=== PATIENT | female | born 1950 | race Caucasian/White ===

== ENCOUNTER 2022-04-01 15:03 | Inpatient (IN) ==
[2022-04-01] MEDS ORDERED: SODIUM CHLORIDE 0.9% 1000ML 1,000 ML IV STA (15:20)
[2022-04-01 16:45] LABS: Basophils # (auto) 0.07 K/uL (0-0.2); Basophils % (auto) 0.4 %; Eosinophils # (auto) 0.04 K/uL (0-0.50); Eosinophils % (auto) 0.2 %; Hematocrit (blood only) 40.7 % (34.1-44.9); Hemoglobin 13.8 g/dl (12.0-16.0); Immature Granulocytes # (auto) 0.16 K/uL (0.00-0.02); Immature Granulocytes % (auto) 0.8 %; Lymphocytes # (auto) 1.32 K/uL (1.2-3.4); Mean Corpuscular Hemoglobin 29.9 pg (25.0-34.0); Mean Corpuscular Hgb Conc 33.9 g/dL (32.0-36.0); Mean Corpuscular Volume 88.3 fL (80.0-100.0); Monocytes # (auto) 1.83 K/uL (0.24-0.82); Monocytes % (auto) 9.7 %; Neutrophils # (auto) 15.46 K/uL (1.4-6.5); Neutrophils % (auto) 81.9 %; Platelet Count 433 K/uL (130-400); RDW Coefficient of Variation 12.9 % (11.5-14.5); RDW Standard Deviation 41.7 fL (36.4-46.3); Red Blood Count 4.61 M/uL (3.93-5.22); White Blood Count 18.88 K/ul (4.8-10.8)
[2022-04-01 17:11] LABS: Albumin Globulin Ratio 0.9 (0.9-2); Albumin Level 3.5 gm/dl (3.4-5.0); BUN Creatinine Ratio 26.2 (10-20); Bilirubin,Total 0.4 mg/dl (0.2-1.0); Calcium 9.6 mg/dl (8.5-10.1); Est GFR (African American) 61.3 ml/min; Est GFR (Non-African American) 52.9 ml/min; Globulin 4.1 gm/dl (2.5-4.0); Potassium 3.5 mmol/L (3.5-5.1); Total Protein 7.6 gm/dl (6.0-8.3)
[2022-04-01] MEDS ORDERED: SODIUM CHLORIDE 0.9% 1000ML 1,000 ML IV ONE (17:17)
[2022-04-01 17:18] LABS: Troponin I High Sensitivity 14.3 pg/ml (0-14)
--- NOTE | 2022-04-01 17:44 | XRay Report ---
XR abdomen 2V w PA chest CLINICAL HISTORY: Abd pain, SOB TECHNIQUE: 2 views of the abdomen were obtained. A single view of the chest was obtained. Comparison: Comparison is made to chest radiograph 12/15/2012 FINDINGS: No lines and tubes are seen. Cardiomegaly is noted. The lungs are clear. There is a moderate left ple ural effusion, new from prior exam. Degenerative changes are seen in the visualized skeleton. The bowel gas pattern is nonobstructive. A moderate amount of stool is noted within the large bowel. IMPRESSION: Moderate left pleural effusion, new from prior exam. Nonobstructive bowel gas pattern. ACT 112: Negative or not required by law. Electronically signed by: Jw So M.D. 04/01/2022 5:42 PM
[2022-04-01] MEDS ORDERED: OPTIRAY 300 100mL IV ONE (17:46)
--- NOTE | 2022-04-01 18:01 | CT Scan Report ---
CT abd pelvis IV con only CLINICAL HISTORY: vomiting, pain TECHNIQUE: Helical axial images of the abdomen and pelvis were obtained and displayed. Automated dose lowering techniques and/or adjustment according to patient size were utilized for this exam. This e xam was performed with intravenous contrast. CT DOSE: 1230.77 mGycm COMPARISON: None available at the time of this dictation. FINDINGS: Exam is limited by patient body habitus. Lower chest: A moderate left pleural effusion is seen. There is associated atelectasis. Liver: Unremarkable. No focal lesions are seen. Gallbladder and biliary tree: Patient is status post cholecystectomy. Physiologic prominence of the b iliary ducts is noted. Pancreas: Fatty replacement of the pancreas is seen. Spleen: Unremarkable. Adrenals: Unremarkable. Kidneys and ureters: Subcentimeter hypodensities are too small to characterize. Bladder: Limited evaluation due to underdistention. Reproductive organs: Bilateral ovarian cysts are noted. Bowel: Unremarkable. Lymph nodes Retroperitoneal: Unremarkable. Pelvic: Unremarkable. Mesenteric: Unremarkable. Peritoneum: Normal. Vessels: Unremarkable. Abdominal wall: Unremarkable. Bones: Unremarkable. IMPRESSION: No acute abnormalities and in particular no evidence of obstruction. ACT 112: Negative or not required by law. Electronically signed by: Jw So M.D. 04/01/2022 5:59 PM
--- NOTE | 2022-04-01 18:06 | Emergency Department Note ---
Impression & Plan Weakness, LUQ abdominal pain, Pleural effusion, Leukocytosis, Vomiting, Weight loss ED Provider Note NAME: DANG JIMENEZ AGE: 71 SEX: F : 1950 ARRIVES VIA: Walk-In INFORMANT: [Patient][family] ED PROVIDER(S): [Babatunde Boyd MD] CHIEF COMPLAINT: Vomiting HISTORY OF PRESENT ILLNESS: Patient is a 71-year-old female presents to the ER with complaints of vomiting and weight loss. She has been vomiting for over a month and she has lost over 50 pounds. In the last month, she has developed some left upper quadrant and left flank pain. The pain is a 6/10 and is worse with movement or leaning over. She has not had fever. She has been mildly short of breath. No cough or diarrhea or urinary complaints. The patient had an endoscopy done in the [place] area. She was told that she was not digesting her food well. She has had no follow-up since. The patient has had her gallbladder removed, she denies any other abdominal surgeries. REVIEW OF SYSTEMS: See HPI for pertinent positives and negatives. A total of ten systems were reviewed and were otherwise negative. PMHx/PSHx: See Below SOCIAL HISTORY: See Below. PHYSICAL EXAM: GENERAL: Patient is in no acute distress. HEENT: No acute trauma, normocephalic atraumatic, mucous membranes moist, no nasal congestion, no scleral icterus. NECK: No stridor, no adenopathy, no meningismus, trachea is midline. LUNGS: Diminished breath sounds on the left, no wheezing or rhonchi, no respir atory distress. HEART: Without murmurs gallops or rubs, regular rate and rhythm. ABDOMEN: Soft, tender in the left upper quadrant, obese. No peritonitis. EXTREMITIES: No cyanosis, moderate bilateral pedal edema, moves all extremities without pain or difficulty NEUROLOGIC: Oriented x 3, no acute motor or sensory deficits, no focal weakness. SKIN: No rash, no jaundice, no diaphoresis. Back: Left flank discomfort to percussion. DIFFERENTIAL DIAGNOSIS: Appendicitis, ovarian cyst, ovarian torsion, diverticulitis, UTI, obstruction, mesenteric ischemia, aortic pathology, inflammatory bowel disease, renal colic, PUD, pancreatitis, biliary pathology, hernia, volvulus, constipation, as well as other pathologies. EMERGENCY DEPARTMENT COURSE/PROCEDURES: ECG: Indication was weakness. The ECG shows a normal sinus rhythm with a rate of 91. There is significant baseline artifact. There is no ST elevation, no PVCs. The QTc is 462. Continuous Cardiac Monitoring: An order was placed for continuous cardiac monitoring. The monitor shows a rate of 89 with normal sinus rhythm. MEDICAL DECISION MAKING: There is a moderate leukocytosis at 18,000, this would be consistent with infection. There is a normal hemoglobin. Platelet count slightly elevated at 433. No renal failure. Magnesium low at 1.6. Alk phos slightly elevated, the remaining liver enzymes are unremarkable. ECG showed a normal sinus rhythm, no obvious ischemia. Cardiac enzyme testing x1 was slightly elevated, this elevati on could be from cardiac injury versus mismatch. There is no evidence for pancreatitis. Procalcitonin level was not elevated. The patient appeared to be in a euthyroid state. Lyme disease testing was negative. COVID testing was negative. Abdominal series shows a large left pleural effusion. No bowel obstruction. Abdominal and pelvis CT shows the same effusion with some potential atelectasis. No acute surgical pathology by CT imaging. No signs of infection by CT imaging. On exam, the patient was tender in the left lower quadrant and also with percussion of the left flank. Patient received IV saline, 2 L. She was given IV magnesium. She received IV cefepime as antibiotic coverage. The patient presents with weight loss, vomiting and some left flank/chest discomfort. She appears to have a left pleural effusion, potentially from aspiration pneumonia. Certainly, malignancy is a concern. I do think the flank pain is from the effusion. Fortunately, her abdominal and pelvis CT is without acute pathology. Given the circumstances, I do think a hospital stay is warranted. She may benefit from a thoracentesis. She requires IV antibiotic therapy. I spoke with the patient and case management. The on-call hospitalist was consulted. Past Med/Surg History Medical History HTN (hypertension) Hypothyroid Surgical History (Updated 04/01/22 @ 23:08 by Babatunde Boyd MD) History of cholecystectomy Social History Smoking Status: Never smoker Preferred Language: Nepali Feels Safe at Home: Yes Allergies Allergies Allergy/AdvReac Type Severity Reaction Status Date / Time amlodipine Allergy Severe SHORT OF Verified 04/01/22 18:56 BREATH losartan [From Cozaar] Allergy Severe SHORT OF Verified 04/01/22 18:56 BREATH cefazolin Allergy Mild PATIENT Verified 04/01/22 18:56 HAD GENERALIZED ITCHING JUST AFTER ANCEF WAS STARTED lisinopril AdvReac Intermediate Cough Verified 04/01/22 18:56 Home Meds Home Medications Medication Instructions Recorded Confirmed albuterol sulfate 90 mcg/actuation 1 - 2 puff inhalation Q4H PRN 04/01/22 04/01/22 aerosol inhaler COUGH/WHEEZING atorvastatin 10 mg tablet 10 mg PO DAILY 04/01/22 04/01/22 fesoterodine 8 mg tablet,extended 8 mg PO DAILY 04/01/22 04/01/22 release 24 hr (Toviaz) irbesartan 150 mg tablet 150 mg PO DAILY 04/01/22 04/01/22 levothyroxine 75 mcg tablet 75 mcg PO DAILYBB 04/01/22 04/01/22 metoprolol succinate 200 mg 200 mg PO BID 04/01/22 04/01/22 tablet,extended release 24 hr montelukast 10 mg tablet 10 mg PO QPM 04/01/22 04/01/22 omeprazole 40 mg capsule,delayed 40 mg PO DAILYBB 04/01/22 04/01/22 release polyethylene glycol 3350 17 17 g PO DAILY 04/01/22 04/01/22 gram/dose oral powder (Miralax) triamterene 37.5 1 cap PO DAILY 04/01/22 04/01/22 mg-hydrochlorothiazide 25 mg capsule venlafaxine 150 mg 150 mg PO DAILY 04/01/22 04/01/22 capsule,extended release 24 hr venlafaxine 75 mg capsule,extended 75 mg PO DAILY 04/01/22 04/01/22 release 24 hr Results & Data (ED) Vital Signs Vital Signs - 24 hr 04/01/22 15:19 04/01/22 17:03 Temperature 37.2 C Temperature Source Temporal Artery Scan Pulse Rate 89 Pulse Rate [Left Radial] 75 Pulse Rhythm Regular Pulse Rhythm [Left Radial] Regular Pulse Strength Normal Respiratory Rate 20 20 Respiratory Effort / Characteristics Non-Labored Spontaneous Respiratory Depth Normal Normal Respiratory Pattern Regular Blood Pressure 120/76 Blood Pressure Mean 90 Blood Pressure Position Sitting Pulse Oximetry 94 97 Oxygen Delivery Method Room Air Room Air Sepsis Recent Fever Within 48 Hours No Sepsis New/Unexplained Change in Mental Status No Sepsis Action Taken by Nursing No Action Required Home Medications Current Medication List: was personally reviewed by me Laboratory Data Attestation: I reviewed the patient's lab results. Result diagrams: 04/01/22 16:34 04/01/22 16:34 Lab Results 04/01/22 04/01/22 04/01/22 Range/Units 16:34 16:34 17:17 WBC 18.88 H (4.8-10.8) K/ul RBC 4.61 (3.93-5.22) M/uL Hgb 13.8 (12.0-16.0) g/dl Hct 40.7 (34.1-44.9) % MCV 88.3 (80.0-100.0) fL MCH 29.9 (25.0-34.0) pg MCHC 33.9 (32.0-36.0) g/dL RDW Std Deviation 41.7 (36.4-46.3) fL RDW Coeff of Lance 12.9 (11.5-14.5) % Plt Count 433 H (130-400) K/uL MPV 10.0 (9.4-12.3) fL Immature Gran % (Auto) 0.8 % Neut % (Auto) 81.9 % Lymph % (Auto) 7.0 % Stanly % (Auto) 9.7 % Eos % (Auto) 0.2 % Baso % (Auto) 0.4 % Neut # (Auto) 15.46 H (1.4-6.5) K/uL Lymph # (Auto) 1.32 (1.2-3.4) K/uL Stanly # (Auto) 1.83 H (0.24-0.82) K/uL Eos # (Auto) 0.04 (0-0.50) K/uL Baso # (Auto) 0.07 (0-0.2) K/uL Immature Gran # (Auto) 0.16 H (0.00-0.02) K/uL Sodium 134 L (136-145) mmol/L Potassium 3.5 (3.5-5.1) mmol/L Chloride 96 L (98-107) mmol/L Carbon Dioxide 26 (21-32) mmol/L Anion Gap 12 H (3-11) BUN 28 H (6-23) mg/dl Creatinine 1.07 (0.6-1.2) mg/dl Est Cr Clr Drug Dosing 60.0 ml/min Est GFR ( Amer) 61.3 ml/min Est GFR (Non-Af Amer) 52.9 ml/min BUN/Creatinine Ratio 26.2 H (10-20) Glucose 109 H (70-99(Fasting)) mg/dl Calcium 9.6 (8.5-10.1) mg/dl Magnesium 1.6 L (1.7-2.4) mg/dl Total Bilirubin 0.4 (0.2-1.0) mg/dl AST 15 (13-39) U/L ALT 11 (7-52) U/L Alkaline Phosphatase 115 H (34-104) U/L Troponin I High Sens 14.3 H (0-14) pg/ml Total Protein 7.6 (6.0-8.3) gm/dl Albumin 3.5 (3.4-5.0) gm/dl Globulin 4.1 H (2.5-4.0) gm/dl Albumin/Globulin Ratio 0.9 (0.9-2) Lipase 12 (11-82) U/L TSH (0.300-4.500) uIu/ml Lyme Disease IgG Ab (Negative) Lyme Disease IgM Ab (Negative) 04/01/22 04/01/22 Range/Units 17:17 17:17 WBC (4.8-10.8) K/ul RBC (3.93-5.22) M/uL Hgb (12.0-16.0) g/dl Hct (34.1-44.9) % MCV (80.0-100.0) fL MCH (25.0-34.0) pg MCHC (32.0-36.0) g/dL RDW Std Deviation (36.4-46.3) fL RDW Coeff of Lance (11.5-14.5) % Plt Count (130-400) K/uL MPV (9.4-12.3) fL Immature Gran % (Auto) % Neut % (Auto) % Lymph % (Auto) % Stan[place] % (Auto) % Eos % (Auto) % Baso % (Auto) % Neut # (Auto) (1.4-6.5) K/uL Lymph # (Auto) (1.2-3.4) K/uL Stanly # (Auto) (0.24-0.82) K/uL Eos # (Auto) (0-0.50) K/uL Baso # (Auto) (0-0.2) K/uL Immature Gran # (Auto) (0.00-0.02) K/uL Sodium (136-145) mmol/L Potassium (3.5-5.1) mmol/L Chloride (98-107) mmol/L Carbon Dioxide (21-32) mmol/L Anion Gap (3-11) BUN (6-23) mg/dl Creatinine (0.6-1.2) mg/dl Est Cr Clr Drug Dosing ml/min Est GFR ( Amer) ml/min Est GFR (Non-Af Amer) ml/min BUN/Creatinine Ratio (10-20) Glucose (70-99(Fasting)) mg/dl Calcium (8.5-10.1) mg/dl Magnesium (1.7-2.4) mg/dl Total Bilirubin (0.2-1.0) mg/dl AST (13-39) U/L ALT (7-52) U/L Alkaline Phosphatase (34-104) U/L Troponin I High Sens (0-14) pg/ml Total Protein (6.0-8.3) gm/dl Albumin (3.4-5.0) gm/dl Globulin (2.5-4.0) gm/dl Albumin/Globulin Ratio (0.9-2) Lipase (11-82) U/L TSH 3.648 (0.300-4.500) uIu/ml Lyme Disease IgG Ab Negative (Negative) Lyme Disease IgM Ab Negative (Negative) Administered Medications Enoxaparin Sodium (Enoxaparin Inj 40 Mg/0.4 Ml Syr) 40 mg SQ Q12H ABEL Stop: 05/01/22 21:59 Last Admin: 04/01/22 22:09 Dose: Not Given Documented By: SANJIV Lactated Ringer's (Lr) 1,000 mls @ 80 mls/hr IV .[id number] ABEL Stop: 04/02/22 20:29 Last Admin: 04/01/22 21:43 Dose: 80 mls/hr Documented By: SANJIV Famotidine 20 mg/ Syringe 5 mls @ 2.5 mls/min IV Q12H ABEL Stop: 05/01/22 21:59 Last Admin: 04/01/22 22:09 Dose: 2.5 mls/min Documented By: SANJIV Discontinued Medications Sodium Chloride (Nss 1000ml) 1,000 mls @ 999 mls/hr IV .Q1H1M STA Stop: 04/01/22 16:20 Last Infusion: 04/01/22 19:19 Dose: 0 mls/hr Documented By: Admin: 04/01/22 18:11 Dose: 999 mls/hr Documented By: SANJIV Sodium Chloride (Nss 1000ml) 1,000 mls @ 999 mls/hr IV .Q1H1M ONE Stop: 04/01/22 18:17 Last Infusion: 04/01/22 19:18 Dose: 0 mls/hr Documented By: Admin: 04/01/22 18:12 Dose: 999 mls/hr Documented By: SANJIV Cefepime HCl (Maxipime) 2,000 mg in 20 mls @ 5 mls/min IV NOW STA; Protocol Stop: 04/01/22 18:15 Last Admin: 04/01/22 19:18 Dose: 5 mls/min Documented By: SANJIV Magnesium Sulfate/Dextrose (Magnesium Sulfate / D5w) 1 gm in 100 mls @ 100 mls/hr IV NOW STA Stop: 04/01/22 19:59 Last Infusion: 04/01/22 22:10 Dose: 0 mls/hr Documented By: Admin: 04/01/22 19:18 Dose: 100 mls/hr Documented By: SANJIV Ioversol (Optiray 300 100ml) 81 ml IV ONCE ONE Stop: 04/01/22 17:47 Last Admin: 04/01/22 17:49 Dose: 81 ml Documented By: GEOFFREY Magnesium Oxide (Magnesium Oxide 400 Mg Tab) 400 mg PO NOW STA Stop: 04/01/22 19:35 Last Admin: 04/01/22 21:44 Dose: 400 mg Documented By: SANJIV Magnesium Oxide (Magnesium Oxide 400 Mg Tab) Confirm Administered Dose 400 mg . ROUTE .STK-MED ONE Stop: 04/01/22 21:40 Last Admin: 04/01/22 21:44 Dose: Not Given Documented By: RD Imaging Data Radiologist's Impression: Chest/Abdomen X-ray 04/01/22 15:20 XR abdomen 2V w PA chest CLINICAL HISTORY: Abd pain, SOB TECHNIQUE: 2 views of the abdomen were obtained. A single view of the chest was obtained. Comparison: Comparison is made to chest radiograph 12/15/2012 FINDINGS: No lines and tubes are seen. Cardiomegaly is noted. The lungs are clear. There is a moderate left pleural effusion, new from prior exam. Degenerative changes are seen in the visualized skeleton. The bowel gas pattern is nonobstructive. A moderate amount of stool is noted within the large bowel. IMPRESSION: Moderate left pleural effusion, new from prior exam. Nonobstructive bowel gas pa ttern. ACT 112: Negative or not required by law. Electronically signed by: Jw So M.D. 04/01/2022 5:42 PM Abdomen/Pelvis CT 04/01/22 17:17 CT abd pelvis IV con only CLINICAL HISTORY: vomiting, pain TECHNIQUE: Helical axial images of the abdomen and pelvis were obtained and displayed. Automated dose lowering techniques and/or adjustment according to patient size were utilized for this exam. This exam was performed with intravenous contrast. CT DOSE: 1230.77 mGycm COMPARISON: None available at the time of this dictation. FINDINGS: Exam is limited by patient body habitus. Lower chest: A moderate left pleural effusion is seen. There is associated atelectasis. Liver: Unremarkable. No focal lesions are seen. Gallbladder and biliary tree: Patient is status post cholecystectomy. Physiologic prominence of the biliary ducts is noted. Pancreas: Fatty replacement of the pancreas is seen. Spleen: Unremarkable. Adrenals: Unremarkable. Kidneys and ureters: Subcentimeter hypodensities are too small to characterize. Bladder: Limited evaluation due to underdistention. Reproductive organs: Bilateral ovarian cysts are noted. Bowel: Unremarkable. Lymph nodes Retroperitoneal: Unremarkable. Pelvic: Unremarkable. Mesenteric: Unremarkable. Peritoneum: Normal. Vessels: Unremarkable. Abdominal wall: Unremarkable. Bones: Unremarkable. IMPRESSION: No acute abnormalities and in particular no evidence of obstruction. ACT 112: Negative or not required by law. Electronically signed by: Jw So M.D. 04/01/2022 5:[address] 04/01/22 19:20 CT chest diagnostic wo con CLINICAL HISTORY: Dyspnea, abdominal pain TECHNIQUE: Multidetector row helical CT of the chest was performed. Coronal and sagittal reformations were obtained. Automated dose lowering techniques and/or adjustment according to patient size were utilized for this exam. CT DOSE: 1149.85 mGy.cm Comparison: Comparison is made to chest radiograph 04/01/2022 FINDINGS: Lungs and pleura: There is a moderate left pleural effusion with associated atelectasis. There is a 4 mm pulmonary nodule in the right upper lobe (series 4 image 56). Heart and pericardium: Heart size is normal. No pericardial effusion. Vessels: Unremarkable. Mediastinum and radha: Unremarkable. Chest wall and lower neck: Unremarkable. Abdomen: For findings below the diaphragm, please refer to CT of the abdomen dated the same. Bones: Degenerative changes in the thoracic spine. IMPRESSION: 1. There is a moderate left pleural effusion. 2. 4 mm pulmonary nodule in the right apex. According to Fleischner criteria, no follow-up is required in low risk patients, in high-risk patients, a 12 month follow-up CT can be optionally performed. ACT 112: Negative or not required by law. Electronically signed by: Jw So M.D. 04/01/2022 8:15 PM Discharge Plan Visit Data Chief Complaint: Vomiting Stated Complaint: VOMITING, HAD EGD 03/17, WEIGHT LOSS ED Provider: Babatunde Boyd Discharge Problem: Weakness, LUQ abdominal pain, Pleural effusion, Leukocytosis, Vomiting, Weight loss Patient Disposition: Admitted As Inpatient Condition: Fair
[2022-04-01] MEDS ORDERED: CEFEPIME 2,000 MG/20 ML VIAL IV STA (18:12)
--- NOTE | 2022-04-01 18:53 | History & Physical Report ---
Date of Service April 01, 2022 Assessment & Plan (1) HTN (hypertension): Plan: Sheyla is a 71-year-old female with a history of gastritis and bezoar presents with intractable nausea/vomiting, 50 pounds weight loss over 2 months, and general failure to thrive with progressive weakness. She is found to have a left lower lobe effusion? With underlying pneumonia, no known history of malignancy. Did have an EGD with [facility] which showed a bezoar and gastritis, however she was lost to follow-up would like to establish with Moriah ji. Very mild troponin leak on admission likely due to volume depletion, trended overnight Abdominal pain, intractable vomiting, weight loss EGD at [facility] previously: Gastritis, bezoar. Was lost to follow-up due to being unable to follow-up appointment, would like to see GI and establish with Moriah ji 50 pound weight loss in 2 months, no prior history of cancer. Last colonoscopy 5 years ago, polyps and recommended for 5-year follow-up Family history of colorectal cancer, breast cancer Leukocytosis to 18.8 Mildly hyponatremic to 134 Anion gap 12, creatinine 1.07, BUN/creatinine ratio 26 mild starvation ketosis Alk phos 115 Troponin high-sensitivity 14.3 TSH pending Lyme pending CTA/P: No acute abnormalities, no evidence of obstruction. Gallbladder is surgically absent. CXR: Moderate left pleural effusion, new. Nonobstructive bowel gas. EKG: Poor quality. No territorial ST segment changes.? Inferior inversions. Protonix IV daily Famotidine twice daily as needed Magnesium low, repletion ordered Moderate left pleural effusion ? Underlying pneumonia. Patient without fever/hypoxia with leukocytosis to 18 Pro-Paco pending CTchest pending Lasix deferred pending above. No history of malignancy, however has had concerning weight loss in the setting of poor p.o. intake Empirically continued on Rocephin daily for CAP coverage Hypertension Continue irbesartan Continue Triam/hydrochlorothiazide 37.5125 once daily Toprol 200 mg 1 tab twice daily Hyperlipidemia Continue atorvastatin 10 mg daily Overactive bladder -Continue fesoterodine Anxiety/depression [id number] mg ER daily Mild intermittent asthma No PFTs available for review No wheezing Nebs as needed No acute exacerbation at this time Hypothyroidism Continue Synthroid 75 mcg daily VTE prophylaxis: Lovenox Diet: Heart healthy CODE STATUS: DNR, discussed with patient Disposition: Med telemetry while pending tropes, then downgrade (2) HLD (hyperlipidemia): (3) Anxiety: (4) Hypothyroid: (5) Mild intermittent asthma: (6) History of cholecystectomy: History of Present Illness Primary Care Provider: Kitty Herrmann MD 71-year-old female presents to the ER with vomiting for 1 month, 50 pounds weight loss. Left upper quadrant and left flank pain. Pain is worse with movement and leaning over. She does have a history of cholecystectomy. Patient reports that beginning in January she had worsening reflux, poor appetite, and abdominal pain. She was trialed on several weeks of PPI therapy per [facility] without improvement. She underwent a EGD in February which showed gastritis, and increased food residue/bezoar. She was supposed to have 2-week follow-up, however her GI provider when vacation they were not able to obtain a follow-up appointment. She continued to have daily nausea, nonbloody/nonbilious emesis, and feelings of unwellness. She has lost 50 pounds in approximately 2 months. No personal history of cancer. Last colonoscopy was 5 years ago, some polyps removed, was recommended for 5-year follow-up. She is short of breath with minimal exertion, and feels that she gets some chest pain with deep inspiration. She is noted to have an effusion on her imaging. She reports she is not short of breath at rest, has not had heart racing, and is comfortable on room air. She has had bowel movements approximately every 3 days which are soft, nonbloody, and have not been black or tarry. She does have some chronic low back pain. Medical History: Reviewed Medications: Reviewed Surgical History: Reviewed Allergies: Reviewed Social History: Denies tobacco, alcohol, medical marijuana Code Status: DNR/DNI, discussed with patient at bedside Allergies Allergy/AdvReac Type Severity Reaction Status Date / Time amlodipine Allergy Severe SHORT OF Verified 04/01/22 18:56 BREATH losartan [From Cozaar] Allergy Severe SHORT OF Verified 04/01/22 18:56 BREATH cefazolin Allergy Mild PATIENT Verified 04/01/22 18:56 HAD GENERALIZED ITCHING JUST AFTER ANCEF WAS STARTED lisinopril AdvReac Intermediate Cough Verified 04/01/22 18:56 Home Medications Medication Instructions Recorded Confirmed Type albuterol sulfate 90 mcg/actuation 1 - 2 puff inhalation Q4H PRN 04/01/22 04/01/22 History aerosol inhaler COUGH/WHEEZING atorvastatin 10 mg tablet 10 mg PO DAILY 04/01/22 04/01/22 History fesoterodine 8 mg tablet,extended 8 mg PO DAILY 04/01/22 04/01/22 History release 24 hr (Toviaz) irbesartan 150 mg tablet 150 mg PO DAILY 04/01/22 04/01/22 History levothyroxine 75 mcg tablet 75 mcg PO DAILYBB 04/01/22 04/01/22 History metoprolol succinate 200 mg 200 mg PO BID 04/01/22 04/01/22 History tablet,extended release 24 hr montelukast 10 mg tablet 10 mg PO QPM 04/01/22 04/01/22 History omeprazole 40 mg capsule,delayed 40 mg PO DAILYBB 04/01/22 04/01/22 History release polyethylene glycol 3350 17 17 g PO DAILY 04/01/22 04/01/22 History gram/dose oral powder (Miralax) triamterene 37.5 1 cap PO DAILY 04/01/22 04/01/22 History mg-hydrochlorothiazide 25 mg capsule venlafaxine 150 mg 150 mg PO DAILY 04/01/22 04/01/22 History capsule,extended release 24 hr venlafaxine 75 mg capsule,extended 75 mg PO DAILY 04/01/22 04/01/22 History release 24 hr Past Med/Surg History Social History Smoking Status: Never smoker Preferred Language: Macedonian Feels Safe at Home: Yes Review of Systems Review of Systems: All systems reviewed & are unremarkable except as noted in Subjective Physical Exam Physical Exam: General: A&Ox3. NAD. Cooperative. HEENT: Atraumatic, normocephalic. Pulm: Diminished in LLL, otherwise CTAB A&P. -wheezes, -rales, -rhonchi. Symmetrical chest rise. No increased work of breathing. No respiratory distress. Cardiac: RRR, -mrg. Radial pulses intact and symmetrical. Abdominal: Nontender, nondistended, soft. BS present. Ext: Warm, dry. Intact. Results & Data Results & Data ([facility]) Vital Signs (Past 12 Hours) Vital Signs Temp Pulse Pulse Resp BP Pulse Ox O2 Del Method 04/01/22 17:03 75 20 97 Room Air 04/01/22 15:19 37.2 C 89 20 120/76 94 Room Air PG Care Time/CCT Total # of Minutes Spent Total Time Spent with Patient: Total time spent is greater than 50% in coordination of care (as documented) at patient's floor/unit and/or counseling patient: Coding Level of Care Code INT OBSERVATION CARE 50M LVL 2 Diagnoses HTN (hypertension) I10 HLD (hyperlipidemia) E78.5 Anxiety F41.9 Hypothyroid E03.9 Mild intermittent asthma J45.20 History of cholecystectomy Z90.49
[2022-04-01] MEDS ORDERED: MAGNESIUM SULFATE / D5W 1 GM/100 ML BAG IV STA (19:00)
[2022-04-01 19:17] LABS: Lyme Ab IgM w/WB Rflx Negative (Negative)
[2022-04-01 19:18] LABS: Lyme Ab IgG w/WB Rflx Negative (Negative)
[2022-04-01] MEDS ORDERED: POLYETHYLENE (MIRALAX) 17 GM PACK PO PRN (19:20)
[2022-04-01] MEDS ORDERED: MAGNESIUM OXIDE 400 MG TAB PO STA (19:34)
--- NOTE | 2022-04-01 20:18 | CT Scan Report ---
CT chest diagnostic wo con CLINICAL HISTORY: Dyspnea, abdominal pain TECHNIQUE: Multidetector row helical CT of the chest was performed. Coronal and sagittal reformations were obtained. Automated dose lowering techniques and/or adjustment according to patient size were u tilized for this exam. CT DOSE: 1149.85 mGy.cm Comparison: Comparison is made to chest radiograph 04/01/2022 FINDINGS: Lungs and pleura: There is a moderate left pleural effusion with associated atelectasis. There is a 4 mm pulmonary nodule in the right upper lobe (series 4 image 56). Heart and pericardium: Heart size is normal. No pericardial effusion. Vessels: Unremarkable. Mediastinum and radha: Unremarkable. Chest wall and lower neck: Unremarkable. Abdomen: For findings below the diaphragm, please refer to CT of the abdomen dated the same. Bones: Degenerative changes in the thoracic spine. IMPRESSION: 1. There is a moderate left pleural effusion. 2. 4 mm pulmonary nodule in the right apex. According to Fleischner criteria, no follow-up is requir ed in low risk patients, in high-risk patients, a 12 month follow-up CT can be optionally performed. ACT 112: Negative or not required by law. Electronically signed by: Jw So M.D. 04/01/2022 8:15 PM
[2022-04-01] MEDS ORDERED: MAGNESIUM OXIDE 400 MG TAB ONE (21:39)
[2022-04-01] MEDS: LACTATED RINGER'S 1,000 ML IV SCH (21:43)
[2022-04-01] MEDS: FAMOTIDINE 20 MG in SYRINGE 3 ML IV SCH (22:09)
[2022-04-01] MEDS: ENOXAPARIN INJ 40 MG/0.4 ML SYR SQ SCH (22:09)
[2022-04-02] MEDS ORDERED: cefTRIAXone SODIUM 2,000 MG in DEXTROSE 5% 50 ML IV SCH
[2022-04-02] MEDS: MAGNESIUM OXIDE 400 MG TAB PO SCH (08:33)
--- NOTE | 2022-04-02 09:19 | Gastrointestinal Consultation ---
Date of Consultation April 02, 2022 Assessment & Plan (1) Nausea & vomiting: (2) Weight loss: Plan 71 year old with pmhx of htn, hypothyorid, HLD, cholecystectomy, here today with complaints of 50 lb weight loss, nausea, vomiting, poor appetite over a 2 month period. She tells me she had seen her GI DR. Norris in [place] for this who had tried PPI therapy without benefit and so in February 2022 she underwent an EGD with reported gastritis and a bezoar however I do not have these records. Likely gastroparesis causing issues. no obstruction suggested on recent CT. - discussed patient with Dr. Scott who advised on plan. - will increase protonix to 40mg bid. - start reglan 5mg bid. - start carafate 1 gm qid. - can continue zofran 4mg q 6 hours prn. - she should have colonoscopy as an outpatient. Supervising Physician Co-Signing Physician Notes Agree with CHEVY Pérez as above Gen: Morbidly obese, Chronic ill-appearing, NAD Remainder of exam was not performed, as patient was undergoing Echocardiogram Will Increase Pantoprazole to 40 mg BID Add Carafate 1 g PO QID Add Reglan 5 mg PO BID No need for emergent Endoscopic workup Will follow clinical course and make further recommendations as needed. History of Present Illness Reason for Consultation: nausea, vomiting, bezoar Requesting Physician: Dr. Caraballo Attending Physician: Andrea Carlson MD History of Present Illness 71 year old with pmhx of htn, hypothyorid, HLD, cholecystectomy, here today with complaints of 50 lb weight loss, nausea, vomiting, poor appetite over a 2 month period. She tells me she had seen her GI DR. Norris in [place] for this who had tried PPI therapy without benefit and so in February 2022 she underwent an EGD with reported gastritis and a bezoar (I do not have these records). Patient tells me nothing was done with this and she was told to follow up in 2 weeks but she never had an appointment. Given her symptoms she came to the ED for evaluation. Since admission she tells me she has not had further nausea or vomiting. She does tell me she has a bad appetite. For breakfast this morning she was only able to tolerate a half cup of coffee and toast before she felt sick. Last colonoscopy was 5 years ago per patient. she did have polyps. she tells me she is due for updated scope. she denies any heartburn, dysphagia, abdominal pain, change in bowels, melena, or brbpr. Allergies Allergy/AdvReac Type Severity Reaction Status Date / Time amlodipine Allergy Severe SHORT OF Verified 04/01/22 18:56 BREATH losartan [From Cozaar] Allergy Severe SHORT OF Verified 04/01/22 18:56 BREATH cefazolin Allergy Mild PATIENT Verified 04/01/22 18:56 HAD GENERALIZED ITCHING JUST AFTER ANCEF WAS STARTED lisinopril AdvReac Intermediate Cough Verified 04/01/22 18:56 Home Medications Medication Instructions Recorded Confirmed Type albuterol sulfate 90 mcg/actuation 1 - 2 puff inhalation Q4H PRN 04/01/22 04/01/22 History aerosol inhaler COUGH/WHEEZING atorvastatin 10 mg tablet 10 mg PO DAILY 04/01/22 04/01/22 History fesoterodine 8 mg tablet,extended 8 mg PO DAILY 04/01/22 04/01/22 History release 24 hr (Toviaz) irbesartan 150 mg tablet 150 mg PO DAILY 04/01/22 04/01/22 History levothyroxine 75 mcg tablet 75 mcg PO DAILYBB 04/01/22 04/01/22 History metoprolol succinate 200 mg 200 mg PO BID 04/01/22 04/01/22 History tablet,extended release 24 hr montelukast 10 mg tablet 10 mg PO QPM 04/01/22 04/01/22 History omeprazole 40 mg capsule,delayed 40 mg PO DAILYBB 04/01/22 04/01/22 History release polyethylene glycol 3350 17 17 g PO DAILY 04/01/22 04/01/22 History gram/dose oral powder (Miralax) triamterene 37.5 1 cap PO DAILY 04/01/22 04/01/22 History mg-hydrochlorothiazide 25 mg capsule venlafaxine 150 mg 150 mg PO DAILY 04/01/22 04/01/22 History capsule,extended release 24 hr venlafaxine 75 mg capsule,extended 75 mg PO DAILY 04/01/22 04/01/22 History release 24 hr Patient History Medical History HTN (hypertension) Hypothyroid Surgical History (Updated 04/01/22 @ 23:08 by Babatunde Boyd MD) History of cholecystectomy Social History Smoking Status: Never smoker Second Hand Exposure: No; Do You Dip or Chew Tobacco: No; Tobacco Cessation Education Requested by Patient: No Hx Alcohol Use: No Hx Substance Use: No Preferred Language: Malagasy Communication Ability: Effective Network Technology Instructor Required: No Beliefs That Will Affect Care: None Current Living Situation: Spouse and Family Other Information That Helps Us Care for You: No Feels Safe at Home: Yes Safety Concerns: Feels Safe At This Time Assistive Devices: Cane Review of Systems Review of Systems: All systems reviewed & are unremarkable except as noted in HPI & below Physical Exam Constitutional: WD/WN, vitals as above Eyes: + anicteric sclerae and PERRL ENMT: external ear and nose normal, oropharynx normal Respiratory: normal respiratory effort, lungs clear to auscultation Cardiovascular: RRR, no murmur, no edema Gastrointestinal (Abdomen): normal bowel sounds, soft, nontender, no hepatosplenomegaly Skin: no rashes, warm and dry Psychiatric: A+Ox3, euthymic affect Results & Data ([facility]) Vital Signs (Past 12 Hours) Vital Signs Temp Pulse Pulse Resp BP Pulse Ox O2 Del Method 04/02/22 08:01 36.8 C 95 H 16 137/71 94 Room Air 04/02/22 07:18 94 H 04/02/22 02:50 36.9 C 96 H 18 127/87 94 Room Air 04/02/22 04:22 89 04/02/22 04:14 Room Air 04/02/22 03:15 36.9 C 96 H 20 127/87 94 Room Air 04/02/22 03:05 36.9 C 96 H 18 127/87 94 Room Air 04/02/22 02:16 94 H 18 98/62 L 95 Room Air PG Care Time/CCT Total # of Minutes Spent Total Time Spent with Patient: Total time spent is greater than 50% in coordination of care (as documented) at patient's floor/unit and/or counseling patient: Coding Level of Care Code 59431 Initial Inpt Care Lvl 3 Diagnoses Nausea & vomiting R11.2 Weight loss R63.4
[2022-04-02] MEDS: FAMOTIDINE 20 MG in SYRINGE 3 ML IV SCH ×2 (10:34→21:06)
[2022-04-02] MEDS: ENOXAPARIN INJ 40 MG/0.4 ML SYR SQ SCH (10:34)
[2022-04-02] MEDS: LACTATED RINGER'S 1,000 ML IV SCH (10:40)
[2022-04-02] MEDS ORDERED: PANTOprazole 40 MG in SYRINGE 0 ML IV SCH (11:00)
[2022-04-02] MEDS: SUCRALFATE 1 GM/10 ML UDC PO SCH ×3 (12:11→20:39)
[2022-04-02 12:35] LABS: Appearance Urine Cloudy (Clear); Bacteria Urine Automated 1+ (Negative); Bilirubin Urine Negative (Negative); Blood Urine Negative (Negative); Color Urine Yellow; Epithelial Cell Urine Auto >30 /lpf (0-5); Glucose Urine UA Negative (Negative); Ketones Urine Trace (Negative); Leukocyte Esterase Urine Trace (Negative); Nitrite Urine Negative (Negative); Protein Urine Trace (Negative); RBC Urine Automated 0-4 /hpf (0-4); Specific Gravity Urine 1.045 (1.000-1.030); Urobilinogen Urine Negative (Negative)
--- NOTE | 2022-04-02 18:32 | Hospitalist Progress Note ---
Date of Service April 02, 2022 Assessment & Plan (1) HTN (hypertension): Plan: Sheyla is a 71-year-old female with a history of gastritis and bezoar presents with intractable nausea/vomiting, 50 pounds weight loss over 2 months, and general failure to thrive with progressive weakness. She is found to have a left lower lobe effusion? With underlying pneumonia, no known history of malignancy. Did have an EGD with [facility] which showed a bezoar and gastritis, however she was lost to follow-up would like to establish with Moriah ji. Very mild troponin leak on admission likely due to volume depletion, trended overnight Abdominal pain, intractable vomiting, weight loss EGD at [facility] previously: Gastritis, bezoar. Was lost to follow-up due to being unable to follow-up appointment, would like to see GI and establish with Moriah ji 50 pound weight loss in 2 months, no prior history of cancer. Last colonoscopy 5 years ago, polyps and recommended for 5-year follow-up Family history of colorectal cancer, breast cancer Leukocytosis to 18.8 Mildly hyponatremic to 134 Anion gap 12, creatinine 1.07, BUN/creatinine ratio 26 mild starvation ketosis Alk phos 115 Troponin high-sensitivity 14.3 TSH pending Lyme pending CTA/P: No acute abnormalities, no evidence of obstruction. Gallbladder is surgically absent. CXR: Moderate left pleural effusion, new. Nonobstructive bowel gas. EKG: Poor quality. No territorial ST segment changes.? Inferior inversions. Protonix IV daily Famotidine twice daily as needed Magnesium low, repletion ordered - GI consulted, suspect gastroparesis, started on Reglan-appreciate recommendations Moderate left pleural effusion ? Underlying pneumonia. Patient without fever/hypoxia with leukocytosis to 18 Pro-Paco WNL CTchest 4mm nodule in R apex, moderate L effusion Lasix deferred pending above. No history of malignancy, however has had concerning weight loss in the setting of poor p.o. intake Empirically continued on Rocephin daily for CAP coverage - Low suspicion for PNA, stop abx. Repeat wbc count in AM. - Consult pulm for diagnostic thoracentesis. Hold Lovenox. - Echo performed but not yet read. Hypertension Continue irbesartan Continue Triam/hydrochlorothiazide 37.5125 once daily Toprol XL 200 mg 1 tab twice daily Hyperlipidemia Continue atorvastatin 10 mg daily Overactive bladder -Continue fesoterodine Anxiety/depression [id number] mg ER daily Mild intermittent asthma No PFTs available for review No wheezing Nebs as needed No acute exacerbation at this time Hypothyroidism Continue Synthroid 75 mcg daily Move off tele to med/surg unit. Repeat labs in AM. Family updated. (2) HLD (hyperlipidemia): (3) Anxiety: (4) Hypothyroid: (5) Mild intermittent asthma: (6) History of cholecystectomy: Plan Plan d/w Dr. Carlson. Admission and Anticipated Discharge Date Admission Date: April 01, 2022 Subjective Patient seen on rounds this morning. No further complaints of n/v since coming to the hospital. Admits that she has been having increased shortness of breath with activity, none at rest with occasional nonproductive cough. Denies fever, chills, chest pain. Review of Systems Review of Systems: All systems reviewed and are unremarkable except as noted in HPI and below. Denies fever, chills, fatigue, headache, nasal congestion, sore throat, cough, chest pain, palpitations, orthopnea, PND, abdominal pain, n/v/d, constipation, dysuria, hematuria, frequency, back pain, joint pain or swelling, easy bruising or bleeding, skin lesions or rashes. Physical Exam Physical Exam: GENERAL: 71 yo morbidly obese WF. NAD. LUNGS: Diminished in LLL. Remaining lung guzman CTAB. CARDIOVASCULAR: Regular rate and rhythm. ABDOMEN: Soft, non-tender and non-distended. BS normoactive x 4 quad. EXTREMITIES: Trace b/l LE edema. Non-tender. Peripheral pulses +2/4. NEUROLOGIC: A&O x3. Nonfocal PSYCHIATRIC: Cooperative. Appropriate mood and affect. SKIN: Warm, dry, intact. No rashes or lesions. Results & Data Results & Data ([facility]) Vital Signs (Past 12 Hours) Vital Signs Temp Pulse Pulse Resp BP Pulse Ox O2 Del Method 04/02/22 16:00 36.2 C L 99 H 18 136/77 95 Room Air 04/02/22 15:41 103 H 04/02/22 12:00 36.9 C 103 H 16 121/72 96 Room Air 04/02/22 11:34 Room Air 04/02/22 08:01 36.8 C 95 H 16 137/71 94 Room Air 04/02/22 07:18 94 H Laboratory Results 04/01/22 16:34 04/01/22 16:34 PG Care Time/CCT Total # of Minutes Spent Total Time Spent with Patient: Total time spent is greater than 50% in coordination of care (as documented) at patient's floor/unit and/or counseling patient: Coding Level of Care Code 27710 Subseq Obs Care Lvl 2 Diagnoses HTN (hypertension) I10 HLD (hyperlipidemia) E78.5 Anxiety F41.9 Hypothyroid E03.9 Mild intermittent asthma J45.20 History of cholecystectomy Z90.49
--- NOTE | 2022-04-02 19:14 | XCELERA ---
[id number]
[2022-04-02] MEDS: METOCLOPRAMIDE HCL 5 MG TABLET PO SCH (20:38)
[2022-04-02] MEDS: PANTOprazole 40 MG in SYRINGE 0 ML IV SCH (20:38)
[2022-04-03] MEDS: ONDANSETRON INJ 2 MG/ML 2 ML VIAL IV PRN ×2 (05:34→14:05)
--- NOTE | 2022-04-03 05:54 | Electrocardiogram Report ---
Test Reason : Blood Pressure : / mmHG Vent. Rate : 091 BPM Atrial Rate : 091 BPM P-R Int : 114 ms QRS Dur : 080 ms QT Int : 376 ms P-R-T Axes : 043 031 163 degrees QTc Int : 462 ms Poor data quality, interpretation may be adversely affected Normal sinus rhythm Nonspecific ST and T wave abnormality Abnormal ECG When compared with ECG of 15-DEC-2012 14:04, Vent. rate has increased BY 32 BPM Confirmed by Maicol Anna ([id number]) on 04/03/2022 5:54:31 AM Referred By: REFERRED SELF Confirmed By:Maicol Anna
[2022-04-03 06:51] LABS: Hemoglobin 12.8 g/dl (12.0-16.0); Mean Corpuscular Hemoglobin 29.7 pg (25.0-34.0); Mean Corpuscular Hgb Conc 33.7 g/dL (32.0-36.0); Mean Corpuscular Volume 88.2 fL (80.0-100.0); Mean Platelet Volume 10.6 fL (9.4-12.3); Platelet Count 335 K/uL (130-400); RDW Coefficient of Variation 12.7 % (11.5-14.5); RDW Standard Deviation 41.2 fL (36.4-46.3); Red Blood Count 4.31 M/uL (3.93-5.22); White Blood Count 14.55 K/ul (4.8-10.8)
[2022-04-03 06:52] LABS: Basophils # (auto) 0.08 K/uL (0-0.2); Basophils % (auto) 0.5 %; Eosinophils # (auto) 0.05 K/uL (0-0.50); Eosinophils % (auto) 0.3 %; Immature Granulocytes # (auto) 0.13 K/uL (0.00-0.02); Immature Granulocytes % (auto) 0.9 %; Lymphocytes # (auto) 0.96 K/uL (1.2-3.4); Lymphocytes % (auto) 6.6 %; Monocytes # (auto) 1.73 K/uL (0.24-0.82); Monocytes % (auto) 11.9 %; Neutrophils % (auto) 79.8 %
[2022-04-03 07:02] LABS: Blood Urea Nitrogen 20 mg/dl (6-23); Calcium 8.8 mg/dl (8.5-10.1); Carbon Dioxide 25 mmol/L (21-32); Chloride 97 mmol/L (98-107); Creatinine Clr Calc Pharmacy 98.7 ml/min; Est GFR (African American) 87.2 ml/min; Est GFR (Non-African American) 75.2 ml/min; Glucose 103 mg/dl (70-99(Fasting))
[2022-04-03] MEDS: PANTOprazole 40 MG in SYRINGE 0 ML IV SCH ×2 (08:36→20:55)
[2022-04-03] MEDS: MAGNESIUM OXIDE 400 MG TAB PO SCH (08:36)
[2022-04-03] MEDS: SUCRALFATE 1 GM/10 ML UDC PO SCH ×4 (08:36→20:55)
[2022-04-03] MEDS: METOCLOPRAMIDE HCL 5 MG TABLET PO SCH ×3 (08:36→20:53)
[2022-04-03 09:14] LABS: Magnesium 1.5 mg/dl (1.7-2.4); Potassium 3.6 mmol/L (3.5-5.1)
[2022-04-03] MEDS: FAMOTIDINE 20 MG in SYRINGE 3 ML IV SCH ×2 (10:17→20:56)
--- NOTE | 2022-04-03 13:46 | Hospitalist Progress Note ---
Date of Service April 03, 2022 Assessment & Plan (1) Nausea & vomiting: Plan: EGD at [facility] previously: Gastritis, bezoar. Was lost to follow-up due to being unable to follow-up appointment, would like to see GI and establish with [facility] 50 pound weight loss in 2 months, no prior history of cancer. Last colonoscopy 5 years ago, polyps and recommended for 5-year follow-up Family history of colorectal cancer, breast cancer Troponin high-sensitivity 14.3 (negative x5) CTA/P: No acute abnormalities, no evidence of obstruction. Gallbladder is surgically absent. CXR: Moderate left pleural effusion, new. Nonobstructive bowel gas. EKG: Poor quality. No territorial ST segment changes.? Inferior inversions. Protonix IV daily Famotidine twice daily as needed Magnesium low, repletion ordered - GI consulted, suspect gastroparesis, started on Reglan, change to 5mg AC and HS-appreciate assistance - Add Phenergan suppositories - No clear indication of source, spoke again with GI who reviewed CT scan with radiology, concern that could have malignancy perhaps intraabdominal with metastatic spread to lung which is explaining the pleural effusion. Will obtain CA 125. Plan to scope on Tuesday to exclude upper GI etiology. NPO after MN on Tuesday. (2) Pleural effusion: Plan: ? Underlying pneumonia. Patient without fever/hypoxia with leukocytosis to 18 down to 14 Pro-Paco WNL CTchest 4mm nodule in R apex, moderate L effusion Lasix deferred pending above. No history of malignancy, however has had concerning weight loss in the setting of poor p.o. intake Empirically continued on Rocephin daily for CAP coverage - Low suspicion for PNA, stop abx. Repeat wbc count in AM downtrending. - Lovenox held, karson GRANADOS performed bedside ultrasound, will defer thoracentesis today d/t moderate risk and concern for pneumo and limited back up due to being a weekend. - Echo performed-LVEF >70% - Still have a high concern for malignancy. Will re-approach performing a diagnostic thoracentesis procedure on Tuesday. (3) Leukocytosis: Plan: - Suspect reactive from vomiting - No gross evidence of infection (afebrile, normal procalcitonin) - Antibiotics stopped, continue to trend wbc count (4) HTN (hypertension): Plan: Continue irbesartan Continue Triam/hydrochlorothiazide 37.512.5mg once daily Toprol XL 200 mg 1 tab twice daily - Of note, home meds were not continued on admission - for now resume Toprol, hold ARB and maxzide (5) HLD (hyperlipidemia): Plan: Continue atorvastatin 10 mg daily (6) Anxiety: Plan: Resume [id number] mg ER daily (7) Hypothyroid: Plan: Resume Synthroid 75 mcg daily (8) Mild intermittent asthma: Plan: No PFTs available for review No wheezing Nebs as needed No acute exacerbation at this time Plan Make patient a full admission. Interventions as outlined above to gain control of vomiting. Continue to work up for etiology. EGD Tuesday. Replace magnesium. Will update family when able. Plan d/w Dr. Carlson. Admission and Anticipated Discharge Date Admission Date: April 01, 2022 Subjective Patient seen on rounds this morning. Upon entering room, pt had just had bout of emesis when she sat up. She continues to c/o dyspnea with activity. No wheezes. She denies cp, fever, chills. Again, occasionally with cough. Review of Systems Review of Systems: All systems reviewed and are unremarkable except as noted in HPI and below. Denies fever, chills, fatigue, headache, nasal congestion, sore throat, cough, chest pain, palpitations, orthopnea, PND, abdominal pain, n/v/d, constipation, dysuria, hematuria, frequency, back pain, joint pain or swelling, easy bruising or bleeding, skin lesions or rashes. Physical Exam Physical Exam: GENERAL: 71 yo morbidly obese WF. NAD. LUNGS: Diminished in LLL. Remaining lung guzman CTAB. CARDIOVASCULAR: Sinus tachycardia ABDOMEN: Soft, obese, non-tender and non-distended. BS normoactive x 4 quad. EXTREMITIES: Trace b/l LE edema. Non-tender. Peripheral pulses +2/4. NEUROLOGIC: A&O x3. Nonfocal PSYCHIATRIC: Cooperative. Appropriate mood and affect. SKIN: Warm, dry, intact. No rashes or lesions. Results & Data Results & Data ([facility]) Vital Signs (Past 12 Hours) Vital Signs Temp Pulse Resp BP BP Pulse Ox O2 Del Method 04/03/22 11:46 36.9 C 120 H 18 127/84 95 Room Air 04/03/22 08:00 Room Air 04/03/22 08:12 36.6 C 114 H 19 103/69 95 Room Air 04/03/22 03:43 36.9 C 116 H 18 133/68 94 Room Air Laboratory Results 04/03/22 06:05 04/03/22 08:24 PG Care Time/CCT Total # of Minutes Spent Total Time Spent with Patient: Total time spent is greater than 50% in coordination of care (as documented) at patient's floor/unit and/or counseling patient: Coding Level of Care Code 76663 Subseq Hosp Care Lvl 3 Diagnoses Nausea & vomiting R11.2 Pleural effusion J90 Leukocytosis D72.829 Leukocytosis type: unspecified HTN (hypertension) I10 HLD (hyperlipidemia) E78.5 Anxiety F41.9 Hypothyroid E03.9 Mild intermittent asthma J45.20 (1) Leukocytosis Leukocytosis type: unspecified Qualified Code(s): D72.829 - Elevated white blood cell count, unspecified
[2022-04-03] MEDS ORDERED: PROMETHAZINE HCL 25 MG SUPP PR PRN (13:57)
--- NOTE | 2022-04-03 14:18 | Communication Note ---
Date of Service: April 03, 2022 I reviewed Sheyla's imaging with Radiology, and they are requesting any old CT scans of her Chest/Abd/Pelvis to be obtained from outside centers. Unilateral left pleural effusion with pleural thickening is concerning, as is questionable omental carcinomatosis. No obvious bezoar in the stomach, though there is some gastric wall thickening and rosalia-gastric lymphadenopathy. Nursing reports patient still continues to vomit, however, she has not been receiving her Zofran every 6 hours as ordered. She has no need for emergent endoscopic workup at pre sent. Will plan on keeping her NPO after midnight on Tuesday and perform an EGD on Tuesday for further evaluation. Please obtain records from outside hospital including prior imaging and EGD. OK to Add Phenergan Suppositories 25 mg every 8 hours PRN Nausea and vomiting. Discussed case with Dr. Carlson.
[2022-04-03] MEDS: VENLAFAXINE HCL XR 150 MG CAPXR PO SCH (14:49)
[2022-04-03] MEDS: VENLAFAXINE HCL XR 75 MG CAPXR PO SCH (14:49)
[2022-04-03] MEDS: MAGNESIUM SULFATE / D5W 1 GM/100 ML BAG IV SCH ×2 (14:51→17:03)
[2022-04-03] MEDS ORDERED: PROMETHAZINE HCL 12.5 MG in SODIUM CHLORIDE 0.9% 50 ML IV PRN (18:01)
[2022-04-03] MEDS: METOPROLOL SUCC 50MG EXT REL TAB PO SCH (20:54)
[2022-04-03] MEDS: ENOXAPARIN INJ 40 MG/0.4 ML SYR SQ SCH (20:56)
[2022-04-04] MEDS: LEVOTHYROXINE SODIUM 75 MCG TABLET PO SCH (05:40)
[2022-04-04] MEDS: ACETAMINOPHEN 325 MG TAB PO PRN ×3 (06:39→21:04)
[2022-04-04] MEDS: SUCRALFATE 1 GM/10 ML UDC PO SCH ×4 (06:39→20:53)
[2022-04-04] MEDS: METOCLOPRAMIDE HCL 5 MG TABLET PO SCH ×4 (06:40→20:51)
[2022-04-04] MEDS: METOPROLOL SUCC 50MG EXT REL TAB PO SCH ×2 (07:24→20:52)
[2022-04-04] MEDS: PANTOprazole 40 MG in SYRINGE 0 ML IV SCH ×2 (07:24→20:53)
[2022-04-04] MEDS: MAGNESIUM OXIDE 400 MG TAB PO SCH (07:24)
[2022-04-04 07:33] LABS: Basophils # (auto) 0.09 K/uL (0-0.2); Basophils % (auto) 0.6 %; Eosinophils # (auto) 0.04 K/uL (0-0.50); Eosinophils % (auto) 0.3 %; Hematocrit (blood only) 37.6 % (34.1-44.9); Hemoglobin 12.5 g/dl (12.0-16.0); Immature Granulocytes # (auto) 0.14 K/uL (0.00-0.02); Immature Granulocytes % (auto) 0.9 %; Lymphocytes # (auto) 0.82 K/uL (1.2-3.4); Lymphocytes % (auto) 5.2 %; Mean Corpuscular Hemoglobin 29.7 pg (25.0-34.0); Mean Corpuscular Hgb Conc 33.2 g/dL (32.0-36.0); Mean Corpuscular Volume 89.3 fL (80.0-100.0); Mean Platelet Volume 10.1 fL (9.4-12.3); Monocytes # (auto) 2.01 K/uL (0.24-0.82); Monocytes % (auto) 12.6 %; Neutrophils # (auto) 12.81 K/uL (1.4-6.5); Neutrophils % (auto) 80.4 %; Platelet Count 383 K/uL (130-400); RDW Coefficient of Variation 13.1 % (11.5-14.5); Red Blood Count 4.21 M/uL (3.93-5.22); White Blood Count 15.91 K/ul (4.8-10.8)
[2022-04-04] MEDS ORDERED: COUGH DROP (SUGAR FREE) LOZ 24 LOZ/1 BOX BUCCAL ONE (07:34)
[2022-04-04 08:00] LABS: BUN Creatinine Ratio 21.9 (10-20); Calcium 8.9 mg/dl (8.5-10.1); Creatinine Clr Calc Pharmacy 82.5 ml/min; Est GFR (African American) 69.9 ml/min; Est GFR (Non-African American) 60.3 ml/min; Magnesium 1.9 mg/dl (1.7-2.4); Potassium 3.4 mmol/L (3.5-5.1)
[2022-04-04] MEDS: VENLAFAXINE HCL XR 150 MG CAPXR PO SCH (08:21)
[2022-04-04] MEDS: VENLAFAXINE HCL XR 75 MG CAPXR PO SCH (08:21)
[2022-04-04] MEDS ORDERED: POTASSIUM CHLORIDE CRTAB 20 MEQ TABCR PO STA (08:35)
[2022-04-04] MEDS: FAMOTIDINE 20 MG in SYRINGE 3 ML IV SCH ×2 (10:23→20:54)
[2022-04-04] MEDS: ENOXAPARIN INJ 40 MG/0.4 ML SYR SQ SCH ×2 (10:56→20:54)
--- NOTE | 2022-04-04 11:03 | Hospitalist Progress Note ---
Date of Service April 04, 2022 Assessment & Plan (1) Nausea & vomiting: Plan: EGD at [facility] previously: Gastritis, bezoar. Was lost to follow-up due to being unable to follow-up appointment, would like to see GI and establish with [facility] 50 pound weight loss in 2 months, no prior history of cancer. Last colonoscopy 5 years ago, polyps and recommended for 5-year follow-up Family history of colorectal cancer, breast cancer Troponin high-sensitivity 14.3 (negative x5) CTA/P: No acute abnormalities, no evidence of obstruction. Gallbladder is surgically absent. CXR: Moderate left pleural effusion, new. Nonobstructive bowel gas. EKG: Poor quality. No territorial ST segment changes.? Inferior inversions. Protonix IV BID Famotidine twice daily as needed Magnesium low, repletion ordered (now resolved) - GI consulted, suspect gastroparesis, now on Reglan 5mg AC and HS-appreciate assistance - Added Phenergan IV (declined suppositories) PRN - No clear indication of source, spoke again with GI who reviewed CT scan with radiology, there is a concern that could have malignancy SOMEWHERE given weight loss and persistent vomiting (?ovaries, cysts noted) ? spread to lung which is explaining the pleural effusion. Will obtain CA 125. Plan to scope on Tuesday to exclude upper GI etiology. NPO after MN tonight. (2) Pleural effusion: Plan: ? Underlying pneumonia. Patient without fever/hypoxia with leukocytosis to 18 down to 14 Pro-Paco WNL CTchest 4mm nodule in R apex, moderate L effusion with atelectasis Lasix deferred pending above. No history of malignancy, however has had concerning weight loss in the setting of poor p.o. intake Empirically placed on Rocephin daily for CAP coverage but low index of suspicion for pna therefore stopped abx - Lovenox held, pulm NIGHATC performed bedside ultrasound, will defer thoracentesis today d/t moderate risk and concern for pneumo and limited back up due to being a weekend. - Echo performed-LVEF >70% - Still have a high concern for malignancy. Will re-approach performing a diagnostic thoracentesis procedure on Tuesday. (3) Leukocytosis: Plan: - ? reactive from vomiting - No gross evidence of infection (afebrile, normal procalcitonin) - Antibiotics stopped, continue to trend wbc count - Urine culture and blood cultures NG - WBC 18.8 --> 14.5 --> 15.9 (4) HTN (hypertension): Plan: Continue irbesartan Continue Triam/hydrochlorothiazide 37.512.5mg once daily Toprol XL 200 mg 1 tab twice daily - Of note, home meds were not continued on admission - for now resume Toprol, hold ARB and maxzide (5) HLD (hyperlipidemia): Plan: Continue atorvastatin 10 mg daily (6) Anxiety: Plan: Resume [id number] mg ER daily (7) Hypothyroid: Plan: Resume Synthroid 75 mcg daily (8) Mild intermittent asthma: Plan: No PFTs available for review No wheezing Nebs as needed No acute exacerbation at this time Plan Interventions as outlined above to gain control of vomiting. Continue to work up for etiology. EGD Tuesday and hopefully thoracentesis as well. Family updated extensively. Plan d/w Dr. Carlson. Admission and Anticipated Discharge Date Admission Date: April 03, 2022 Subjective Patient seen on rounds this morning. She has had no further bouts of emesis since yesterday afternoon. She currently denies abd pain, n/v/d. She continues to endorse dyspnea with ambulating to bathroom. Denies chest pain. No vaginal bleeding. UTD on mammograms, no h/o abnormal. Mother with breast ca and father w/ colon ca. Review of Systems 2 Review of Systems: All systems reviewed and are unremarkable except as noted in HPI and below. Denies fever, chills, fatigue, headache, nasal congestion, sore throat, cough, chest pain, palpitations, orthopnea, PND, abdominal pain, n/v/d, constipation, dysuria, hematuria, frequency, back pain, joint pain or swelling, easy bruising or bleeding, skin lesions or rashes. Physical Exam Physical Exam: GENERAL: 71 yo morbidly obese WF. NAD. LUNGS: Diminished in LLL. Remaining lung guzman CTAB. CARDIOVASCULAR: Sinus tachycardia ABDOMEN: Soft, obese, non-tender and non-distended. BS normoactive x 4 quad. EXTREMITIES: Trace b/l LE edema. Non-tender. Peripheral pulses +2/4. NEUROLOGIC: A&O x3. Nonfocal PSYCHIATRIC: Cooperative. Appropriate mood and affect. SKIN: Warm, dry, intact. No rashes or lesions. Results & Data Results & Data ([facility]) Vital Signs (Past 12 Hours) Vital Signs Temp Pulse Resp BP Pulse Ox O2 Del Method 04/04/22 10:50 36.8 C 100 H 20 113/60 93 Room Air 04/04/22 08:00 Room Air 04/04/22 07:17 36.7 C 109 H 18 117/65 96 Room Air 04/04/22 04:00 36.8 C 113 H 18 134/68 92 Room Air 04/04/22 01:00 Room Air 04/03/22 23:00 37.1 C 128 H 18 136/84 91 Room Air Laboratory Results 04/04/22 06:56 04/04/22 06:56 PG Care Time/CCT Total # of Minutes Spent Total Time Spent with Patient: Total time spent is greater than 50% in coordination of care (as documented) at patient's floor/unit and/or counseling patient: Coding Level of Care Code 42353 Subseq Hosp Care Lvl 2 Diagnoses Nausea & vomiting R11.2 Pleural effusion J90 Leukocytosis D72.829 Leukocytosis type: unspecified HTN (hypertension) I10 HLD (hyperlipidemia) E78.5 Anxiety F41.9 Hypothyroid E03.9 Mild intermittent asthma J45.20 (1) Leukocytosis Leukocytosis type: unspecified Qualified Code(s): D72.829 - Elevated white blood cell count, unspecified
[2022-04-05] MEDS: LEVOTHYROXINE SODIUM 75 MCG TABLET PO SCH (05:46)
[2022-04-05] MEDS: METOCLOPRAMIDE HCL 5 MG TABLET PO SCH ×4 (06:30→20:08)
[2022-04-05] MEDS: SUCRALFATE 1 GM/10 ML UDC PO SCH ×4 (06:30→20:07)
[2022-04-05] MEDS: MAGNESIUM OXIDE 400 MG TAB PO SCH (08:42)
[2022-04-05] MEDS: METOPROLOL SUCC 50MG EXT REL TAB PO SCH ×2 (08:42→22:55)
[2022-04-05] MEDS: VENLAFAXINE HCL XR 150 MG CAPXR PO SCH (08:42)
[2022-04-05] MEDS: VENLAFAXINE HCL XR 75 MG CAPXR PO SCH (08:42)
[2022-04-05] MEDS: PANTOprazole 40 MG in SYRINGE 0 ML IV SCH ×2 (08:43→20:14)
--- NOTE | 2022-04-05 09:00 | XRay Report ---
XR chest 2V PA/lateral HISTORY: 71 years-old Female f/u L pleural effusion acute weakness in a patient with left pleural ef fusion COMPARISON: Chest CT 04/01/2022 TECHNIQUE: PA and lateral views of the chest. FINDINGS: Cardiac silhouette is enlarged. Moderate sized left pleural effusion with left basilar consolidation redemonstrated. No pneumothorax, or overt pulmonary edema. Degenerative changes of the shoulders and spine. IMPRESSION: Unchanged moderate left pleural effusion with left basilar consolidation. ACT 112: Negative or not required by law. The above report was generated using voice recognition software. It may contain grammatical, syntax o r spelling errors. Electronically signed by: Prateek Mancini M.D. 04/05/2022 8:58 AM
--- NOTE | 2022-04-05 09:12 | History & Physical Bridge Note ---
Date of Service April 05, 2022 History & Physical Bridge Note I have examined the patient, reviewed the History & Physical and in the interval since the performance of the History & Physical I have noted the following changes of clinical significance: no changes noted. Patient has been NPO and will remain that way. Proceed with EGD today for further evaluation. Agree with CHEVY Ramirez as above Abd: Soft, NT, ND, +BS Continue current therapy and supportive care Proceed with EGD now.
[2022-04-05] MEDS: FAMOTIDINE 20 MG in SYRINGE 3 ML IV SCH ×2 (09:23→22:55)
[2022-04-05] MEDS: ENOXAPARIN INJ 40 MG/0.4 ML SYR SQ SCH (09:24)
--- NOTE | 2022-04-05 10:36 | Hospitalist Progress Note ---
Date of Service April 05, 2022 Assessment & Plan (1) Nausea & vomiting: Plan: EGD at [facility] previously: Gastritis, bezoar. Was lost to follow-up due to being unable to follow-up appointment, would like to see GI and establish with [facility] 50 pound weight loss in 2 months, no prior history of cancer. Last colonoscopy 5 years ago, polyps and recommended for 5-year follow-up Family history of colorectal cancer, breast cancer Troponin high-sensitivity 14.3 (negative x5) CTA/P: Multiple abnormalities noted (primarily in the stomach) that were not identified on initial read-also evidence of metastatic disease in lung, omentum, and lymph nodes. CXR: Moderate left pleural effusion, new. Nonobstructive bowel gas. EKG: Poor quality. No territorial ST segment changes.? Inferior inversions. Protonix IV BID Famotidine twice daily as needed Magnesium low, repletion ordered (now resolved) - GI consulted, suspect gastroparesis, now on Reglan 5mg AC and HS & Carafate- appreciate assistance - Added Phenergan IV (declined suppositories) PRN - MALIGNANCY is suspected to be driving pt's symptoms - primary source at this time remains unknown. CA 125 ordered/pending. Pt is for repeat EGD today with Dr. Scott, time is unknown. Records from are to be faxed as she had recent u/s of her ovaries and report from her recent EGD w/ biopsies is also to be faxed. Still have not received reports yet for review. (2) Pleural effusion: Plan: CTchest 4mm nodule in R apex, moderate L effusion with atelectasis Lasix deferred pending above. No history of malignancy, however has had concerning weight loss in the setting of poor p.o. intake Empirically placed on Rocephin daily for CAP coverage but low index of suspicion for pna therefore stopped abx - Lovenox held, karson GRANADOS performed bedside ultrasound, thoracentesis deferred over the weekend d/t moderate risk and concern for pneumo and limited back up for intervention if such would occur - Echo performed-LVEF >70% - My primary concern remains that this is a malignant effusion, again primary malignancy site is unknown - Pulmonology has been formally consulted for diagnostic thoracentesis-uncertain when this will be done, she did have prophylactic Lovenox injection this AM which has been placed on hold (3) Leukocytosis: Plan: - ? reactive from vomiting versus malignancy - No gross evidence of infection (afebrile, normal procalcitonin) - Antibiotics stopped - Urine culture and blood cultures NG - WBC 18.8 --> 14.5 --> 15.9 --> 13.7 (4) HTN (hypertension): Plan: Takes irbesartan, Maxzide, and Toprol XL at home - Of note, home meds were not continued on admission - resumed Toprol, held ARB and maxzide (5) HLD (hyperlipidemia): Plan: Continue atorvastatin 10 mg daily (6) Anxiety: Plan: Resume [id number] mg ER daily (7) Hypothyroid: Plan: Resume Synthroid 75 mcg daily (8) Mild intermittent asthma: Plan: No PFTs available for review No wheezing Nebs as needed No acute exacerbation at this time Plan For EGD today, will review records from [facility] once they are sent. Thoracentesis when ok with pulmonology for diagnostic purposes. Will update and daughter at bedside this afternoon. Plan d/w Dr. Carlson. Admission and Anticipated Discharge Date Admission Date: April 03, 2022 Subjective Patient seen on rounds this morning. She had a few bouts of emesis yesterday afternoon, none this AM so far. No abd pain or diarrhea. Afebrile. She continues to endorse dyspnea with ambulating to short distances and cough (nonproductive). Denies chest pain. Review of Systems Review of Systems: All systems reviewed and are unremarkable except as noted in HPI and below. Denies fever, chills, fatigue, headache, nasal congestion, sore throat, cough, chest pain, palpitations, orthopnea, PND, abdominal pain, n/v/d, constipation, dysuria, hematuria, frequency, back pain, joint pain or swelling, easy bruising or bleeding, skin lesions or rashes. Physical Exam Physical Exam: GENERAL: 71 yo morbidly obese WF. NAD. LUNGS: Diminished in LLL. Remaining lung guzman CTAB. CARDIOVASCULAR: RRR ABDOMEN: Soft, obese, non-tender and non-distended. BS normoactive x 4 quad. EXTREMITIES: Trace b/l LE edema. Non-tender. Peripheral pulses +2/4. NEUROLOGIC: A&O x3. Nonfocal PSYCHIATRIC: Cooperative. Appropriate mood and affect. SKIN: Warm, dry, intact. No rashes or lesions. Results & Data Results & Data ([facility]) Vital Signs (Past 12 Hours) Vital Signs Temp Pulse Pulse Resp BP BP Pulse Ox 04/05/22 07:51 104 H 04/05/22 07:49 36.4 C L 105 H 16 127/83 93 04/05/22 03:13 36.5 C 95 H 18 127/71 90 04/04/22 22:41 114 H 04/04/22 23:17 36.6 C 102 H 18 100/66 90 O2 Del Method 04/05/22 07:51 04/05/22 07:49 Room Air 04/05/22 03:13 Room Air 04/04/22 22:41 04/04/22 23:17 Room Air Laboratory Results 04/05/22 10:44 PG Care Time/CCT Total # of Minutes Spent Total Time Spent with Patient: Total time spent is greater than 50% in coordination of care (as documented) at patient's floor/unit and/or counseling patient: Coding Level of Care Code 96269 Subseq Hosp Care Lvl 2 Diagnoses Nausea & vomiting R11.2 Pleural effusion J90 Leukocytosis D72.829 Leukocytosis type: unspecified HTN (hypertension) I10 HLD (hyperlipidemia) E78.5 Anxiety F41.9 Hypothyroid E03.9 Mild intermittent asthma J45.20 (1) Leukocytosis Leukocytosis type: unspecified Qualified Code(s): D72.829 - Elevated white blood cell count, unspecified
[2022-04-05 10:52] LABS: Basophils # (auto) 0.07 K/uL (0-0.2); Basophils % (auto) 0.5 %; Eosinophils # (auto) 0.09 K/uL (0-0.50); Eosinophils % (auto) 0.7 %; Hematocrit (blood only) 38.4 % (34.1-44.9); Hemoglobin 12.9 g/dl (12.0-16.0); Immature Granulocytes # (auto) 0.12 K/uL (0.00-0.02); Immature Granulocytes % (auto) 0.9 %; Lymphocytes # (auto) 0.97 K/uL (1.2-3.4); Lymphocytes % (auto) 7.1 %; Mean Corpuscular Hemoglobin 30.1 pg (25.0-34.0); Mean Corpuscular Hgb Conc 33.6 g/dL (32.0-36.0); Mean Corpuscular Volume 89.7 fL (80.0-100.0); Mean Platelet Volume 10.1 fL (9.4-12.3); Monocytes # (auto) 1.83 K/uL (0.24-0.82); Monocytes % (auto) 13.4 %; Neutrophils # (auto) 10.62 K/uL (1.4-6.5); Neutrophils % (auto) 77.4 %; Platelet Count 366 K/uL (130-400); RDW Coefficient of Variation 13.1 % (11.5-14.5); RDW Standard Deviation 42.7 fL (36.4-46.3); Red Blood Count 4.28 M/uL (3.93-5.22)
--- NOTE | 2022-04-05 11:12 | Pulmonary Consultation ---
Date of Consultation April 05, 2022 Assessment & Plan (1) Pleural effusion: Unclear etiology, but possibly related to malignancy given the abdominal lymphadenopathy and gastric abnormalities noted on CT abdomen/pelvis. Patient agreeable and consenting to a left thoracentesis. PT/INR ordered. Please hold Lovenox or any other form of anticoagulation in anticipation of thoracentesis tomorrow. Discussed plan with bedside nurse. She is going to witness the consent. Discussed with hospitalist over the phone as well. (2) Dyspnea on exertion: Multifactorial related to the patient's morbid obesity, deconditioning and left pleural effusion. History of Present Illness Reason for Consultation: Unilateral left pleural effusion Attending Physician: Andrea Carlson MD History of Present Illness 71-year-old female with a past medical history of morbid obesity and hypertension who presented to the hospital due to increasing nausea and vomiting for the past month. Patient notes that she had a 50 pound weight loss. She had a CT of her abdomen and chest. She reportedly had an EGD in [facility] revealed gastritis. She is going to undergo an EGD today by gastroenterology. She had an echocardiogram completed on the which revealed an LVEF of greater than 70%. No LVH noted. Technically limited study. White count has been mildly elevated during this hospital stay. Lymphopenia noted. COVID-19 testing negative. Blood and urine cultures negative to date. She is saturating 97% on room air. CT of the chest reviewed from 04/01/2022 which revealed a small to moderate left pleural effusion. Pulmonary is consulted for thoracentesis. Chest x-ray today reveals a left pleural effusion with atelectasis. Patient notes shortness of breath walking 10 to 20 feet over the past month. She denies any orthopnea. No fevers, chills or night sweats. No chest pain. She continues to have nausea today. She denies any personal history of tobacco abuse or cancer. Allergies Allergy/AdvReac Type Severity Reaction Status Date / Time amlodipine Allergy Severe SHORT OF Verified 04/01/22 18:56 BREATH losartan [From Cozaar] Allergy Severe SHORT OF Verified 04/01/22 18:56 BREATH cefazolin Allergy Mild PATIENT Verified 04/01/22 18:56 HAD GENERALIZED ITCHING JUST AFTER ANCEF WAS STARTED lisinopril AdvReac Intermediate Cough Verified 04/01/22 18:56 Home Medications Medication Instructions Recorded Confirmed Type albuterol sulfate 90 mcg/actuation 1 - 2 puff inhalation Q4H PRN 04/01/22 04/01/22 History aerosol inhaler COUGH/WHEEZING atorvastatin 10 mg tablet 10 mg PO DAILY 04/01/22 04/01/22 History fesoterodine 8 mg tablet,extended 8 mg PO DAILY 04/01/22 04/01/22 History release 24 hr (Toviaz) irbesartan 150 mg tablet 150 mg PO DAILY 04/01/22 04/01/22 History levothyroxine 75 mcg tablet 75 mcg PO DAILYBB 04/01/22 04/01/22 History metoprolol succinate 200 mg 200 mg PO BID 04/01/22 04/01/22 History tablet,extended release 24 hr montelukast 10 mg tablet 10 mg PO QPM 04/01/22 04/01/22 History omeprazole 40 mg capsule,delayed 40 mg PO DAILYBB 04/01/22 04/01/22 History release polyethylene glycol 3350 17 17 g PO DAILY 04/01/22 04/01/22 History gram/dose oral powder (Miralax) triamterene 37.5 1 cap PO DAILY 04/01/22 04/01/22 History mg-hydrochlorothiazide 25 mg capsule venlafaxine 150 mg 150 mg PO DAILY 04/01/22 04/01/22 History capsule,extended release 24 hr venlafaxine 75 mg capsule,extended 75 mg PO DAILY 04/01/22 04/01/22 History release 24 hr Patient History Medical History (Updated 04/05/22 @ 11:39 by Aleksandar Bates MD) Dyspnea on exertion HTN (hypertension) Hypothyroid Surgical History (Updated 04/01/22 @ 23:08 by Babatunde Boyd MD) History of cholecystectomy Social History Smoking Status: Never smoker Second Hand Exposure: No; Do You Dip or Chew Tobacco: No; Tobacco Cessation Education Requested by Patient: No Hx Alcohol Use: No Hx Substance Use: No Preferred Language: Albanian Communication Ability: Effective Network Admin Required: No Beliefs That Will Affect Care: None Current Living Situation: Spouse and Family Other Information That Helps Us Care for You: No Feels Safe at Home: Yes Safety Concerns: Feels Safe At This Time Assistive Devices: Cane Review of Systems Review of Systems: All systems reviewed & are unremarkable except as noted in HPI & below Physical Exam Physical Exam: Constitutional: Morbidly obese appearing female in no apparent distress. Eyes: Pupils are equal round and reactive to light. Conjunctivae are normal. Anicteric sclera. Ears nose, mouth and throat: Deferred. Neck: Trachea is midline. Visual inspection is normal. Respiratory: Diminished at the left lung base. No increased work of breathing. No wheeze. Cardiovascular: Regular rate and rhythm. No murmurs. No edema. Gastrointestinal: Normal bowel sounds, soft, nontender and nondistended. No hepatosplenomegaly noted. Musculoskeletal: No cyanosis. Patient is able to move all extremities. Skin: No rashes, warm dry and intact. Neurologic: No obvious focal neurological deficits seen. Psychiatric: Alert and oriented x3 with a euthymic affect. Results & Data Results & Data ([facility]) Vital Signs (Past 12 Hours) Vital Signs Temp Pulse Pulse Resp BP BP Pulse Ox 04/05/22 10:57 36.5 C 91 H 16 133/81 97 04/05/22 07:51 104 H 04/05/22 07:49 36.4 C L 105 H 16 127/83 93 04/05/22 03:13 36.5 C 95 H 18 127/71 90 04/04/22 23:17 36.6 C 102 H 18 100/66 90 O2 Del Method 04/05/22 10:57 Room Air 04/05/22 07:51 04/05/22 07:49 Room Air 04/05/22 03:13 Room Air 04/04/22 23:17 Room Air PG Care Time/CCT Total # of Minutes Spent Total Time Spent with Patient: Total time spent is greater than 50% in coordination of care (as documented) at patient's floor/unit and/or counseling patient: Coding Level of Care Code 55470 Initial Inpt Care Lvl 3 Diagnoses Pleural effusion J90 Dyspnea on exertion R06.09
[2022-04-05 11:22] LABS: BUN Creatinine Ratio 25.2 (10-20); Calcium 9.1 mg/dl (8.5-10.1); Est GFR (African American) 58.7 ml/min; Est GFR (Non-African American) 50.6 ml/min; Magnesium 1.9 mg/dl (1.7-2.4); Potassium 3.5 mmol/L (3.5-5.1)
--- NOTE | 2022-04-05 12:15 | Anesthesiology Consultation ---
Date of Service April 05, 2022 Assessment & Plan Chart Review Chart Review: Acceptable Risk for Surgery ASA ASA3 Proposed Anesthesia Anesthesia Type: MAC Risk / Benefits Reviewed With: PT / POA / Parent / Guardian, Accepts Plan and Informed Consent Obtained History Surgery Operation Date: 04/05/22 16:30 Proposed Procedures p Esophagogastroduodenoscopy Dr Scott - Erich Goel Case, DO Height/Weight Height: 5 ft 5 in Weight: 149.5 kg Allergies Allergy/AdvReac Type Severity Reaction Status Date / Time amlodipine Allergy Severe SHORT OF Verified 04/01/22 18:56 BREATH losartan [From Cozaar] Allergy Severe SHORT OF Verified 04/01/22 18:56 BREATH cefazolin Allergy Mild PATIENT Verified 04/01/22 18:56 HAD GENERALIZED ITCHING JUST AFTER ANCEF WAS STARTED lisinopril AdvReac Intermediate Cough Verified 04/01/22 18:56 Medications Home Medications Medication Instructions Recorded Confirmed Last Taken albuterol sulfate 90 mcg/actuation 1 - 2 puff inhalation Q4H PRN 04/01/22 04/01/22 Unknown aerosol inhaler COUGH/WHEEZING atorvastatin 10 mg tablet 10 mg PO DAILY 04/01/22 04/01/22 04/01/22 fesoterodine 8 mg tablet,extended 8 mg PO DAILY 04/01/22 04/01/22 04/01/22 release 24 hr (Toviaz) irbesartan 150 mg tablet 150 mg PO DAILY 04/01/22 04/01/22 04/01/22 levothyroxine 75 mcg tablet 75 mcg PO DAILYBB 04/01/22 04/01/22 04/01/22 metoprolol succinate 200 mg 200 mg PO BID 04/01/22 04/01/22 04/01/22 08:00 tablet,extended release 24 hr montelukast 10 mg tablet 10 mg PO QPM 04/01/22 04/01/22 03/31/22 omeprazole 40 mg capsule,delayed 40 mg PO DAILYBB 04/01/22 04/01/22 04/01/22 release polyethylene glycol 3350 17 17 g PO DAILY 04/01/22 04/01/22 04/01/22 gram/dose oral powder (Miralax) triamterene 37.5 1 cap PO DAILY 04/01/22 04/01/22 04/01/22 mg-hydrochlorothiazide 25 mg capsule venlafaxine 150 mg 150 mg PO DAILY 04/01/22 04/01/22 04/01/22 capsule,extended release 24 hr venlafaxine 75 mg capsule,extended 75 mg PO DAILY 04/01/22 04/01/22 04/01/22 release 24 hr Active Medications Generic Name Dose Route Start Last Admin Trade Name Marbinq PRN Reason Stop Dose Admin Acetaminophen 650 mg 04/01/22 19:20 04/04/22 21:04 Acetaminophen 325 Mg Tab PO 05/01/22 19:19 650 mg Q4H PRN Administration Pain or Fever Enoxaparin Sodium 40 mg 04/01/22 22:00 04/05/22 09:24 Enoxaparin Inj 40 Mg/0.4 Ml Syr SQ 05/01/22 21:59 40 mg Q12H ABEL Administration Famotidine 20 mg/ Syringe 5 mls @ 2.5 mls/min 04/01/22 22:00 04/05/22 09:23 IV 05/01/22 21:59 2.5 mls/min Q12H ABEL Administration Pantoprazole Sodium 40 mg/ 10 mls @ 5 mls/min 04/02/22 21:00 04/05/22 08:43 Syringe IV 05/02/22 20:59 5 mls/min BID ABEL Administration Levothyroxine Sodium 75 mcg 04/04/22 06:30 04/05/22 05:46 Levothyroxine Sodium 75 Mcg Tablet PO 05/04/22 06:29 Not Given DAILYBB ABEL Magnesium Oxide 400 mg 04/02/22 09:00 04/05/22 08:42 Magnesium Oxide 400 Mg Tab PO 05/02/22 08:59 Not Given QAM ABEL Metoclopramide HCl 5 mg 04/03/22 16:30 04/05/22 06:30 Metoclopramide Hcl 5 Mg Tablet PO 05/03/22 16:29 Not Given ACHS ABEL Metoprolol Succinate 200 mg 04/03/22 21:00 04/05/22 08:42 Metoprolol Succ 50mg Ext Rel Tab PO 05/03/22 20:59 Not Given BID ABEL Ondansetron HCl 4 mg 04/01/22 19:20 04/03/22 14:05 Ondansetron Inj 2 Mg/Ml 2 Ml Vial IV 05/01/22 19:19 4 mg Q6H PRN Administration Nausea Sucralfate 1 gm 04/02/22 11:30 04/05/22 06:30 Sucralfate 1 Gm/10 Ml Udc PO 05/02/22 11:29 Not Given ACHS ABEL Venlafaxine HCl 75 mg 04/03/22 14:15 04/05/22 08:42 Venlafaxine Hcl Xr 75 Mg Capxr PO 05/03/22 14:14 Not Given DAILY ABEL Venlafaxine HCl 150 mg 04/03/22 14:15 04/05/22 08:42 Venlafaxine Hcl Xr 150 Mg Capxr PO 05/03/22 14:14 Not Given DAILY ABEL NPO Date Last Intake of Fluids: 04/04/22 Time Last Intake of Fluids: 18:00 Last Intake of Fluids Comment: NPO at midnight Date Last Intake of Solids: 04/04/22 Time Last Intake of Solids: 18:00 Last Intake of Solids Comment: NPO at midnight, last meal was dinner yesterday Past Medical History Medical History (Updated 04/05/22 @ 11:39 by Aleksandar Bates MD) Dyspnea on exertion HTN (hypertension) Hypothyroid Exercise / Class Metabolic Activity III < 4 Walking/Shop/Light housework goes to bathroom unassisted Past Surgical History Surgical History History of cholecystectomy Past Anesthesia History No Hx of Anesthesia Complications and No Family Hx of Anesthesia Complications History of PONV No Hx of PONV and No Hx of Motion Sickness Social History Smoking Status: Never smoker Do You Dip or Chew Tobacco: No Hx Alcohol Use: No Hx Substance Use: No Review of Systems Constitutional: as per Subjective / HPI Eyes: as per Subjective / HPI Ear, Nose, Mouth, Throat: as per Subjective / HPI Respiratory: as per Subjective / HPI Cardiovascular: as per Subjective / HPI Gastrointestinal: as per Subjective / HPI Hx of bezoar may have been retain pyloric food bolus (no hx of PICA or bezoar per pt report) Genitourinary (Female): as per Subjective / HPI Musculoskeletal: as per Subjective / HPI Integumentary: as per Subjective / HPI Neurologic: as per Subjective / HPI Psychiatric: as per Subjective / HPI Endocrine: as per Subjective / HPI Hematologic / Lymphatic: as per Subjective / HPI Allergy / Immunological: as per Subjective / HPI Physical Exam Vital Signs Last Vital Signs Temp 36.4 C L 04/05/22 12:06 Pulse 95 H 04/05/22 12:06 Resp 18 04/05/22 12:06 BP 127/62 04/05/22 12:06 Pulse Ox 98 04/05/22 12:06 O2 Del Method 04/05/22 12:06 Constitutional + morbidly obese ENMT Mouth: + dentures (missing upper bridge no loose teeth); no TMJ abnormality and no dentition abnormality Thyromental Distance: > or= 3.5 Finger Breadths Mallampati Class: III Neck + thick neck Respiratory normal respiratory effort Auscultation: + diminished lung sounds Cardiovascular Rate/Rhythm: regular rate, regular rhythm and + tachycardic Musculoskeletal Extremities: extremities normal to inspection Neurologic moves all extremities Psychiatric Orientation: alert and oriented x 3 Testing Laboratory Results 04/05/22 10:44 04/05/22 10:44 Urine Color Yellow 04/02/22 12:16 Urine Appearance Cloudy (Clear) A 04/02/22 12:16 Urine pH 6.0 (4.5-7.5) 04/02/22 12:16 Ur Specific [place] 1.045 (1.000-1.030) H 04/02/22 12:16 Urine Protein Trace (Negative) H 04/02/22 12:16 Urine Glucose (UA) Negative (Negative) 04/02/22 12:16 Urine Ketones Trace (Negative) H 04/02/22 12:16 Urine Nitrite Negative (Negative) 04/02/22 12:16 Ur Leukocyte Esterase Trace (Negative) H 04/02/22 12:16 Urine WBC (Auto) 10-30 /hpf (0-5) H 04/02/22 12:16 Urine RBC (Auto) 0-4 /hpf (0-4) 04/02/22 12:16 U Hyaline Cast (Auto) 1-5 /lpf (0-5) 04/02/22 12:16 U Epithel Cells (Auto) >30 /lpf (0-5) H 04/02/22 12:16 Urine Bacteria (Auto) 1+ (Negative) H 04/02/22 12:16 04/02/22 12:16 Urine Culture - Final Urine,Clean Catch No growth - less than 1,000 colonies/mL. 04/01/22 18:59 Aerobic Blood Culture - Preliminary Blood No growth in Aerobic bottle after 48 hours. Anaerobic Blood Culture - Preliminary No growth in Anaerobic bottle after 48 hours. 04/01/22 18:59 Aerobic Blood Culture - Preliminary Blood No growth in Aerobic bottle after 48 hours. Anaerobic Blood Culture - Preliminary No growth in Anaerobic bottle after 48 hours.
--- NOTE | 2022-04-05 12:18 | Anesthesiology Progress Note ---
Date of Service April 05, 2022 Anesthesia Post Procedure Vital Signs Vital Signs: Temp Pulse Pulse Resp BP BP Pulse Ox 04/05/22 12:06 36.4 C L 95 H 18 127/62 98 04/05/22 10:57 36.5 C 91 H 16 133/81 97 04/05/22 07:51 104 H 04/05/22 07:49 36.4 C L 105 H 16 127/83 93 04/05/22 03:13 36.5 C 95 H 18 127/71 90 04/04/22 22:41 114 H 04/04/22 23:17 36.6 C 102 H 18 100/66 90 04/04/22 22:23 04/04/22 19:16 36.6 C 93 H 18 116/78 93 04/04/22 15:22 36.4 C L 105 H 20 112/68 93 O2 Del Method 04/05/22 12:06 Room Air 04/05/22 10:57 Room Air 04/05/22 07:51 04/05/22 07:49 Room Air 04/05/22 03:13 Room Air 04/04/22 22:41 04/04/22 23:17 Room Air 04/04/22 22:23 Room Air 04/04/22 19:16 Room Air 04/04/22 15:22 Room Air Transfer of Care Handoff Completed per policy Notes Mental Status: alert / awake / arousable and participated in evaluation Patient Amnestic to Procedure: Yes Nausea / Vomiting: adequately controlled Pain: adequately controlled Airway Patency, RR, SpO2: stable & adequate BP & HR: stable & adequate Hydration State: stable & adequate Anesthetic Complications: no major complications apparent and Pt Satisfied with anesthetic care
[2022-04-05] MEDS ORDERED: KETAMINE 50 MG/5 ML SYRINGE ONE (12:56)
[2022-04-05] MEDS ORDERED: LIDOCAINE 2% MPF LOCAL 5 ML VIAL INFIL ONE (13:08)
[2022-04-05] MEDS ORDERED: PROPOFOL IV EMULSION 10 MG/ML 20 ML VIAL IV ONE (13:08)
--- NOTE | 2022-04-05 13:22 | GI REPORT ---
Patient Name: Sheyla Figueroa Procedure Date: 04/05/2022 12:43 PM Date of : 1950 Admit Type: Inpatient Age: 71 Gender: Female Attending MD: Erich Scott DO Procedure: Upper GI endoscopy Providers: Erich Scott DO Referring MD: Referred Self Indications: Abnormal CT of the GI tract, Weight loss Medicines: Monitored Anesthesia Care Complications: No immediate complications. Estimated Blood Loss: Estimated blood loss: none. Procedure: Pre-Anesthesia Assessment: - Prior to the procedure, a History and Physical was performed, and patient medications and allergies were reviewed. The patient's tolerance of previous anesthesia was also reviewed. The risks and benefits of the procedure and the sedation options and risks were discussed with the patient. All questions were answered, and informed consent was obtained. Prior Anticoagulants: The patient has taken Lovenox (enoxaparin), last dose was day of procedure. ASA Grade Assessment: III - A patient with severe systemic disease. After reviewing the risks and benefits, the patient was deemed in satisfactory condition to undergo the procedure. After obtaining informed consent, the endoscope was passed under direct vision. Throughout the procedure, the patient's blood pressure, pulse, and oxygen saturations were monitored continuously. The Endoscope was introduced through the mouth, and advanced to the second part of duodenum. The upper GI endoscopy was accomplished without difficulty. The patient tolerated the procedure well. Findings: The esophagus was normal. A large amount of food (residue) was found in the gastric fundus. A medium-sized, ulcerated, non-circumferential mass with oozing bleeding and no stigmata of recent bleeding was found in the gastric body. Biopsies were taken with a cold forceps for histology. The examined duodenum was normal. Impression: - Normal esophagus. - A large amount of food (residue) in the stomach. 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 Biopsied. - Normal examined duodenum. Recommendation: - Return patient to hospital [facility] for ongoing care. - Clear liquid diet. - Continue present medications. - Await pathology results. Erich Scott DO 04/05/2022 1:21:36 PM This report has been signed electronically. Note Initiated On: 04/05/2022 12:43 PM Number of Addenda: 0 I attest to the content of the Intraoperative Record and orders documented therein, exceptions below {[id number]}
[2022-04-05 14:57] LABS: INR 1.1 (0.9-1.1); Prothrombin Time 11.4 Seconds (9.0-12.0)
[2022-04-05] MEDS: ACETAMINOPHEN 325 MG TAB PO PRN (20:20)
[2022-04-05] MEDS ORDERED: MELATONIN 3 MG TAB PO PRN (22:34)
[2022-04-06] MEDS ORDERED: ENOXAPARIN 150 MG/ML SYR SQ SCH
[2022-04-06] MEDS: LEVOTHYROXINE SODIUM 75 MCG TABLET PO SCH (05:36)
[2022-04-06] MEDS: SUCRALFATE 1 GM/10 ML UDC PO SCH ×2 (08:28→12:29)
[2022-04-06] MEDS: MAGNESIUM OXIDE 400 MG TAB PO SCH (08:28)
[2022-04-06] MEDS: METOCLOPRAMIDE HCL 5 MG TABLET PO SCH ×2 (08:28→12:29)
[2022-04-06] MEDS: PANTOprazole 40 MG in SYRINGE 0 ML IV SCH (08:29)
[2022-04-06] MEDS: VENLAFAXINE HCL XR 75 MG CAPXR PO SCH (08:29)
[2022-04-06] MEDS: VENLAFAXINE HCL XR 150 MG CAPXR PO SCH (08:29)
[2022-04-06] MEDS: METOPROLOL SUCC 50MG EXT REL TAB PO SCH (08:29)
--- NOTE | 2022-04-06 09:12 | Procedure Note ---
Procedure Note Date of Service April 06, 2022 Note Procedure: Diagnostic and/or therapeutic ultrasound-guided catheter left thoracentesis Electronic Organ Technician: Dr. Aleksandar Bates Indication: Pleural effusion Consent: Signed by patient and verified with timeout prior to procedure Anesthesia: 8 mL's of 1% lidocaine without epinephrine given locally Procedure: Consent was verified and timeout performed. Appropriate imaging studies were reviewed prior to the procedure. Patient was placed in a seated position and limited thoracic ultrasound was performed of the left lateral chest. See separate imaging. The site appropriate for thoracentesis was selected. The skin was prepped and draped in normal sterile fashion. Lidocaine was used for local analgesia. Fluid was aspirated via the finder needle. A small skin yamini was made with the scalpel and the catheter over the needle apparatus was advanced over the rib into the pleural space. Using the syringe one-way valve system, a total of 1.275 L's of straw-colored fluid was removed. Procedure was terminated due to lack of flow. The catheter was removed and observed to be intact. A sterile dressing was applied. Post procedure CT chest ordered by the hospitalist service. Fluid was sent for LDH, total protein, cell count, glucose, pH, cytology, AFB cultures, gram stain and culture and fungal cultures. The patient tolerated the procedure well without obvious complication. Coding CPT Codes Pulmonary/Thoracic - Pulmonary and Thoracic: 78726 Thoracentesis w imaging ([id number]) [facility] [place] ([place]) Pulmonary/Thoracic Procedure 1: Pulmonary and Thoracic: 21466 Thoracentesis w imaging
--- NOTE | 2022-04-06 09:15 | Pulmonology Progress Note ---
Date of Service April 06, 2022 Assessment & Plan (1) Pleural effusion: Plan: Unclear etiology, but possibly related to malignancy given the abdominal lymphadenopathy and gastric abnormalities noted on CT abdomen/pelvis. Status postthoracentesis of the left today. 1.2 L of fluid removed. Hospitalist service is ordering CT of the chest to better evaluate for a mass and/or pleural lesion. Pleural fluid sent for cytology and cultures. Discussed with hospitalist and bedside nurse. Patient agreeable with plan. (2) Dyspnea on exertion: Plan: Multifactorial related to the patient's morbid obesity, deconditioning and left pleural effusion. Hopefully will improve with thoracentesis. Admission and Anticipated Discharge Date Admission Date: April 03, 2022 Subjective Patient anxious to go home. She continues to have shortness of breath with exertion. No chest pain, fevers, chills or night sweats. Occasional nausea. Appetite poor. Underwent EGD yesterday with biopsy and possible tumor in the stomach. Review of Systems Review of Systems: All systems reviewed & are unremarkable except as noted in HPI & below Physical Exam Physical Exam: Constitutional: Morbidly obese appearing female in no apparent distress. Eyes: Pupils are equal round and reactive to light. Conjunctivae are normal. Anicteric sclera. Ears nose, mouth and throat: Deferred. Neck: Trachea is midline. Visual inspection is normal. Respiratory: Diminished at the left lung base. No increased work of breathing. No wheeze. Cardiovascular: Regular rate and rhythm. No murmurs. No edema. Gastrointestinal: Normal bowel sounds, soft, nontender and nondistended. No hepatosplenomegaly noted. Musculoskeletal: No cyanosis. Patient is able to move all extremities. Skin: No rashes, warm dry and intact. Neurologic: No obvious focal neurological deficits seen. Psychiatric: Alert and oriented x3 with a euthymic affect. Results & Data Results & Data ([facility]) Vital Signs (Past 12 Hours) Vital Signs Temp Pulse Pulse Resp BP BP Pulse Ox 04/06/22 08:02 98 H 04/06/22 06:38 36.6 C 98 H 20 142/91 H 94 04/05/22 22:13 98 H 04/06/22 03:06 36.5 C 101 H 20 134/83 95 04/06/22 01:32 04/05/22 23:41 36.5 C 99 H 20 138/74 94 O2 Del Method 04/06/22 08:02 04/06/22 06:38 Room Air 04/05/22 22:13 04/06/22 03:06 Room Air 04/06/22 01:32 Room Air 04/05/22 23:41 Room Air PG Care Time/CCT Total # of Minutes Spent Total Time Spent with Patient: Total time spent is greater than 50% in coordination of care (as documented) at patient's floor/unit and/or counseling patient: Coding Level of Care Code 08827 Subseq Hosp Care Lvl 2 Diagnoses Pleural effusion J90 Dyspnea on exertion R06.09
[2022-04-06] MEDS ORDERED: OPTIRAY 300 100mL IV ONE (09:55)
[2022-04-06 10:08] LABS: Amylase Pleural Fluid < 10 U/L; Glucose Pleural Fluid 97 mg/dl; LDH Pleural Fluid 139 U/L; Total Protein Pleural Fluid 4.2 gm/dl
[2022-04-06] MEDS: FAMOTIDINE 20 MG in SYRINGE 3 ML IV SCH (10:48)
[2022-04-06 11:04] LABS: Appearance Pleural Fluid Hazy; Color Pleural Fluid Yellow; Eosinophils, Fluid 2 %; Lymphocytes, Fluid 53 %; Mono,Macrophage,Mesothelial 18 %; Neutrophils, Fluid 27 %; RBC Pleural Fluid (A) 2000 /uL; Source Pleural Fluid Left Lung; WBC Pleural Fluid (A) 1324 /uL
--- NOTE | 2022-04-06 11:14 | Communication Note ---
Date of Service: April 06, 2022 Patient is a 71 yo female with nausea & vomiting. EGD on 04/05/22 indicated a mass in the stomach. At the present time, I would schedule Zofran 4 mg q 6 hr and await results of EGD biopsies prior to making further recommendations.
--- NOTE | 2022-04-06 11:26 | XRay Report ---
SINGLE VIEW CHEST CLINICAL HISTORY: Status post thoracentesis FINDINGS: An AP, portable, upright chest radiograph is compared to study dated 04/05/2022 and correlat ed with chest CT dated 04/06/2022. The cardiomediastinal silhouette is unremarkable. There is only tra ce residual left pleural effusion with left basilar consolidation. The right lung appears clear. No p neumothorax is seen. The skeletal structures are osteopenic. The bony thorax is grossly intact. Degen erative change is noted in the shoulders. IMPRESSION: 1. No pneumothorax is identified post procedure. 2. There is trace residual left pleural effusion with left basilar consolidation. ACT 112: Negative or not required by law. Electronically signed by: Babatunde Juarez M.D. 04/06/2022 11:25 AM
--- NOTE | 2022-04-06 12:56 | Discharge Summary ---
Date of Service April 06, 2022 Admission HPI Per Admitting Provider 71-year-old female presents to the ER with vomiting for 1 month, 50 pounds weight loss. Left upper quadrant and left flank pain. Pain is worse with movement and leaning over. She does have a history of cholecystectomy. Patient reports that beginning in January she had worsening reflux, poor appetite, and abdominal pain. She was trialed on several weeks of PPI therapy per GI [facility] without improvement. She underwent a EGD in February which showed gastritis, and increased food residue/bezoar. She was supposed to have 2-week follow-up, however her GI provider when vacation they were not able to obtain a follow-up appointment. She continued to have daily nausea, nonbloody/nonbilious emesis, and feelings of unwellness. She has lost 50 pounds in approximately 2 months. No personal history of cancer. Last colonoscopy was 5 years ago, some polyps removed, was recommended for 5-year follow-up. She is short of breath with minimal exertion, and feels that she gets some chest pain with deep inspiration. She is noted to have an effusion on her imaging. She reports she is not short of breath at rest, has not had heart racing, and is comfortable on room air. She has had bowel movements approximately every 3 days which are soft, nonbloody, and have not been black or tarry. She does have some chronic low back pain. Medical History: Reviewed Medications: Reviewed Surgical History: Reviewed Allergies: Reviewed Social History: Denies tobacco, alcohol, medical marijuana Code Status: DNR/DNI, discussed with patient at bedside Principal Diagnosis 1. Intractable n/v 2. 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 L pleural effusion s/p thoracentesis 4. Unintentional Weight loss 5. Generalized weakness Discharge Exam GENERAL: 71 yo morbidly obese WF. NAD. LUNGS: CTAB CARDIOVASCULAR: RRR ABDOMEN: Soft, obese, non-tender and non-distended. BS normoactive x 4 quad. EXTREMITIES: Trace b/l LE edema. Non-tender. Peripheral pulses +2/4. NEUROLOGIC: A&O x3. Nonfocal PSYCHIATRIC: Cooperative. Appropriate mood and affect. SKIN: Warm, dry, intact. No rashes or lesions. Discharge Data Allergies Allergy/AdvReac Type Severity Reaction Status Date / Time amlodipine Allergy Severe SHORT OF Verified 04/10/22 22:23 BREATH losartan [From Cozaar] Allergy Severe SHORT OF Verified 04/10/22 22:23 BREATH cefazolin Allergy Mild PATIENT Verified 04/10/22 22:23 HAD GENERALIZED ITCHING JUST AFTER ANCEF WAS STARTED lisinopril AdvReac Intermediate Cough Verified 04/10/22 22:23 Consultations 04/01/22 18:42 ED Decision to Admit Stat 04/02/22 09:00 Consult Gastroenterology Routine 04/05/22 10:31 Consult Pulmonology Routine Procedures Performed Operation Date: 04/05/22 16:30 Actual Procedures p EGD Biopsy Cytology - Erich G. Case, DO Ordered Studies Chest/Abdomen X-ray 04/01/22 15:20 XR abdomen 2V w PA chest CLINICAL HISTORY: Abd pain, SOB TECHNIQUE: 2 views of the abdomen were obtained. A single view of the chest was obtained. Comparison: Comparison is made to chest radiograph 12/15/2012 FINDINGS: No lines and tubes are seen. Cardiomegaly is noted. The lungs are clear. There is a moderate left pleural effusion, new from prior exam. Degenerative changes are seen in the visualized skeleton. The bowel gas pattern is nonobstructive. A moderate amount of stool is noted within the large bowel. IMPRESSION: Moderate left pleural effusion, new from prior exam. Nonobstructive bowel gas pattern. ACT 112: Negative or not required by law. Electronically signed by: Jw So M.D. 04/01/2022 5:42 PM Abdomen/Pelvis CT 04/01/22 17:17 CT abd pelvis IV con only CLINICAL HISTORY: vomiting, pain TECHNIQUE: Helical axial images of the abdomen and pelvis were obtained and displayed. Automated dose lowering techniques and/or adjustment according to patient size were utilized for this exam. This exam was performed with intravenous contrast. CT DOSE: 1230.77 mGycm COMPARISON: None available at the time of this dictation. FINDINGS: Exam is limited by patient body habitus. Lower chest: A moderate left pleural effusion is seen. There is associated atelectasis. Liver: Unremarkable. No focal lesions are seen. Gallbladder and biliary tree: Patient is status post cholecystectomy. Physiologic prominence of the biliary ducts is noted. Pancreas: Fatty replacement of the pancreas is seen. Spleen: Unremarkable. Adrenals: Unremarkable. Kidneys and ureters: Subcentimeter hypodensities are too small to characterize. Bladder: Limited evaluation due to underdistention. Reproductive organs: Bilateral ovarian cysts are noted. Bowel: Unremarkable. Lymph nodes Retroperitoneal: Unremarkable. Pelvic: Unremarkable. Mesenteric: Unremarkable. Peritoneum: Normal. Vessels: Unremarkable. Abdominal wall: Unremarkable. Bones: Unremarkable. IMPRESSION: No acute abnormalities and in particular no evidence of obstruction. ACT 112: Negative or not required by law. Electronically signed by: Jw So M.D. 04/01/2022 5:[address] 04/01/22 19:20 CT chest diagnostic wo con CLINICAL HISTORY: Dyspnea, abdominal pain TECHNIQUE: Multidetector row helical CT of the chest was performed. Coronal and sagittal reformations were obtained. Automated dose lowering techniques and/or adjustment according to patient size were utilized for this exam. CT DOSE: 1149.85 mGy.cm Comparison: Comparison is made to chest radiograph 04/01/2022 FINDINGS: Lungs and pleura: There is a moderate left pleural effusion with associated atelectasis. There is a 4 mm pulmonary nodule in the right upper lobe (series 4 image 56). Heart and pericardium: Heart size is normal. No pericardial effusion. Vessels: Unremarkable. Mediastinum and radha: Unremarkable. Chest wall and lower neck: Unremarkable. Abdomen: For findings below the diaphragm, please refer to CT of the abdomen dated the same. Bones: Degenerative changes in the thoracic spine. IMPRESSION: 1. There is a moderate left pleural effusion. 2. 4 mm pulmonary nodule in the right apex. According to Fleischner criteria, no follow-up is required in low risk patients, in high-risk patients, a 12 month follow-up CT can be optionally performed. ACT 112: Negative or not required by law. Electronically signed by: Jw So M.D. 04/01/2022 8:15 PM Chest X-Ray 04/05/22 08:00 XR chest 2V PA/lateral HISTORY: 71 years-old Female f/u L pleural effusion acute weakness in a patient with left pleural effusion COMPARISON: Chest CT 04/01/2022 TECHNIQUE: PA and lateral views of the chest. FINDINGS: Cardiac silhouette is enlarged. Moderate sized left pleural effusion with left basilar consolidation redemonstrated. No pneumothorax, or overt pulmonary edema. Degenerative changes of the shoulders and spine. IMPRESSION: Unchanged moderate left pleural effusion with left basilar consolidation. ACT 112: Negative or not required by law. The above report was generated using voice recognition software. It may contain grammatical, syntax or spelling errors. Electronically signed by: Prateek Mancini M.D. 04/05/2022 8:58 AM Chest X-Ray 04/06/22 09:43 SINGLE VIEW CHEST CLINICAL HISTORY: Status post thoracentesis FINDINGS: An AP, portable, upright chest radiograph is compared to study dated 04/05/2022 and correlated with chest CT dated 04/06/2022. The cardiomediastinal silhouette is unremarkable. There is only trace residual left pleural effusion with left basilar consolidation. The right lung appears clear. No pneumothorax is seen. The skeletal structures are osteopenic. The bony thorax is grossly intact. Degenerative change is noted in the shoulders. IMPRESSION: 1. No pneumothorax is identified post procedure. 2. There is trace residual left pleural effusion with left basilar consolidation. ACT 112: Negative or not required by law. Electronically signed by: Babatunde Juarez M.D. 04/06/2022 11:25 AM Hospital Course (1) Nausea & vomiting: EGD at [facility] previously: Gastritis, bezoar. Was lost to follow-up due to being unable to follow-up appointment, would like to see GI and establish with [facility] 50 pound weight loss in 2 months, no prior history of cancer. Last colonoscopy 5 years ago, polyps and recommended for 5-year follow-up Family history of colorectal cancer, breast cancer Troponin high-sensitivity 14.3 (negative x5) CTA/P: Multiple abnormalities noted (primarily in the stomach) that were not identified on initial read-also evidence of metastatic disease in lung, omentum, and lymph nodes. CXR: Moderate left pleural effusion, new. Nonobstructive bowel gas. EKG: Poor quality. No territorial ST segment changes.? Inferior inversions. Protonix IV BID Famotidine twice daily as needed Magnesium low, repletion ordered (now resolved) - GI consulted, suspect gastroparesis, now on Reglan 5mg AC and HS & Carafate- appreciate assistance - Added Phenergan IV (declined suppositories) PRN - MALIGNANCY is suspected to be driving pt's symptoms - primary source at this time remains unknown. CA 125 ordered/pending. - Pt underwent EGD by Dr. Scott on 04/05, findings of a gastric tumor noted, this is presumed malignant and source of pt's symptoms. Biopsies taken/pending, results will be back within 48 hours. - Pt is requesting d/c home, will plan to d/c with Zofran ODT and Carafate. Stop Reglan. Dr. Scott will contact pt with results. - She would like to see Dr. Tomy Weeks if she should need surgery and is agreeable to seeing [facility] for oncology. (2) Pleural effusion: CTchest 4mm nodule in R apex, moderate L effusion with atelectasis Lasix deferred pending above. No history of malignancy, however has had concerning weight loss in the setting of poor p.o. intake Empirically placed on Rocephin daily for CAP coverage but low index of suspicion for pna therefore stopped abx - Lovenox held, pulm ROBERTA performed bedside ultrasound, thoracentesis deferred over the weekend d/t moderate risk and concern for pneumo and limited back up for intervention if such would occur - Echo performed-LVEF >70% - My primary concern remains that this is a malignant effusion, again primary malignancy site is unknown - Pulmonology consulted, thoracentesis performed 04/06, 1.2L of fluid drained and sent for analysis. Still suspect that this is a malignant effusion. - Post thoracentesis CXR showed some atelectasis, no PTX. CT w/ contrast of chest done and is pending formal read. (3) Leukocytosis: - ? reactive from vomiting versus malignancy - No gross evidence of infection (afebrile, normal procalcitonin) - Antibiotics stopped - Urine culture and blood cultures NG - WBC 18.8 --> 14.5 --> 15.9 --> 13.7, suspect elevated from a malignancy versus infection (4) HTN (hypertension): Takes irbesartan, Maxzide, and Toprol XL at home - Of note, home meds were not continued on admission - resumed Toprol, held ARB and maxzide (5) HLD (hyperlipidemia): Continue atorvastatin 10 mg daily (6) Anxiety: Resume [id number] mg ER daily (7) Hypothyroid: Resume Synthroid 75 mcg daily (8) Mild intermittent asthma: No PFTs available for review No wheezing Nebs as needed No acute exacerbation at this time Plan Extensively updated family at bedside this morning on results that we have thus far. She has an appt scheduled with her PCP Dr. Herrmann on 04/09, I have instructed her to keep that appointment as scheduled. Her PCP should be able to assist her with making necessary referrals once diagnosis is confirmed that the gastric tumor is in fact malignant. Dr. Scott's office will be in touch with results regarding the pathology report. She has verbalized wishes to go home with her and assistance of daughter. She is medically stable for such. I have discussed case with Dr. Pablo Smith who has also seen pt prior to discharge and is in agreement with aforementioned. Total Time Total Time Spent Total Time Spent (In Minutes): >30 minutes Discharge Plan Discharge Items Patient Disposition: Home - Self-Care Reason For Visit: INTRACTIBLE NAUSEA/VOMITING, TROP Discharge Diagnosis: 1. Nausea and vomiting likely due to stomach tumor 2. Fluid in left lung which has been drained Condition on Discharge: Fair Activity: Per Instructions section Activity Comment: as tolerated Non-emergency contact: Primary Care Provider and Renal Technician Call non-emergency contact if: you have any medication questions and your symptoms worsen Follow-up/Referrals: Kitty Herrmann MD [Primary Care Provider] - (PLEASE CALL YOUR PRIMARY CARE PROVIDER TO SCHEDULE A DISCHARGE FOLLOW-UP APPOINTMENT WITHIN 7-10 DAYS.) Diet: Regular Diet Comment: advance diet/eat as tolerated Addtl Attending Provider Instructions: You were hospitalized due to nausea and vomiting despite medications. You were also found to have fluid in your left lung space. You had an ultrasound of your heart that showed that your heart is pumping effectively and there were no leaky valves noted. Due your nausea and vomiting, you were seen by the stomach doctors here in the hospital who repeated a upper scope of your esophagus and stomach which discovered a tumor. Biopsies have been taken and are pending at this time but it is very likely that this represents cancer. The lung specialists performed a procedure today called a thoracentesis to drain the fluid out of your left lung. This should help you feel better when you get up and walk, you should no longer experience as much shortness of breath with activity. The fluid has been sent for analysis. Some of these results will not be available for a few days-up to a week as they are a send out. This should help to identify the source of the fluid. Again, it is concerning and suspected that the fluid in your lung could represent spread of cancer to your lung. You are going to be scheduled for a follow up appointment with Dr. Scott's office to go over the pathology report from your biopsy. Pending confirmation of cancer, you may need to be sent to a surgeon as well as a cancer specialist. You have expressed interest in following up with Dr. Tomy Weeks (for surgery). [facility] should be able to assist you in setting up this referral/appointment for you or your primary care physician can also assist. They can also refer you to [facility] who will take your information and call you with an appointment. Follow up with your family doctor is going to be important to have one central person managing your care. Keep your scheduled follow up with Dr. Herrmann on Monday 04/09. You are being sent home with Ondansetron 8mg (tablet) to take every 8 hour as needed for nausea/vomiting as well as Carafate 1 tablet before meals and at bedtime. Diet should be as tolerated. It will be important for you to keep up with your fluids to prevent dehydration. Two of your blood pressure medications have been stopped during your stay: Irbesartan and Triamterene/HCTZ. Please do not take these when you return home. Your primary care doctor can follow up with you in the office and determine if you need to restart them. We also found that you had a blood clot in your lungs. We have prescribed you Lovenox to help dissolve this clot. You will need to take this every 12 hours. Your first dose was today at 2 pm, so your next dose is technically at 2am. However, you can walk this back an hour or forwards an hour (ie either 1am or 3am) to help gradually get it to a more sensible time-frame for you (for example, 8am and 8pm every day). If you have any questions following your discharge, please call the nonemergency number listed on your discharge paperwork. If you have a medical emergency, call 911. Pending Studies at Discharge: Yes Studies:: biopsy of stomach tumor lung fluid tests Stand-Alone Forms: My [facility], Smoking Cessation Medications and DC Order Prescriptions: New ondansetron 8 mg tablet,disintegrating 8 mg PO Q8H PRN (Reason: nausea and vomiting) Qty: 30 0RF Continued venlafaxine 75 mg capsule,extended release 24hr 75 mg PO DAILY Rx Instructions: TOTAL DOSE 225 MG--TAKES WITH 150 MG CAP. metoprolol succinate 200 mg tablet extended release 24 hr 200 mg PO BID venlafaxine 150 mg capsule,extended release 24hr 150 mg PO DAILY Rx Instructions: TOTAL DOSE 225 MG--TAKES WITH 75 MG CAP. omeprazole 40 mg capsule,delayed release(DR/EC) 40 mg PO DAILYBB levothyroxine 75 mcg tablet 75 mcg PO DAILYBB montelukast 10 mg tablet 10 mg PO QPM polyethylene glycol 3350 [Miralax] 17 gram/dose Powder 17 g PO DAILY PRN (Reason: Constipation) albuterol sulfate 90 mcg/actuation Hfa Aerosol Inhaler 1 - 2 puff INHALATION Q4H PRN (Reason: COUGH/WHEEZING) Discontinued triamterene-hydrochlorothiazid 37.5-25 mg capsule 1 cap PO DAILY irbesartan 150 mg tablet 150 mg PO DAILY No Action enoxaparin [Lovenox] 120 mg/0.8 mL syringe 120 mg subcut .STOPPED sucralfate 100 mg/mL suspension 10 ml PO ACHS nystatin [Nystop] 100,000 unit/gram powder 1 applic TOPICAL TID PRN (Reason: Rash) Discharge Orders: Discharge Order (Routine); Ordered 04/06/22 Ordered By: Micheline Drew Admission Data Admit Date/Time: 04/03/22 14:19 Attending Provider: Pablo Smith Admit Provider: Andrea Carlson Primary Care Provider: Kitty Herrmann Other Providers: Mehdi Caraballo ; Erich Scott ; Aleksandar Bates Other Interventions: Discharge Summary Assessment (RN) Last Done: 04/06/22 15:05 Supervising Physician Co-Signing Physician Notes I supervised Micheline Drew PA-C on the care of this patient. I interviewed and examined the patient independently of her. The plan is as written in her note except for any following changes/exceptions: None Unfortunately woman with new cancer diagnosis. Plan for discharge with Lovenox due to new PE. Close follow up with GI. Coding Level of Care Code D/C DAY MANAGEMENT >30 MINS Diagnoses Nausea & vomiting R11.2 Pleural effusion J90 Leukocytosis D72.829 Leukocytosis type: unspecified HTN (hypertension) I10 HLD (hyperlipidemia) E78.5 Anxiety F41.9 Hypothyroid E03.9 Mild intermittent asthma J45.20
--- NOTE | 2022-04-06 13:24 | CT Scan Report ---
CT SCAN OF THE CHEST WITH IV CONTRAST CLINICAL HISTORY: Status post thoracentesis. Pleural effusion. COMPARISON STUDY: Chest x-ray as well as chest and abdominal CT scan dated 04/01/2022. TECHNIQUE: Following the IV administration of 118 cc of Optiray 320, CT scan of the thorax was perfor med from the thoracic inlet to the upper abdomen. Images are reviewed in the axial, sagittal, and cor onal planes. IV contrast was administered without complication. A dose lowering technique was utiliz ed adhering to the principles of ALARA. CT DOSE: 919.78 mGy.cm FINDINGS: Thyroid: Mildly enlarged and heterogeneous. Thoracic aorta: The thoracic aorta is normal in caliber and demonstrates standard 3-vessel arch anato my. No dissection is seen. Pulmonary vasculature: The pulmonary trunk is normal in caliber. There is pulmonary embolus within th e lingular pulmonary artery seen on axial image #150. Heart: The heart is normal in size and without pericardial effusion. Lungs and pleural spaces: The trachea and central airways are clear. There is likely trace residual l eft pleural effusion with patchy consolidation at the left lung base. Foci of segmental atelectasis a re noted in the left lower lobe. The right lung appears clear. No pneumothorax is seen post procedure . A 4 mm right apical pulmonary nodule is seen on image #59. Mild pleural thickening and enhancement of the left lung base seen previously is not well-visualized on today's examination. Mediastinum: Subcentimeter mediastinal lymph nodes are not pathologically enlarged by size criteria. A prevascular node on image #120 measures 8 mm in short axis. Marilyn: Clear. Axillae: There is no axillary lymphadenopathy. Upper abdomen: The gastric wall appears thickened with mucosal hyperemia. Mesenteric infiltration is noted in the left upper quadrant. Mildly enlarged gastrohepatic lymph nodes measure up to 11 mm in sh ort axis. A 2.0 x 1.7 cm node is partially visualized on image #296. Skeletal structures: The skeletal structures are osteopenic. No lytic or blastic bony lesions are see n. IMPRESSION: 1. There is a pulmonary embolus within the lingular pulmonary artery. 2. There is only trace residual left pleural effusion. No pneumothorax is seen post procedure. 3. Mild patchy groundglass consolidation at the left lung base is nonspecific and could represent ree xpansion edema versus a pneumonitis. Clinical correlation will be required. 4. The gastric wall appears thickened with mucosal hyperemia. Additionally, there is upper abdominal lymphadenopathy and mesenteric infiltration/nodularity. When correlated with the 04/01/[address] scan these findings favor metastatic disease/ peritoneal carcinomatosis. This is pathologically in determinant, with gastric or ovarian primaries considered most likely. 5. A 4 mm pulmonary nodule is seen at the right apex. This is pathologically indeterminant and attent ion at follow-up is recommended. 6. Additional findings as above. Please refer to below summary of Fleischner criteria recommendations for follow-up of incidental CT n odules (Liban Erazo, Guidelines for management of small pulmonary nodules detected on CT scans: A tom ramirez from the Fleischner Society, Radiology 237: [phone].) SOLID NODULES Solitary nodule size: <6 mm * low risk patients: no follow-up needed * high risk patients: optional CT at 12 months Solitary nodule size: 6-8 mm * low risk patients: follow-up at 6-12 months, then consider further follow-up at 18-24 months * high risk patients: initial follow-up CT at 6-12 months and then at 18-24 months if no change Solitary nodule size: >8 mm * either low or high risk patients - consider follow-up CT at 3 months, and/or CT-PET, and/or biopsy Multiple nodules size: <6 mm * low risk patients: no routine follow-up * high risk patients: optional CT at 12 months Multiple nodules size: 6-8 mm * low risk patients: follow-up at 3-6 months, then consider further follow-up at 18-24 months * high risk patients: follow-up at 3-6 months, then at 18-24 months if no change Multiple nodules size: >8 mm * low risk patients: follow-up at 3-6 months, then consider further follow-up at 18-24 months * high risk patients: follow-up at 3-6 months, then at 18-24 months if no change Note: newly detected indeterminate nodule in persons 35 years of age or older. * low risk patients: minimal or absent history of smoking and/or other known risk factors * high risk patients: history of smoking or of other known risk factors (e.g. first degree relative with lung cancer, or exposure to asbestos, radon, uranium) * if a nodule up to 8 mm is partly solid or is ground glass further follow-up is required after 24 m onths to exclude possible slow growing adenocarcinoma (JOCELINE) SUBSOLID NODULES Solitary pure ground-glass nodule * nodule size <6 mm - no CT follow-up required * nodule size >=6 mm - follow-up CT at 6-12 months, then every 2 years until 5 years Solitary part-solid nodule * nodule size <6 mm - no CT follow-up required * nodule size >=6 mm - follow-up CT at 3-6 months. If unchanged, and solid component remains <6 mm, then annual follow-up for 5 years Multiple subsolid nodules * nodule size <6 mm - follow-up CT at 3-6 months, consider further follow-up at 2 and 4 years if sta ble * nodule size >=6 mm - follow-up CT at 3-6 months, subsequent management based on the most suspiciou s nodule(s) ACT 112: Negative or not required by law. Electronically signed by: Babatunde Juarez M.D. 04/06/2022 1:22 PM
[2022-04-06] MEDS ORDERED: ENOXAPARIN 150 MG/ML SYR SQ ONE (14:00)
== END 2022-04-06 15:45 | disposition home or self-care (01) | DRG 375 ==
LOC: ED 15:03 → EDINP 15:03 → SUATTDRO 19:21 → 2N 04-02 02:20 → SUATTDRO 04-03 14:19
DX: J45.20 Mild intermittent asthma, uncomplicated; J91.0 Malignant pleural effusion; Z68.43 Body mass index [BMI] 50.0-59.9, adult; N32.81 Overactive bladder; E66.01 Morbid (severe) obesity due to excess calories; Z79.890 Hormone replacement therapy; I10 Essential (primary) hypertension; C78.00 Secondary malignant neoplasm of unspecified lung; E03.9 Hypothyroidism, unspecified; Z66 Do not resuscitate; Z88.1 Allergy status to other antibiotic agents; C16.2 Malignant neoplasm of body of stomach; F41.8 Other specified anxiety disorders; E87.1 Hypo-osmolality and hyponatremia; Z88.8 Allergy status to other drugs, medicaments and biological substances

== ENCOUNTER 2022-04-10 19:32 | Observation (INO) ==
[2022-04-10] MEDS ORDERED: PANTOprazole 80 MG in DEXTROSE 5% 100 ML IV ONE (20:14)
[2022-04-10] MEDS ORDERED: PANTOPRAZOLE BOLUS/DRIP 1 EACH IV STA (20:14)
[2022-04-10] MEDS ORDERED: PANTOprazole 40 MG in DEXTROSE 5% 100 ML IV SCH (20:30)
[2022-04-10 21:10] LABS: Basophils # (auto) 0.05 K/uL (0-0.2); Basophils % (auto) 0.4 %; Eosinophils # (auto) 0.06 K/uL (0-0.50); Eosinophils % (auto) 0.5 %; Hematocrit (blood only) 38.7 % (34.1-44.9); Hemoglobin 12.8 g/dl (12.0-16.0); Immature Granulocytes # (auto) 0.12 K/uL (0.00-0.02); Lymphocytes % (auto) 6.7 %; Mean Corpuscular Hemoglobin 29.5 pg (25.0-34.0); Mean Corpuscular Hgb Conc 33.1 g/dL (32.0-36.0); Mean Corpuscular Volume 89.2 fL (80.0-100.0); Mean Platelet Volume 10.5 fL (9.4-12.3); Monocytes # (auto) 1.64 K/uL (0.24-0.82); Monocytes % (auto) 13.6 %; Neutrophils # (auto) 9.36 K/uL (1.4-6.5); Neutrophils % (auto) 77.8 %; Platelet Count 388 K/uL (130-400); RDW Coefficient of Variation 12.9 % (11.5-14.5); RDW Standard Deviation 42.4 fL (36.4-46.3); Red Blood Count 4.34 M/uL (3.93-5.22); White Blood Count 12.03 K/ul (4.8-10.8)
[2022-04-10 21:16] LABS: INR 1.1 (0.9-1.1); Partial Thromboplastin Ratio 0.8; Partial Thromboplastin Time 23.2 Seconds (21.0-31.0); Prothrombin Time 11.5 Seconds (9.0-12.0)
[2022-04-10 21:24] LABS: Alanine Aminotransferase 28 U/L (7-52); Albumin Globulin Ratio 0.8 (0.9-2); Albumin Level 3.3 gm/dl (3.4-5.0); Alkaline Phosphatase 90 U/L (34-104); Anion Gap 15 (3-11); Aspartate Aminotransferase 43 U/L (13-39); Bilirubin,Total 0.4 mg/dl (0.2-1.0); Blood Urea Nitrogen 25 mg/dl (6-23); Calcium 8.9 mg/dl (8.5-10.1); Carbon Dioxide 25 mmol/L (21-32); Chloride 100 mmol/L (98-107); Est GFR (African American) 69.9 ml/min; Est GFR (Non-African American) 60.3 ml/min; Globulin 3.9 gm/dl (2.5-4.0); Glucose 92 mg/dl (70-99(Fasting)); Potassium 3.4 mmol/L (3.5-5.1); Sodium 140 mmol/L (136-145); Total Protein 7.2 gm/dl (6.0-8.3)
--- NOTE | 2022-04-10 22:29 | History & Physical Report ---
Date of Service April 10, 2022 Assessment & Plan (1) Hematemesis: Plan: 71yo female with a history of recent admission (04/01 - 04/06/2022) for nausea/vomiting suspected secondary to gastric adenocarcinoma (diagnosed 04/07), pulmonary emboli (04/06), pleural effusions, HTN, HLD, hypothyroidism, mild intermittent asthma, and anxiety presents with a awh-xz-wgo-day history of bloody emesis. Hematemesis Suspected secondary to gastric source given ongoing pathology, though PE remains a possibility given recent PE, recent discontinuation of lovenox, and tachycardia Hgb on arrival stable since last admission (12.8 which is only minimally lower than 12.9 on 04/05); INR 1.1, no sign of active bleeding CTA chest and CT abdomen/pelvis with contrast ordered to evaluate for PE +/- mesenteric ischemia +/- other etiologies Protonix administered in ED, continue 40mg IV bid Home lovenox discontinued by PCP on day prior to admission; continue to hold pending further workup NPO pending further workup Continue antiemetics Daily CBC, CMP Pulmonary emboli Noted on CT chest performed on 04/06 (of lingular pulmonary artery); had been treated with lovenox but this was held by PCP prior to admission On admission, patient mildly tachycardic (103) but without tachypnea, fever, hypoxia, CP, or SOB CTA chest ordered (suspect hematemesis is of gastric origin but differential includes PE) Will consider resuming anticoagulation if appropriate Hypokalemia Potassium mildly low on admission (3.4) K riders 10mEq q1h (x2 ordered) Trend BMP HTN: BP well-controlled at this time; home regimen held while NPO; resume when appropriate HLD: holding home atorvastatin while NPO Hypothyroidism: home regimen held while NPO, resume when appropriate Anxiety: home regimen held while NPO, resume when appropriate Asthma, mild, intermittent: continue home regimen FEN: NPO pending further workup Code status: full code DVT ppx: held as noted above PT/OT: ordered Dispo: med/telemetry (2) Nausea & vomiting: (3) Gastric adenocarcinoma: (4) HTN (hypertension): (5) HLD (hyperlipidemia): (6) Hypothyroid: (7) Mild intermittent asthma: (8) Anxiety: History of Present Illness Primary Care Provider: Kitty Herrmann MD 71yo female with a history of recent admission (04/01 - 04/06/2022) for nausea/vomiting suspected secondary to gastric adenocarcinoma (diagnosed 04/07/22), pulmonary emboli (04/06/2022), pleural effusions (suspected malignant in nature due to gastric adenocarcinoma; underwent thoracentesis on 04/06), HTN, HLD, hypothyroidism, mild intermittent asthma, and anxiety presents with a kbg-ca-kgn-day history of bloody emesis. Patient's notes patient threw up large blood clots earlier today. Patient has had constant nausea and vomiting since discharge from her recent stay (on 04/06). Patient called her PCP yesterday to report blood-tinged vomitus, and was instructed to discontinue the lovenox that had been started during last admission and continued upon discharge. Patient's notes that patient's vomiting continued and had the appearance of coffee grounds with several large presumed-blood clots today. Patient has not had much abdominal pain earlier today or over the past few days. Patient does endorse SOB but notes it is not any better or worse compared to normal. Patient denies fever, chills, headache, vision changes, CP, palpitations, edema, abdominal pain, dysuria, hematochezia, melena, lightheadedness, dizziness, numbness, tingling, weakness, or other symptoms. Denies recent travel. Upon arrival, vitals were notable for mild tachycardia (103); BP not elevated, no tachypnea, patient afebrile, spO2 adequate on room air. Initial labs were notable for mild leukocytosis (12.0), mild hypokalemia (3.4), minimally elevated AST (43); no anemia, platelets wnl, no other electrolyte abnormalities, Tbili / ALT/ alk phos wnl. INR not elevated (1.1). In the ED, patient received protonix 80mg IV. Surrogate decision-maker in case of an emergency: Abdullahi Figueroa (cell: [phone]) Allergies Allergy/AdvReac Type Severity Reaction Status Date / Time amlodipine Allergy Severe SHORT OF Verified 04/10/22 22:23 BREATH losartan [From Cozaar] Allergy Severe SHORT OF Verified 04/10/22 22:23 BREATH cefazolin Allergy Mild PATIENT Verified 04/10/22 22:23 HAD GENERALIZED ITCHING JUST AFTER ANCEF WAS STARTED lisinopril AdvReac Intermediate Cough Verified 04/10/22 22:23 Home Medications Medication Instructions Recorded Confirmed Type albuterol sulfate 90 mcg/actuation 1 - 2 puff inhalation Q4H PRN 04/01/22 04/10/22 History aerosol inhaler COUGH/WHEEZING levothyroxine 75 mcg tablet 75 mcg PO DAILYBB 04/01/22 04/10/22 History metoprolol succinate 200 mg 200 mg PO BID 04/01/22 04/10/22 History tablet,extended release 24 hr montelukast 10 mg tablet 10 mg PO QPM 04/01/22 04/10/22 History omeprazole 40 mg capsule,delayed 40 mg PO DAILYBB 04/01/22 04/10/22 History release polyethylene glycol 3350 17 17 g PO DAILY PRN Constipation 04/01/22 04/10/22 History gram/dose oral powder (Miralax) venlafaxine 150 mg 150 mg PO DAILY 04/01/22 04/10/22 History capsule,extended release 24 hr venlafaxine 75 mg capsule,extended 75 mg PO DAILY 04/01/22 04/10/22 History release 24 hr ondansetron 8 mg disintegrating 8 mg PO Q8H PRN nausea and 04/06/22 04/10/22 Rx tablet vomiting #30 tabs enoxaparin 120 mg/0.8 mL 120 mg subcut .STOPPED 04/10/22 04/10/22 History subcutaneous syringe (Lovenox) nystatin 100,000 unit/gram topical 1 applic topical TID PRN Rash 04/10/22 04/10/22 History powder (Nystop) sucralfate 100 mg/mL oral 10 ml PO ACHS 04/10/22 04/10/22 History suspension Past Med/Surg History Medical History (Updated 04/11/22 @ 17:08 by Jojo Clayton MD) Anxiety Dyspnea on exertion Gastric adenocarcinoma Hematemesis HLD (hyperlipidemia) HTN (hypertension) Hypothyroid Morbid obesity with BMI of 50.0-59.9, adult Nausea & vomiting Pleural effusion, malignant Surgical History History of cholecystectomy Social History Smoking Status: Never smoker Second Hand Exposure: No; Do You Dip or Chew Tobacco: No; Hx Alcohol Use: No Hx Substance Use: No Preferred Language: Upper Sorbian Communication Ability: Effective Financial Aid Coordinator Required: No Beliefs That Will Affect Care: None marital status: Current Living Situation: Spouse Other Information That Helps Us Care for You: No Feels Safe at Home: Yes Safety Concerns: Feels Safe At This Time Assistive Devices: Cane Physical Exam Physical Exam: Constitutional: tired-appearing, no acute distress HEENT: NCAT, no conjunctival injection, MMM CV: regular rhythm, no murmur appreciated, extremities well-perfused, no LE edema Resp: CTABL, no wheezes/rales/rhonchi appreciated, no increased work of breathing GI: soft, nondistended, mild RUQ and epigastric tenderness, no LUQ, RLQ, or LLQ tenderness, BS normoactive MSK: no gross deformities appreciated Skin: warm, dry, no rash appreciated Neuro: alert, oriented, no focal neurologic deficit appreciated Results & Data Results & Data ([facility]) Vital Signs (Past 12 Hours) Vital Signs Temp Pulse Resp BP Pulse Ox O2 Del Method 04/10/22 19:45 36.2 C L 103 H 18 135/73 95 Room Air Supervising Physician Co-Signing Physician Notes Attending addendum: I have physically seen this patient, have supervised the medical residents a ctivities, and agree with the H&P unless as otherwise noted. Assessment and Plan: Hematemesis- Protonix 40 mg IV twice daily Hold home Lovenox N.p.o. Zofran 4 mg IV every 6 hours as needed Daily CBC with differential and chemistry profile Order CTA chest, CT abdomen and pelvis for further assessment Pulmonary emboli- Involving lingular pulmonary artery noted on 04/06 Holding Lovenox Reassess CTA chest now with need for possible any further anticoagulation Remaining orders and notations as noted Resident Activity Tracking Resident Involvement: Resident Care Provided and Land Title Examiner Coverage Note Care Provided: Adult Hospital Medicine
[2022-04-11] MEDS ORDERED: ALBUTEROL HFA 8 GM INHALER INH PRN (00:36)
[2022-04-11] MEDS ORDERED: OPTIRAY 300 500mL IV ONE (00:41)
[2022-04-11] MEDS: POTASSIUM CHLORIDE / WTR 10 MEQ/100 ML PLCT IV SCH ×2 (02:46→03:14)
[2022-04-11 05:34] LABS: Basophils # (auto) 0.04 K/uL (0-0.2); Basophils % (auto) 0.4 %; Eosinophils % (auto) 0.9 %; Hematocrit (blood only) 35.5 % (34.1-44.9); Hemoglobin 11.7 g/dl (12.0-16.0); Immature Granulocytes # (auto) 0.09 K/uL (0.00-0.02); Immature Granulocytes % (auto) 0.8 %; Lymphocytes # (auto) 0.77 K/uL (1.2-3.4); Mean Corpuscular Hemoglobin 29.5 pg (25.0-34.0); Mean Corpuscular Volume 89.6 fL (80.0-100.0); Mean Platelet Volume 10.6 fL (9.4-12.3); Monocytes # (auto) 1.58 K/uL (0.24-0.82); Monocytes % (auto) 14.4 %; Neutrophils # (auto) 8.42 K/uL (1.4-6.5); Neutrophils % (auto) 76.5 %; Platelet Count 364 K/uL (130-400); RDW Coefficient of Variation 13.3 % (11.5-14.5); RDW Standard Deviation 43.4 fL (36.4-46.3); Red Blood Count 3.96 M/uL (3.93-5.22)
[2022-04-11 05:53] LABS: INR 1.1 (0.9-1.1); Prothrombin Time 11.8 Seconds (9.0-12.0)
[2022-04-11 06:07] LABS: Albumin Globulin Ratio 0.9 (0.9-2); BUN Creatinine Ratio 25.9 (10-20); Bilirubin,Total 0.4 mg/dl (0.2-1.0); Calcium 8.4 mg/dl (8.5-10.1); Creatinine Clr Calc Pharmacy 93.1 ml/min; Est GFR (Non-African American) 69.9 ml/min; Globulin 3.4 gm/dl (2.5-4.0); Magnesium 1.6 mg/dl (1.7-2.4); Potassium 3.7 mmol/L (3.5-5.1); Total Protein 6.4 gm/dl (6.0-8.3)
--- NOTE | 2022-04-11 07:56 | CT Scan Report ---
CHEST CTA for PULMONARY ARTERIES CT DOSE: HISTORY: Hemoptysis. TECHNIQUE: Multiaxial CT images of the chest were performed following the intravenous administration of contrast to evaluate the pulmonary arteries. Maximal intensity projection images were also obtaine d. A dose lowering technique was utilized adhering to the principles of ALARA. COMPARISON STUDY: Chest CT 04/06/2022. FINDINGS: Please refer to same day abdomen and pelvis CT for further evaluation of the abdominal stru ctures. There is a small partially loculated left pleural effusion which has slightly increased in si ze. Mild pleural thickening at the left lung base. Normal caliber esophagus. The thyroid gland enhanc es normally. A few borderline-enlarged mediastinal, left hilar, and left internal mammary lymph nodes remain unchanged. There are few mildly enlarged anterior diaphragmatic lymph nodes which are also un changed. No suspicious lytic or blastic osseous lesions. Left lower lobe linear densities consistent with subsegmental atelectasis. There is a 4 mm nodule within the left lower lobe on image 117. There is a 4 mm nodule within the left lower lobe on image 137. The central airways are patent. No pneumoth orax. There is a 4 mm nodule within the right upper lobe on image 238, unchanged. Normal caliber thor acic aorta with no evidence for dissection. The majority of the segmental and subsegmental pulmonary arteries are nondiagnostic due to the respiratory motion artifact. No change in the lingular segmenta l/subsegmental pulmonary emboli. IMPRESSION: 1. No change in the pulmonary embolus within the lingular pulmonary artery. 2. Increase in size in the partially loculated small left pleural effusion. There is also pleural mil d thickening at the left lung base. Therefore, this may represent a malignant pleural effusion. 3. Mild mediastinal and left hilar lymphadenopathy is again noted. This concerning for metastatic dis ease. 4. A few scattered subcentimeter pulmonary nodules measure up to 4 mm. Metastatic disease is the diag nosis of exclusion. 5. Please refer to the same day abdomen and pelvis CT for further evaluation of the abdominal structu res. 6. These findings were called/faxed to the emergency department following dictation. ACT 112: Negative or not required by law. Electronically signed by: Calvin Cuellar M.D. 04/11/2022 7:53 AM
--- NOTE | 2022-04-11 08:03 | CT Scan Report ---
CT abdomen pelvis wo/w con HISTORY: Hemoptysis. Gastric cancer. c/f ischemic bowel TECHNIQUE: Multiaxial CT images of the abdomen and pelvis were performed both before and after the in travenous administration of 118 cc of Optiray 300. COMPARISON STUDY: Abdomen and pelvis CT 04/01/2022. FINDINGS: There is a small partially loculated left pleural effusion and mild left basilar pleural th ickening again noted. Subcentimeter left lower lobe pulmonary nodules are better appreciated on the chest CT. No pneumoperitoneum. No pneumatosis. No fractures within the visualized osseous str uctures. Anterior diaphragmatic and upper abdominal lymphadenopathy persists. Dominant upper abdomina l lymph node on image 114 measures 2.3 x 1.5 cm. Mild irregular soft tissue stranding and nodularity within the omentum. This likely represents peritoneal carcinomatosis. Persistent mucosal thickening w ithin the stomach likely corresponding to the patient's known malignancy. Hyperdensity within the sto mach lumen likely represent ingested contents. Trace fluid within the left upper quadrant. Prior chol ecystectomy. No hepatic or splenic masses. The adrenal glands and pancreas are unremarkable. Bilatera l cortical renal scarring again noted. No hydronephrosis. The main portal vein is patent. Borderline enlarged retroperitoneal lymph nodes are again noted. Normal caliber abdominal aorta. The bladder is decompressed. The uterus is unremarkable. Bilateral ovarian cysts are again noted. Dominant cyst in t he left measures 3.8 cm. This could represent metastatic disease. Trace pelvic free fluid. Colonic di verticulosis. No evidence for acute diverticulitis. No bowel wall thickening or obstruction. Normal a ppendix. IMPRESSION: 1. Redemonstration of the gastric wall thickening likely corresponding to the patient's known history of gastric malignancy. 2. Small left pleural effusion and left pleural thickening again noted. This likely represents metast atic disease. 3. Upper abdominal lymphadenopathy and multiple prominent retroperitoneal lymph nodes are again noted and may represent metastatic disease. 4. Abnormal soft tissue thickening and nodularity within the omentum consistent with peritoneal carci nomatosis. 5. Bilateral ovarian cysts persist and may also represent metastatic disease. ACT 112: Negative or not required by law. Electronically signed by: Calvin Cuellar M.D. 04/11/2022 8:01 AM
[2022-04-11] MEDS: LACTATED RINGER'S 1,000 ML IV SCH ×2 (08:43→17:02)
[2022-04-11] MEDS: PANTOprazole 40 MG in SYRINGE 0 ML IV SCH ×2 (09:18→21:29)
--- NOTE | 2022-04-11 10:24 | Ultrasound Report ---
BILATERAL LOWER EXTREMITY VENOUS DOPPLER HISTORY: Recent pulmonary embolus on CT. Follow-up. COMPARISON STUDY: None. FINDINGS: There is normal compressibility, flow, and augmentation within the right lower extremity de ep venous system. Near occlusive thrombus within the left common femoral and deep femoral veins. The left superficial femoral, popliteal, left calf vessels are patent IMPRESSION: 1. No DVT within the right lower cavity. 2. Near occlusive deep vein thrombus within the left common femoral and deep femoral veins ACT 112: Negative or not required by law. Electronically signed by: Calvin Cuellar M.D. 04/11/2022 10:22 AM
--- NOTE | 2022-04-11 11:41 | Gastrointestinal Consultation ---
Date of Consultation April 11, 2022 Assessment & Plan (1) Hematemesis: Likely due to underlying gastric mass, recent biopsies, however there is no significant drop in H/H and clinically no further overt bleeding. Recommend: IV PPI. Monitor clinically. If remains stable then no intervention needed, if rebleeds again then transfer to tertiary care center for IR embolization as typically tumor bleeds are poorly responsive to endoscopic interventions. Needs to establish with Oncology. will resume care tomorrow. (2) Gastric adenocarcinoma: History of Present Illness Attending Physician: Young Contreras DO History of Present Illness 71 years old female patient recently diagnosed by with an EGD to have gastric adenocarcinoma with peritoneal carcinomatosis, also has PE, presented with hematemesis, spontaneously resolved in the ED with no further vomiting, H/H near baseline and BUN trending down. Denies any abdominal pain, fever or chills. No diarrhea or melena. Allergies Allergy/AdvReac Type Severity Reaction Status Date / Time amlodipine Allergy Severe SHORT OF Verified 04/10/22 22:23 BREATH losartan [From Cozaar] Allergy Severe SHORT OF Verified 04/10/22 22:23 BREATH cefazolin Allergy Mild PATIENT Verified 04/10/22 22:23 HAD GENERALIZED ITCHING JUST AFTER ANCEF WAS STARTED lisinopril AdvReac Intermediate Cough Verified 04/10/22 22:23 Home Medications Medication Instructions Recorded Confirmed Type albuterol sulfate 90 mcg/actuation 1 - 2 puff inhalation Q4H PRN 04/01/22 04/10/22 History aerosol inhaler COUGH/WHEEZING levothyroxine 75 mcg tablet 75 mcg PO DAILYBB 04/01/22 04/10/22 History metoprolol succinate 200 mg 200 mg PO BID 04/01/22 04/10/22 History tablet,extended release 24 hr montelukast 10 mg tablet 10 mg PO QPM 04/01/22 04/10/22 History omeprazole 40 mg capsule,delayed 40 mg PO DAILYBB 04/01/22 04/10/22 History release polyethylene glycol 3350 17 17 g PO DAILY PRN Constipation 04/01/22 04/10/22 History gram/dose oral powder (Miralax) venlafaxine 150 mg 150 mg PO DAILY 04/01/22 04/10/22 History capsule,extended release 24 hr venlafaxine 75 mg capsule,extended 75 mg PO DAILY 04/01/22 04/10/22 History release 24 hr ondansetron 8 mg disintegrating 8 mg PO Q8H PRN nausea and 04/06/22 04/10/22 Rx tablet vomiting #30 tabs enoxaparin 120 mg/0.8 mL 120 mg subcut .STOPPED 04/10/22 04/10/22 History subcutaneous syringe (Lovenox) nystatin 100,000 unit/gram topical 1 applic topical TID PRN Rash 04/10/22 04/10/22 History powder (Nystop) sucralfate 100 mg/mL oral 10 ml PO ACHS 04/10/22 04/10/22 History suspension Patient History Medical History (Updated 04/11/22 @ 00:26 by Eliu Larsen MD) Dyspnea on exertion HTN (hypertension) Hypothyroid Surgical History History of cholecystectomy Social History Smoking Status: Never smoker Second Hand Exposure: No; Do You Dip or Chew Tobacco: No; Hx Alcohol Use: No Hx Substance Use: No Preferred Language: Swedish Communication Ability: Effective Rn Emergency Room Required: No Beliefs That Will Affect Care: None marital status: Current Living Situation: Spouse Other Information That Helps Us Care for You: No Feels Safe at Home: Yes Safety Concerns: Feels Safe At This Time Assistive Devices: Cane Review of Systems Constitutional: no fever, no chills, no fatigue and no weight loss Eyes: no eye pain and no worsening vision Ear, Nose, Mouth, Throat: no tinnitus, no dizziness, no nasal discharge and no epistaxis Respiratory: no cough, no dyspnea, no dyspnea on exertion and no wheezing Cardiovascular: no chest pain, no orthopnea, no palpitations and no edema Gastrointestinal: as per Subjective / HPI Genitourinary: no dysuria, no urinary frequency, no urinary incontinence and no hematuria Musculoskeletal: no stiffness and no myalgia Neurologic: no localized weakness, no paralysis, no tremor(s) and no headache(s) Endocrine: no polydipsia and no polyuria Hematologic / Lymphatic: no easy bleeding and no night sweats Physical Exam Constitutional: + well hydrated, cooperative and comfortable Eyes: PERRL, conjunctivae normal, anicteric sclerae ENMT: external ear and nose normal, oropharynx normal Neck: normal visual inspection and trachea midline Respiratory: normal respiratory effort, lungs clear to auscultation Auscultation: no wheezes Cardiovascular: RRR, no murmur, no edema Gastrointestinal (Abdomen): normal bowel sounds, soft, nontender, no hepatosplenomegaly Musculoskeletal: no cyanosis or clubbing, extremities motor strength 5/5 Skin: no rashes, warm and dry Neurologic: awake; no focal motor deficits Motor/Sensory: no tremor Results & Data ([facility]) Vital Signs (Past 12 Hours) Vital Signs Temp Pulse Resp BP Pulse Ox O2 Del Method 04/11/22 08:35 36.7 C 99 H 22 142/83 H 94 Room Air 04/11/22 04:13 Room Air 04/11/22 04:13 36.6 C 104 H 18 131/67 95 Room Air Laboratory Results Laboratory Results - last 24 hr 04/10/22 04/10/22 04/10/22 20:45 20:45 20:45 WBC 12.03 H RBC 4.34 Hgb 12.8 Hct 38.7 MCV 89.2 MCH 29.5 MCHC 33.1 RDW Std Deviation 42.4 RDW Coeff of Lance 12.9 Plt Count 388 MPV 10.5 Immature Gran % (Auto) 1.0 Neut % (Auto) 77.8 Lymph % (Auto) 6.7 Smith % (Auto) 13.6 Eos % (Auto) 0.5 Baso % (Auto) 0.4 Neut # (Auto) 9.36 H Lymph # (Auto) 0.80 L Smith # (Auto) 1.64 H Eos # (Auto) 0.06 Baso # (Auto) 0.05 Immature Gran # (Auto) 0.12 H PT 11.5 INR 1.1 APTT 23.2 PTT Ratio 0.8 Sodium 140 Potassium 3.4 L Chloride 100 Carbon Dioxide 25 Anion Gap 15 H BUN 25 H Creatinine 0.96 Est Cr Clr Drug Dosing Not Reportable Est GFR ( Amer) 69.9 Est GFR (Non-Af Amer) 60.3 BUN/Creatinine Ratio 26.0 H Glucose 92 Calcium 8.9 Magnesium Total Bilirubin 0.4 AST 43 H ALT 28 Alkaline Phosphatase 90 Total Protein 7.2 Albumin 3.3 L Globulin 3.9 Albumin/Globulin Ratio 0.8 L SARS-CoV-2, RNA, NAAT Blood Type Antibody Screen 04/10/22 04/10/22 04/11/22 20:48 21:25 04:55 WBC 11.00 H RBC 3.96 Hgb 11.7 L Hct 35.5 MCV 89.6 MCH 29.5 MCHC 33.0 RDW Std Deviation 43.4 RDW Coeff of Lance 13.3 Plt Count 364 MPV 10.6 Immature Gran % (Auto) 0.8 Neut % (Auto) 76.5 Lymph % (Auto) 7.0 Smith % (Auto) 14.4 Eos % (Auto) 0.9 Baso % (Auto) 0.4 Neut # (Auto) 8.42 H Lymph # (Auto) 0.77 L Smith # (Auto) 1.58 H Eos # (Auto) 0.10 Baso # (Auto) 0.04 Immature Gran # (Auto) 0.09 H PT INR APTT PTT Ratio Sodium Potassium Chloride Carbon Dioxide Anion Gap BUN Creatinine Est Cr Clr Drug Dosing Est GFR ( Amer) Est GFR (Non-Af Amer) BUN/Creatinine Ratio Glucose Calcium Magnesium Total Bilirubin AST ALT Alkaline Phosphatase Total Protein Albumin Globulin Albumin/Globulin Ratio SARS-CoV-2, RNA, NAAT NEGATIVE Blood Type O Positive Antibody Screen NEGATIVE 04/11/22 04/11/22 04:55 04:55 WBC RBC Hgb Hct MCV MCH MCHC RDW Std Deviation RDW Coeff of Lance Plt Count MPV Immature Gran % (Auto) Neut % (Auto) Lymph % (Auto) Smith % (Auto) Eos % (Auto) Baso % (Auto) Neut # (Auto) Lymph # (Auto) Smith # (Auto) Eos # (Auto) Baso # (Auto) Immature Gran # (Auto) PT 11.8 INR 1.1 APTT PTT Ratio Sodium 138 Potassium 3.7 Chloride 101 Carbon Dioxide 23 Anion Gap 14 H BUN 22 Creatinine 0.85 Est Cr Clr Drug Dosing 93.1 Est GFR ( Amer) 81.0 Est GFR (Non-Af Amer) 69.9 BUN/Creatinine Ratio 25.9 H Glucose 80 Calcium 8.4 L Magnesium 1.6 L Total Bilirubin 0.4 AST 41 H ALT 28 Alkaline Phosphatase 81 Total Protein 6.4 Albumin 3.0 L Globulin 3.4 Albumin/Globulin Ratio 0.9 SARS-CoV-2, RNA, NAAT Blood Type Antibody Screen
--- NOTE | 2022-04-11 13:54 | Hospitalist Progress Note ---
Date of Service April 11, 2022 Assessment & Plan (1) Hematemesis: Plan: 71yo female with a history of recent admission (04/01 - 04/06/2022) for nausea/vomiting suspected secondary to gastric adenocarcinoma (diagnosed 04/07), pulmonary emboli (04/06), pleural effusions, HTN, HLD, hypothyroidism, mild intermittent asthma, and anxiety presents with a yiu-gx-lio-day history of bloody emesis. Hematemesis Suspected secondary to gastric tumor, though PE remains a possibility given recent PE, recent discontinuation of lovenox, and tachycardia Hgb on arrival stable since last admission (12.8 which is only minimally lower than 12.9 on 04/05); INR 1.1, no sign of active bleeding, hgb today is 11.[address] abdomen/pelvis with contrast ordered to evaluate for PE +/- mesenteric ischemia +/- other etiologies, all negative Protonix administered in ED, continue 40mg IV bid Home lovenox discontinued by PCP on day prior to admission NPO for now and clear liquid tomorrow if no rebleeding GI consult: IV PPI. Monitor clinically. If remains stable then no intervention needed, if rebleeds again then transfer to tertiary care center for IR embolization as typically tumor bleeds are poorly responsive to endoscopic interventions. Needs to establish with Oncology. Continue antiemetics Daily CBC, CMP Adenocarcinoma with Mets Recent diagnosis via endoscopic biopsy Has not been established with oncology in the outpatient setting Consult oncology and radiation oncology- failure to thrive fast acting and requires urgent evaluation Pulmonary emboli Noted on CT chest performed on 04/06 (of lingular pulmonary artery); had been treated with lovenox but this was held by PCP prior to admission On admission, patient mildly tachycardic (103) but without tachypnea, fever, hypoxia, CP, or SOB CTA chest ordered (suspect hematemesis is of gastric origin but differential includes PE) B/l LE US duplex: Near occlusive deep vein thrombus within the left common femoral and deep femoral veins Will start low dose heparin now that GI bleed has ceased for prevention of additional PE Hypokalemia Potassium mildly low on admission (3.4) K riders 10mEq q1h (x2 ordered) on 04/10- recheck this morning 3.7 Trend BMP HTN: BP well-controlled at this time; home regimen held while NPO; resume when appropriate HLD: holding home atorvastatin while NPO Hypothyroidism: home regimen held while NPO, resume when appropriate Anxiety: home regimen held while NPO, resume when appropriate Asthma, mild, intermittent: continue home regimen FEN: NPO Code status: full code DVT ppx: heparin as above PT/OT: ordered Dispo: med/telemetry (2) Nausea & vomiting: (3) Gastric adenocarcinoma: (4) HTN (hypertension): (5) HLD (hyperlipidemia): (6) Hypothyroid: (7) Mild intermittent asthma: (8) Anxiety: Admission and Anticipated Discharge Date Admission Date: April 10, 2022 Supervising Physician Co-Signing Physician Notes I personally examined the patient and verified all phan points of history and exam, discussed case, and agree with decision making with Dr Paredes Feeling okay. No further bloody vomitus. Extensive discussion with patient and , and then later reiterated discussion with patient, , and daughter. Vitals noted, in general she is awake and alert pleasant no distress. HEENT normocephalic atraumatic mucous membranes moist. Breathing unlabored no accessory muscle use good effort. Skin shows no rashes no pallor or icterus. Neuro without focal deficits. GI bleedingfrom stomach cancer, complicated by the requirement for anticoagulation given her acute venous thromboembolic disease. Fortunately no significant acute blood loss, no hemodynamic compromise, and no ongoing bleeding. Lovenox was held. Is on IV acid suppressioncurrently in the form of PPI. Given (as below outlined) we will have a need to cautiously proceed with anticoagulation as at all possible, will escalate acid suppression to add IV H2 as well. Discussed with patient, , and daughter the conflicting diagnoses of gastric cancer with bleeding, as well as pulmonary emboli with large left lower extremity DVTdiscussed that since her bleeding was fortunately not of major significance, and we are able to monitor things closely, for the short-term it is probably favorable to resume anticoagulation (see below for outline of this)they agreed. Consented for blood, asked to have 2 units on hold. Radiation oncology consulteval for potential for benefit from x-ray treatment to help with bleeding Pulmonary emboli, acute left lower extremity DVTfortunately she is quite stable from a PE perspective at this time, but does appear to be quite high risk given her large proximal left lower extremity DVT and malignancy as an active thrombogenic state. Despite her GI bleeding, because it was actually fortunately an overall stable situation without much of a drop in her hemoglobin, and is hemodynamically stable, after careful discussion with the family of risks/benefits, will cautiously proceed with heparin dripgiven that it can be stopped, or reversed with protamine if neededand also have vascular see her in regards to IVC filter to try to protect her from large fragments. We discussed openly that this and the GI bleed are of course problems with opposite treatments, and all were in agreement with the rationale for the current line of treatment. Gastric cancer and failure to thriveher weight loss, bleeding, overall failure to thriveI fear that the regular pace of outpatient work-up and treatment may not occur expedited enough given her situation. Radiation oncology consult as above. We will also consult hematology/oncology to guide us on what else may be need to be done for staging work-up, as well as to have the patient established/pipeline so that if treatment is possible, it can be started as soon as she is discharged. Greater than 30 minutes [id number], time in the room probably around 350, time out of the room probably 430I suspect I spent even more time and there than that, but at least 30 minutes [id number] educating counseling consenting discussing the complexities situation etc. with patient, , and daughter. otherwise as above Subjective Patient seen at bedside this morning. No acute events reported overnight. Patient has not vomited since early last night. Not currently feeling nauseous or having any abdominal pain. Bleeding seems to have slowed down. Has not had a bowel movement for the past 5 days due to poor p.o. intake since her last admission with gastric bleeding. Does not feel lightheaded, dizzy, or short of breath. Overall pretty comfortable right now without any pain. Per her history she has not's been established with oncology as of yet but it does seem that they are attempting to get her an appointment this week with the PA. Otherwise has no other complaints at this time. Review of Systems Review of Systems: All systems reviewed & are unremarkable except as noted in HPI & below Physical Exam Constitutional: WD/WN, vitals as above Eyes: + scleral abnormality and + anicteric sclerae Neck: normal visual inspection Respiratory: normal respiratory effort, lungs clear to auscultation Cardiovascular: Rate/Rhythm: regular rate and regular rhythm Vessels: no JVD Extremities: + edema Gastrointestinal (Abdomen): Inspection/Auscultation: abdomen normal to inspection and + hypoactive bowel sounds Percussion/Palpation: abdomen soft; abdomen nontender Musculoskeletal: Head/Neck/Chest: normocephalic and head atraumatic Skin: no rashes, warm and dry Neurologic: moves all extremities Psychiatric: A+Ox3, euthymic affect Results & Data Results & Data ([facility]) Vital Signs (Past 12 Hours) Vital Signs Temp Pulse Resp BP Pulse Ox O2 Del Method 04/11/22 12:13 98 H 23 142/75 H 97 Room Air 04/11/22 08:35 36.7 C 99 H 22 142/83 H 94 Room Air 04/11/22 04:13 Room Air 04/11/22 04:13 36.6 C 104 H 18 131/67 95 Room Air
[2022-04-11] MEDS ORDERED: Heparin IV Adult Wt-Based Low-Dose *NO* Bolus Protocol IV ONE (15:16)
[2022-04-11] MEDS: HEPARIN SODIUM/DEXTROSE 25,000 UNITS/500 ML BAG IV SCH (17:02)
--- NOTE | 2022-04-11 17:08 | Emergency Department Note ---
Impression & Plan Hematemesis, Adenocarcinoma of stomach, Malignant pleural effusion ED Provider Note CHIEF COMPLAINT: Vomiting Blood, Stomach cancer HISTORY OF PRESENT ILLNESS: This 71 yo female patient presents to the emergency department with complaints of nausea and vomiting. Tonight the patient vomited what appeared to be blood clots per her . The patient was diagnosed with stomach cancer last week when she was hospitalized. They are awaiting evaluation by oncology. Patient has had difficulty keeping food and fluids down. states they have tried "everything to drink" including Ensure, jas giuliana and water, but the patient seems to get sick and vomit. She was vomiting a small amount of blood in the previous days and her primary care physician stopped the Lovenox yesterday that she was on for a small PE, according to the patient's . Patient denies any blood in the stools but states she has not had any bowel movements as she has not been eating or drinking. Patient states she has had a great deal of pain in her back and has been using Tylenol to try and control the discomfort. She denies any fevers, chills, chest pain or significant shortness of breath. REVIEW OF SYSTEMS: A review of systems was performed with positives and pertinent negatives listed in the history of present illness. 10 systems were reviewed and are otherwise negative. ALLERGIES: see below MEDICATIONS: see below PMH: see below SOCIAL HISTORY: see below DDx: Diverticulosis, AVM, coagulopathy, colitis, inflammatory bowel disease, malignancy, Deb-Ordoñez tear, esophagitis, peptic ulcer disease, variceal bleed, gastritis, epistaxis, as well as other pathologies. PHYSICAL EXAM: Vital signs reviewed. General: Somewhat ill-appearing 71-year-old female, anxious and in some discomfort HEENT: No scleral icterus, PERRLA, neck supple. Atraumatic. Cardiovascular: Regular rate and rhythm, no extra sounds. Pulmonary: Diminished breath sounds at the bases bilaterally, normal work of breathing. Abdomen: Soft, obese, nontender, nondistended, positive bowel sounds. Musculoskeletal: Atraumatic, mild peripheral edema. Neurologic: Patient awake alert and oriented x 3, speech is clear Skin: Warm, dry, no rash EMERGENCY DEPARTMENT COURSE/MDM: This patient was evaluated and appeared to be in no significant distress. IV access was obtained and laboratory work was drawn. Patient was placed on fueler and noted to be in a normal sinus rhythm. She was hydrated with normal saline solution, given Zofran x2 for nausea as well as IV Protonix with drip. Patient's hemoglobin is fairly stable from previous numbers just a week ago. A type and screen was sent. Vital signs are also reasonably stable. Given the patient's history of recently diagnosed malignancy with sequelae of bleeding during the endoscopy, the hematemesis is not surprising, particularly due to the recent anticoagulation. The patient was given morphine and Zofran for her continued discomfort. She was discussed with the hospitalist service and will be evaluated for further management. Patient and family were at the bedside and expressed understanding of the plan and agreed. MONITORING: An order for cardiac monitoring was placed and the patient is noted to be in a normal sinus rhythm at 99 beats per minute. RADIOLOGY: See below EKG: Normal sinus rhythm at 99 bpm. Poor quality baseline for interpretation. ST and T wave abnl. No PVC, no PAC. QTc is 498. No significant change from previous dated April 01, 2022. DISPOSITION: Admission patient was typed and crossed Past Med/Surg History Medical History (Updated 04/11/22 @ 17:08 by Jojo lCayton MD) Anxiety Dyspnea on exertion Gastric adenocarcinoma Hematemesis HLD (hyperlipidemia) HTN (hypertension) Hypothyroid Morbid obesity with BMI of 50.0-59.9, adult Nausea & vomiting Pleural effusion, malignant Surgical History History of cholecystectomy Social History Smoking Status: Never smoker Second Hand Exposure: No; Do You Dip or Chew Tobacco: No; Hx Alcohol Use: No Hx Substance Use: No Preferred Language: Korean Communication Ability: Effective Justice Professor Required: No Beliefs That Will Affect Care: None marital status: Current Living Situation: Spouse Other Information That Helps Us Care for You: No Feels Safe at Home: Yes Safety Concerns: Feels Safe At This Time Assistive Devices: Cane Allergies Allergies Allergy/AdvReac Type Severity Reaction Status Date / Time amlodipine Allergy Severe SHORT OF Verified 04/10/22 22:23 BREATH losartan [From Cozaar] Allergy Severe SHORT OF Verified 04/10/22 22:23 BREATH cefazolin Allergy Mild PATIENT Verified 04/10/22 22:23 HAD GENERALIZED ITCHING JUST AFTER ANCEF WAS STARTED lisinopril AdvReac Intermediate Cough Verified 04/10/22 22:23 Home Meds Home Medications Medication Instructions Recorded Confirmed albuterol sulfate 90 mcg/actuation 1 - 2 puff inhalation Q4H PRN 04/01/22 04/10/22 aerosol inhaler COUGH/WHEEZING levothyroxine 75 mcg tablet 75 mcg PO DAILYBB 04/01/22 04/10/22 metoprolol succinate 200 mg 200 mg PO BID 04/01/22 04/10/22 tablet,extended release 24 hr montelukast 10 mg tablet 10 mg PO QPM 04/01/22 04/10/22 omeprazole 40 mg capsule,delayed 40 mg PO DAILYBB 04/01/22 04/10/22 release polyethylene glycol 3350 17 17 g PO DAILY PRN Constipation 04/01/22 04/10/22 gram/dose oral powder (Miralax) venlafaxine 150 mg 150 mg PO DAILY 04/01/22 04/10/22 capsule,extended release 24 hr venlafaxine 75 mg capsule,extended 75 mg PO DAILY 04/01/22 04/10/22 release 24 hr enoxaparin 120 mg/0.8 mL 120 mg subcut .STOPPED 04/10/22 04/10/22 subcutaneous syringe (Lovenox) nystatin 100,000 unit/gram topical 1 applic topical TID PRN Rash 04/10/22 04/10/22 powder (Nystop) sucralfate 100 mg/mL oral 10 ml PO ACHS 04/10/22 04/10/22 suspension Previous Rx's Medication Instructions Recorded ondansetron 8 mg disintegrating 8 mg PO Q8H PRN nausea and 04/06/22 tablet vomiting #30 tabs Results & Data (ED) Vital Signs Vital Signs - 24 hr 04/10/22 19:45 04/10/22 22:32 04/10/22 21:55 Temperature 36.2 C L Temperature Source Temporal Artery Scan Pulse Rate 103 H Respiratory Rate 18 16 Respiratory Effort / Characteristics Non-Labored Respiratory Depth Normal Normal Blood Pressure 135/73 Blood Pressure Mean 93 Pulse Oximetry 95 95 Oxygen Delivery Method Room Air Room Air Sepsis Recent Fever Within 48 Hours No Sepsis New/Unexplained Change in Mental Status N/A Sepsis Action Taken by Nursing No Action Required Home Medications Current Medication List: was personally reviewed by me Laboratory Data Attestation: I reviewed the patient's lab results. Result diagrams: 04/11/22 04:55 04/11/22 04:55 Lab Results 04/10/22 04/10/22 04/10/22 Range/Units 20:45 20:45 20:45 WBC 12.03 H (4.8-10.8) K/ul RBC 4.34 (3.93-5.22) M/uL Hgb 12.8 (12.0-16.0) g/dl Hct 38.7 (34.1-44.9) % MCV 89.2 (80.0-100.0) fL MCH 29.5 (25.0-34.0) pg MCHC 33.1 (32.0-36.0) g/dL RDW Std Deviation 42.4 (36.4-46.3) fL RDW Coeff of Lance 12.9 (11.5-14.5) % Plt Count 388 (130-400) K/uL MPV 10.5 (9.4-12.3) fL Immature Gran % (Auto) 1.0 % Neut % (Auto) 77.8 % Lymph % (Auto) 6.7 % [place] % (Auto) 13.6 % Eos % (Auto) 0.5 % Baso % (Auto) 0.4 % Neut # (Auto) 9.36 H (1.4-6.5) K/uL Lymph # (Auto) 0.80 L (1.2-3.4) K/uL [place] # (Auto) 1.64 H (0.24-0.82) K/uL Eos # (Auto) 0.06 (0-0.50) K/uL Baso # (Auto) 0.05 (0-0.2) K/uL Immature Gran # (Auto) 0.12 H (0.00-0.02) K/uL PT 11.5 (9.0-12.0) Seconds INR 1.1 (0.9-1.1) APTT 23.2 (21.0-31.0) Seconds PTT Ratio 0.8 Sodium 140 (136-145) mmol/L Potassium 3.4 L (3.5-5.1) mmol/L Chloride 100 (98-107) mmol/L Carbon Dioxide 25 (21-32) mmol/L Anion Gap 15 H (3-11) BUN 25 H (6-23) mg/dl Creatinine 0.96 (0.6-1.2) mg/dl Est Cr Clr Drug Dosing Not Reportable Est GFR ( Amer) 69.9 ml/min Est GFR (Non-Af Amer) 60.3 ml/min BUN/Creatinine Ratio 26.0 H (10-20) Glucose 92 (70-99(Fasting)) mg/dl Calcium 8.9 (8.5-10.1) mg/dl Total Bilirubin 0.4 (0.2-1.0) mg/dl AST 43 H (13-39) U/L ALT 28 (7-52) U/L Alkaline Phosphatase 90 (34-104) U/L Total Protein 7.2 (6.0-8.3) gm/dl Albumin 3.3 L (3.4-5.0) gm/dl Globulin 3.9 (2.5-4.0) gm/dl Albumin/Globulin Ratio 0.8 L (0.9-2) SARS-CoV-2, RNA, NAAT (NEGATIVE) Blood Type Antibody Screen 04/10/22 04/10/22 Range/Units 20:48 21:25 WBC (4.8-10.8) K/ul RBC (3.93-5.22) M/uL Hgb (12.0-16.0) g/dl Hct (34.1-44.9) % MCV (80.0-100.0) fL MCH (25.0-34.0) pg MCHC (32.0-36.0) g/dL RDW Std Deviation (36.4-46.3) fL RDW Coeff of Lance (11.5-14.5) % Plt Count (130-400) K/uL MPV (9.4-12.3) fL Immature Gran % (Auto) % Neut % (Auto) % Lymph % (Auto) % [place] % (Auto) % Eos % (Auto) % Baso % (Auto) % Neut # (Auto) (1.4-6.5) K/uL Lymph # (Auto) (1.2-3.4) K/uL [place] # (Auto) (0.24-0.82) K/uL Eos # (Auto) (0-0.50) K/uL Baso # (Auto) (0-0.2) K/uL Immature Gran # (Auto) (0.00-0.02) K/uL PT (9.0-12.0) Seconds INR (0.9-1.1) APTT (21.0-31.0) Seconds PTT Ratio Sodium (136-145) mmol/L Potassium (3.5-5.1) mmol/L Chloride (98-107) mmol/L Carbon Dioxide (21-32) mmol/L Anion Gap (3-11) BUN (6-23) mg/dl Creatinine (0.6-1.2) mg/dl Est Cr Clr Drug Dosing Est GFR ( Amer) ml/min Est GFR (Non-Af Amer) ml/min BUN/Creatinine Ratio (10-20) Glucose (70-99(Fasting)) mg/dl Calcium (8.5-10.1) mg/dl Total Bilirubin (0.2-1.0) mg/dl AST (13-39) U/L ALT (7-52) U/L Alkaline Phosphatase (34-104) U/L Total Protein (6.0-8.3) gm/dl Albumin (3.4-5.0) gm/dl Globulin (2.5-4.0) gm/dl Albumin/Globulin Ratio (0.9-2) SARS-CoV-2, RNA, NAAT NEGATIVE (NEGATIVE) Blood Type O Positive Antibody Screen NEGATIVE Administered Medications Pantoprazole Sodium 40 mg/ (Syringe) 10 mls @ 5 mls/min IV BID ABEL Stop: 05/11/22 08:59 Last Admin: 04/11/22 09:18 Dose: 5 mls/min Documented By: JASEN Lactated Ringer's (Lr) 1,000 mls @ 125 mls/hr IV .Q8H ABEL Stop: 05/11/22 07:59 Last Infusion: 04/11/22 10:21 Dose: 125 mls/hr Documented By: Infusion: 04/11/22 09:37 Dose: 0 mls/hr Documented By: Admin: 04/11/22 08:43 Dose: 125 mls/hr Documented By: JASEN Discontinued Medications Pantoprazole Sodium (Protonix Bolus/Drip) 0 mls @ 1 mls/hr IV ONE STA Stop: 04/10/22 20:15 Last Admin: 04/10/22 23:13 Dose: Not Given Documented By: BRIGITTE Pantoprazole Sodium 40 mg/ (Dextrose) 100 mls @ 20 mls/hr IV Q5H ABEL Stop: 05/10/22 20:29 Last Infusion: 04/11/22 02:46 Dose: 0 mg/hr, 0 mls/hr Documented By: Admin: 04/10/22 21:45 Dose: 8 mg/hr, 20 mls/hr Documented By: BRIGITTE Pantoprazole Sodium 80 mg/ (Dextrose) 120 mls @ 400 mls/hr IV NOW ONE Stop: 04/10/22 20:31 Last Infusion: 04/10/22 21:45 Dose: 0 mls/hr Documented By: Admin: 04/10/22 21:26 Dose: 400 mls/hr Documented By: BRIGITTE Potassium Chloride (K Tyree / Wtr) 10 meq in 100 mls @ 100 mls/hr IV Q1H ABEL Stop: 04/11/22 02:59 Last Infusion: 04/11/22 04:48 Dose: 0 mls/hr Documented By: Admin: 04/11/22 03:14 Dose: 100 mls/hr Documented By: Infusion: 04/11/22 03:14 Dose: 100 mls/hr Documented By: Admin: 04/11/22 02:46 Dose: 100 mls/hr Documented By: BRIGITTE Ioversol (Optiray 300 500ml) 118 ml IV ONCE ONE Stop: 04/11/22 00:42 Last Admin: 04/11/22 00:42 Dose: 118 ml Documented By: [facility] Imaging Data Radiologist's Impression: Abdomen/Pelvis CT 04/10/22 23:14 CT abdomen pelvis wo/w con HISTORY: Hemoptysis. Gastric cancer. c/f ischemic bowel TECHNIQUE: Multiaxial CT images of the abdomen and pelvis were performed both before and after the intravenous administration of 118 cc of Optiray 300. COMPARISON STUDY: Abdomen and pelvis CT 04/01/2022. FINDINGS: There is a small partially loculated left pleural effusion and mild left basilar pleural thickening again noted. Subcentimeter left lower lobe pulmonary nodules are better appreciated on the same day chest CT. No pneumoperitoneum. No pneumatosis. No fractures within the visualized osseous structures. Anterior diaphragmatic and upper abdominal lymphadenopathy persists. Dominant upper abdominal lymph node on image 114 measures 2.3 x 1.5 cm. Mild irregular soft tissue stranding and nodularity within the omentum. This likely represents peritoneal carcinomatosis. Persistent mucosal thickening within the stomach likely corresponding to the patient's known malignancy. Hyperdensity within the stomach lumen likely represent ingested contents. Trace fluid within the left upper quadrant. Prior cholecystectomy. No hepatic or splenic masses. The adrenal glands and pancreas are unremarkable. Bilateral cortical renal scarring again noted. No hydronephrosis. The main portal vein is patent. Borderline enlarged retroperitoneal lymph nodes are again noted. Normal caliber abdominal aorta. The bladder is decompressed. The uterus is unremarkable. Bilateral ovarian cysts are again noted. Dominant cyst in the left measures 3.8 cm. This could represent metastatic disease. Trace pelvic free fluid. Colonic d iverticulosis. No evidence for acute diverticulitis. No bowel wall thickening or obstruction. Normal appendix. IMPRESSION: 1. Redemonstration of the gastric wall thickening likely corresponding to the patient's known history of gastric malignancy. 2. Small left pleural effusion and left pleural thickening again noted. This likely represents metastatic disease. 3. Upper abdominal lymphadenopathy and multiple prominent retroperitoneal lymph nodes are again noted and may represent metastatic disease. 4. Abnormal soft tissue thickening and nodularity within the omentum consistent with peritoneal carcinomatosis. 5. Bilateral ovarian cysts persist and may also represent metastatic disease. ACT 112: Negative or not required by law. Electronically signed by: Calvin Cuellar M.D. 04/11/2022 8:01 AM Chest CTA 04/10/22 23:14 CHEST CTA for PULMONARY ARTERIES CT DOSE: HISTORY: Hemoptysis. TECHNIQUE: Multiaxial CT images of the chest were performed following the intravenous administration of contrast to evaluate the pulmonary arteries. Maximal intensity projection images were also obtained. A dose lowering technique was utilized adhering to the principles of ALARA. COMPARISON STUDY: Chest CT 04/06/2022. FINDINGS: Please refer to same day abdomen and pelvis CT for further evaluation of the abdominal structures. There is a small partially loculated left pleural effusion which has slightly increased in size. Mild pleural thickening at the left lung base. Normal caliber esophagus. The thyroid gland enhances normally. A few borderline-enlarged mediastinal, left hilar, and left internal mammary lymph nodes remain unchanged. There are few mildly enlarged anterior diaphragmatic lymph nodes which are also unchanged. No suspicious lytic or blastic osseous lesions. Left lower lobe linear densities consistent with subsegmental atelectasis. There is a 4 mm nodule within the left lower lobe on image 117. There is a 4 mm nodule within the left lower lobe on image 137. The central airways are patent. No pneumothorax. There is a 4 mm nodule within the right upper lobe on image 238, unchanged. Normal caliber thoracic aorta with no evidence for dissection. The majority of the segmental and subsegmental pulmonary arteries are nondiagnostic due to the respiratory motion artifact. No change in the lingular segmental/subsegmental pulmonary emboli. IMPRESSION: 1. No change in the pulmonary embolus within the lingular pulmonary artery. 2. Increase in size in the partially loculated small left pleural effusion. There is also pleural mild thickening at the left lung base. Therefore, this may represent a malignant pleural effusion. 3. Mild mediastinal and left hilar lymphadenopathy is again noted. This concerning for metastatic disease. 4. A few scattered subcentimeter pulmonary nodules measure up to 4 mm. Metastatic disease is the diagnosis of exclusion. 5. Please refer to the same day abdomen and pelvis CT for further evaluation of the abdominal structures. 6. These findings were called/faxed to the emergency department following dictation. ACT 112: Negative or not required by law. Electronically signed by: Calvin Cuellar M.D. 04/11/2022 7:53 AM Blood Pressure Blood Pressure Findings: Elevated blood pressure Blood Pressure Disposition: further management by hospitalist Discharge Plan Visit Data Chief Complaint: Vomiting Stated Complaint: THROWING UP BLOOD ED Provider: Jojo Clayton Discharge Problem: Hematemesis, Adenocarcinoma of stomach, Malignant pleural effusion Patient Disposition: Admitted As Inpatient Discharge Instructions Interventions: ED Discharge Assessment Last Done: 04/11/22 00:30
[2022-04-11] MEDS ORDERED: SODIUM CHLORIDE 0.9% 250 ML IV PRN (19:05)
--- NOTE | 2022-04-11 19:06 | Billing Data ---
Date of Service April 11, 2022 Coding Level of Care Code 15676 Subseq Hosp Care Lvl 3
--- NOTE | 2022-04-11 19:07 | Billing Data ---
Date of Service April 11, 2022 Coding Level of Care Code 34588 Prolonged Care (int'l)
[2022-04-11] MEDS ORDERED: ACETAMINOPHEN 1,000 MG/100 ML VIAL IV ONE (20:45)
--- NOTE | 2022-04-11 21:00 | Electrocardiogram Report ---
Test Reason : Blood Pressure : / mmHG Vent. Rate : 099 BPM Atrial Rate : 099 BPM P-R Int : 130 ms QRS Dur : 084 ms QT Int : 382 ms P-R-T Axes : 073 046 173 degrees QTc Int : 490 ms Poor data quality, interpretation may be adversely affected Normal sinus rhythm Nonspecific T wave abnormality Abnormal ECG When compared with ECG of 01-APR-2022 16:31, No significant change was found Confirmed by Maicol Anna ([id number]) on 04/11/2022 8:59:51 PM Referred By: REFERRED SELF Confirmed By:Maicol Anna
[2022-04-11] MEDS: FAMOTIDINE 20 MG in SYRINGE 3 ML IV SCH (21:29)
[2022-04-12 00:23] LABS: Partial Thromboplastin Ratio 1.3
[2022-04-12] MEDS: LACTATED RINGER'S 1,000 ML IV SCH ×3 (00:51→23:10)
[2022-04-12] MEDS ORDERED: HEPARIN SOD (PORCINE) 1000 UNIT/ML IV ONE (00:53)
--- NOTE | 2022-04-12 02:46 | Billing Data ---
Date of Service April 12, 2022 Coding Level of Care Code 94099 Initial Inpt Care Lvl 3
[2022-04-12] MEDS ORDERED: NYSTATIN/TRIAMCIN CR 15 GM TUBE EXT PRN (04:52)
[2022-04-12] MEDS: ACETAMINOPHEN 1,000 MG/100 ML VIAL IV PRN ×3 (06:16→22:35)
--- NOTE | 2022-04-12 07:22 | Hospitalist Progress Note ---
Date of Service April 12, 2022 Assessment & Plan (1) Hematemesis: Plan: 71yo female with a history of recent admission (04/01 - 04/06/2022) for nausea/vomiting suspected secondary to gastric adenocarcinoma (diagnosed 04/07), pulmonary emboli (04/06), pleural effusions, HTN, HLD, hypothyroidism, mild intermittent asthma, and anxiety presents with a iei-cy-uwi-day history of bloody emesis. Hematemesis Suspected secondary to gastric tumor, though PE remains a possibility given recent PE, recent discontinuation of lovenox, and tachycardia Hgb on arrival stable since last admission (12.8 which is only minimally lower than 12.9 on 04/05); INR 1.1, no sign of active bleeding, hgb today is 11.[address] abdomen/pelvis with contrast ordered to evaluate for PE +/- mesenteric ischemia +/- other etiologies, all negative Protonix administered in ED, continue 40mg IV bid Home lovenox discontinued by PCP on day prior to admission NPO for now and clear liquid tomorrow if no rebleeding GI consult: IV PPI. Monitor clinically. If remains stable then no intervention needed, if rebleeds again then transfer to tertiary care center for IR embolization as typically tumor bleeds are poorly responsive to endoscopic interventions. Needs to establish with Oncology. Continue antiemetics Daily CBC, CMP Adenocarcinoma with Mets Recent diagnosis via endoscopic biopsy Has not been established with oncology in the outpatient setting Consult oncology and radiation oncology- failure to thrive fast acting and requires urgent evaluation Pulmonary emboli Noted on CT chest performed on 04/06 (of lingular pulmonary artery); had been treated with lovenox but this was held by PCP prior to admission On admission, patient mildly tachycardic (103) but without tachypnea, fever, hypoxia, CP, or SOB CTA chest ordered (suspect hematemesis is of gastric origin but differential includes PE) B/l LE US duplex: Near occlusive deep vein thrombus within the left common femoral and deep femoral veins Will start low dose heparin now that GI bleed has ceased for prevention of additional PE Hypokalemia Potassium mildly low on admission (3.4) K riders 10mEq q1h (x2 ordered) on 04/10- recheck this morning 3.7 Trend BMP HTN: BP well-controlled at this time; home regimen held while NPO; resume when appropriate HLD: holding home atorvastatin while NPO Hypothyroidism: home regimen held while NPO, resume when appropriate Anxiety: home regimen held while NPO, resume when appropriate Asthma, mild, intermittent: continue home regimen FEN: NPO Code status: full code DVT ppx: heparin as above PT/OT: ordered Dispo: med/telemetry (2) Nausea & vomiting: (3) Gastric adenocarcinoma: (4) HTN (hypertension): (5) HLD (hyperlipidemia): (6) Hypothyroid: (7) Mild intermittent asthma: (8) Anxiety: Admission and Anticipated Discharge Date Admission Date: April 10, 2022 Review of Systems Review of Systems: All systems reviewed & are unremarkable except as noted in HPI & below Results & Data Results & Data ([facility]) Vital Signs (Past 12 Hours) Vital Signs Temp Pulse Pulse Resp BP Pulse Ox O2 Del Method 04/12/22 04:14 36.6 C 88 16 129/84 95 Room Air 04/11/22 23:44 93 H 04/11/22 23:43 98 H 04/11/22 23:30 36.6 C 91 H 18 127/82 95 Room Air 04/11/22 19:46 36.5 C 95 H 16 128/74 95 Room Air
--- NOTE | 2022-04-12 08:38 | Radiation OncologyConsultation ---
Date of Consultation April 12, 2022 Assessment & Plan (1) Adenocarcinoma of stomach: Assessment: Ms. Figueroa is a 71-year-old female who presented with nausea loss of appetite and weight loss. Endoscopy revealed involvement of the gastric mucosa with biopsy confirming adenocarcinoma. Staging work-up as shown thickened gastric wall but also the probability of dissemination in the lung and adjacent adenopathy. Treatment Options: 1. Systemic chemotherapy per Dr. Bergeron. 2. Palliative radiation if bleeding returns or pain becomes significant. 3. No further treatment. Recommendations: Systemic chemotherapy. No role for palliative radiation at this time. Plan: 1. Evaluation By Dr. Bergeron. 2. Palliative radiation if required in the future. Rationale/Explanation of Treatment: This patient has evidence of a gastric primary with a positive pleural fluid and probable carcinomatosis. Because of the dissemination initial treatment should be systemic. The patient will be evaluated by Dr. Bergeron and appropriate regimens will be discussed with the patient. The role of radiation at this point is for palliation. Therefore if the patient starts to have excessive bleeding or pain we could treat the patient palliatively as appropriate. Otherwise at this point there is no role for localized radiation therapy. The patient and her daughter had multiple questions which were answered to their full satisfaction. Thank you for allowing us to participate in the care of this patient. This chart was completed in part utilizing [employer] Speech Voice Recognition software. Grammatical errors, random word insertions, pronoun errors and incomplete sentences are occasional consequence of this system due to software limitations, ambient noise and hardware issues. Any formal questions or concerns about the content, text or information contained within the body of this dictation should be directly addressed to the provider for clarification. Myron Martinez MD Department of Radiation Oncology [facility] History of Present Illness Reason for Consultation: Hematemesis Requesting Physician: Dr. Contrreas Attending Physician: Pablo Smith MD History of Present Illness Ms. Figueroa is a 71-year-old female with a history of gastric adenocarcinoma who was recently admitted for nausea vomiting and hematemesis. We were asked to see the patient for consideration of palliative radiation. 04/01/2022. Patient presents to the emergency department with complaint of weakness, left upper quadrant abdominal pain, vomiting and weight loss. She the patient had lost over 50 pounds in the past month and her pain was increasing. The patient was seen in [facility] where she reportedly underwent an endoscopy. Patient underwent CT of the abdomen and pelvis which showed no acute abnormalities. CT of the chest showed a moderate left pleural effusion with a 4 mm pulmonary nodule in the right apex. 04/05/2022. Patient undergoes endoscopy by Dr. Scott. The esophagus was normal. A large amount of food (residue) was found in the gastric fundus. A medium sized, ulcerated, noncircumferential mass with oozing bleeding and no stigmata of recent bleeding was found in the gastric body. Biopsies were taken. The examined duodenum was normal. Stomach biopsy of the mass can performed poorly differentiated adenocarcinoma with evidence of chronic active gastritis with ulceration. Case #: [id number]. 04/06/2022. Patient undergoes thoracentesis revealing malignant cells present consistent with metastatic adenocarcinoma. Case #: [id number]. 04/06/2022. Patient undergoes repeat CT of the chest with IV contrast. Previous thoracentesis with identification of pleural effusion was noted. This showed likely trace residual left pleural effusion with patchy consolidation and a foci of segmental atelectasis in the left lower lobe. The 4 mm right apical pulmonary nodules again noted. In the mediastinum subcentimeter mediastinal lymph nodes are not pathologically enlarged. The gastric wall appeared thickened with mucosal hyperemia. In addition there was upper abdominal lymphadenopathy and mesenteric infiltration/nodularity compared to the prior study of 04/01/2022. These favor metastatic disease with peritoneal carcinomatosis. 04/10/2022. Patient undergoes CT of the abdomen and pelvis with and without contrast following development of hemoptysis. This again showed gastric wall thickening likely corresponding to the patient's known history of gastric malignancy. Small left pleural effusion and left pleural thickening was again noted likely representing metastatic disease. Upper abdominal lymphadenopathy with multiple prominent retroperitoneal lymph nodes are again noted and may represent metastatic disease. Abnormal soft tissue thickening and nodularity within the omentum consistent with peritoneal carcinomatosis. 04/11/2022. Patient is seen by GI in referral. They noted hematemesis likely due to underlying gastric mass, recent biopsies. They noted no significant drop in H&H and clinically no further overt bleeding. They suggested that if the patient continues to bleed she could be transferred to tertiary care center for IR embolization and recommended referral to oncology. 04/11/2022. Patient undergoes chest CTA. No change in pulmonary embolus was noted within the lingular pulmonary artery. Increase in size in the partially loculated small left pleural effusion and pleural mild thickening of the left lung base that could represent malignant pleural effusion. Mild mediastinal and left hilar lymphadenopathy is noted concerning for metastatic disease. Few scattered subcentimeter pulmonary nodules measuring up to 4 mm with metastatic disease diagnosis of exclusion. Venous Doppler study performed of the bilateral lower extremities showing no DVT but near occlusive deep vein thrombosis within the left common femoral and deep femoral veins. 04/12/2022. The patient's hematemesis is thought secondary to gastric tumor though PE remains a possibility with recent discontinuation of Lovenox. The hemoglobin however has been stable at 11.7. Medical oncology and radiation oncology were asked to see the patient in referral. Patient was to start low- dose heparin since the GI bleed has ceased for prevention of additional PE. Allergies Allergy/AdvReac Type Severity Reaction Status Date / Time amlodipine Allergy Severe SHORT OF Verified 04/10/22 22:23 BREATH losartan [From Cozaar] Allergy Severe SHORT OF Verified 04/10/22 22:23 BREATH cefazolin Allergy Mild PATIENT Verified 04/10/22 22:23 HAD GENERALIZED ITCHING JUST AFTER ANCEF WAS STARTED lisinopril AdvReac Intermediate Cough Verified 04/10/22 22:23 Home Medications Medication Instructions Recorded Confirmed Type albuterol sulfate 90 mcg/actuation 1 - 2 puff inhalation Q4H PRN 04/01/22 04/10/22 History aerosol inhaler COUGH/WHEEZING levothyroxine 75 mcg tablet 75 mcg PO DAILYBB 04/01/22 04/10/22 History metoprolol succinate 200 mg 200 mg PO BID 04/01/22 04/10/22 History tablet,extended release 24 hr montelukast 10 mg tablet 10 mg PO QPM 04/01/22 04/10/22 History omeprazole 40 mg capsule,delayed 40 mg PO DAILYBB 04/01/22 04/10/22 History release polyethylene glycol 3350 17 17 g PO DAILY PRN Constipation 04/01/22 04/10/22 History gram/dose oral powder (Miralax) venlafaxine 150 mg 150 mg PO DAILY 04/01/22 04/10/22 History capsule,extended release 24 hr venlafaxine 75 mg capsule,extended 75 mg PO DAILY 04/01/22 04/10/22 History release 24 hr ondansetron 8 mg disintegrating 8 mg PO Q8H PRN nausea and 04/06/22 04/10/22 Rx tablet vomiting #30 tabs enoxaparin 120 mg/0.8 mL 120 mg subcut .STOPPED 04/10/22 04/10/22 History subcutaneous syringe (Lovenox) nystatin 100,000 unit/gram topical 1 applic topical TID PRN Rash 04/10/22 04/10/22 History powder (Nystop) sucralfate 100 mg/mL oral 10 ml PO ACHS 04/10/22 04/10/22 History suspension Patient History Medical History Anxiety Dyspnea on exertion Gastric adenocarcinoma Hematemesis HLD (hyperlipidemia) HTN (hypertension) Hypothyroid Morbid obesity with BMI of 50.0-59.9, adult Nausea & vomiting Pleural effusion, malignant Surgical History History of cholecystectomy Social History Smoking Status: Never smoker Second Hand Exposure: No; Do You Dip or Chew Tobacco: No; Hx Alcohol Use: No Hx Substance Use: No Preferred Language: Tristanian Communication Ability: Effective Bottling Line Operator Required: No Beliefs That Will Affect Care: None marital status: Current Living Situation: Spouse Other Information That Helps Us Care for You: No Feels Safe at Home: Yes Safety Concerns: Feels Safe At This Time Assistive Devices: Cane Review of Systems Constitutional: + weight loss (50 to 60 pounds.) Eyes: no problem reported Ear, Nose, Mouth, Throat: no dysphagia and no problem reported Respiratory: no problem reported Cardiovascular: no problem reported Gastrointestinal: See history of present illness Genitourinary: no problem reported Musculoskeletal: no problem reported Integumentary: no problem reported Neurologic: no problem reported Psychiatric: no problem reported Endocrine: no problem reported Physical Exam Constitutional: WD/WN, vitals as above + obese Eyes: PERRL, conjunctivae normal, anicteric sclerae ENMT: Ears: no hearing impairment Neck: trachea midline, no thyromegaly Respiratory: normal respiratory effort, lungs clear to auscultation Cardiovascular: RRR, no murmur, no edema Gastrointestinal (Abdomen): Inspection/Auscultation: abdomen normal to inspection; abdomen not distended Percussion/Palpation: + abdomen tender (Mild tenderness in the epigastric area.); no guarding and abdomen not rigid Skin: no rashes, warm and dry Neurologic: Normal strength and coordination. Psychiatric: A+Ox3, euthymic affect Results (Rad Onc) Laboratory Results: were reviewed and pertinent findings noted in HPI Imaging Studies: were reviewed and pertinent findings noted in HPI Name:DANG FIGUEROA Age/Sex: 71/F Location:2N MR#: [id number] : 1950 Rm/Bed:N281-2 Subm. Phys.:Erich Scott DO Case #:[id number] Collected: 04/05/22 Received: 04/05/22 Copies To Case, DO Aldo Hilton Thomas E., MD FINAL DIAGNOSIS Stomach, mass, biopsy: - Poorly differentiated adenocarcinoma. - Chronic active gastritis with ulceration. - See comment. Comment: The majority of the specimen consists of ulcer and mucosa with chronic active gastritis. Intestinal metaplasia is noted. One fragment shows an infiltrative proliferation of pleomorphic cells with variable cytoplasmic vacuoles consistent with a poorly differentiated adenocarcinoma. The adenocarcinoma is negative for HER-2/susanna (score 0) by immunohistochemistry. The biopsy is noted to be negative for Helicobacter pylori. There is insufficient material for further ancillary testing including PDL1. This case was reviewed as an intradepartmental consultation by two other pathologists. at 1613. Name:DANG FIGUEROA Age/Sex: 71/F Location:2N MR#: [id number] : 1950 Rm/Bed:N281-2 Subm. Phys.:Aleksandar Bates MD Case #:[id number] Collected: 04/06/22 Received: 04/06/22 Copies To Andrea Carlson MD Vilensky, Vyacheslav MD FINAL DIAGNOSIS Pleural fluid, left, thoracentesis: - Malignant cells present, consistent with metastatic adenocarcinoma. - See comment. Comment: The specimen is reviewed in conjunction with this patient's stomach biopsy. The pleural fluid contains malignant cells that are consistent with metastatic adenocarcinoma, gastric primary. There are insufficient malignant cells present (approximately 50 total) for any ancillary testing. Screened byon at . at 1614. Time Spent Attending This documentation has been prepared in full or in part by Yeni REECE acting as a scribe under my direction. I, Dr. Martinez personally reviewed the services described and have reviewed the documentation to ensure its accuracy. I spent 20 minutes with direct face to face interaction with the patient which included obtaining clinical information, recommending a plan of action and answering questions. I spent 20 minutes reviewing the patient chart and scan, discussion with medical oncology and hospitalist and preparation of this document. ISIAH
[2022-04-12 09:59] LABS: Basophils # (auto) 0.05 K/uL (0-0.2); Basophils % (auto) 0.5 %; Eosinophils # (auto) 0.17 K/uL (0-0.50); Eosinophils % (auto) 1.6 %; Hematocrit (blood only) 36.3 % (34.1-44.9); Immature Granulocytes # (auto) 0.13 K/uL (0.00-0.02); Immature Granulocytes % (auto) 1.2 %; Lymphocytes # (auto) 0.84 K/uL (1.2-3.4); Lymphocytes % (auto) 8.1 %; Mean Corpuscular Hemoglobin 29.9 pg (25.0-34.0); Mean Corpuscular Hgb Conc 33.1 g/dL (32.0-36.0); Mean Corpuscular Volume 90.3 fL (80.0-100.0); Mean Platelet Volume 10.8 fL (9.4-12.3); Monocytes # (auto) 1.26 K/uL (0.24-0.82); Monocytes % (auto) 12.1 %; Neutrophils # (auto) 7.97 K/uL (1.4-6.5); Neutrophils % (auto) 76.5 %; Platelet Count 307 K/uL (130-400); RDW Coefficient of Variation 13.6 % (11.5-14.5); Red Blood Count 4.02 M/uL (3.93-5.22); White Blood Count 10.42 K/ul (4.8-10.8)
--- NOTE | 2022-04-12 10:06 | Gastroenterology Progress Note ---
Date of Service April 12, 2022 Assessment & Plan (1) Hematemesis: Plan: 71 year old female patient recently diagnosed with gastric adenocarcinoma with peritoneal carcinomatosis by Dr. Scott on EGD done 04/05/22. she presented to ED over the weekend with hematemesis x 1 episode. Since admission, she has not had any further vomiting. hgb went from 12.8 to 11.7 and back to 12. - discussed with Dr. Scott. - now on low dose heparin. - continue zofran 4mg IV every 6 hours prn nausea/vomiting. - continue protonix 40mg IV BID daily. - would recommend Dr. Weeks from surgery also see patient given the need for surgery of gastric adenocarcinoma. Admission and Anticipated Discharge Date Admission Date: April 10, 2022 Supervising Physician Co-Signing Physician Notes Agree with CHEVY Pérez as above Gen: A+Ox3, Morbidly obese, NAD Abd: Soft, NT, ND, +BS Discussed case with Dr. Bergeron. Patient will have Mediport placed by Surgery tomorrow Plan is for patient to be seen by Surg-Onc at [facility] vs. [facility] as directed by Patient's family Subjective Patient is a 71 year old female patient recently diagnosed with gastric adenocarcinoma with peritoneal carcinomatosis by Dr. Scott on egd done 04/05/22. she presented to ED over the weekend with hematemesis x 1 episode. Since admission, she has not had any further vomiting. hgb currently stable at 12. denies nausea, heartburn, dysphagia, abdominal pain, changes in bowels. Review of Systems Review of Systems: All systems reviewed & are unremarkable except as noted in HPI & below Physical Exam Constitutional: WD/WN, vitals as above Eyes: + anicteric sclerae and PERRL Respiratory: normal respiratory effort, lungs clear to auscultation Cardiovascular: RRR, no murmur, no edema Gastrointestinal (Abdomen): normal bowel sounds, soft, nontender, no h epatosplenomegaly Skin: no rashes, warm and dry Psychiatric: Orientation: alert and oriented x 3 Affect: euthymic affect Results & Data Results & Data ([facility]) Vital Signs (Past 12 Hours) Vital Signs Temp Pulse Pulse Resp BP BP Pulse Ox 04/12/22 08:20 36.4 C L 86 20 141/80 H 95 04/12/22 04:14 36.6 C 88 16 129/84 95 04/11/22 23:44 93 H 04/11/22 23:43 98 H 04/11/22 23:30 36.6 C 91 H 18 127/82 95 O2 Del Method 04/12/22 08:20 Room Air 04/12/22 04:14 Room Air 04/11/22 23:44 04/11/22 23:43 04/11/22 23:30 Room Air PG Care Time/CCT Total # of Minutes Spent Total Time Spent with Patient: Total time spent is greater than 50% in coordination of care (as documented) at patient's floor/unit and/or counseling patient: Coding Level of Care Code 62670 Subseq Hosp Care Lvl 3 Diagnoses Hematemesis K92.0
[2022-04-12 10:18] LABS: Albumin Globulin Ratio 0.9 (0.9-2); Albumin Level 2.8 gm/dl (3.4-5.0); BUN Creatinine Ratio 25.4 (10-20); Bilirubin,Total 0.4 mg/dl (0.2-1.0); Calcium 8.1 mg/dl (8.5-10.1); Creatinine Clr Calc Pharmacy 109.5 ml/min; Est GFR (African American) 100.7 ml/min; Est GFR (Non-African American) 86.9 ml/min; Globulin 3.2 gm/dl (2.5-4.0); Potassium 3.4 mmol/L (3.5-5.1)
[2022-04-12 10:22] LABS: Partial Thromboplastin Ratio 2.3
[2022-04-12 10:32] LABS: Partial Thromboplastin Time 63.5 Seconds (21.0-31.0)
--- NOTE | 2022-04-12 10:53 | Consultation ---
Date of Consultation April 12, 2022 Assessment & Plan (1) Deep vein thrombosis (DVT): Pt with L femoral vein DVT and PE, currently on heparin drip. Pt's hgb remains essentially stable and she has had no further sx of hematemesis. Pt discussed at length with Dr Pratt. Do not recommend IVC filter insertion at this time. Will be happy to reeval if pt has further significant bleeding. THis was discussed with the pt and her daughter. Please call if needed. History of Present Illness Reason for Consultation: DVT/PE, GI bleed Attending Physician: Pablo Smith MD History of Present Illness 71 yo f with hx of HTN, hypothyroidism, asthma, hyperlipidemia, anxiety, and recent dx of gastric ca and PE, admitted with hematemesis, seen in consultation today for eval for possible IVC filter insertion. Pt dx with gastric ca during last admission about 1-2 weeks ago. SHe was also noted to have PE at the time of d/c and was started on lovenox as outpt. Within 2-3 days after discharge, pt began having hematemesis and saw her PCP, who stopped her lovenox and advised pt to go to hospital. Pt states has been feeling better since admission and having no further emesis. Hgb at d/c last week was 12.9 and was then 12.8 on readmission 2-3 days later(after hematemesis at home), then 11.7 yesterday, now 12.0 today. SHe has not required transfusion. BLE venous US demonstrated L femoral v thrombus and CTA chest demonstrated no change in the PE. She was started on heparin drip yesterday. Pt denies fever, chest pain, SOB at rest, abd pain, N/V currently, claudication, prior DVT/PE in past, other complaints. Allergies Allergy/AdvReac Type Severity Reaction Status Date / Time amlodipine Allergy Severe SHORT OF Verified 04/10/22 22:23 BREATH losartan [From Cozaar] Allergy Severe SHORT OF Verified 04/10/22 22:23 BREATH cefazolin Allergy Mild PATIENT Verified 04/10/22 22:23 HAD GENERALIZED ITCHING JUST AFTER ANCEF WAS STARTED lisinopril AdvReac Intermediate Cough Verified 04/10/22 22:23 Home Medications Medication Instructions Recorded Confirmed Type albuterol sulfate 90 mcg/actuation 1 - 2 puff inhalation Q4H PRN 04/01/2203/23 History aerosol inhaler COUGH/WHEEZING levothyroxine 75 mcg tablet 75 mcg PO DAILYBB 04/01/22 04/10/22 History metoprolol succinate 200 mg 200 mg PO BID 04/01/22 04/10/22 History tablet,extended release 24 hr montelukast 10 mg tablet 10 mg PO QPM 04/01/22 04/10/22 History omeprazole 40 mg capsule,delayed 40 mg PO DAILYBB 04/01/22 04/10/22 History release polyethylene glycol 3350 17 17 g PO DAILY PRN Constipation 04/01/22 04/10/22 History gram/dose oral powder (Miralax) venlafaxine 150 mg 150 mg PO DAILY 04/01/22 04/10/22 History capsule,extended release 24 hr venlafaxine 75 mg capsule,extended 75 mg PO DAILY 04/01/22 04/10/22 History release 24 hr ondansetron 8 mg disintegrating 8 mg PO Q8H PRN nausea and 04/06/22 04/10/22 Rx tablet vomiting #30 tabs enoxaparin 120 mg/0.8 mL 120 mg subcut .STOPPED 04/10/22 04/10/22 History subcutaneous syringe (Lovenox) nystatin 100,000 unit/gram topical 1 applic topical TID PRN Rash 04/10/22 04/10/22 History powder (Nystop) sucralfate 100 mg/mL oral 10 ml PO ACHS 04/10/22 04/10/22 History suspension Patient History Medical History Anxiety Dyspnea on exertion Gastric adenocarcinoma Hematemesis HLD (hyperlipidemia) HTN (hypertension) Hypothyroid Morbid obesity with BMI of 50.0-59.9, adult Nausea & vomiting Pleural effusion, malignant Surgical History History of cholecystectomy Social History Smoking Status: Never smoker Second Hand Exposure: No; Do You Dip or Chew Tobacco: No; Hx Alcohol Use: No Hx Substance Use: No Preferred Language: Cameroonian Communication Ability: Effective Unclaimed Property Manager Required: No Beliefs That Will Affect Care: None marital status: Current Living Situation: Spouse Other Information That Helps Us Care for You: No Feels Safe at Home: Yes Safety Concerns: Feels Safe At This Time Assistive Devices: Cane Review of Systems Review of Systems: All systems reviewed & are unremarkable except as noted in HPI & below Physical Exam Constitutional: WD/WN, vitals as above + ill appearing, + obese, cooperative and comfortable; not in distress ENMT: Ears: no hearing impairment Neck: trachea midline Respiratory: normal respiratory effort, lungs clear to auscultation Auscultation: + diminished lung sounds Cardiovascular: Rate/Rhythm: regular rate and regular rhythm Vessels: femoral pulses present, posterior tibial pulses present, dorsalis pedis pulses present and radial pulses present; + abnormal peripheral pulses Extremities: normal capillary refill and + edema Gastrointestinal (Abdomen): Inspection/Auscultation: abdomen normal to inspection and normal bowel sounds Percussion/Palpation: + abdomen tender and abdomen soft Musculoskeletal: no cyanosis or clubbing, extremities motor strength 5/5 Skin: no rashes, warm and dry Neurologic: moves all extremities and awake; no focal motor deficits and not confused Psychiatric: Orientation: alert and oriented x 3 Affect: + depressed affect Results & Data ([facility]) Vital Signs (Past 12 Hours) Vital Signs Temp Pulse Pulse Resp BP BP Pulse Ox 04/12/22 08:20 36.4 C L 86 20 141/80 H 95 04/12/22 04:14 36.6 C 88 16 129/84 95 04/11/22 23:44 93 H 04/11/22 23:43 98 H 04/11/22 23:30 36.6 C 91 H 18 127/82 95 O2 Del Method 04/12/22 08:20 Room Air 04/12/22 04:14 Room Air 04/11/22 23:44 04/11/22 23:43 04/11/22 23:30 Room Air
[2022-04-12] MEDS: PANTOprazole 40 MG in SYRINGE 0 ML IV SCH ×2 (12:13→20:21)
[2022-04-12] MEDS: FAMOTIDINE 20 MG in SYRINGE 3 ML IV SCH ×2 (12:13→20:45)
[2022-04-12] MEDS: ONDANSETRON INJ 2 MG/ML 2 ML VIAL IV PRN (12:49)
[2022-04-12] MEDS ORDERED: MICONAZOLE NITRATE POWDER 43 GM EXT PRN (12:51)
[2022-04-12] MEDS ORDERED: POTASSIUM CHLORIDE / WTR 10 MEQ/100 ML PLCT IV ONE (13:16)
--- NOTE | 2022-04-12 13:17 | Hospitalist Progress Note ---
Date of Service April 12, 2022 Assessment & Plan (1) Hematemesis: Plan: - Suspected secondary to gastric source given ongoing pathology, though PE remains a possibility given recent PE, recent discontinuation of lovenox, and tachycardia - H&H remains stable - Continue Protonix and Pepcid - NPO since admission, can advance to clear liquids - GI consulted, appreciate input-if bleeding recurs, will need to transfer to tertiary center for IR embolization as typically tumor bleeds are poorly responsive to endoscopic interventions (2) Deep vein thrombosis (DVT): Plan: Pulmonary emboli & LLE DVT - Noted on CT chest performed on 04/06 (of lingular pulmonary artery); had been treated with lovenox but this was held by PCP prior to admission - Now on Heparin gtt - will consider transition back to Lovenox - Vascular surgery consulted, appreciate assistance, no need for IVC at this niall e (3) Gastric adenocarcinoma: Plan: - Poorly differentiated, recently confirmed (previously suspected) on 04/07 via biopsy results - Recurrent N/V and weight loss are primary symptoms - down an additional 15 lbs since discharge - Consults placed to radiation oncology as well as medical oncology - Anticipate need for surgical evaluation; however, will need a tertiary facility - Anticipate recommendation for mediport placement, will c/s general surgery after d/w oncology (4) HTN (hypertension): Plan: - Presently well controlled, meds on hold as she was kept NPO from admission (5) HLD (hyperlipidemia): Plan: - Takes Atorvastatin at home, but held due to being NPO (6) Hypothyroid: Plan: - Synthroid held d/t NPO status (7) Mild intermittent asthma: Plan: - Controlled (8) Anxiety: Plan: - Venlafaxine on hold d/t NPO status Plan Replacement ordered for K+ of 3.4. Await input from oncology groups. Appreciate input from specialists. Further plan will be formulated after discussed with oncology. Repeat labs ordered for tomorrow morning. Updated patient's daughter via phone at bedside. Plan to be d/w Dr. Rafiq Smith. Admission and Anticipated Discharge Date Admission Date: April 10, 2022 Subjective Patient has been seen on daily rounds this morning. Sheyla is well known to me from her most recent admission. Since she was discharged, her gastric tumor biopsy came back c/w poorly differentiated adenocarcinoma. There is also evidence of metastatic disease. Following her thoracentesis, she underwent a CT chest w/ contrast that found an acute PE. She was discharged home on Lovenox. Unfortunately, she continued to have vomiting and started having coffee-ground emesis. Her PCP stopped her Lovenox. On Tuesday, pt vomited up what appeared to be a blood clot. At that point, her family decided to take her back to the emergency room. Despite these episodes of bloody emesis, her blood counts remain stable. Sheyal denies having any episodes of vomiting since she was in the ER Tuesday evening. She currently denies feeling nauseous or having any abdominal pain. She denies fever/chills, chest pain, or dyspnea. During this stay, thus far, she has been found to have an extensive (near occlusive) DVT in her LLE. She is currently on heparin gtt to treat for her DVT/PE and is NPO with fluids running. Her family is concerned with taking her home and her inability to keep food/liquids down. She has not yet been seen by oncology but has consultations placed. Review of Systems Review of Systems: All systems reviewed and are unremarkable except as noted in HPI and below. Denies fever, chills, fatigue, headache, nasal congestion, sore throat, cough, chest pain, shortness of breath, palpitations, orthopnea, PND, abdominal pain, n/v (none x2 days)/d, constipation, dysuria, hematuria, frequency, back pain, joint pain or swelling, easy bruising or bleeding, skin lesions or rashes. Physical Exam Physical Exam: GENERAL: 71 yo morbidly obese wf. Pleasant, cooperative, NAD. LUNGS: Clear to auscultation bilaterally w/o w/r/r. CARDIOVASCULAR: Regular rate and rhythm. ABDOMEN: Soft, obese, non-tender and non-distended. BS normoactive x 4 quad. EXTREMITIES: No edema. Non-tender. Peripheral pulses +2/4. NEUROLOGIC: A&O x3. PSYCHIATRIC: Cooperative. Appropriate mood and affect. SKIN: Warm, dry, intact. No rashes or lesions. Results & Data Results & Data ([facility]) Vital Signs (Past 12 Hours) Vital Signs Temp Pulse Resp BP BP Pulse Ox O2 Del Method 04/12/22 11:03 36.3 C L 98 H 20 116/73 97 Room Air 04/12/22 08:20 36.4 C L 86 20 141/80 H 95 Room Air 04/12/22 04:14 36.6 C 88 16 129/84 95 Room Air Laboratory Results 04/12/22 09:16 04/12/22 09:16 PG Care Time/CCT Total # of Minutes Spent Total Time Spent with Patient: Total time spent is greater than 50% in coordination of care (as documented) at patient's floor/unit and/or counseling patient: Coding Level of Care Code 12766 Subseq Obs Care Lvl 3 Diagnoses Hematemesis K92.0 Deep vein thrombosis (DVT) I82.409 Gastric adenocarcinoma C16.9 HTN (hypertension) I10 HLD (hyperlipidemia) E78.5 Hypothyroid E03.9 Mild intermittent asthma J45.20 Anxiety F41.9
[2022-04-12] MEDS: HEPARIN SODIUM/DEXTROSE 25,000 UNITS/500 ML BAG IV SCH (15:09)
[2022-04-12] MEDS ORDERED: HYDROmorphone INJ 0.5 MG/0.5 ML SYR IV STA (20:34)
--- NOTE | 2022-04-12 22:26 | Consultation Report ---
DATE OF SERVICE: 04/12/2022. REASON FOR CONSULTATION: Gastric cancer. HISTORY OF PRESENT ILLNESS: Ms. Sheyla Figueroa is a pleasant 71-year-old female who was recently diagnosed with metastatic gastric cancer. The patient had initially presented to [facility] on 04/01/2022 with complaints of abdominal pain, intractable vomiting and weight loss for which she subsequently underwent imaging studies including CT chest, which revealed moderate left-sided pleural effusion as well as a 4 mm pulmonary nodule in the right apex. She underwent upper endoscopy, performed by Dr. Scott on 04/05/2022, which revealed a large amount of food residue in the gastric fundus, medium-sized ulcerated noncircumferential mass with oozing bleeding in the gastric body, for which biopsy was taken. Biopsy revealed poorly differentiated adenocarcinoma, which was HER-2/susanna negative by IHC. CT chest on 04/06/2022 revealed left pleural effusion and pulmonary embolus within the lingular pulmonary artery. She then underwent left thoracentesis on 04/06/2022 with cytology consistent with metastatic adenocarcinoma. The patient was subsequently discharged home. She, however, presented to the ER at [facility] again on 04/10/2022 with complaints of hematemesis. Of note, she had been on therapeutic Lovenox for recently diagnosed PE. CT chest, abdomen and pelvis performed on 04/10/2022 revealed no change in PE within the lingular pulmonary artery, increased in size in partially loculated small left pleural effusion with mild pleural thickening at the left lung base, mild mediastinal and left hilar lymphadenopathy concerning for metastatic disease, few scattered subcentimeter pulmonary nodules measuring up to 4 mm, gastric wall thickening consistent with gastric malignancy, upper abdominal lymphadenopathy and multiple prominent retroperitoneal lymph nodes as well as abnormal soft tissue thickening and nodularity within the omentum consistent with peritoneal carcinomatosis. Ultrasound of lower extremity obtained on 04/11/2022 revealed near occlusive DVT in the left common femoral and deep femoral veins. The patient was evaluated by GI during current admission, who appropriately indicated that her hemoglobin was stable and recommended possible IR embolization if GI bleeding persists. On evaluation of the patient today, she complains of vomiting. Denies nausea. Also complains of poor appetite and weight loss. ALLERGIES: 1. AMLODIPINE. 2. LOSARTAN. 3. CEFAZOLIN. 4. LISINOPRIL. HOME MEDICATIONS: 1. Levothyroxine 75 mcg p.o. daily. 2. Metoprolol 200 mg p.o. b.i.d. 3. Montelukast 10 mg p.o. q.p.m. 4. Omeprazole 40 mg p.o. daily. 5. Venlafaxine. 6. Zofran as needed. 7. Lovenox. 8. Sucralfate. PAST MEDICAL HISTORY: 1. Hypertension. 2. Hyperlipidemia. 3. Morbid obesity. 4. Gastric cancer. PAST SURGICAL HISTORY: History of cholecystectomy. SOCIAL HISTORY: Denies smoking, alcohol and illicit drug use. PHYSICAL EXAMINATION: Essentially unrevealing except for bilateral lower extremity swelling. LABORATORY DATA: Essentially unrevealing. IMAGING STUDIES: As above. ASSESSMENT AND PLAN: 1. Metastatic gastric adenocarcinoma, HER-2/susanna negative by IHC. 2. Hematemesis due to gastric malignancy. 3. Weight loss and vomiting. 4. Morbid obesity(BMI>50). 5. Pulmonary emboli and deep venous thrombosis. A pleasant female recently diagnosed with gastric adenocarcinoma with imaging studies revealing carcinomatosis, mediastinal lymphadenopathy and malignant left-sided pleural effusion consistent with stage IV disease. Discussed my thoughts with the patient, her daughter, son and . I explained to them that based on imaging studies, she appears to have stage IV disease for which goals of treatment will be to prolong life and improve symptoms. Discussed treatment options with them including combination chemoimmunotherapy treatment with FOLFOX plus nivolumab . Treatment will be given IV every 2 weeks until disease progression or unacceptable toxicity. Briefly discussed possible potential side effects of treatment, which will be discussed in detail with chemo RN upon discharge from hospital. In the meantime, I would recommend MediPort placement for administration of systemic therapy. Also, recommend a brain MRI to rule out brain metastasis given complaint of intractable vomiting. Also bone scan for full staging. Will check CEA. Would appreciate GI input regarding the feasibility of safely placing a PEG tube for nutrition. Can be transitioned to Lovenox 1.5mg/kg if she has no evidence of bleeding while on heparin. Thank you for this consult. Oncology will follow the patient upon discharge from hospital. Please feel free to call if you have any further questions. Job ID: [id number] [facility]
[2022-04-13] MEDS: ACETAMINOPHEN 1,000 MG/100 ML VIAL IV PRN ×2 (06:03→21:07)
[2022-04-13 06:44] LABS: Basophils # (auto) 0.05 K/uL (0-0.2); Basophils % (auto) 0.5 %; Eosinophils # (auto) 0.12 K/uL (0-0.50); Eosinophils % (auto) 1.1 %; Hematocrit (blood only) 34.5 % (34.1-44.9); Hemoglobin 11.4 g/dl (12.0-16.0); Immature Granulocytes # (auto) 0.14 K/uL (0.00-0.02); Immature Granulocytes % (auto) 1.3 %; Lymphocytes # (auto) 0.87 K/uL (1.2-3.4); Mean Corpuscular Hemoglobin 29.8 pg (25.0-34.0); Mean Corpuscular Volume 90.1 fL (80.0-100.0); Mean Platelet Volume 10.9 fL (9.4-12.3); Monocytes # (auto) 1.25 K/uL (0.24-0.82); Monocytes % (auto) 11.5 %; Neutrophils # (auto) 8.43 K/uL (1.4-6.5); Neutrophils % (auto) 77.6 %; Platelet Count 249 K/uL (130-400); RDW Standard Deviation 42.5 fL (36.4-46.3); Red Blood Count 3.83 M/uL (3.93-5.22); White Blood Count 10.86 K/ul (4.8-10.8)
[2022-04-13] MEDS: LACTATED RINGER'S 1,000 ML IV SCH ×2 (07:08→11:45)
[2022-04-13 07:09] LABS: Partial Thromboplastin Ratio 2.3
[2022-04-13] MEDS: PANTOprazole 40 MG in SYRINGE 0 ML IV SCH ×2 (08:42→21:06)
[2022-04-13] MEDS: POTASSIUM CHLORIDE / WTR 10 MEQ/100 ML PLCT IV SCH ×2 (08:42→10:06)
[2022-04-13] MEDS: FAMOTIDINE 20 MG in SYRINGE 3 ML IV SCH ×2 (08:42→21:06)
--- NOTE | 2022-04-13 09:07 | Gastroenterology Progress Note ---
Date of Service April 13, 2022 Assessment & Plan Admission and Anticipated Discharge Date Admission Date: April 11, 2022 Subjective Patient was has not had any further hematemesis since admission. she does have some epigastric discomfort but stable at baseline. Dr. Bergeron had inquired about patient having a peg tube. She tells me she would like to discuss with her family before proceeding but she is agreeable to having one placed. she denies any nausea, vomiting, heartburn, change in bowels, melena, brbpr. Review of Systems Review of Systems: All systems reviewed & are unremarkable except as noted in HPI & below Physical Exam Constitutional: WD/WN, vitals as above Eyes: + anicteric sclerae and PERRL Respiratory: normal respiratory effort, lungs clear to auscultation Cardiovascular: RRR, no murmur, no edema Gastrointestinal (Abdomen): normal bowel sounds, mild epigastric tenderness to palpation, no guarding. soft. Skin: no rashes, warm and dry Psychiatric: Orientation: alert and oriented x 3 Results & Data Results & Data ([facility]) Vital Signs (Past 12 Hours) Vital Signs Temp Pulse Pulse Resp BP BP Pulse Ox 04/13/22 07:11 36.4 C L 91 H 17 138/76 96 04/13/22 04:00 36.5 C 89 18 135/82 93 04/13/22 00:01 36.3 C L 94 H 137/83 92 04/12/22 22:17 99 H O2 Del Method 04/13/22 07:11 Room Air 04/13/22 04:00 Room Air 04/13/22 00:01 Room Air 04/12/22 22:17 PG Care Time/CCT Total # of Minutes Spent Total Time Spent with Patient: Total time spent is greater than 50% in coordination of care (as documented) at patient's floor/unit and/or counseling patient: Coding
--- NOTE | 2022-04-13 09:15 | Communication Note ---
Date of Service: April 13, 2022 patient has had no further hemeatemsis. GI ros were unremarkable. Dr. Bergeron had questioned about peg tube placement. Discussed with Dr. Scott. Given the site of the patient's cancer, as well as carcinomatosis on CT imaging, would not be able to place peg tube. Would address with surg/onc if needed.
[2022-04-13 09:54] LABS: Partial Thromboplastin Time 64.3 Seconds (21.0-31.0)
--- NOTE | 2022-04-13 11:37 | Hospitalist Progress Note ---
Date of Service April 13, 2022 Assessment & Plan (1) Hematemesis: Plan: - Suspected secondary to gastric source given ongoing pathology, though PE remains a possibility given recent PE, recent discontinuation of lovenox, and tachycardia - H&H remains stable - Continue Protonix and Pepcid - NPO since admission, can advance to clear liquids - GI consulted, appreciate input-if bleeding recurs, will need to transfer to tertiary center for IR embolization as typically tumor bleeds are poorly responsive to endoscopic interventions - No further episodes of hematemesis, H&H stable - NPO at present in anticipation of mediport placement VS. picc line so that she can start systemic chemotherapy petey - Will plan to transition to Lovenox 1.5mg/kg q 24 starting tomorrow morning (holding off for now until determined when catheter insertion will be and easier to pause heparin gtt prior to procedure) - May need placement of peg tube or J tube to meet nutritional needs given intractable n/v (2) Deep vein thrombosis (DVT): Plan: Pulmonary emboli & LLE DVT - Noted on CT chest performed on 04/06 (of lingular pulmonary artery); had been treated with lovenox but this was held by PCP prior to admission - Now on Heparin gtt - will plan transition back to Lovenox after placement of mediport v picc line - Vascular surgery consulted, appreciate assistance, no need for IVC at this time (3) Gastric adenocarcinoma: Plan: - Poorly differentiated, recently confirmed (previously suspected) on 04/07 via biopsy results - Recurrent N/V and weight loss are primary symptoms - down an additional 15 lbs since discharge - Consults placed to radiation oncology as well as medical oncology--appreciate assistance - Anticipate need for surgical evaluation; however, will need a tertiary facility for surgical oncologist - Mediport placement to start systemic chemotherapy advised by oncology, GS has been consulted, may consider PICC line placement as there is concern for bleeding/clotting at mediport site - Obtain MRI brain w/ and w/o contrast to look for brain mets as well as bone scan (4) HTN (hypertension): Plan: - Presently well controlled, meds on hold as she was kept NPO from admission - Can resume Metoprolol but at lower dose, as her BP has been controlled off meds (likely d/t profound recent weight loss) (5) HLD (hyperlipidemia): Plan: - Takes Atorvastatin at home, but held currently (6) Hypothyroid: Plan: - Synthroid held d/t NPO status, resumed (7) Mild intermittent asthma: Plan: - Controlled (8) Anxiety: Plan: - Venlafaxine on hold d/t NPO status, resume - Added Ativan 0.5mg po q8h PRN Plan Replacement ordered for K+ of 3.4. At this point, plan would be to place picc line or mediport in order for pt to start systemic chemotherapy. Await MRI and bone scan as they have been ordered. Once catheter placed, can advance diet to clear liquids and transition back to Lovenox. Will assist pt in getting her an appt with [facility] surgical oncologist to discuss placement of peg/j tube and gastrectomy prior to discharge. Added Tramadol 50mg po q4h prn pain. Plan to be d/w Dr. Rafiq Smith. Admission and Anticipated Discharge Date Admission Date: April 11, 2022 Subjective Patient seen on daily rounds this morning. She reports doing well overall, no new complaints/concerns. She still has had no further episodes of nausea or vomiting. Denies abd pain. No fever/chills, chest pain, or dyspnea. She has been NPO this morning awaiting consult by general surgery to discuss placement of mediport so that she can start systemic chemotherapy. Review of Systems Review of Systems: All systems reviewed and are unremarkable except as noted in HPI and below. Denies fever, chills, fatigue, headache, nasal congestion, sore throat, cough, chest pain, shortness of breath, palpitations, orthopnea, PND, abdominal pain, n/v (none x3 days)/d, constipation, dysuria, hematuria, frequency, back pain, joint pain or swelling, easy bruising or bleeding, skin lesions or rashes. Physical Exam Physical Exam: GENERAL: 71 yo morbidly obese wf. Pleasant, cooperative, NAD. LUNGS: Clear to auscultation bilaterally w/o w/r/r. CARDIOVASCULAR: Regular rate and rhythm. ABDOMEN: Soft, obese, non-tender and non-distended. BS normoactive x 4 quad. EXTREMITIES: No edema. Non-tender. Peripheral pulses +2/4. NEUROLOGIC: A&O x3. PSYCHIATRIC: Cooperative. Appropriate mood and affect. SKIN: Warm, dry, intact. No rashes or lesions. Results & Data Results & Data ([facility]) Vital Signs (Past 12 Hours) Vital Signs Temp Pulse Resp BP BP Pulse Ox O2 Del Method 04/13/22 07:11 36.4 C L 91 H 17 138/76 96 Room Air 04/13/22 04:00 36.5 C 89 18 135/82 93 Room Air 04/13/22 00:01 36.3 C L 94 H 137/83 92 Room Air Laboratory Results 04/13/22 06:06 04/12/22 09:16 PG Care Time/CCT Total # of Minutes Spent Total Time Spent with Patient: Total time spent is greater than 50% in coordination of care (as documented) at patient's floor/unit and/or counseling patient: Coding Level of Care Code 59213 Subseq Hosp Care Lvl 3 Diagnoses Hematemesis K92.0 Deep vein thrombosis (DVT) I82.409 Gastric adenocarcinoma C16.9 HTN (hypertension) I10 HLD (hyperlipidemia) E78.5 Hypothyroid E03.9 Mild intermittent asthma J45.20 Anxiety F41.9
[2022-04-13] MEDS: traMADol HCL 50 MG TABLET PO PRN ×2 (11:44→15:55)
[2022-04-13] MEDS: HEPARIN SODIUM/DEXTROSE 25,000 UNITS/500 ML BAG IV SCH (11:45)
[2022-04-13] MEDS: LORazepam 0.5 MG TAB PO PRN ×2 (12:10→21:07)
[2022-04-13] MEDS ORDERED: GADOBUTROL 65ML VIAL IV ONE (13:17)
--- NOTE | 2022-04-13 13:38 | Surgery Consultation ---
Date of Consultation April 13, 2022 Assessment & Plan (1) Gastric adenocarcinoma: Plan 71-year-old female who was recently diagnosed with stage IV gastric adenocarcinoma. She has evidence of malignant pleural effusion, thoracic lymphadenopathy, and carcinomatosis . Patient evaluated by oncology and patient wishes to proceed with chemotherapy. Our service is consulted for Mediport placement. Patient does have a pulmonary embolism and DVT and is currently on heparin therapy. She has had no further signs of bleeding and her hemoglobin is stable. Plan: Dr. Smith discussed with patient and family the options of Mediport placement versus PICC line for administration of chemotherapy and potentially for nutrition. She would be at increased risk for for bleeding, clotting with Mediport placement given her current anticoagulation as well as hypercoagulable state given her metastatic cancer. She likely is malnourished and will definitely need nutrition however given her gastric adenocarcinoma PEG tube will not be placed at this institution and will need to be addressed by surgical oncology. Initially discussed with patient and her family the risks of port placement including bleeding, infection, injury to the blood vessels, injury to the lung, malfunctioning of the port and infection of the port requiring removal. A PICC line was attempted however was not able to be accessed. Hospitalist service is asking for Mediport placement so that she can start chemotherapy We will proceed with placement of Mediport with Dr. Smith tomorrow Keep n.p.o. after midnight Hold heparin in the a.m. Continue current medical management Dr. Smith has seen and examined patient and discussed above with patient and family at depth. Please see addendum for further recommendations/plan. Supervising Physician Co-Signing Physician Notes I have seen and examined the patient and agree with the above assessment and plan. We will take her to the OR for port placement. all questions answered. History of Present Illness Reason for Consultation: Port placement Requesting Physician: Micheline Drew PA-C Attending Physician: Pablo Smith MD History of Present Illness Sheyla is a 71-year-old female who was recently diagnosed with metastatic gastric cancer who initially presented to [facility] on April 01 with complaints of abdominal pain, intractable vomiting and weight loss for which she underwent imaging and upper endoscopy which revealed a large ulcerated mass with bleeding. Biopsy was taken and biopsy revealed poorly differentiated adenocarcinoma. She also unfortunately developed a left pleural effusion and pulmonary embolism and underwent a left thoracentesis on April 06 with cytology cytology consistent with metastatic adenocarcinoma. Oncology has evaluated patient and discussed imaging findings consistent with stage IV disease and discussed options of treatment including chemotherapy. Patient wants to proceed with chemotherapy and our service was consulted for Mediport placement. Sheyla states that she has never had central venous catheter insertion or any procedures on the central veins. Family was present during my evaluation and there is discussion about seeing the surgical oncologist for further surgical management. GI evaluated patient this morning for possible PEG tube placement however per their service this would not be performed at this institution given the gastric cancer and this would need to be done by surgical oncology. She has had no further episodes of bleeding and her hemoglobin is stable. Allergies Allergy/AdvReac Type Severity Reaction Status Date / Time amlodipine Allergy Severe SHORT OF Verified 04/10/22 22:23 BREATH losartan [From Cozaar] Allergy Severe SHORT OF Verified 04/10/22 22:23 BREATH cefazolin Allergy Mild PATIENT Verified 04/10/22 22:23 HAD GENERALIZED ITCHING JUST AFTER ANCEF WAS STARTED lisinopril AdvReac Intermediate Cough Verified 04/10/22 22:23 Home Medications Medication Instructions Recorded Confirmed Type albuterol sulfate 90 mcg/actuation 1 - 2 puff inhalation Q4H PRN 04/01/22 04/10/22 History aerosol inhaler COUGH/WHEEZING levothyroxine 75 mcg tablet 75 mcg PO DAILYBB 04/01/22 04/10/22 History metoprolol succinate 200 mg 200 mg PO BID 04/01/22 04/10/22 History tablet,extended release 24 hr montelukast 10 mg tablet 10 mg PO QPM 04/01/22 04/10/22 History omeprazole 40 mg capsule,delayed 40 mg PO DAILYBB 04/01/22 04/10/22 History release polyethylene glycol 3350 17 17 g PO DAILY PRN Constipation 04/01/22 04/10/22 History gram/dose oral powder (Miralax) venlafaxine 150 mg 150 mg PO DAILY 04/01/22 04/10/22 History capsule,extended release 24 hr venlafaxine 75 mg capsule,extended 75 mg PO DAILY 04/01/22 04/10/22 History release 24 hr ondansetron 8 mg disintegrating 8 mg PO Q8H PRN nausea and 04/06/22 04/10/22 Rx tablet vomiting #30 tabs enoxaparin 120 mg/0.8 mL 120 mg subcut .STOPPED 04/10/22 04/10/22 History subcutaneous syringe (Lovenox) nystatin 100,000 unit/gram topical 1 applic topical TID PRN Rash 04/10/22 04/10/22 History powder (Nystop) sucralfate 100 mg/mL oral 10 ml PO ACHS 04/10/22 04/10/22 History suspension Patient History Medical History Anxiety Dyspnea on exertion Gastric adenocarcinoma Hematemesis HLD (hyperlipidemia) HTN (hypertension) Hypothyroid Morbid obesity with BMI of 50.0-59.9, adult Nausea & vomiting Pleural effusion, malignant Surgical History History of cholecystectomy Social History Smoking Status: Never smoker Second Hand Exposure: No; Do You Dip or Chew Tobacco: No; Hx Alcohol Use: No Hx Substance Use: No Preferred Language: [place] Communication Ability: Effective Doctor Chiropractic Required: No Beliefs That Will Affect Care: None marital status: Current Living Situation: Spouse Other Information That Helps Us Care for You: No Feels Safe at Home: Yes Safety Concerns: Feels Safe At This Time Assistive Devices: Cane Physical Exam Constitutional: + obese, + frail appearing, cooperative and + malnourished; no acute distress and not ill appearing Neck: normal visual inspection and trachea midline Respiratory: normal respiratory effort, lungs clear to auscultation Cardiovascular: RRR, no murmur, no edema Chest (Breasts): Chest: normal inspection of chest; no mass, no pacemaker and no vascular access device or port Skin: no rashes, warm and dry Psychiatric: Orientation: alert and oriented x 3 Results & Data ([facility]) Vital Signs (Past 12 Hours) Vital Signs Temp Pulse Resp BP BP Pulse Ox O2 Del Method 04/13/22 12:05 36.3 C L 111 H 20 128/88 96 Room Air 04/13/22 07:11 36.4 C L 91 H 17 138/76 96 Room Air 04/13/22 04:00 36.5 C 89 18 135/82 93 Room Air Laboratory Results 04/13/22 04/13/22 04/13/22 Range/Units 09:23 06:06 06:06 WBC 10.86 H (4.8-10.8) K/ul RBC 3.83 L (3.93-5.22) M/uL Hgb 11.4 L (12.0-16.0) g/dl Hct 34.5 (34.1-44.9) % MCV 90.1 (80.0-100.0) fL MCH 29.8 (25.0-34.0) pg MCHC 33.0 (32.0-36.0) g/dL RDW Std Deviation 42.5 (36.4-46.3) fL RDW Coeff of Lance 13.0 (11.5-14.5) % Plt Count 249 (130-400) K/uL MPV 10.9 (9.4-12.3) fL Immature Gran % (Auto) 1.3 % Neut % (Auto) 77.6 % Lymph % (Auto) 8.0 % [place] % (Auto) 11.5 % Eos % (Auto) 1.1 % Baso % (Auto) 0.5 % Neut # (Auto) 8.43 H (1.4-6.5) K/uL Lymph # (Auto) 0.87 L (1.2-3.4) K/uL [place] # (Auto) 1.25 H (0.24-0.82) K/uL Eos # (Auto) 0.12 (0-0.50) K/uL Baso # (Auto) 0.05 (0-0.2) K/uL Immature Gran # (Auto) 0.14 H (0.00-0.02) K/uL APTT 64.3 H* (21.0-31.0) Seconds PTT Ratio 2.3 Carcinoembryonic Ag 7.7 H (0-2.5) ng/ml POC Stool Occult Blood (Negative) Crossmatch 04/12/22 04/10/22 Range/Units 16:11 20:48 WBC (4.8-10.8) K/ul RBC (3.93-5.22) M/uL Hgb (12.0-16.0) g/dl Hct (34.1-44.9) % MCV (80.0-100.0) fL MCH (25.0-34.0) pg MCHC (32.0-36.0) g/dL RDW Std Deviation (36.4-46.3) fL RDW Coeff of Lance (11.5-14.5) % Plt Count (130-400) K/uL MPV (9.4-12.3) fL Immature Gran % (Auto) % Neut % (Auto) % Lymph % (Auto) % [place] % (Auto) % Eos % (Auto) % Baso % (Auto) % Neut # (Auto) (1.4-6.5) K/uL Lymph # (Auto) (1.2-3.4) K/uL [place] # (Auto) (0.24-0.82) K/uL Eos # (Auto) (0-0.50) K/uL Baso # (Auto) (0-0.2) K/uL Immature Gran # (Auto) (0.00-0.02) K/uL APTT (21.0-31.0) Seconds PTT Ratio Carcinoembryonic Ag (0-2.5) ng/ml POC Stool Occult Blood Negative (Negative) Crossmatch See Detail
--- NOTE | 2022-04-13 13:59 | Magnetic Resonance Report ---
MRI OF THE BRAIN COMBO CLINICAL HISTORY: Gastric adenocarcinoma. Metastatic survey. COMPARISON STUDY: No priors. TECHNIQUE: MRI of the brain was performed utilizing various T1 and T2-weighted sequences in the axial , sagittal, and coronal planes. Contrast-enhanced sequences were acquired following the administratio n of 15.4 cc of Gadavist. FINDINGS: Brain parenchyma: There is age-related involutional change. There is no hemorrhage or mass effect. Th ere is no restricted diffusion to suggest acute ischemia. A 7 mm blush of enhancement within the vanessa on axial postcontrast image #8 is typical for a capillary telangiectasia. No enhancing mass lesion i s identified on the postcontrast images. Lopez-white matter differentiation is preserved. No extra-axi al fluid collection is seen. The cerebellar tonsils are normal in configuration. Ventricles, sulci, and cisterns: Prominent secondary to involutional change. Pituitary and sella: Partially at the sella is incidentally noted. Intracranial vasculature: Normal flow voids are maintained at the skull base. Orbits: The bony orbits are grossly intact. Orbital contents are normal in appearance. Sinuses and mastoids: Clear. Calvarium: Unremarkable. Cervical cord: Partially visualized cervical spinal cord is normal in morphology and signal intensity . IMPRESSION: 1. No acute intracranial abnormality. 2. Specifically, there is no MRI evidence of intracranial metastatic disease as clinically queried. ACT 112: Negative or not required by law. Electronically signed by: Babatunde Juarez M.D. 04/13/2022 1:58 PM
[2022-04-13] MEDS: METOPROLOL SUCC 50MG EXT REL TAB PO SCH ×2 (14:26→21:06)
[2022-04-13] MEDS: ONDANSETRON INJ 2 MG/ML 2 ML VIAL IV PRN (14:26)
--- NOTE | 2022-04-13 15:25 | Nuclear Medicine Report ---
WHOLE-BODY NUCLEAR BONE SCAN CLINICAL HISTORY: Metastatic gastric adenocarcinoma. COMPARISON STUDY: CT scan of the chest, abdomen, and pelvis dated 04/11/2022. TECHNIQUE: Three hours following the IV administration of 25.7 mCi of technetium 99m MDP, whole body nuclear bone scan was performed in the anterior and posterior projections. FINDINGS: There is no abnormal osseous tracer deposition identified typical in appearance for bony metastatic d isease. A photopenic defect is consistent with a right knee arthroplasty. Typically degenerative uptake is id entified in the shoulders, left knee, and left foot. There is expected excreted activity within the renal collecting system and bladder. IMPRESSION: There is no scintigraphic evidence of osseous metastatic disease. ACT 112: Negative or not required by law. Electronically signed by: Babatunde Juarez M.D. 04/13/2022 3:24 PM
--- NOTE | 2022-04-13 18:19 | Anesthesiology Consultation ---
Date of Service April 13, 2022 Assessment & Plan Chart Review Chart Review: Acceptable Risk for Surgery and Patient NOT seen in Pre Admission Testing History Surgery Operation Date: 04/14/22 07:50 Proposed Procedures p Mediport Insertion - Moses Smith MD Height/Weight Height: 5 ft 5 in Weight: 154.5 kg Allergies Allergy/AdvReac Type Severity Reaction Status Date / Time amlodipine Allergy Severe SHORT OF Verified 04/10/22 22:23 BREATH losartan [From Cozaar] Allergy Severe SHORT OF Verified 04/10/22 22:23 BREATH cefazolin Allergy Mild PATIENT Verified 04/10/22 22:23 HAD GENERALIZED ITCHING JUST AFTER ANCEF WAS STARTED lisinopril AdvReac Intermediate Cough Verified 04/10/22 22:23 Medications Home Medications Medication Instructions Recorded Confirmed Last Taken albuterol sulfate 90 mcg/actuation 1 - 2 puff inhalation Q4H PRN 04/01/22 04/10/22 Unknown aerosol inhaler COUGH/WHEEZING levothyroxine 75 mcg tablet 75 mcg PO DAILYBB 04/01/22 04/10/22 04/01/22 metoprolol succinate 200 mg 200 mg PO BID 04/01/22 04/10/22 04/10/22 09:00 tablet,extended release 24 hr montelukast 10 mg tablet 10 mg PO QPM 04/01/22 04/10/22 03/31/22 omeprazole 40 mg capsule,delayed 40 mg PO DAILYBB 04/01/22 04/10/22 04/10/22 09:00 release polyethylene glycol 3350 17 17 g PO DAILY PRN Constipation 04/01/22 04/10/22 04/01/22 gram/dose oral powder (Miralax) venlafaxine 150 mg 150 mg PO DAILY 04/01/22 04/10/22 04/10/22 09:00 capsule,extended release 24 hr venlafaxine 75 mg capsule,extended 75 mg PO DAILY 04/01/22 04/10/22 04/10/22 09:00 release 24 hr ondansetron 8 mg disintegrating 8 mg PO Q8H PRN nausea and 04/06/22 04/10/22 04/10/22 tablet vomiting #30 tabs enoxaparin 120 mg/0.8 mL 120 mg subcut .STOPPED 04/10/22 04/10/22 Unknown subcutaneous syringe (Lovenox) nystatin 100,000 unit/gram topical 1 applic topical TID PRN Rash 04/10/22 04/10/22 Unknown powder (Nystop) sucralfate 100 mg/mL oral 10 ml PO ACHS 04/10/22 04/10/22 04/10/22 12:00 suspension Active Medications Generic Name Dose Route Start Last Admin Trade Name Freq PRN Reason Stop Dose Admin Pantoprazole Sodium 40 mg/ 10 mls @ 5 mls/min 04/11/22 09:00 04/13/22 08:42 Syringe IV 05/11/22 08:59 5 mls/min BID ABEL Administration Heparin Sodium/Dextrose 25,000 units in 500 mls @ 24 mls/hr 04/11/22 15:45 04/13/22 11:45 Heparin Sodium/Dextrose IV 04/14/22 08:00 1,200 units/hr .[id number] ABEL 24 mls/hr Administration Protocol 1,200 UNITS/HR Famotidine 20 mg/ Syringe 5 mls @ 2.5 mls/min 04/11/22 21:00 04/13/22 08:42 IV 05/11/22 20:59 2.5 mls/min Q12H ABEL Administration Acetaminophen 1,000 mg in 100 mls @ 400 mls/hr 04/12/22 05:59 04/13/22 06:20 Ofirmev IV 04/15/22 05:58 Infused Q8H PRN Infusion pain Lorazepam 0.5 mg 04/13/22 09:06 04/13/22 12:10 Lorazepam 0.5 Mg Tab PO 05/13/22 09:14 0.5 mg Q8H PRN Administration Anxiety Metoprolol Succinate 50 mg 04/13/22 12:45 04/13/22 14:26 Metoprolol Succ 50mg Ext Rel Tab PO 05/13/22 12:44 50 mg BID ABEL Administration Miconazole Nitrate 1 appln 04/12/22 12:51 04/12/22 22:35 Miconazole Nitrate Powder 43 Gm EXT 05/12/22 12:50 1 appln PRN PRN Administration Affected Skin Folds Nystatin/Triamcinolone Acetonide 1 appln 04/12/22 04:52 04/12/22 05:59 Nystatin/Triamcin Cr 15 Gm Tube EXT 05/12/22 04:51 1 appln Q6H PRN Administration Affected Skin Folds Ondansetron HCl 4 mg 04/11/22 00:36 04/13/22 14:26 Ondansetron Inj 2 Mg/Ml 2 Ml Vial IV 05/11/22 00:35 4 mg Q6H PRN Administration Nausea Tramadol HCl 50 mg 04/13/22 11:36 04/13/22 15:55 Tramadol Hcl 50 Mg Tablet PO 05/13/22 11:35 50 mg Q4H PRN Administration Pain Past Medical History Medical History Anxiety Dyspnea on exertion Gastric adenocarcinoma Hematemesis HLD (hyperlipidemia) HTN (hypertension) Hypothyroid Morbid obesity with BMI of 50.0-59.9, adult Nausea & vomiting Pleural effusion, malignant Past Surgical History Surgical History History of cholecystectomy Social History Smoking Status: Never smoker Do You Dip or Chew Tobacco: No Hx Alcohol Use: No Hx Substance Use: No Physical Exam Vital Signs Last Vital Signs Temp 36.5 C 04/13/22 15:48 Pulse 97 H 04/13/22 15:48 Resp 20 04/13/22 15:48 BP 123/72 04/13/22 15:48 Pulse Ox 96 04/13/22 15:48 O2 Del Method 04/13/22 15:48 Testing Laboratory Results 04/13/22 06:06 04/12/22 09:16 PT 11.8 Seconds (9.0-12.0) 04/11/22 04:55 INR 1.1 (0.9-1.1) 04/11/22 04:55 APTT 64.3 Seconds (21.0-31.0) H* 04/13/22 06:06 Blood Type O Positive 04/10/22 20:48 Antibody Screen NEGATIVE 04/10/22 20:48
[2022-04-13] MEDS ORDERED: Nursing to Pharmacy Communication SCH (18:30)
[2022-04-13] MEDS ORDERED: STOP ORDER [HEPARIN DRIP] ONE (21:00)
[2022-04-13] MEDS ORDERED: ENOXAPARIN 1.5 MG/KG SQ SCH (21:00)
[2022-04-14] MEDS ORDERED: STOP ORDER [HEPARIN DRIP] ONE ×3 (04:00→09:00)
[2022-04-14] MEDS: ACETAMINOPHEN 1,000 MG/100 ML VIAL IV PRN ×2 (04:04→14:33)
[2022-04-14] MEDS: HEPARIN SODIUM/DEXTROSE 25,000 UNITS/500 ML BAG IV SCH ×2 (05:03→05:04)
[2022-04-14 05:23] LABS: Basophils # (auto) 0.05 K/uL (0-0.2); Basophils % (auto) 0.5 %; Eosinophils # (auto) 0.12 K/uL (0-0.50); Eosinophils % (auto) 1.2 %; Hematocrit (blood only) 32.7 % (34.1-44.9); Hemoglobin 10.8 g/dl (12.0-16.0); Immature Granulocytes # (auto) 0.16 K/uL (0.00-0.02); Immature Granulocytes % (auto) 1.6 %; Lymphocytes # (auto) 1.04 K/uL (1.2-3.4); Lymphocytes % (auto) 10.2 %; Mean Corpuscular Hemoglobin 29.3 pg (25.0-34.0); Mean Corpuscular Volume 88.9 fL (80.0-100.0); Mean Platelet Volume 12.2 fL (9.4-12.3); Monocytes # (auto) 1.34 K/uL (0.24-0.82); Monocytes % (auto) 13.1 %; Neutrophils # (auto) 7.53 K/uL (1.4-6.5); Neutrophils % (auto) 73.4 %; Platelet Count 207 K/uL (130-400); RDW Coefficient of Variation 13.6 % (11.5-14.5); RDW Standard Deviation 43.8 fL (36.4-46.3); Red Blood Count 3.68 M/uL (3.93-5.22); White Blood Count 10.24 K/ul (4.8-10.8)
[2022-04-14 05:36] LABS: BUN Creatinine Ratio 16.7 (10-20); Calcium 7.5 mg/dl (8.5-10.1); Creatinine Clr Calc Pharmacy 103.2 ml/min; Est GFR (African American) 89.9 ml/min; Est GFR (Non-African American) 77.6 ml/min; Potassium 3.2 mmol/L (3.5-5.1)
[2022-04-14 06:23] LABS: Partial Thromboplastin Ratio 1.7
[2022-04-14] MEDS ORDERED: LEVOTHYROXINE SODIUM 75 MCG TABLET PO SCH (06:30)
[2022-04-14 06:36] LABS: Partial Thromboplastin Time 47.3 Seconds (21.0-31.0)
[2022-04-14] MEDS: METOPROLOL SUCC 50MG EXT REL TAB PO SCH (08:37)
[2022-04-14] MEDS: PANTOprazole 40 MG in SYRINGE 0 ML IV SCH (08:37)
[2022-04-14] MEDS ORDERED: VENLAFAXINE HCL XR 150 MG CAPXR PO SCH (09:00)
[2022-04-14] MEDS ORDERED: VENLAFAXINE HCL XR 75 MG CAPXR PO SCH (09:00)
[2022-04-14] MEDS ORDERED: ePHEDrine sulfate 50 MG/ML AMP IV PRN (09:31)
[2022-04-14] MEDS ORDERED: ATROPINE SULFATE 0.1 MG/ML 10ML SYR IV PRN (09:31)
[2022-04-14] MEDS ORDERED: ONDANSETRON INJ 2 MG/ML 2 ML VIAL IV PRN (09:31)
[2022-04-14] MEDS ORDERED: fentaNYL citrate 100 MCG/2 ML VIAL IV PRN (09:31)
--- NOTE | 2022-04-14 09:45 | History & Physical Bridge Note ---
Date of Service April 14, 2022 History & Physical Bridge Note I have examined the patient, reviewed the History & Physical and in the interval since the performance of the History & Physical I have noted the following changes of clinical significance: no changes noted
[2022-04-14] MEDS ORDERED: MIDAZOLAM HCL 1 MG/ML 2ML VIAL ONE (09:47)
[2022-04-14] MEDS ORDERED: LIDOCAINE 2% MPF LOCAL 5 ML VIAL INFIL ONE (09:48)
[2022-04-14] MEDS ORDERED: ONDANSETRON INJ 2 MG/ML 2 ML VIAL ONE (09:48)
[2022-04-14] MEDS ORDERED: fentaNYL citrate 100 MCG/2 ML VIAL ONE (09:48)
[2022-04-14] MEDS ORDERED: PROPOFOL IV EMULSION 10 MG/ML 20 ML VIAL IV ONE ×2 (09:48→11:03)
[2022-04-14] MEDS ORDERED: DEXAMETHASONE SOD INJ 4 MG/ML VIAL ONE (09:49)
[2022-04-14] MEDS ORDERED: SUCCINYLCHOLINE CHLORIDE 20 MG/ML 10 ML VIAL IV ONE (09:58)
[2022-04-14] MEDS ORDERED: SCOPOLAMINE 1 MG TDSY TD ONE (10:03)
[2022-04-14] MEDS ORDERED: FAMOTIDINE/PF 20 MG/2 ML VIAL IV ONE (10:04)
[2022-04-14] MEDS ORDERED: LIDOCAINE 1%/EPINEPHRINE 1:100,000 50 ML VIAL ONE (10:05)
[2022-04-14] MEDS ORDERED: HEPARIN 100 UNIT/ML 5ML FLUSH ONE (10:05)
[2022-04-14] MEDS ORDERED: CLINDAMYCIN 600 MG/D5W 50 ML BAG IV ONE (10:18)
[2022-04-14] MEDS ORDERED: LARYING-O-JET KIT (LTA) ONE (10:51)
[2022-04-14] MEDS ORDERED: FLOSEAL HEMOSTATIC MATRIX 5ML TOP ONE (10:52)
[2022-04-14] MEDS ORDERED: ENOXAPARIN 150 MG/ML SYR SQ SCH ×2 (11:00→12:30)
[2022-04-14] MEDS ORDERED: TISSEEL FIBRIN SEALANT 4ML TOP ONE (11:12)
--- NOTE | 2022-04-14 11:38 | Post Operative Brief Note ---
Immediate Post Op Note v1 Date of Surgery April 14, 2022 Pre & Post Diagnosis Operation Date: 04/14/22 07:50 Pre-Op Diagnosis: Gastric adenocarcinoma Post-Op Diagnosis: Gastric adenocarcinoma I identified the patient and participated in the time-out.: Yes Procedure Operation Date: 04/14/22 07:50 Actual Procedures p Mediport Insertion Left Subclavian(Left) - Moses Smith MD Surgeon Moses Smith MD Squad Boss None Estimated Blood Loss 5 Findings Consistent with Post-Op Diagnosis
--- NOTE | 2022-04-14 11:41 | Operative Report ---
Post Operative Report Pre & Post Diagnosis Operation Date: 04/14/22 07:50 Pre-Op Diagnosis: Gastric adenocarcinoma Post-Op Diagnosis: Gastric adenocarcinoma I identified the patient and participated in the time-out.: Yes Procedure Operation Date: 04/14/22 07:50 Actual Procedures p Mediport Insertion Left Subclavian(Left) - Moses Smith MD Surgeon Moses Smith MD Hot Patcher None Estimated Blood Loss 5 Findings Consistent with Post-Op Diagnosis Specimens None Drains None Anesthesia Type General Complications No immediate complications Description of Procedure Patient was taken to the operating room, placed supine on the operating table. A timeout is performed, perioperative antibiotics were administered, SCD boots were placed. After adequate anesthesia and analgesia was obtained, the area was prepped and draped in the normal sterile fashion. 1% lidocaine was injected into and around the area. An incision was made in the left deltopectoral groove and carried down to the level of subcutaneous tissue. The level of the deltopectoral groove fascia was obtained in the deltopectoral groove fascia was incised. The cephalic vein was identified and was secured proximally and distally. It was tied off distally. Venotomy was performed, and the catheter was threaded down through the cephalic vein into the subclavian vein and subsequently into the superior vena cava. Position was checked with intraoperative fluoroscopy. The catheter was secured into the vein with a 3-0 silk tie. A pocket was created on the anterior chest wall and the catheter was cut to size and secured to the port. The port was sewn to the chest wall with 3-0 Prolene suture in 3 spots. The overlying fat pad was removed with Bovie electrocautery. Attention was turned to hemostasis. Floseal and Tisseel were used to secure hemostasis. The subcutaneous tissue was closed with 3-0 Vicryl. The skin was closed with running 4 Monocryl subcuticular stitch. Dermabond was applied. She tolerated the procedure without complication, was transferred in stable condition to the PACU. All instrument, needle, and sponge counts were correct at the end of the case. I attest to the content of the Intraoperative Record and any orders documented therein. Any exceptions are noted below.
[2022-04-14] MEDS ORDERED: PHENYLEPHRINE 100MCG/ML 5ML SYR ONE (11:42)
--- NOTE | 2022-04-14 12:41 | Anesthesiology Progress Note ---
Date of Service April 14, 2022 Anesthesia Post Procedure Vital Signs Vital Signs: Temp Pulse Pulse Resp BP BP Pulse Ox 04/14/22 12:35 86 17 109/81 94 04/14/22 12:25 97.5 F L 89 16 113/88 94 04/14/22 12:15 87 16 115/65 94 04/14/22 12:05 86 15 110/73 94 04/14/22 11:55 86 16 113/69 94 04/14/22 11:45 87 16 100/56 L 99 04/14/22 11:37 97.2 F L 87 16 103/65 99 04/14/22 09:14 98.1 F 93 H 16 157/72 H 93 04/14/22 08:00 90 04/14/22 07:13 97.5 F L 89 19 114/72 91 04/14/22 03:28 97.7 F 96 H 18 138/70 94 04/13/22 23:50 100 H 04/13/22 23:19 97.9 F 90 18 130/70 93 04/13/22 19:30 98.1 F 96 H 18 132/76 94 04/13/22 15:48 97.7 F 97 H 20 123/72 96 O2 Del Method O2 Flow Rate 04/14/22 12:35 Room Air 04/14/22 12:25 Room Air 04/14/22 12:15 Room Air 04/14/22 12:05 Room Air 04/14/22 11:55 Room Air 04/14/22 11:45 Oxymask 5 04/14/22 11:37 Oxymask 5 04/14/22 09:14 Room Air 04/14/22 08:00 04/14/22 07:13 Room Air 04/14/22 03:28 04/13/22 23:50 04/13/22 23:19 04/13/22 19:30 Room Air 04/13/22 15:48 Room Air Pain Intensity Back: Pain Intensity: 8 Transfer of Care Handoff Completed per policy Notes Mental Status: alert / awake / arousable and participated in evaluation Patient Amnestic to Procedure: Yes Nausea / Vomiting: adequately controlled Pain: adequately controlled Airway Patency, RR, SpO2: stable & adequate BP & HR: stable & adequate Hydration State: stable & adequate Anesthetic Complications: no major complications apparent and Pt Satisfied with anesthetic care
[2022-04-14] MEDS: POTASSIUM CHLORIDE / WTR 10 MEQ/100 ML PLCT IV SCH ×3 (13:46→16:59)
[2022-04-14] MEDS: FAMOTIDINE 20 MG in SYRINGE 3 ML IV SCH (13:51)
--- NOTE | 2022-04-14 16:28 | Discharge Summary ---
Date of Service April 14, 2022 Admission HPI Per Admitting Provider 71yo female with a history of recent admission (04/01 - 04/06/2022) for nausea/vomiting suspected secondary to gastric adenocarcinoma (diagnosed 04/07/22), pulmonary emboli (04/06/2022), pleural effusions (suspected malignant in nature due to gastric adenocarcinoma; underwent thoracentesis on 04/06), HTN, HLD, hypothyroidism, mild intermittent asthma, and anxiety presents with a kvv-fs-gjb-day history of bloody emesis. Patient's notes patient threw up large blood clots earlier today. Patient has had constant nausea and vomiting since discharge from her recent stay (on 04/06). Patient called her PCP yesterday to report blood-tinged vomitus, and was instructed to discontinue the lovenox that had been started during last admission and continued upon discharge. Patient's notes that patient's vomiting continued and had the appearance of coffee grounds with several large presumed-blood clots today. Patient has not had much abdominal pain earlier today or over the past few days. Patient does endorse SOB but notes it is not any better or worse compared to normal. Patient denies fever, chills, headache, vision changes, CP, palpitations, edema, abdominal pain, dysuria, hematochezia, melena, lightheadedness, dizziness, numbness, tingling, weakness, or other symptoms. Denies recent travel. Upon arrival, vitals were notable for mild tachycardia (103); BP not elevated, no tachypnea, patient afebrile, spO2 adequate on room air. Initial labs were notable for mild leukocytosis (12.0), mild hypokalemia (3.4), minimally elevated AST (43); no anemia, platelets wnl, no other electrolyte abnormalities, Tbili / ALT/ alk phos wnl. INR not elevated (1.1). In the ED, patient received protonix 80mg IV. Surrogate decision-maker in case of an emergency: Abdullahi Figueroa (cell: [phone]) Principal Diagnosis 1. Hematemesis d/t gastric tumor 2. Metastatic stage IV gastric adenocarcinoma 3. PE/DVT 4. Hypokalemia-corrected Discharge Exam GENERAL: 71 yo morbidly obese wf. Pleasant, cooperative, NAD. LUNGS: Clear to auscultation bilaterally w/o w/r/r. CARDIOVASCULAR: Regular rate and rhythm. ABDOMEN: Soft, obese, non-tender and non-distended. BS normoactive x 4 quad. EXTREMITIES: No edema. Non-tender. Peripheral pulses +2/4. NEUROLOGIC: A&O x3. PSYCHIATRIC: Cooperative. Appropriate mood and affect. SKIN: Warm, dry, intact. No rashes or lesions. Discharge Data Allergies Allergy/AdvReac Type Severity Reaction Status Date / Time amlodipine Allergy Severe SHORT OF Verified 04/10/22 22:23 BREATH losartan [From Cozaar] Allergy Severe SHORT OF Verified 04/10/22 22:23 BREATH cefazolin Allergy Mild PATIENT Verified 04/10/22 22:23 HAD GENERALIZED ITCHING JUST AFTER ANCEF WAS STARTED lisinopril AdvReac Intermediate Cough Verified 04/10/22 22:23 Consultations 04/10/22 23:50 ED Decision to Admit Stat 04/11/22 07:39 Consult Gastroenterology Routine 04/11/22 14:48 Consult Oncology Routine Consult Radiation Oncology Routine Consult Vascular Surgery Routine 04/12/22 16:54 Consult General Surgery Routine Procedures Performed Operation Date: 04/14/22 07:50 Actual Procedures p Mediport Insertion Left Subclavian(Left) - Moses Smith MD Ordered Studies Abdomen/Pelvis CT 04/10/22 23:14 CT abdomen pelvis wo/w con HISTORY: Hemoptysis. Gastric cancer. c/f ischemic bowel TECHNIQUE: Multiaxial CT images of the abdomen and pelvis were performed both before and after the intravenous administration of 118 cc of Optiray 300. COMPARISON STUDY: Abdomen and pelvis CT 04/01/2022. FINDINGS: There is a small partially loculated left pleural effusion and mild left basilar pleural thickening again noted. Subcentimeter left lower lobe pulmonary nodules are better appreciated on the same day chest CT. No pneumoperitoneum. No pneumatosis. No fractures within the visualized osseous structures. Anterior diaphragmatic and upper abdominal lymphadenopathy persists. Dominant upper abdominal lymph node on image 114 measures 2.3 x 1.5 cm. Mild irregular soft tissue stranding and nodularity within the omentum. This likely represents peritoneal carcinomatosis. Persistent mucosal thickening within the stomach likely corresponding to the patient's known malignancy. Hyperdensity within the stomach lumen likely represent ingested contents. Trace fluid within the left upper quadrant. Prior cholecystectomy. No hepatic or splenic masses. The adrenal glands and pancreas are unremarkable. Bilateral cortical renal scarring again noted. No hydronephrosis. The main portal vein is patent. Borderline enlarged retroperitoneal lymph nodes are again noted. Normal caliber abdominal aorta. The bladder is decompressed. The uterus is unremarkable. Bilateral ovarian cysts are again noted. Dominant cyst in the left measures 3.8 cm. This could represent metastatic disease. Trace pelvic free fluid. Colonic diverticulosis. No evidence for acute diverticulitis. No bowel wall thickening or obstruction. Normal appendix. IMPRESSION: 1. Redemonstration of the gastric wall thickening likely corresponding to the patient's known history of gastric malignancy. 2. Small left pleural effusion and left pleural thickening again noted. This likely represents metastatic disease. 3. Upper abdominal lymphadenopathy and multiple prominent retroperitoneal lymph nodes are again noted and may represent metastatic disease. 4. Abnormal soft tissue thickening and nodularity within the omentum consistent with peritoneal carcinomatosis. 5. Bilateral ovarian cysts persist and may also represent metastatic disease. ACT 112: Negative or not required by law. Electronically signed by: Calvin Cuellar M.D. 04/11/2022 8:01 AM Chest CTA 04/10/22 23:14 CHEST CTA for PULMONARY ARTERIES CT DOSE: HISTORY: Hemoptysis. TECHNIQUE: Multiaxial CT images of the chest were performed following the intravenous administration of contrast to evaluate the pulmonary arteries. Maximal intensity projection images were also obtained. A dose lowering technique was utilized adhering to the principles of ALARA. COMPARISON STUDY: Chest CT 04/06/2022. FINDINGS: Please refer to same day abdomen and pelvis CT for further evaluation of the abdominal structures. There is a small partially loculated left pleural effusion which has slightly increased in size. Mild pleural thickening at the left lung base. Normal caliber esophagus. The thyroid gland enhances normally. A few borderline-enlarged mediastinal, left hilar, and left internal mammary lymph nodes remain unchanged. There are few mildly enlarged anterior diaphragmatic lymph nodes which are also unchanged. No suspicious lytic or blastic osseous lesions. Left lower lobe linear densities consistent with subsegmental atelectasis. There is a 4 mm nodule within the left lower lobe on image 117. There is a 4 mm nodule within the left lower lobe on image 137. The central airways are patent. No pneumothorax. There is a 4 mm nodule within the right upper lobe on image 238, unchanged. Normal caliber thoracic aorta with no evidence for dissection. The majority of the segmental and subsegmental pulmonary arteries are nondiagnostic due to the respiratory motion artifact. No change in the lingular segmental/subsegmental pulmonary emboli. IMPRESSION: 1. No change in the pulmonary embolus within the lingular pulmonary artery. 2. Increase in size in the partially loculated small left pleural effusion. There is also pleural mild thickening at the left lung base. Therefore, this may represent a malignant pleural effusion. 3. Mild mediastinal and left hilar lymphadenopathy is again noted. This concerning for metastatic disease. 4. A few scattered subcentimeter pulmonary nodules measure up to 4 mm. Metastatic disease is the diagnosis of exclusion. 5. Please refer to the same day abdomen and pelvis CT for further evaluation of the abdominal structures. 6. These findings were called/faxed to the emergency department following dictation. ACT 112: Negative or not required by law. Electronically signed by: Calvin Cuellar M.D. 04/11/2022 7:53 AM Venous Doppler Study 04/11/22 08:38 BILATERAL LOWER EXTREMITY VENOUS DOPPLER HISTORY: Recent pulmonary embolus on CT. Follow-up. COMPARISON STUDY: None. FINDINGS: There is normal compressibility, flow, and augmentation within the right lower extremity deep venous system. Near occlusive thrombus within the left common femoral and deep femoral veins. The left superficial femoral, popl iteal, left calf vessels are patent IMPRESSION: 1. No DVT within the right lower cavity. 2. Near occlusive deep vein thrombus within the left common femoral and deep femoral veins ACT 112: Negative or not required by law. Electronically signed by: Calvin Cuellar M.D. 04/11/2022 10:22 AM Bone Scan Nuclear Medicine 04/13/22 07:47 WHOLE-BODY NUCLEAR BONE SCAN CLINICAL HISTORY: Metastatic gastric adenocarcinoma. COMPARISON STUDY: CT scan of the chest, abdomen, and pelvis dated 04/11/2022. TECHNIQUE: Three hours following the IV administration of 25.7 mCi of technetium 99m MDP, whole body nuclear bone scan was performed in the anterior and posterior projections. FINDINGS: There is no abnormal osseous tracer deposition identified typical in appearance for bony metastatic disease. A photopenic defect is consistent with a right knee arthroplasty. Typically degenerative uptake is identified in the shoulders, left knee, and left foot. There is expected excreted activity within the renal collecting system and bladder. IMPRESSION: There is no scintigraphic evidence of osseous metastatic disease. ACT 112: Negative or not required by law. Electronically signed by: Babatunde Juarez M.D. 04/13/2022 3:24 PM Brain MRI 04/13/22 07:47 MRI OF THE BRAIN COMBO CLINICAL HISTORY: Gastric adenocarcinoma. Metastatic survey. COMPARISON STUDY: No priors. TECHNIQUE: MRI of the brain was performed utilizing various T1 and T2-weighted sequences in the axial, sagittal, and coronal planes. Contrast-enhanced sequences were acquired following the administration of 15.4 cc of Gadavist. FINDINGS: Brain parenchyma: There is age-related involutional change. There is no hemorrhage or mass effect. There is no restricted diffusion to suggest acute ischemia. A 7 mm blush of enhancement within the vanessa on axial postcontrast image #8 is typical for a capillary telangiectasia. No enhancing mass lesion is identified on the postcontrast images. Lopez-white matter differentiation is preserved. No extra-axial fluid collection is seen. The cerebellar tonsils are normal in configuration. Ventricles, sulci, and cisterns: Prominent secondary to involutional change. Pituitary and sella: Partially at the sella is incidentally noted. Intracranial vasculature: Normal flow voids are maintained at the skull base. Orbits: The bony orbits are grossly intact. Orbital contents are normal in appearance. Sinuses and mastoids: Clear. Calvarium: Unremarkable. Cervical cord: Partially visualized cervical spinal cord is normal in morphology and signal intensity. IMPRESSION: 1. No acute intracranial abnormality. 2. Specifically, there is no MRI evidence of intracranial metastatic disease as clinically queried. ACT 112: Negative or not required by law. Electronically signed by: Babatunde Juarez M.D. 04/13/2022 1:58 PM Hospital Course (1) Hematemesis: - Suspected secondary to gastric tumor - Hospitalized to monitored bed - H&H remains stable - Continued Protonix and added Pepcid - NPO since admission, can advance to clear liquids - GI consulted, appreciate input who noted if bleeding recurs, will need to transfer to tertiary center for IR embolization as typically tumor bleeds are poorly responsive to endoscopic interventions - No further episodes of hematemesis throughout hospitalization - Consulted general surgery for mediport placement in order to start systemic chemotherapy - Mediport placed on 04/14 - No further n/v episodes, tolerating clear liquids, can advance to reg diet as tolerated * Recommended that pt eat small bites/meals and stick with bland foods. Eat frequently throughout the day TOLERATED * Continue scheduled Zofran, a new prescription has been sent to pharmacy * Continue PPI PO BID until seen by surg-onc (2) Deep vein thrombosis (DVT): Pulmonary emboli & LLE DVT - Noted on CT chest performed on 04/06 (of lingular pulmonary artery); had been treated with lovenox but this was held by PCP prior to admission - Now on Heparin gtt - will plan transition back to Lovenox after placement of mediport v picc line - Vascular surgery consulted, appreciate assistance, no need for IVC at this time - Resume Lovenox (3) Gastric adenocarcinoma: - Poorly differentiated, recently confirmed (previously suspected) on 04/07 via biopsy results - Recurrent N/V and weight loss are primary symptoms - down an additional 15 lbs since discharge - Consults placed to radiation oncology as well as medical oncology--appreciate assistance - Anticipate need for surgical evaluation; however, will need a tertiary facility for surgical oncologist-referral initiated to Dr. Thompson, [facility] - Obtain MRI brain w/ and w/o contrast to look for brain mets as well as bone scan- no evidence of brain mets or bone mets at this time - Order to copy chart for patient so that they can have records to take with them to her surg onc appt - Mediport placed on 04/14, oncology to submit for chemo to insurance and will call her with appt for infusion (4) HTN (hypertension): - Presently well controlled, meds on hold as she was kept NPO from admission - Resumed Metoprolol Succinate at lower dose of 50mg BID - no longer requires 200mg BID, likely in part related to profound recent weight loss (5) HLD (hyperlipidemia): - Takes Atorvastatin at home, but held currently (6) Hypothyroid: - Synthroid held initially d/t NPO status, resumed (7) Mild intermittent asthma: - Controlled (8) Anxiety: - Venlafaxine held initially d/t NPO status, resumed - Added Ativan 0.5mg po q8h PRN prior to her having her MRI d/t concern for claustrophobia Plan At this time, pt is medically and hemodynamically stable for discharge. Referral process started to get her an appt in [place] with a surgical oncologist. If she should start having recurrent n/v again and inability to keep food/liquids down, she will likely need to be transferred to [facility] as surgical oncology will need to consider peg tube/j-tube placement as an alternative form of nutrition. For now, this isn't warranted as she has not had any n/v for days and has tolerated clear liquids. Will try again to get her home so that she can start chemotherapy at [facility]. Family is agreeable to plan. I have discussed above with Dr. Rafiq Smith who has also seen and evaluated this patient prior to discharge and is in agreement with the aforementioned. Total Time Total Time Spent Total Time Spent (In Minutes): >30 minutes Discharge Plan Discharge Items Patient Disposition: Home - Home Health Services Reason For Visit: HEMATEMESIS Discharge Diagnosis: vomiting blood stomach cancer blood clots in leg and lung Activity: As commented below Activity Comment: As tolerated Non-emergency contact: Primary Care Provider and Oncologist Call non-emergency contact if: you have any medication questions and your symptoms worsen Follow-up/Referrals: Kitty Herrmann MD [Primary Care Provider] - Diet: Regular Addtl Attending Provider Instructions: You were hospitalized due to vomiting up blood. This is not uncommon due to the type of tumor that you have in your stomach. It can ooze/bleed from time to time. The reassuring piece is that your blood counts have not dropped significantly and have remained stable throughout your hospitalization. Due to the fact that you have blood clots in your left leg and lung, you need to resume blood thinners. You were treated with Heparin through your IV during your stay. Upon your return home, you can resume the Lovenox that you were taking prior to your return to the hospital. You are due for your next Lovenox injection this evening (04/14/22) at 9pm. Be sure to take your Zofran scheduled at least three times consistently throughout the day. Maintain hydration, sips of clear liquids/broths/jell- o/popsicles, etc. If you feel that you want to try to eat food, I would sick with very small portions frequently throughout the day and stick to bland food (not spicy, saucy, etc). You will be contacted by Dr. Bergeron's office ([facility]) to schedule your first chemotherapy infusion. I have been in contact with Dr. Thompson who is a surgical oncologist at the [facility] in [place] to start the referral process. You have provided us with a signed release which will allow us to send all of your recent records regarding your cancer diagnosis, imaging studies, biopsy report, etc. to him in [place] for his review. His office will be in contact with you to schedule your appointment. If you begin having recurrent vomiting again and are unable to keep any food/liquids down, you may need to return to the ER and consideration for transfer may need to be made at that time as you may need to have a peg tube or j-tube placed to start you on tube feedings as an alternative form of nutrition. Lastly, I have reduced the dose of your Metoprolol from 200mg twice a day to 50mg twice a day. Please take the new dose and discard the old dose. I have also sent you a prescription for Tramadol that you can take every 4 hours as needed for pain. All new prescriptions have been sent to [facility] in [place]. It is advised that you follow up with your family doctor within 1 week of discharge. If you have any questions following your discharge, feel free to contact the nonemergency number listed on your discharge paperwork. Pending Studies at Discharge: No Stand-Alone Forms: My [facility], Smoking Cessation Medications and DC Order Prescriptions: New metoprolol succinate 50 mg tablet extended release 24 hr 50 mg PO BID Qty: 60 0RF tramadol 50 mg tablet 50 mg PO Q4H PRN (Reason: pain) Qty: 18 0RF enoxaparin [Lovenox] 150 mg/mL Syringe 150 mg subcut BID Qty: 0 0RF pantoprazole 40 mg tablet,delayed release (DR/EC) 40 mg PO BID Qty: 60 0RF Continued venlafaxine 75 mg capsule,extended release 24hr 75 mg PO DAILY Rx Instructions: TOTAL DOSE 225 MG--TAKES WITH 150 MG CAP. venlafaxine 150 mg capsule,extended release 24hr 150 mg PO DAILY Rx Instructions: TOTAL DOSE 225 MG--TAKES WITH 75 MG CAP. levothyroxine 75 mcg tablet 75 mcg PO DAILYBB montelukast 10 mg tablet 10 mg PO QPM polyethylene glycol 3350 [Miralax] 17 gram/dose Powder 17 g PO DAILY PRN (Reason: Constipation) albuterol sulfate 90 mcg/actuation Hfa Aerosol Inhaler 1 - 2 puff INHALATION Q4H PRN (Reason: COUGH/WHEEZING) sucralfate 100 mg/mL suspension 10 ml PO ACHS nystatin [Nystop] 100,000 unit/gram powder 1 applic TOPICAL TID PRN (Reason: Rash) ondansetron 8 mg tablet,disintegrating 8 mg PO Q8H PRN (Reason: nausea and vomiting) Qty: 90 0RF Discontinued metoprolol succinate 200 mg tablet extended release 24 hr 200 mg PO BID omeprazole 40 mg capsule,delayed release(DR/EC) 40 mg PO DAILYBB enoxaparin [Lovenox] 120 mg/0.8 mL syringe 120 mg subcut .STOPPED Discharge Orders: Discharge Order (Routine); Ordered 04/14/22 Ordered By: Micheline Drew Admission Data Admit Date/Time: 04/11/22 19:04 Attending Provider: Pablo Smith Admit Provider: Eliu Larsen Primary Care Provider: Kitty Herrmann Other Providers: Young Contreras ; David Olmstead ; Eduardo Peña ; Christi Bergeron ; Radha Contreras ; Gordy Pratt ; Moses Smith ; [facility] ; [facility] Other Interventions: Discharge Summary Assessment (RN) Last Done: 04/14/22 18:09 Supervising Physician Co-Signing Physician Notes I supervised Micheline Drew PA-C on the care of this patient. I interviewed and examined the patient independently of her. The plan is as written in her note except for any following changes/exceptions: None Patient with hematemesis from esophageal cancer who is on anticoagulation for known PE. Started on PPI. Seen by GI without intervention needed. Resumed anticoagulation with heparin gtt without further bleeding. Discharged on PPI PO BID and resuming Lovenox. Coding Level of Care Code D/C DAY MANAGEMENT >30 MINS Diagnoses Hematemesis K92.0 Deep vein thrombosis (DVT) I82.409 Gastric adenocarcinoma C16.9 HTN (hypertension) I10 HLD (hyperlipidemia) E78.5 Hypothyroid E03.9 Mild intermittent asthma J45.20 Anxiety F41.9
[2022-04-14] MEDS: ONDANSETRON INJ 2 MG/ML 2 ML VIAL IV PRN (17:33)
[2022-04-14] MEDS ORDERED: FAMOTIDINE 20 MG TAB PO SCH (21:00)
[2022-04-14] MEDS ORDERED: PANTOprazole 40 MG TAB PO SCH (21:00)
[2022-04-15] MEDS ORDERED: CLINDAMYCIN PHOS 900 MG/6 ML VIAL IV SCH (06:00)
[2022-04-29] MEDS ORDERED: MAGNESIUM SULFATE 1GM / D5W BAG IV ONE (14:43)
== END 2022-04-14 19:25 | disposition home health service (06) ==
LOC: EDINP 19:32 → ED 19:32 → SUATTDRO 23:20 → EDINP 04-11 00:30 → 4W 04-11 18:56

== ENCOUNTER 2022-04-19 16:04 | Inpatient (IN) ==
[2022-04-19] MEDS ORDERED: SODIUM CHLORIDE 0.9% 1000ML 1,000 ML IV SCH (16:45)
--- NOTE | 2022-04-19 16:56 | Emergency Department Note ---
Impression & Plan Gastric adenocarcinoma, Morbid obesity with BMI of 50.0-59.9, adult, Postoperative hematoma, Port-A-Cath in place, Hypomagnesemia ED Provider Note CHIEF COMPLAINT: Weakness, port site hematoma, stomach cancer, vomiting HISTORY OF PRESENT ILLNESS: This 71-year-old female patient presents to the emergency department with complaints of generalized weakness, stomach cancer, inability to tolerate p.o. food or significant fluids and a large hematoma around the recent port site. Patient was recently admitted to our facility after hematemesis and has been set up for consultation in [place] at [facility] with Dr. Franks surgical oncology for a feeding tube placement. The daughter states that she is not able to tolerate this lack of food or fluid any longer as she is losing weight and would not be able to tolerate chemotherapy. She is scheduled to initiate chemotherapy next week at the [facility]. The patient was apparently felt to be too medically complex for feeding tube placement by general surgery at our facility secondary to her malignancy. The daughter was unable to get scheduled with surgical oncology in [place] as records had not yet been transferred. She states they "do not have time" to wait around and were referred to the emergency department by her inpatient hospitalist CHETNA. Patient's daughter did not want to schedule follow-up with the surgeon placing the port as he was not in network with the patient's insurance. They were referred to the emergency department hoping for ultimate transfer to [facility] after surgical evaluation of the port. REVIEW OF SYSTEMS: A review of systems was performed with positives and pertinent negatives listed in the history of present illness. 10 systems were reviewed and are otherwise negative. ALLERGIES: see below MEDICATIONS: see below PMH: see below SOCIAL HISTORY: see below DDx: Infection, dehydration, metabolic abnormality, hypo/hyperglycemia, electrolyte disturbance, anemia, hypoxia, cardiac sources, intracerebral event, toxicologic, neurologic, as well as other pathologies. PHYSICAL EXAM: Vital signs reviewed. General: Chronically ill-appearing 71-year-old female, morbidly obese but in no distress. HEENT: No scleral icterus, PERRLA, neck supple. Dry mucous membranes. Cardiovascular: Slightly tachycardic but regular, no extra sounds. distant heart tones Pulmonary: Clear to auscultation bilaterally, normal work of breathing. Abdomen: Soft, obese, mildly diffusely tender, nondistended, positive bowel sounds. Musculoskeletal: Atraumatic, minimal peripheral edema. Neurologic: Patient awake alert and oriented x 3, speech is clear Skin: Warm, dry, large ecchymosis to the right upper extremity, left anterior chest wall with large hematoma over the port site and left medial arm. EMERGENCY DEPARTMENT COURSE/MDM: This patient was evaluated and appeared to be in no significant distress. There is a large hematoma over the patient's indwelling surgical port in the left chest wall. Does have some upper extremity ecchymosis bilaterally. There has been no vomiting in the emergency department. IV fluids were initiated. Patient's laboratory work reveals magnesium of 1.3. She was repleted with 4 g total of IV magnesium and normal saline solution was continued. Patient did receive IV Dilaudid and Zofran for her discomfort. I did speak with [facility], Dr. Watts of medical oncology, Dr. Boo of surgical oncology and Dr. Lees of the hospitalist service. After much discussion, the patient was ultimately excepted by the medical oncology service. The transfer center is unable to release estimated timeframe for a bed. Patient will be evaluated by the hospitalist service at [facility] for admission pending transfer to [place]. MONITORING: An order for cardiac monitoring was placed and the patient is noted to be in a sinus tachycardia at 102 beats per minute. RADIOLOGY: see below EKG: NSR at 99 bpm, nonspecific T wave abnl, QTC is 490. Poor quality baseline for interpretation. No significant change was found when compared to April 01, 2022. DISPOSITION: Admit pending transfer Past Med/Surg History Medical History Anxiety Dyspnea on exertion Gastric adenocarcinoma Hematemesis HLD (hyperlipidemia) HTN (hypertension) Hypothyroid Morbid obesity with BMI of 50.0-59.9, adult Nausea & vomiting Pleural effusion, malignant Surgical History History of cholecystectomy Social History Smoking Status: Never smoker Second Hand Exposure: No; Hx Alcohol Use: No Hx Substance Use: No Preferred Language: Hebrew Communication Ability: Effective Maintenance Inspector Required: No Beliefs That Will Affect Care: None marital status: Current Living Situation: Spouse Feels Safe at Home: Yes Assistive Devices: Cane Allergies Allergies Allergy/AdvReac Type Severity Reaction Status Date / Time amlodipine Allergy Severe SHORT OF Verified 04/10/22 22:23 BREATH losartan [From Cozaar] Allergy Severe SHORT OF Verified 04/10/22 22:23 BREATH cefazolin Allergy Mild PATIENT Verified 04/10/22 22:23 HAD GENERALIZED ITCHING JUST AFTER ANCEF WAS STARTED lisinopril AdvReac Intermediate Cough Verified 04/10/22 22:23 Home Meds Home Medications Medication Instructions Recorded Confirmed albuterol sulfate 90 mcg/actuation 1 - 2 puff inhalation Q4H PRN 04/01/22 04/10/22 aerosol inhaler COUGH/WHEEZING levothyroxine 75 mcg tablet 75 mcg PO DAILYBB 04/01/22 04/10/22 montelukast 10 mg tablet 10 mg PO QPM 04/01/22 04/10/22 polyethylene glycol 3350 17 17 g PO DAILY PRN Constipation 04/01/22 04/10/22 gram/dose oral powder (Miralax) venlafaxine 150 mg 150 mg PO DAILY 04/01/22 04/10/22 capsule,extended release 24 hr venlafaxine 75 mg capsule,extended 75 mg PO DAILY 04/01/22 04/10/22 release 24 hr nystatin 100,000 unit/gram topical 1 applic topical TID PRN Rash 04/10/2204/10 powder (Nystop) sucralfate 100 mg/mL oral 10 ml PO ACHS 04/10/22 04/10/22 suspension Previous Rx's Medication Instructions Recorded enoxaparin 150 mg/mL subcutaneous 150 mg subcut BID #0 mL 04/14/22 syringe (Lovenox) metoprolol succinate 50 mg 50 mg PO BID #60 tabs 04/14/22 tablet,extended release 24 hr ondansetron 8 mg disintegrating 8 mg PO Q8H PRN nausea and 04/14/22 tablet vomiting #90 tabs pantoprazole 40 mg tablet,delayed 40 mg PO BID #60 tabs 04/14/22 release tramadol 50 mg tablet 50 mg PO Q4H PRN pain #18 tabs 04/14/22 Results & Data (ED) Vital Signs Vital Signs - 24 hr 04/19/22 16:15 04/19/22 17:14 04/19/22 17:52 Temperature 36.7 C Temperature Source Oral Pulse Rate 102 H Pulse Rate [Finger] 101 H 102 H Pulse Rhythm Regular Pulse Rhythm [Finger] Regular Regular Pulse Strength Normal Pulse Strength [Finger] Normal Normal Respiratory Rate 20 22 22 Respiratory Effort / Characteristics Non-Labored Respiratory Depth Shallow Normal Respiratory Pattern Blood Pressure 127/89 Blood Pressure [Right Arm] 127/89 127/89 Blood Pressure Mean 101 Blood Pressure Mean [Right Arm] 101 101 Blood Pressure Position Lying Blood Pressure Position [Right Arm] Lying Pulse Oximetry 94 97 97 Oxygen Delivery Method Room Air Room Air Sepsis New/Unexplained Change in Mental Status Yes Sepsis Action Taken by Nursing No Action Required 04/19/22 19:00 04/19/22 21:03 04/19/22 21:44 Temperature Temperature Source Pulse Rate Pulse Rate [Finger] 101 H 104 H 102 H Pulse Rhythm Pulse Rhythm [Finger] Regular Regular Pulse Strength Pulse Strength [Finger] Normal Respiratory Rate 18 20 20 Respiratory Effort / Characteristics Non-Labored Non-Labored Respiratory Depth Normal Normal Respiratory Pattern Regular Regular Blood Pressure Blood Pressure [Right Arm] 127/89 127/89 131/78 Blood Pressure Mean Blood Pressure Mean [Right Arm] 101 101 95 Blood Pressure Position Blood Pressure Position [Right Arm] Pulse Oximetry 97 97 93 Oxygen Delivery Method Room Air Room Air Sepsis New/Unexplained Change in Mental Status Sepsis Action Taken by Nursing 04/19/22 16:35 04/19/22 23:00 Temperature Temperature Source Pulse Rate 68 Pulse Rate [Finger] 105 H Pulse Rhythm Regular Pulse Rhythm [Finger] Pulse Strength Pulse Strength [Finger] Respiratory Rate 20 20 Respiratory Effort / Characteristics Non-Labored Spontaneous Respiratory Depth Normal Respiratory Pattern Blood Pressure Blood Pressure [Right Arm] 122/63 Blood Pressure Mean Blood Pressure Mean [Right Arm] 82 Blood Pressure Position Blood Pressure Position [Right Arm] Pulse Oximetry 98 92 Oxygen Delivery Method Room Air Room Air Sepsis New/Unexplained Change in Mental Status Sepsis Action Taken by [facility] Medications Current Medication List: was personally reviewed by me Laboratory Data Attestation: I reviewed the patient's lab results. Result diagrams: 04/19/22 16:35 04/19/22 16:35 Lab Results 04/19/22 04/19/22 04/19/22 Range/Units 16:35 16:35 16:35 WBC 17.06 H (4.8-10.8) K/ul RBC 3.29 L (3.93-5.22) M/uL Hgb 9.8 L (12.0-16.0) g/dl Hct 29.4 L (34.1-44.9) % MCV 89.4 (80.0-100.0) fL MCH 29.8 (25.0-34.0) pg MCHC 33.3 (32.0-36.0) g/dL RDW Std Deviation 48.4 H (36.4-46.3) fL RDW Coeff of Lance 15.1 H (11.5-14.5) % Plt Count 332 (130-400) K/uL MPV 11.1 (9.4-12.3) fL Immature Gran % (Auto) 1.2 % Neut % (Auto) 77.8 % Lymph % (Auto) 6.2 % [place] % (Auto) 14.2 % Eos % (Auto) 0.4 % Baso % (Auto) 0.2 % Neut # (Auto) 13.29 H (1.4-6.5) K/uL Lymph # (Auto) 1.05 L (1.2-3.4) K/uL [place] # (Auto) 2.43 H (0.24-0.82) K/uL Eos # (Auto) 0.06 (0-0.50) K/uL Baso # (Auto) 0.03 (0-0.2) K/uL Immature Gran # (Auto) 0.20 H (0.00-0.02) K/uL Sodium 135 L (136-145) mmol/L Potassium 3.8 (3.5-5.1) mmol/L Chloride 99 (98-107) mmol/L Carbon Dioxide 25 (21-32) mmol/L Anion Gap 11 (3-11) BUN 27 H (6-23) mg/dl Creatinine 1.20 (0.6-1.2) mg/dl Est Cr Clr Drug Dosing 67.3 ml/min Est GFR ( Amer) 53.4 ml/min Est GFR (Non-Af Amer) 46.1 ml/min BUN/Creatinine Ratio 22.5 H (10-20) Glucose 92 (70-99(Fasting)) mg/dl Calcium 7.9 L (8.5-10.1) mg/dl Magnesium 1.3 L (1.7-2.4) mg/dl Total Bilirubin 0.7 (0.2-1.0) mg/dl AST 15 (13-39) U/L ALT 15 (7-52) U/L Alkaline Phosphatase 114 H (34-104) U/L Total Protein 5.9 L (6.0-8.3) gm/dl Albumin 2.7 L (3.4-5.0) gm/dl Globulin 3.2 (2.5-4.0) gm/dl Albumin/Globulin Ratio 0.8 L (0.9-2) TSH 4.138 (0.300-4.500) uIu/ml SARS-CoV-2, RNA, NAAT (NEGATIVE) 04/19/22 Range/Units 17:30 WBC (4.8-10.8) K/ul RBC (3.93-5.22) M/uL Hgb (12.0-16.0) g/dl Hct (34.1-44.9) % MCV (80.0-100.0) fL MCH (25.0-34.0) pg MCHC (32.0-36.0) g/dL RDW Std Deviation (36.4-46.3) fL RDW Coeff of Lance (11.5-14.5) % Plt Count (130-400) K/uL MPV (9.4-12.3) fL Immature Gran % (Auto) % Neut % (Auto) % Lymph % (Auto) % [place] % (Auto) % Eos % (Auto) % Baso % (Auto) % Neut # (Auto) (1.4-6.5) K/uL Lymph # (Auto) (1.2-3.4) K/uL [place] # (Auto) (0.24-0.82) K/uL Eos # (Auto) (0-0.50) K/uL Baso # (Auto) (0-0.2) K/uL Immature Gran # (Auto) (0.00-0.02) K/uL Sodium (136-145) mmol/L Potassium (3.5-5.1) mmol/L Chloride (98-107) mmol/L Carbon Dioxide (21-32) mmol/L Anion Gap (3-11) BUN (6-23) mg/dl Creatinine (0.6-1.2) mg/dl Est Cr Clr Drug Dosing ml/min Est GFR ( Amer) ml/min Est GFR (Non-Af Amer) ml/min BUN/Creatinine Ratio (10-20) Glucose (70-99(Fasting)) mg/dl Calcium (8.5-10.1) mg/dl Magnesium (1.7-2.4) mg/dl Total Bilirubin (0.2-1.0) mg/dl AST (13-39) U/L ALT (7-52) U/L Alkaline Phosphatase (34-104) U/L Total Protein (6.0-8.3) gm/dl Albumin (3.4-5.0) gm/dl Globulin (2.5-4.0) gm/dl Albumin/Globulin Ratio (0.9-2) TSH (0.300-4.500) uIu/ml SARS-CoV-2, RNA, NAAT NEGATIVE (NEGATIVE) Administered Medications Hydromorphone HCl (Hydromorphone Inj 0.5 Mg/0.5 Ml Syr) 0.25 mg IV Q1H PRN PRN Reason: Pain Stop: 05/03/22 21:55 Last Admin: 04/19/22 22:02 Dose: 0.25 mg Documented By: VENKAT Sodium Chloride (Nss 1000ml) 1,000 mls @ 125 mls/hr IV .Q8H [facility] Stop: 04/20/22 00:44 Last Admin: 04/19/22 17:13 Dose: 125 mls/hr Documented By: VENKAT Discontinued Medications Magnesium Sulfate/Dextrose (Magnesium Sulfate / D5w) 1 gm in 100 mls @ 200 mls/hr IV Q30M ABEL Stop: 04/19/22 18:39 Last Infusion: 04/19/22 23:15 Dose: 0 mls/hr Documented By: Admin: 04/19/22 19:05 Dose: 200 mls/hr Documented By: Infusion: 04/19/22 18:30 Dose: 200 mls/hr Documented By: Admin: 04/19/22 18:00 Dose: 200 mls/hr Documented By: PARTH Magnesium Sulfate/Dextrose (Magnesium Sulfate / D5w) 1 gm in 100 mls @ 200 mls/hr IV Q30M ABEL Stop: 04/19/22 22:06 Last Infusion: 04/19/22 23:15 Dose: 0 mls/hr Documented By: Admin: 04/19/22 22:02 Dose: 200 mls/hr Documented By: Infusion: 04/19/22 21:54 Dose: 200 mls/hr Documented By: Admin: 04/19/22 21:24 Dose: 200 mls/hr Documented By: VENKAT Imaging Data Radiologist's Impression: Chest X-Ray 04/19/22 16:35 XR chest 1V portable CLINICAL HISTORY: weakness TECHNIQUE: Single frontal radiograph of the chest was obtained. Comparison: Comparison is made to chest radiograph 04/06/[address] abdomen pelvis 04/11/2022 FINDINGS: Exam is limited by underpenetration. Interval placement of a left portacatheter. The cardiomediastinal silhouette is normal. Lungs are underinflated but clear. Left lower lung airspace opacity is suggested, although a component of soft tissue may exaggerate this appearance no pneumothorax is seen, a left pleural effusion cannot be excluded. IMPRESSION: There is concern for a left airspace opacity which may represent aspiration/pneumonia. Possible left effusion as well. There is bilateral atelectasis. If there is clinical uncertainty, CT or a lateral chest radiograph can be obtained. ACT 112: Negative or not required by law. Electronically signed by: Jw So M.D. 04/19/2022 5:06 PM KUB X-Ray 04/19/22 16:56 XR KUB/Abdomen 1 view CLINICAL HISTORY: ? Obstruction TECHNIQUE: 1 view of the abdomen was obtained. Comparison: Comparison is made to chest and abdomen radiographs 04/01/[address] abdomen pelvis 04/11/2022 FINDINGS: Lung bases are unremarkable. Degenerative changes are seen in the visualized skeleton. The bowel gas pattern is nonobstructive. Small stool burden is seen. IMPRESSION: Nonobstructive bowel gas pattern. ACT 112: Negative or not required by law. Electronically signed by: Jw So M.D. 04/19/2022 7:02 PM Blood Pressure Blood Pressure Findings: Normal blood pressure Blood Pressure Disposition: did not require urgent referral Discharge Plan Visit Data Chief Complaint: Swelling/Edema to Extremity Stated Complaint: swelling ED Provider: Jojo Clayton Discharge Problem: Gastric adenocarcinoma, Morbid obesity with BMI of 50.0-59.9, adult, Postoperative hematoma, Port-A-Cath in place, Hypomagnesemia Forms Stand Alone Forms: [facility] Prescriptions Prescriptions: No Action venlafaxine 75 mg capsule,extended release 24hr 75 mg PO DAILY Rx Instructions: TOTAL DOSE 225 MG--TAKES WITH 150 MG CAP. venlafaxine 150 mg capsule,extended release 24hr 150 mg PO DAILY Rx Instructions: TOTAL DOSE 225 MG--TAKES WITH 75 MG CAP. levothyroxine 75 mcg tablet 75 mcg PO DAILYBB montelukast 10 mg tablet 10 mg PO QPM polyethylene glycol 3350 [Miralax] 17 gram/dose Powder 17 g PO DAILY PRN (Reason: Constipation) albuterol sulfate 90 mcg/actuation Hfa Aerosol Inhaler 1 - 2 puff INHALATION Q4H PRN (Reason: COUGH/WHEEZING) sucralfate 100 mg/mL suspension 10 ml PO ACHS nystatin [Nystop] 100,000 unit/gram powder 1 applic TOPICAL TID PRN (Reason: Rash) ondansetron 8 mg tablet,disintegrating 8 mg PO Q8H PRN (Reason: nausea and vomiting) Qty: 90 0RF metoprolol succinate 50 mg tablet extended release 24 hr 50 mg PO BID Qty: 60 0RF tramadol 50 mg tablet 50 mg PO Q4H PRN (Reason: pain) Qty: 18 0RF enoxaparin [Lovenox] 150 mg/mL Syringe 150 mg subcut BID Qty: 0 0RF pantoprazole 40 mg tablet,delayed release (DR/EC) 40 mg PO BID Qty: 60 0RF Referrals Referrals: Kitty Herrmann MD [Primary Care Provider] -
--- NOTE | 2022-04-19 17:09 | XRay Report ---
XR chest 1V portable CLINICAL HISTORY: weakness TECHNIQUE: Single frontal radiograph of the chest was obtained. Comparison: Comparison is made to chest radiograph 04/06/[address] abdomen pelvis 04/11/2022 FINDINGS: Exam is limited by underpenetration. Interval placement of a left portacatheter. The cardiomediastina l silhouette is normal. Lungs are underinflated but clear. Left lower lung airspace opacity is sugges iliana, although a component of soft tissue may exaggerate this appearance no pneumothorax is seen, a le ft pleural effusion cannot be excluded. IMPRESSION: There is concern for a left airspace opacity which may represent aspiration/pneumonia. Possible left effusion as well. There is bilateral atelectasis. If there is clinical uncertainty, CT or a lateral c hest radiograph can be obtained. ACT 112: Negative or not required by law. Electronically signed by: Jw So M.D. 04/19/2022 5:06 PM
[2022-04-19 17:12] LABS: Basophils # (auto) 0.03 K/uL (0-0.2); Basophils % (auto) 0.2 %; Eosinophils # (auto) 0.06 K/uL (0-0.50); Eosinophils % (auto) 0.4 %; Hematocrit (blood only) 29.4 % (34.1-44.9); Hemoglobin 9.8 g/dl (12.0-16.0); Immature Granulocytes % (auto) 1.2 %; Lymphocytes # (auto) 1.05 K/uL (1.2-3.4); Lymphocytes % (auto) 6.2 %; Mean Corpuscular Hemoglobin 29.8 pg (25.0-34.0); Mean Corpuscular Hgb Conc 33.3 g/dL (32.0-36.0); Mean Corpuscular Volume 89.4 fL (80.0-100.0); Mean Platelet Volume 11.1 fL (9.4-12.3); Monocytes # (auto) 2.43 K/uL (0.24-0.82); Monocytes % (auto) 14.2 %; Neutrophils # (auto) 13.29 K/uL (1.4-6.5); Neutrophils % (auto) 77.8 %; Platelet Count 332 K/uL (130-400); RDW Coefficient of Variation 15.1 % (11.5-14.5); RDW Standard Deviation 48.4 fL (36.4-46.3); Red Blood Count 3.29 M/uL (3.93-5.22); White Blood Count 17.06 K/ul (4.8-10.8)
[2022-04-19 17:38] LABS: Albumin Globulin Ratio 0.8 (0.9-2); Albumin Level 2.7 gm/dl (3.4-5.0); BUN Creatinine Ratio 22.5 (10-20); Bilirubin,Total 0.7 mg/dl (0.2-1.0); Calcium 7.9 mg/dl (8.5-10.1); Creatinine Clr Calc Pharmacy 67.3 ml/min; Est GFR (African American) 53.4 ml/min; Est GFR (Non-African American) 46.1 ml/min; Globulin 3.2 gm/dl (2.5-4.0); Magnesium 1.3 mg/dl (1.7-2.4); Potassium 3.8 mmol/L (3.5-5.1); Total Protein 5.9 gm/dl (6.0-8.3)
[2022-04-19] MEDS: MAGNESIUM SULFATE / D5W 1 GM/100 ML BAG IV SCH ×4 (18:00→22:02)
--- NOTE | 2022-04-19 19:04 | XRay Report ---
XR KUB/Abdomen 1 view CLINICAL HISTORY: ? Obstruction TECHNIQUE: 1 view of the abdomen was obtained. Comparison: Comparison is made to chest and abdomen radiographs 04/01/[address] abdomen pelvis 2021 FINDINGS: Lung bases are unremarkable. Degenerative changes are seen in the visualized skeleton. The bowel gas pattern is nonobstructive. Small stool burden is seen. IMPRESSION: Nonobstructive bowel gas pattern. ACT 112: Negative or not required by law. Electronically signed by: Jw So M.D. 04/19/2022 7:02 PM
[2022-04-19] MEDS: HYDROmorphone INJ 0.5 MG/0.5 ML SYR IV PRN (22:02)
--- NOTE | 2022-04-20 00:19 | History & Physical Report ---
Date of Service April 20, 2022 Assessment & Plan (1) Chest wall hematoma: Plan: 71yo female with a history of recent admission (04/01 - 04/06/2022) for nausea/vomiting suspected secondary to gastric adenocarcinoma (diagnosed 04/07/22), pulmonary emboli (04/06/2022), and another recent admission (04/10 - 04/14/2022) for hematemesis, recent mediport placement (04/14/2022), also with a history of pleural effusions (suspected malignant in nature due to gastric adenocarcinoma; underwent thoracentesis on 04/06), HTN, HLD, hypothyroidism, mild intermittent asthma, and anxiety presents with a few-day history of port site hematoma in addition to generalized weakness and inability to tolerate PO. Port site hematoma, recent pulmonary emboli Hgb stable (9.8 on arrival, down from 10.8 on 04/14) - low suspicion for further worsening anemia d/t bleeding into hematoma Transfer in process to [facility] for port site evaluation and consideration for PEG tube placement Continue lovenox for now Home tramadol for pain Leukocytosis, left lung haziness concerning for pneumonia Patient with new leukocytosis to 17.1 (up from 10.2 on 04/14) and with increased LLL haziness on CXR Patient is at risk for aspiration given nausea/vomiting Will treat with zosyn for now; MRSA nares ordered given recent inpatient stay and resultant risk for MRSA pneumonia Trend CBC Generalized weakness, nausea, vomiting suspected secondary to gastric adenocarcinoma Patient experienced similar symptoms during prior admission, suspect secondary to known gastric adenocarcinoma Transfer in process for consideration of PEG tube placement PT/OT while here Zofran prn Trend CBC, CMP Hypomagnesemia Magnesium 1.3 on arrival, given mag sulfate 1g IV (x2) in ED Trend serum mag HTN: continue home regimen HLD: continue home regimen Hypothyroidism: continue home regimen Mild intermittent asthma: continue home regimen Anxiety: continue home regimen FEN: heart healthy diet Code status: full code DVT ppx: home lovenox 150mg bid PT/OT: ordered Dispo: med/telemetry (2) HTN (hypertension): (3) HLD (hyperlipidemia): (4) Gastric adenocarcinoma: (5) Deep vein thrombosis (DVT): (6) Hypothyroid: (7) Mild intermittent asthma: (8) Nausea & vomiting: (9) Postoperative hematoma: (10) Weakness: History of Present Illness Primary Care Provider: Kitty Herrmann MD 71yo female with a history of recent admission (04/01 - 04/06/2022) for nausea/vomiting suspected secondary to gastric adenocarcinoma (diagnosed 04/07/22), pulmonary emboli (04/06/2022), and another recent admission (04/10 - 04/14/2022) for hematemesis, recent mediport placement (04/14/2022), also with a history of pleural effusions (suspected malignant in nature due to gastric adenocarcinoma; underwent thoracentesis on 04/06), HTN, HLD, hypothyroidism, mild intermittent asthma, and anxiety presents with a few-day history of port site hematoma in addition to generalized weakness and inability to tolerate PO. Symptoms began gradually. Patient denies any trauma to the chest. Patient had some nausea yesterday with four episodes of nonbloody, nonbilious vomiting; her nausea has improved today. Patient denies fever, chills, headache, vision burk es, abdominal pain, dysuria, hematochezia, melena, dizziness, numbness, tingling, or other symptoms. Patient had planned to establish care with Dr. Franks (surgical oncology) at [facility], [place] for possible feeding tube placement after our general surgery team at [facility] felt patient was too medically complex for feeding tube placement at our facility secondary to malignancy. Patient was unable to get an appointment with Dr. Franks due to delay with records being sent over, and is requesting transfer to [facility] after surgical evaluation of her port. [facility] Upon arrival, vitals were notable for tachycardia (100s); BP controlled, no tachypnea, patient afebrile, spO2 adequate on room air. Initial labs were notable for leukocytosis (17.1), mild anemia (9.8), hypomagnesemia (1.3), elevated alk phos (114), and hypoalbuminemia (2.7). Platelets wnl, no other electrolyte abnormalities, AST and ALT wnl, Tbili not elevated, TSH wnl, covid PCR negative. In the ED, patient received mag sulfate 1g IV (x2 bags), was started on NSS @ 125mL/hr, and was started on dilaudid 0.25mg IV q1h prn. Surrogate decision-maker in case of an emergency: cristobal Figueroa (cell: [phone]) Allergies Allergy/AdvReac Type Severity Reaction Status Date / Time amlodipine Allergy Severe SHORT OF Verified 04/10/22 22:23 BREATH losartan [From Cozaar] Allergy Severe SHORT OF Verified 04/10/22 22:23 BREATH cefazolin Allergy Mild PATIENT Verified 04/10/22 22:23 HAD GENERALIZED ITCHING JUST AFTER ANCEF WAS STARTED lisinopril AdvReac Intermediate Cough Verified 04/10/22 22:23 Home Medications Medication Instructions Recorded Confirmed Type albuterol sulfate 90 mcg/actuation 1 - 2 puff inhalation Q4H PRN 04/01/22 04/20/22 History aerosol inhaler COUGH/WHEEZING levothyroxine 75 mcg tablet 75 mcg PO DAILYBB 04/01/22 04/20/22 History montelukast 10 mg tablet 10 mg PO QPM 04/01/22 04/20/22 History polyethylene glycol 3350 17 17 g PO DAILY PRN Constipation 04/01/22 04/20/22 History gram/dose oral powder (Miralax) venlafaxine 150 mg 150 mg PO DAILY 04/01/22 04/20/22 History capsule,extended release 24 hr venlafaxine 75 mg capsule,extended 75 mg PO DAILY 04/01/22 04/20/22 History release 24 hr nystatin 100,000 unit/gram topical 1 applic topical TID PRN Rash 04/10/22 04/20/22 History powder (Nystop) sucralfate 100 mg/mL oral 10 ml PO ACHS 04/10/22 04/20/22 History suspension enoxaparin 150 mg/mL subcutaneous 150 mg subcut BID #0 mL 04/14/22 04/20/22 Rx syringe (Lovenox) metoprolol succinate 50 mg 50 mg PO BID #60 tabs 04/14/22 04/20/22 Rx tablet,extended release 24 hr pantoprazole 40 mg tablet,delayed 40 mg PO BID #60 tabs 04/14/22 04/20/22 Rx release tramadol 50 mg tablet 50 mg PO Q4H PRN pain #18 tabs 04/14/22 04/20/22 Rx ondansetron 8 mg disintegrating 8 mg PO .Q6HR, DURING DAY 04/20/22 04/20/22 History tablet Past Med/Surg History Medical History Anxiety Dyspnea on exertion Gastric adenocarcinoma Hematemesis HLD (hyperlipidemia) HTN (hypertension) Hypothyroid Morbid obesity with BMI of 50.0-59.9, adult Nausea & vomiting Pleural effusion, malignant Surgical History History of cholecystectomy Social History Smoking Status: Never smoker Second Hand Exposure: No; Do You Dip or Chew Tobacco: No; Hx Alcohol Use: No Hx Substance Use: No Preferred Language: Japanese Communication Ability: Effective Miller Helper Required: No Beliefs That Will Affect Care: None marital status: Current Living Situation: Spouse Feels Safe at Home: Yes Safety Concerns: Feels Safe At This Time Assistive Devices: Cane Physical Exam Physical Exam: Constitutional: well-appearing, no acute distress HEENT: NCAT, no conjunctival injection CV: heart sounds distant, extremities well-perfused, no LE edema Resp: breath sounds distant, no wheezes/rales/rhonchi appreciated, no increased work of breathing GI: soft, nondistended, mild epigastric tenderness, nontender elsewhere, BS normoactive MSK: mild left chest wall tenderness Skin: left chest wall ecchymosis around port site with extension to the left axilla and down the posterior left upper arm without pus or exudate, large hematoma noted on lateral right upper arm Neuro: alert, oriented, no focal neurologic deficit appreciated Results & Data Results & Data ([facility]) Vital Signs (Past 12 Hours) Vital Signs Temp Pulse Pulse Resp BP BP Pulse Ox 04/19/22 23:00 105 H 20 122/63 92 04/19/22 16:35 68 20 98 04/19/22 21:44 102 H 20 131/78 93 04/19/22 21:03 104 H 20 127/89 97 04/19/22 19:00 101 H 18 127/89 97 04/19/22 17:52 102 H 22 127/89 97 04/19/22 17:14 101 H 22 127/89 97 04/19/22 16:15 36.7 C 102 H 20 127/89 94 O2 Del Method 04/19/22 23:00 Room Air 04/19/22 16:35 Room Air 04/19/22 21:44 04/19/22 21:03 Room Air 04/19/22 19:00 Room Air 04/19/22 17:52 Room Air 04/19/22 17:14 04/19/22 16:15 Room Air Supervising Physician Co-Signing Physician Notes Attending addendum: I have physically seen this patient, have supervised the medical residents activities, and agree with the H&P unless as otherwise noted. Assessment and Plan: Chest wall hematoma- Assessed by surgery and thought to be overall stable To be further assessed after transfer to [facility] Continue Lovenox for now due to current pulmonary emboli Left lower lobe infiltrate- Concern regarding possible aspiration Placed on Zosyn 4.5 g IV every 8 hours, check MRSA swab Generalized weakness/nausea/vomiting/sequela gastric adenocarcinoma- Patient being transferred to [facility] for PEG tube placement Hypomagnesemia- Magnesium 1.3 upon admission Status post 2 g IV replacement and rechecking laboratories Remaining orders and notations as noted Resident Activity Tracking Resident Involvement: Resident Care Provided and Business Banking Relationship Manager Coverage Note Care Provided: Adult Hospital Medicine (1) Postoperative hematoma Procedure type: circulatory, unspecified Surgical complication system/body Area: circulatory system Qualified Code(s): I97.638 - Postprocedural hematoma of a circulatory system organ or structure following other circulatory system procedure
[2022-04-20] MEDS ORDERED: ALBUTEROL HFA 8 GM INHALER INH PRN (00:55)
[2022-04-20] MEDS: PANTOprazole 40 MG TAB PO SCH ×3 (02:09→21:22)
[2022-04-20] MEDS: METOPROLOL SUCC 50MG EXT REL TAB PO SCH ×3 (02:09→21:23)
[2022-04-20] MEDS ORDERED: PIPERACILLIN/TAZOBACTAM 4.5 GM in DEXTROSE 5% 100 ML IV STA (03:35)
[2022-04-20] MEDS: ENOXAPARIN 150 MG/ML SYR SQ SCH ×2 (03:49→17:34)
[2022-04-20] MEDS ORDERED: VANCOMYCIN CONSULT ACTIVE PRN (04:47)
[2022-04-20] MEDS ORDERED: VANCOMYCIN HCL 2,750 MG in SODIUM CHLORIDE 0.9% 500 ML IV ONE (05:30)
[2022-04-20] MEDS: LEVOTHYROXINE SODIUM 75 MCG TABLET PO SCH (05:30)
[2022-04-20 06:14] LABS: Hematocrit (blood only) 26.7 % (34.1-44.9); Hemoglobin 8.8 g/dl (12.0-16.0); Mean Corpuscular Hemoglobin 30.1 pg (25.0-34.0); Mean Corpuscular Volume 91.4 fL (80.0-100.0); Mean Platelet Volume 10.8 fL (9.4-12.3); Nucleated RBC # (auto) 0.02 K/uL (0-0); Nucleated RBC % (auto) 0.1 %; Platelet Count 323 K/uL (130-400); RDW Coefficient of Variation 15.3 % (11.5-14.5); RDW Standard Deviation 50.1 fL (36.4-46.3); Red Blood Count 2.92 M/uL (3.93-5.22); White Blood Count 17.28 K/ul (4.8-10.8)
[2022-04-20 06:39] LABS: Albumin Globulin Ratio 0.9 (0.9-2); Albumin Level 2.6 gm/dl (3.4-5.0); BUN Creatinine Ratio 25.2 (10-20); Bilirubin,Total 0.9 mg/dl (0.2-1.0); Calcium 7.8 mg/dl (8.5-10.1); Creatinine Clr Calc Pharmacy 74.7 ml/min; Est GFR (African American) 61.3 ml/min; Est GFR (Non-African American) 52.9 ml/min; Potassium 3.3 mmol/L (3.5-5.1); Total Protein 5.6 gm/dl (6.0-8.3)
[2022-04-20] MEDS: traMADol HCL 50 MG TABLET PO PRN ×2 (07:52→19:24)
[2022-04-20] MEDS: SUCRALFATE 1 GM/10 ML UDC PO SCH ×4 (07:53→21:22)
[2022-04-20 08:21] LABS: Appearance Urine Clear (Clear); Bacteria Urine Automated Negative (Negative); Bilirubin Urine Negative (Negative); Blood Urine Negative (Negative); Cast Urine Automated 0 /lpf (0-5); Color Urine Dark Yellow; Epithelial Cell Urine Auto >30 /lpf (0-5); Glucose Urine UA Negative (Negative); Ketones Urine Trace (Negative); Leukocyte Esterase Urine Negative (Negative); Nitrite Urine Negative (Negative); Protein Urine 1+ (Negative); RBC Urine Automated 0-4 /hpf (0-4); Specific Gravity Urine 1.031 (1.000-1.030); Urobilinogen Urine Negative (Negative); pH Urine 5.5 (4.5-7.5)
[2022-04-20] MEDS ORDERED: VENLAFAXINE HCL XR 150 MG CAPXR PO SCH (09:00)
[2022-04-20] MEDS ORDERED: VENLAFAXINE HCL XR 75 MG CAPXR PO SCH (09:00)
[2022-04-20] MEDS: PIPERACILLIN/TAZOBACTAM 4.5 GM in DEXTROSE 5% 100 ML IV SCH ×3 (09:11→23:56)
[2022-04-20] MEDS: POTASSIUM CHLORIDE / WTR 10 MEQ/100 ML PLCT IV SCH ×2 (09:11→10:26)
[2022-04-20] MEDS: HYDROmorphone INJ 0.5 MG/0.5 ML SYR IV PRN (09:17)
[2022-04-20] MEDS: METOCLOPRAMIDE HCL INJ 5 MG/ML 2 ML VIAL IV SCH ×3 (12:28→23:56)
--- NOTE | 2022-04-20 12:45 | Hospitalist Progress Note ---
Date of Service April 20, 2022 Assessment & Plan (1) Nausea & vomiting: Plan: Continue IV fluids. She agrees to initiation of intravenous Reglan and oral dronabinol. Symptomatic care (2) Pneumonia: Plan: Probably of aspiration etiology. Infiltrates seen in the left lower lobe on chest x-ray. Currently on vancomycin and Zosyn (3) HTN (hypertension): Plan: Treated and controlled with metoprolol (4) HLD (hyperlipidemia): Plan: Low-cholesterol diet when able (5) Hypothyroid: Plan: Continue current oral thyroid replacement (6) Adenocarcinoma of stomach: Plan: Oncology management (7) Morbid obesity with BMI of 50.0-59.9, adult: Plan: Supportive care Plan Possible transfer to [facility] if bed becomes available Admission and Anticipated Discharge Date Admission Date: April 20, 2022 Subjective Awake and alert.. She is nauseated and agrees to intravenous Reglan and oral dronabinol. Review of Systems Review of Systems: Constitutional-no fever or chills ENT-no blurred vision, no double vision, no epistaxis, no sore throat Respiratory-no cough, no wheezing, no shortness of breath Cardiac-no palpitations, no chest pain, no syncope GI-recurrent nausea and vomiting. No hematemesis. No melena or hematochezia -no urinary retention, no urinary incontinence, no dysuria, no hematuria Musculoskeletal-no joint pain, no muscle tenderness Skin-large anterior left upper chest hematoma from recent Mediport insertion Neuro-no isolated weakness, no paresthesia. Generalized weakness Psych-she appears depressed Physical Exam 2 Physical Exam: General-alert and oriented x3, no fevers, no chills. Morbidly obese HEENT-head atraumatic and normocephalic, pupils equal and reactive to light, extraocular muscles intact Neck-no lymphadenopathy or thyromegaly, trachea midline Chest-clear to auscultation percussion. No rales wheezing or rhonchi Cardiac-regular rate and rhythm, normal S1 and S2, no murmurs Abdomen-normal bowel sounds, nontender, no hepatosplenomegaly. She does have persistent nausea Extremities-chronic venous stasis changes noted bilateral lower extremities below the knees. Neuro-cranial nerves II through XII intact, motor and sensory function within normal limits, strength symmetrical with generalized weakness. No focal deficits Psych-she appears depressed Skinlarge fluctuant hematoma in the left anterior upper chest wall area from recent Mediport insertion Results & Data Results & Data ([facility]) Vital Signs (Past 12 Hours) Vital Signs Temp Pulse Pulse Resp BP Pulse Ox O2 Del Method 04/20/22 11:28 36.4 C L 98 H 20 117/63 94 Room Air 04/20/22 06:13 101 H 04/20/22 06:42 36.5 C 100 H 20 127/74 95 Room Air 04/20/22 02:45 103 H 04/20/22 03:14 37.2 C 103 H 20 122/69 93 Room Air 04/20/22 01:00 106 H 20 111/96 93 Room Air Laboratory Results 04/20/22 05:47 04/20/22 05:47 04/20/22 05:47 04/20/22 05:47 PG Care Time/CCT Total # of Minutes Spent Total Time Spent with Patient: Total time spent is greater than 50% in coordination of care (as documented) at patient's floor/unit and/or counseling patient: Coding Level of Care Code 14543 Subseq Hosp Care Lvl 3 Diagnoses Nausea & vomiting R11.2 Pneumonia J18.9 HTN (hypertension) I10 HLD (hyperlipidemia) E78.5 Hypothyroid E03.9 Adenocarcinoma of stomach C16.9 Morbid obesity with BMI of 50.0-59.9, adult E66.01; Z68.43
--- NOTE | 2022-04-20 12:58 | Pharmacy Report ---
Pharmacy PK ABX Note - Date of Service April 20, 2022 - Assessment and Plan Assessment 71 year old F receiving vancomycin/zosyn for treatment of pulmonary infection. Pertinent microbiologic data includes: Positive MRSA Nasal Swab. Day # 1 of antimicrobial therapy. Plan Vancomycin * Loading dose: 2750 mg IV x 1 * Maintenance dose: 1250 mg IV every 12 hours * Regimen is predicted to achieve target AUC/BOSTON of 400-600 mg/L.hr * Level to be ordered if patient stays > 24 hours Pharmacy will continue to follow and will adjust dose/frequency as necessary. Thank you. Pharmacy has transitioned to AUC monitoring for vancomycin. AUC/BOSTON is the preferred PK/PD target and is associated with decreased risk of nephrotoxicity compared to traditional trough targets.
--- NOTE | 2022-04-20 13:54 | Electrocardiogram Report ---
Test Reason : Blood Pressure : / mmHG Vent. Rate : 099 BPM Atrial Rate : 099 BPM P-R Int : 120 ms QRS Dur : 086 ms QT Int : 340 ms P-R-T Axes : 059 025 178 degrees QTc Int : 436 ms Normal sinus rhythm Nonspecific ST and T wave abnormality Abnormal ECG When compared with ECG of 10-APR-2022 22:22, No significant change was found Confirmed by Maicol Anna ([id number]) on 04/20/2022 1:54:16 PM Referred By: REFERRED SELF Confirmed By:Maicol Anna
[2022-04-20] MEDS: VANCOMYCIN HCL 1,250 MG in SODIUM CHLORIDE 0.9% 250 ML IV SCH (19:43)
[2022-04-20] MEDS: MONTELUKAST SODIUM 10 MG TABLET PO SCH (21:22)
--- NOTE | 2022-04-21 00:11 | Billing Data ---
Date of Service April 21, 2022 Coding Level of Care Code 42120 Initial Inpt Care Lvl 3
[2022-04-21] MEDS: LEVOTHYROXINE SODIUM 75 MCG TABLET PO SCH (05:47)
[2022-04-21] MEDS: METOCLOPRAMIDE HCL INJ 5 MG/ML 2 ML VIAL IV SCH ×4 (05:48→23:12)
[2022-04-21] MEDS: VANCOMYCIN HCL 1,250 MG in SODIUM CHLORIDE 0.9% 250 ML IV SCH ×2 (05:48→18:12)
[2022-04-21 06:19] LABS: Basophils # (auto) 0.04 K/uL (0-0.2); Basophils % (auto) 0.3 %; Eosinophils # (auto) 0.07 K/uL (0-0.50); Eosinophils % (auto) 0.4 %; Hematocrit (blood only) 25.7 % (34.1-44.9); Hemoglobin 8.3 g/dl (12.0-16.0); Immature Granulocytes % (auto) 1.3 %; Lymphocytes # (auto) 0.87 K/uL (1.2-3.4); Lymphocytes % (auto) 5.6 %; Mean Corpuscular Hemoglobin 29.6 pg (25.0-34.0); Mean Corpuscular Hgb Conc 32.3 g/dL (32.0-36.0); Mean Corpuscular Volume 91.8 fL (80.0-100.0); Mean Platelet Volume 10.6 fL (9.4-12.3); Monocytes # (auto) 2.36 K/uL (0.24-0.82); Monocytes % (auto) 15.1 %; Neutrophils % (auto) 77.3 %; Nucleated RBC # (auto) 0.02 K/uL (0-0); Nucleated RBC % (auto) 0.1 %; Platelet Count 319 K/uL (130-400); RDW Coefficient of Variation 15.3 % (11.5-14.5); RDW Standard Deviation 50.3 fL (36.4-46.3); White Blood Count 15.64 K/ul (4.8-10.8)
[2022-04-21 07:00] LABS: BUN Creatinine Ratio 25.2 (10-20); Calcium 7.5 mg/dl (8.5-10.1); Creatinine Clr Calc Pharmacy 77.6 ml/min; Est GFR (African American) 64.2 ml/min; Est GFR (Non-African American) 55.4 ml/min; Potassium 3.5 mmol/L (3.5-5.1)
[2022-04-21] MEDS: METOPROLOL SUCC 50MG EXT REL TAB PO SCH ×2 (07:22→21:19)
[2022-04-21] MEDS: ENOXAPARIN 150 MG/ML SYR SQ SCH ×2 (07:23→21:19)
[2022-04-21] MEDS: PANTOprazole 40 MG TAB PO SCH ×2 (07:23→21:19)
[2022-04-21] MEDS: SUCRALFATE 1 GM/10 ML UDC PO SCH ×4 (07:23→21:18)
[2022-04-21] MEDS: PIPERACILLIN/TAZOBACTAM 4.5 GM in DEXTROSE 5% 100 ML IV SCH ×3 (08:46→23:12)
[2022-04-21] MEDS ORDERED: DEXTROSE 10% 1,000 ML IV PRN (12:33)
[2022-04-21] MEDS ORDERED: TPN/PPN CONSULT PHARMACY STA (12:33)
--- NOTE | 2022-04-21 12:45 | XRay Report ---
XR chest 1V portable HISTORY: Weakness. Abnormal chest x-ray. Follow-up. COMPARISON: Chest 04/06/2022 and 04/19/2022. FINDINGS: Increase in size in the partially loculated moderate left pleural effusion. Left basilar de nsities persist. No pneumothorax. The heart is top normal in size. Hazy appearance to the right midlu ng zone is also new from the prior study and may represent a small right pleural effusion or developi ng airspace opacity. Left subclavian Port-A-Cath terminates at the SVC. No evidence for pulmonary jeanine ma. IMPRESSION: 1. Increase in size in the partially loculated moderate left pleural effusion. The left basilar densi ties remain unchanged and may represent atelectasis or pneumonia. 2. There is a new hazy density within the right midlung zone which may represent a small right pleura l effusion or developing airspace opacity. ACT 112: Negative or not required by law. Electronically signed by: Calvin Cuellar M.D. 04/21/2022 12:44 PM
[2022-04-21] MEDS ORDERED: TPN/PPN CONSULT PHARMACY PRN (13:32)
[2022-04-21 14:23] LABS: Magnesium 1.7 mg/dl (1.7-2.4); Phosphorus 2.9 mg/dl (2.5-4.9)
--- NOTE | 2022-04-21 14:50 | Hospitalist Progress Note ---
Date of Service April 21, 2022 Assessment & Plan (1) Chest wall hematoma: Plan: 71yo female with a history of recent admission (04/01 - 04/06/2022) for nausea/vomiting suspected secondary to gastric adenocarcinoma (diagnosed 04/07/22), pulmonary emboli (04/06/2022), and another recent admission (04/10 - 04/14/2022) for hematemesis, recent mediport placement (04/14/2022), also with a history of pleural effusions (suspected malignant in nature due to gastric adenocarcinoma; underwent thoracentesis on 04/06), HTN, HLD, hypothyroidism, mild intermittent asthma, and anxiety presents with a few-day history of port site hematoma in addition to generalized weakness and inability to tolerate PO. Port site hematoma, recent pulmonary emboli Hgb stable (9.8 on arrival, down from 10.8 on 04/14) - low suspicion for further worsening anemia d/t bleeding into hematoma Transfer in process to [facility] for port site evaluation and consideration for PEG tube placement Continue lovenox for now Home tramadol for pain Leukocytosis, left lung haziness concerning for pneumonia Patient with new leukocytosis to 17.1 (up from 10.2 on 04/14) and with increased LLL haziness on CXR Patient is at risk for aspiration given nausea/vomiting Will treat with zosyn for now; MRSA nares ordered given recent inpatient stay and resultant risk for MRSA pneumonia Trend CBC Generalized weakness, nausea, vomiting suspected secondary to gastric adenocarcinoma Patient experienced similar symptoms during prior admission, suspect secondary to known gastric adenocarcinoma Transfer in process for consideration of PEG tube placement PT/OT while here Zofran prn Trend CBC, CMP Hypomagnesemia Magnesium 1.3 on arrival, given mag sulfate 1g IV (x2) in ED Trend serum mag Hypothyroidism: continue home regimen Mild intermittent asthma: continue home regimen Anxiety: continue home regimen FEN: heart healthy diet Code status: full code DVT ppx: home lovenox 150mg bid PT/OT: ordered Dispo: med/telemetry (2) HTN (hypertension): Plan: Continue current medical management. Stable (3) HLD (hyperlipidemia): Plan: Stable. Continue current medical management (4) Gastric adenocarcinoma: Plan: Awaiting transfer to [facility]. Dr. Tri carlin is the surgery oncologist who has excepted her (5) Deep vein thrombosis (DVT): Plan: She apparently has had a recent pulmonary embolism but is not a candidate for systemic anticoagulation at this time. Apparently she has been seen by Dr. Robert leung who did not recommend IVC filter placement (6) Hypothyroid: Plan: Continue current thyroid replacement (7) Mild intermittent asthma: Plan: Stable. Nebulizers as needed (8) Nausea & vomiting: Plan: She has improved with intravenous Reglan on a scheduled basis along with the addition of dronabinol. Oral intake remains poor. She will eventually require PEG tube placement at [facility]. We will start TPN for now (9) Postoperative hematoma: Plan: Large hematoma at left upper chest venous access port site. Will consult general surgery to reevaluate and consider evacuation of the large hematoma. (10) Weakness: Plan: OT and PT as tolerated Plan Anticipate transfer to [facility] for continued care when bed available Admission and Anticipated Discharge Date Admission Date: April 20, 2022 Subjective Alert and oriented. Less nausea with IV Reglan and oral dronabinol. She probably would benefit from TPN until the PEG tube can be placed. I attempted to call [facility] yesterday but was placed on hold for nearly 25 minutes then I gave up. She has given me consent for PICC line placement to prepare for TPN. The daughter is aware. Review of Systems Review of Systems: Constitutional-no fever or chills ENT-no blurred vision, no double vision, no epistaxis, no sore throat Respiratory-no cough, no wheezing, no shortness of breath Cardiac-no palpitations, no chest pain, no syncope GI-nausea has lessened with current treatment plan. Oral intake remains very poor. -no urinary retention, no urinary incontinence, no dysuria, no hematuria Musculoskeletal-no joint pain, no muscle tenderness Skin-no bruising, no rashes, no pruritus Neuro-no isolated weakness, no paresthesia, no weakness Psych-no depression, no anxiety Physical Exam Physical Exam: General-alert and oriented x3, no fevers, no chills. Morbidly obese HEENT-head atraumatic and normocephalic, pupils equal and reactive to light, extraocular muscles intact Neck-no lymphadenopathy or thyromegaly, trachea midline Chest-clear to auscultation percussion. No rales wheezing or rhonchi Cardiac-regular rate and rhythm, normal S1 and S2 Abdomen-normal bowel sounds, nontender, no hepatosplenomegaly Extremities-no cyanosis, clubbing, or edema Neuro-cranial nerves II through XII intact, motor and sensory function within normal limits, strength symmetrical , no focal deficits Psych-normal affect, normal mood Results & Data Results & Data ([facility]) Vital Signs (Past 12 Hours) Vital Signs Temp Pulse Resp BP Pulse Ox O2 Del Method 04/21/22 08:00 36.7 C 98 H 18 123/75 90 Room Air 04/21/22 08:00 Room Air 04/21/22 05:00 36.6 C 100 H 18 108/69 91 Room Air Laboratory Results 04/21/22 05:43 04/21/22 05:43 PG Care Time/CCT Total # of Minutes Spent Total Time Spent with Patient: Total time spent is greater than 50% in coordination of care (as documented) at patient's floor/unit and/or counseling patient: Coding Level of Care Code 27822 Subseq Hosp Care Lvl 3 Diagnoses Chest wall hematoma S20.219A HTN (hypertension) I10 HLD (hyperlipidemia) E78.5 Gastric adenocarcinoma C16.9 Deep vein thrombosis (DVT) I82.409 Hypothyroid E03.9 Mild intermittent asthma J45.20 Nausea & vomiting R11.2 Postoperative hematoma I97.638 Procedure type: circulatory, unspecified Surgical complication system/body Area: circulatory system Weakness R53.1 (1) Postoperative hematoma Procedure type: circulatory, unspecified Surgical complication system/body Area: circulatory system Qualified Code(s): I97.638 - Postprocedural hematoma of a circulatory system organ or structure following other circulatory system procedure
--- NOTE | 2022-04-21 14:55 | Pharmacy Report ---
Pharmacy PN Initial Consult - Date of Service April 21, 2022 - Scope Pharmacy has been consulted to manage parenteral nutrition orders and order appropriate labs. As part of the Nutrition Support Team guidelines, pharmacy will work in conjunction with dietary when determining the patients caloric needs. - Subjective Pertinent PMH (from H&P): 71yo female with a history of recent admission (04/01 - 04/06/2022) for nausea/vomiting suspected secondary to gastric adenocarcinoma (diagnosed 04/07/22), pulmonary emboli (04/06/2022), and another recent admission (04/10 - 04/14/2022) for hematemesis, recent mediport placement (04/14/2022), also with a history of pleural effusions (suspected malignant in nature due to gastric adenocarcinoma; underwent thoracentesis on 04/06), HTN, HLD, hypothyroidism, mild intermittent asthma, and anxiety presents with a few-day history of port site hematoma in addition to generalized weakness and inability to tolerate PO. - Objective Height: 5 ft 5 in Weight: 152.9 kg Intake & Output (Last 24Hrs): Intake & Output 04/19/22 04/20/22 04/21/22 04/22/22 06:59 06:59 06:59 06:59 Intake Total 1640 / 1640 1920 / 1920 120 / 120 Output Total 450 / 450 Balance 1639 / 1639 1470 / 1470 119 / 119 Weight 152.9 kg 152.9 kg Laboratory Data (Last 24 Hrs):: 04/21/22 04/21/22 05:43 13:23 Sodium 134 L Potassium 3.5 Chloride 101 Carbon Dioxide 25 BUN 26 H Creatinine 1.03 Glucose 100 H Calcium 7.5 L Phosphorus 2.9 Magnesium 1.7 Triglycerides 112 Nutrition Assessment:: Please refer to the Notes section of the EMR for the most recent optical sales associate note. - Assessment 71 year old with ongoing nausea/vomiting likely secondary to gastric adenocarcinoma. * Patient unable to tolerate diet. She is awaiting possible feeding tube placement but will require transfer to [facility] for this. * She is ordered to have PICC line placed. Uncertain when this will be accomplished, therefore patient will be ordered PPN for day #1 of nutrition. * Will hold lipids today per recommendation of dietary. Plan to add on day 2 if no significant signs of refeeding. - Plan For day 1 of PN administration, the following will be ordered: Macronutrients Amino acids 85 grams/day Dextrose 100 grams/day Lipids __ grams/day Micronutrients Combined electrolytes [20 mL - contains 35 mEq Na, 20 meq K, 4.5 mEq Ca, 5 mEq Mg, 35 mEq Cl, 29.5 mEq acetate per 20 mL Sodium phosphate 24 MMol Sodium chloride 20 mEq Potassium acetate 40 mEq Magnesium sulfate 8.12 mEq Multivitamins 10 mL Trace Elements 10 mL Additional additives: folic acid 1 mg, thiamine 100 mg Total volume 2070 mL to be infused over 21 hrs will provide 680 kcal/day Final osmolarity 800 mOsm/L (maximum for PPN is 900 mOsm/L) Labs to be ordered per PN order protocol Pharmacy will follow and adjust parenteral nutrition orders on a daily basis. Thank you.
[2022-04-21] MEDS ORDERED: CLINOLIPID 20% IV FAT EMULSION 250 ML IV SCH (16:00)
[2022-04-21] MEDS ORDERED: AMINO ACIDS 4.25% IV SCH ×2 (16:00)
[2022-04-21] MEDS ORDERED: D5W IV SCH ×2 (16:00)
[2022-04-21] MEDS ORDERED: PERIPHERAL TPN IV SCH ×2 (16:00)
--- NOTE | 2022-04-21 16:38 | Surgery Consultation ---
Date of Consultation April 21, 2022 Assessment & Plan (1) Postoperative hematoma: (2) Port-A-Cath in place: (3) Gastric adenocarcinoma: (4) Malignant pleural effusion: (5) Deep vein thrombosis (DVT): Plan 71-year-old woman with postoperative hematoma status post access port placement. This is not surprising given her treatment dose Lovenox. The site is not showing any signs of infection, and the hematoma is not enlarging. Her hemoglobin is slightly trending down but is fairly stable. I had a long discussion with the family as well as the PA. I would not recommend any surgical exploration at this time. Her primary concern is nutrition. She now has a PICC line, and is starting TPN. There is talk of transfer to [place] for possible J-tube placement by surgical oncology. I would recommend transfer to a tertiary care center for further treatment. If the hematoma continues to enlarge or if she shows any signs of infection at the site, then reexploration with evacuation of the hematoma and possible removal of the port would be warranted. We will continue to follow. History of Present Illness Reason for Consultation: Access port site hematoma Attending Physician: Tomy Cormier MD History of Present Illness 71-year-old woman with stage IV gastric adenocarcinoma complicated by pulmonary embolus on Lovenox represents to the hospital. She has failure to thrive at home. She is unable to keep down any food. She has lost 70 pounds in the last 6 months. She underwent access port placement last week. At that time, she had no access and the IV team was unable to place a PICC line. She was sent home but returned with failure to thrive and inability to keep down food. She is apparently to be seen by surgical oncologist in [place] who are contemplating placing a J-tube. She does have peritoneal carcinomatosis. After he a port was put in, she was placed on treatment dose Lovenox, 150 mg twice daily. She now has a large hematoma at the port site. Her hemoglobin decreased from 10.8-9.6. According to her and her daughter, the hematoma has not increased in size in the last 2 days. Allergies Allergy/AdvReac Type Severity Reaction Status Date / Time amlodipine Allergy Severe SHORT OF Verified 04/10/22 22:23 BREATH losartan [From Cozaar] Allergy Severe SHORT OF Verified 04/10/22 22:23 BREATH cefazolin Allergy Mild PATIENT Verified 04/10/22 22:23 HAD GENERALIZED ITCHING JUST AFTER ANCEF WAS STARTED lisinopril AdvReac Intermediate Cough Verified 04/10/22 22:23 Home Medications Medication Instructions Recorded Confirmed Type albuterol sulfate 90 mcg/actuation 1 - 2 puff inhalation Q4H PRN 04/01/22 04/20/22 History aerosol inhaler COUGH/WHEEZING levothyroxine 75 mcg tablet 75 mcg PO DAILYBB 04/01/22 04/20/22 History montelukast 10 mg tablet 10 mg PO QPM 04/01/22 04/20/22 History polyethylene glycol 3350 17 17 g PO DAILY PRN Constipation 04/01/22 04/20/22 His tory gram/dose oral powder (Miralax) venlafaxine 150 mg 150 mg PO DAILY 04/01/22 04/20/22 History capsule,extended release 24 hr venlafaxine 75 mg capsule,extended 75 mg PO DAILY 04/01/22 04/20/22 History release 24 hr nystatin 100,000 unit/gram topical 1 applic topical TID PRN Rash 04/10/22 04/20/22 History powder (Nystop) sucralfate 100 mg/mL oral 10 ml PO ACHS 04/10/22 04/20/22 History suspension enoxaparin 150 mg/mL subcutaneous 150 mg subcut BID #0 mL 04/14/22 04/20/22 Rx syringe (Lovenox) metoprolol succinate 50 mg 50 mg PO BID #60 tabs 04/14/22 04/20/22 Rx tablet,extended release 24 hr pantoprazole 40 mg tablet,delayed 40 mg PO BID #60 tabs 04/14/22 04/20/22 Rx release tramadol 50 mg tablet 50 mg PO Q4H PRN pain #18 tabs 04/14/22 04/20/22 Rx ondansetron 8 mg disintegrating 8 mg PO .Q6HR, DURING DAY 04/20/22 04/20/22 History tablet Patient History Medical History Anxiety Dyspnea on exertion Gastric adenocarcinoma Hematemesis HLD (hyperlipidemia) HTN (hypertension) Hypothyroid Morbid obesity with BMI of 50.0-59.9, adult Nausea & vomiting Pleural effusion, malignant Surgical History History of cholecystectomy Social History Smoking Status: Never smoker Second Hand Exposure: No; Do You Dip or Chew Tobacco: No; Hx Alcohol Use: No Hx Substance Use: No Preferred Language: Portuguese Communication Ability: Effective Government Affairs Fellow Required: No Beliefs That Will Affect Care: None marital status: Current Living Situation: Spouse Feels Safe at Home: Yes Safety Concerns: Feels Safe At This Time Assistive Devices: Cane Physical Exam Physical Exam: Access port site with large hematoma, ecchymosis, no erythema or discharge; incision is well-healed. There is no signs of infection. Results & Data ([facility]) Vital Signs (Past 12 Hours) Vital Signs Temp Pulse Resp BP Pulse Ox Pulse Ox Pulse Ox 04/21/22 14:23 89 L 86 L 04/21/22 08:00 36.7 C 98 H 18 123/75 90 04/21/22 08:00 04/21/22 05:00 36.6 C 100 H 18 108/69 91 O2 Del Method O2 Flow Rate O2 Flow Rate 04/21/22 14:23 0 0 04/21/22 08:00 Room Air 04/21/22 08:00 Room Air 04/21/22 05:00 Room Air Laboratory Results 04/21/22 04/21/22 04/21/22 Range/Units 16:27 13:23 05:43 WBC (4.8-10.8) K/ul RBC (3.93-5.22) M/uL Hgb (12.0-16.0) g/dl Hct (34.1-44.9) % MCV (80.0-100.0) fL MCH (25.0-34.0) pg MCHC (32.0-36.0) g/dL RDW Std Deviation (36.4-46.3) fL RDW Coeff of Lance (11.5-14.5) % Plt Count (130-400) K/uL MPV (9.4-12.3) fL Immature Gran % (Auto) % Neut % (Auto) % Lymph % (Auto) % Grimes % (Auto) % Eos % (Auto) % Baso % (Auto) % Neut # (Auto) (1.4-6.5) K/uL Lymph # (Auto) (1.2-3.4) K/uL Grimes # (Auto) (0.24-0.82) K/uL Eos # (Auto) (0-0.50) K/uL Baso # (Auto) (0-0.2) K/uL Immature Gran # (Auto) (0.00-0.02) K/uL Absolute Nucleated RBC (0-0) K/uL Nucleated RBC % (auto) % Sodium 134 L (136-145) mmol/L Potassium 3.5 (3.5-5.1) mmol/L Chloride 101 (98-107) mmol/L Carbon Dioxide 25 (21-32) mmol/L Anion Gap 8 (3-11) BUN 26 H (6-23) mg/dl Creatinine 1.03 (0.6-1.2) mg/dl Est Cr Clr Drug Dosing 77.6 ml/min Est GFR ( Amer) 64.2 ml/min Est GFR (Non-Af Amer) 55.4 ml/min BUN/Creatinine Ratio 25.2 H (10-20) Glucose 100 H (70-99(Fasting)) mg/dl POC Glucose 114 H (70-99) mg/dl Calcium 7.5 L (8.5-10.1) mg/dl Phosphorus 2.9 (2.5-4.9) mg/dl Magnesium 1.7 (1.7-2.4) mg/dl Triglycerides 112 (0-150) mg/dl 04/21/22 Range/Units 05:43 WBC 15.64 H (4.8-10.8) K/ul RBC 2.80 L (3.93-5.22) M/uL Hgb 8.3 L (12.0-16.0) g/dl Hct 25.7 L (34.1-44.9) % MCV 91.8 (80.0-100.0) fL MCH 29.6 (25.0-34.0) pg MCHC 32.3 (32.0-36.0) g/dL RDW Std Deviation 50.3 H (36.4-46.3) fL RDW Coeff of Lance 15.3 H (11.5-14.5) % Plt Count 319 (130-400) K/uL MPV 10.6 (9.4-12.3) fL Immature Gran % (Auto) 1.3 % Neut % (Auto) 77.3 % Lymph % (Auto) 5.6 % Grimes % (Auto) 15.1 % Eos % (Auto) 0.4 % Baso % (Auto) 0.3 % Neut # (Auto) 12.10 H (1.4-6.5) K/uL Lymph # (Auto) 0.87 L (1.2-3.4) K/uL Grimes # (Auto) 2.36 H (0.24-0.82) K/uL Eos # (Auto) 0.07 (0-0.50) K/uL Baso # (Auto) 0.04 (0-0.2) K/uL Immature Gran # (Auto) 0.20 H (0.00-0.02) K/uL Absolute Nucleated RBC 0.02 H (0-0) K/uL Nucleated RBC % (auto) 0.1 % Sodium (136-145) mmol/L Potassium (3.5-5.1) mmol/L Chloride (98-107) mmol/L Carbon Dioxide (21-32) mmol/L Anion Gap (3-11) BUN (6-23) mg/dl Creatinine (0.6-1.2) mg/dl Est Cr Clr Drug Dosing ml/min Est GFR ( Amer) ml/min Est GFR (Non-Af Amer) ml/min BUN/Creatinine Ratio (10-20) Glucose (70-99(Fasting)) mg/dl POC Glucose (70-99) mg/dl Calcium (8.5-10.1) mg/dl Phosphorus (2.5-4.9) mg/dl Magnesium (1.7-2.4) mg/dl Triglycerides (0-150) mg/dl (1) Postoperative hematoma Procedure type: circulatory, unspecified Surgical complication system/body Area: circulatory system Qualified Code(s): I97.638 - Postprocedural hematoma of a circulatory system organ or structure following other circulatory system procedure
--- NOTE | 2022-04-21 20:08 | XRay Report ---
XR chest 1V portable CLINICAL HISTORY: after PICC placement COMPARISON STUDY: Chest CT April 11, 2022. Chest radiograph April 21, 2022. FINDINGS: The tip of the right PICC projects over the proximal SVC. Left subclavian [id number] is in place. There is no pneumothorax. A small loculated left pleural effusion is again noted. There is persistent interstitial thickening with possible pulmonary vascular congestion. IMPRESSION: 1. Tip of right PICC projects over the proximal SVC. 2. No pneumothorax. 3. Redemonstration of a loculated small left pleural effusion. 4. Pulmonary vascular congestion with suspected mild pulmonary edema. ACT 112: Negative or not required by law. Electronically signed by: Jag Milian M.D. 04/21/2022 8:07 PM
[2022-04-21] MEDS: MONTELUKAST SODIUM 10 MG TABLET PO SCH (21:18)
[2022-04-22] MEDS: METOCLOPRAMIDE HCL INJ 5 MG/ML 2 ML VIAL IV SCH ×3 (04:46→19:27)
[2022-04-22] MEDS: traMADol HCL 50 MG TABLET PO PRN (04:46)
[2022-04-22] MEDS: LEVOTHYROXINE SODIUM 75 MCG TABLET PO SCH (05:46)
[2022-04-22 06:48] LABS: Basophils # (auto) 0.03 K/uL (0-0.2); Basophils % (auto) 0.2 %; Eosinophils # (auto) 0.06 K/uL (0-0.50); Eosinophils % (auto) 0.4 %; Immature Granulocytes # (auto) 0.33 K/uL (0.00-0.02); Lymphocytes # (auto) 0.76 K/uL (1.2-3.4); Lymphocytes % (auto) 4.5 %; Mean Corpuscular Hemoglobin 29.5 pg (25.0-34.0); Mean Corpuscular Hgb Conc 31.8 g/dL (32.0-36.0); Mean Corpuscular Volume 92.8 fL (80.0-100.0); Monocytes # (auto) 2.29 K/uL (0.24-0.82); Monocytes % (auto) 13.6 %; Neutrophils # (auto) 13.32 K/uL (1.4-6.5); Neutrophils % (auto) 79.3 %; Nucleated RBC # (auto) 0.07 K/uL (0-0); Nucleated RBC % (auto) 0.4 %; Platelet Count 323 K/uL (130-400); RDW Coefficient of Variation 15.1 % (11.5-14.5); RDW Standard Deviation 49.7 fL (36.4-46.3); Red Blood Count 2.37 M/uL (3.93-5.22); White Blood Count 16.79 K/ul (4.8-10.8)
[2022-04-22 07:24] LABS: Creatinine Clr Calc Pharmacy 92.8 ml/min; Est GFR (African American) 78.8 ml/min; Magnesium 2.1 mg/dl (1.7-2.4); Phosphorus 4.8 mg/dl (2.5-4.9); Polychromasia 1+; Potassium 4.7 mmol/L (3.5-5.1)
[2022-04-22] MEDS ORDERED: FUROSEMIDE 40 MG/4 ML VIAL IV ONE ×2 (08:32→16:30)
[2022-04-22] MEDS ORDERED: PHARMACY GLYCEMIC MGMT CONSULT PRN (08:33)
[2022-04-22] MEDS: VANCOMYCIN HCL 1,000 MG in SODIUM CHLORIDE 0.9% 250 ML IV SCH ×2 (09:37→22:37)
[2022-04-22] MEDS: METOPROLOL SUCC 50MG EXT REL TAB PO SCH ×2 (09:43→23:49)
[2022-04-22] MEDS: PANTOprazole 40 MG TAB PO SCH ×2 (09:43→23:49)
[2022-04-22 09:44] LABS: BUN Creatinine Ratio 32.9 (10-20); Calcium 6.8 mg/dl (8.5-10.1); Creatinine Clr Calc Pharmacy 98.5 ml/min; Est GFR (African American) 84.6 ml/min; Magnesium 2.1 mg/dl (1.7-2.4); Phosphorus 5.1 mg/dl (2.5-4.9); Potassium 4.8 mmol/L (3.5-5.1)
[2022-04-22] MEDS: SUCRALFATE 1 GM/10 ML UDC PO SCH ×4 (09:44→23:48)
[2022-04-22 11:56] LABS: Basophils # (auto) 0.04 K/uL (0-0.2); Basophils % (auto) 0.2 %; Eosinophils # (auto) 0.02 K/uL (0-0.50); Eosinophils % (auto) 0.1 %; Hematocrit (blood only) 22.9 % (34.1-44.9); Hemoglobin 7.6 g/dl (12.0-16.0); Immature Granulocytes # (auto) 0.51 K/uL (0.00-0.02); Immature Granulocytes % (auto) 2.6 %; Lymphocytes # (auto) 0.61 K/uL (1.2-3.4); Lymphocytes % (auto) 3.1 %; Mean Corpuscular Hemoglobin 30.3 pg (25.0-34.0); Mean Corpuscular Hgb Conc 33.2 g/dL (32.0-36.0); Mean Corpuscular Volume 91.2 fL (80.0-100.0); Mean Platelet Volume 10.3 fL (9.4-12.3); Monocytes # (auto) 2.39 K/uL (0.24-0.82); Monocytes % (auto) 12.1 %; Neutrophils % (auto) 81.9 %; Nucleated RBC # (auto) 0.12 K/uL (0-0); Nucleated RBC % (auto) 0.6 %; Platelet Count 331 K/uL (130-400); RDW Coefficient of Variation 15.6 % (11.5-14.5); RDW Standard Deviation 50.4 fL (36.4-46.3); Red Blood Count 2.51 M/uL (3.93-5.22); White Blood Count 19.77 K/ul (4.8-10.8)
--- NOTE | 2022-04-22 12:08 | Pharmacy Report ---
Pharmacy PK ABX Note - Date of Service April 22, 2022 - Assessment and Plan Assessment 71 year old F receiving vancomycin + zosyn for treatment of pulmonary infection. Pertinent microbiologic data includes: Positive MRSA Nasal Swab. Day # 3 of antimicrobial therapy. Plan Vancomycin * Current regimen: 1250 mg IV every 12 hours * Random level obtained 04/22/22 resulted as 20.8 mcg/mL. * Predicted AUC at steady state = 598 mg/L.hr and 19% risk of toxicity * Will empirically decrease to 1000 mg IV every 12 hours to reduce risk of kidney injury with BMI 57 * Predicted AUC at steady state = 478 * Predicted trough at steady state = 16.6 * Will repeat level in the next 48 hours if therapy is continued and/or change in patient clinical status Zosyn 4.5g IV every 8 hours (ext infusion) Pharmacy will continue to follow and will adjust dose/frequency as necessary. Thank you. Pharmacy has transitioned to AUC monitoring for vancomycin. AUC/[place] is the preferred PK/PD target and is associated with decreased risk of nephrotoxicity compared to traditional trough targets.
[2022-04-22 12:22] LABS: Polychromasia 1+
[2022-04-22 12:25] LABS: Magnesium 1.6 mg/dl (1.7-2.4); Phosphorus 2.3 mg/dl (2.5-4.9)
[2022-04-22 12:26] LABS: BUN Creatinine Ratio 30.2 (10-20); Calcium 7.6 mg/dl (8.5-10.1); Creatinine Clr Calc Pharmacy 84.1 ml/min; Est GFR (African American) 69.9 ml/min; Est GFR (Non-African American) 60.3 ml/min
[2022-04-22] MEDS ORDERED: GLUCOSE 40% GEL 15 GM TUBE PO PRN (13:00)
[2022-04-22] MEDS ORDERED: DEXTROSE 50% 50 ML SYRINGE IV PRN (13:00)
[2022-04-22] MEDS ORDERED: POTASSIUM PHOSPHATE 15 MMOL in DEXTROSE 5% 250 ML IV ONE (13:00)
[2022-04-22] MEDS ORDERED: GLUCOSE 10 TAB/TUBE PO PRN (13:00)
[2022-04-22] MEDS ORDERED: GLUCAGON FOR INJ 1 MG VIAL IM PRN (13:00)
[2022-04-22] MEDS ORDERED: CARBOHYDRATES FOR HYPOGLYCEMIA PO PRN (13:00)
[2022-04-22] MEDS ORDERED: CLINOLIPID 20% IV FAT EMULSION 250 ML IV SCH (14:00)
--- NOTE | 2022-04-22 14:10 | Pharmacy Report ---
PHA: Parenteral Nutrition Con - Date of Service April 22, 2022 - Scope Pharmacy was consulted on 04/21/22 to manage parenteral nutrition orders for this patient. - Subjective The patient is currently on day # 2 of parenteral nutrition for ongoing N/V in the setting of gastric cancer, awaiting J-tube placement (unable to be placed at [facility]). - Objective Height: 5 ft 5 in Weight: 155.4 kg Intake & Output (24hrs):: Intake & Output 04/20/22 04/21/22 04/22/22 04/23/22 06:59 06:59 06:59 06:59 Intake Total 1640 / 1640 1920 / 1920 910 / 910 270 / 270 Output Total 450 / 450 152 / 152 275 / 275 Balance 1639 / 1639 1470 / 1470 758 / 758 -5 / -5 Weight 152.9 kg 152.9 kg 155.4 kg Laboratory Data (Last 24 Hr):: 04/21/22 13:23 Sodium Potassium Chloride Carbon Dioxide BUN Creatinine Glucose Calcium Phosphorus 2.9 Magnesium 1.7 Triglycerides 112 04/22/22 04/22/22 11:44 11:44 Sodium 132 L Potassium 3.0 L D Chloride 101 Carbon Dioxide 23 BUN 29 H Creatinine 0.96 Glucose 145 H Calcium 7.6 L Phosphorus 2.3 L D Magnesium 1.6 L Triglycerides Nutrition Assessment:: Please refer to the Notes section of the EMR for the most recent public health technician note. - Assessment 71 year old with ongoing nausea/vomiting likely secondary to gastric adenocarcinoma. * Patient unable to tolerate diet. She is awaiting possible feeding tube placement but will require transfer to [facility] for this. * PICC line placed 04/21/22 PM. Will transition to TPN. * Patient demonstrating signs of refeeding. Labs drawn 04/22 @ 1144 indicate hypokalemia, hypomagnesmia, and hypophosphatemia. IV replacement has been ordered. Due to this, will slowly advance to goal dextrose. * Continue to hold lipids per recommendation of dietary. * Goal macros: 144 g AA, 252 g dextrose, 50 g lipid - Plan For day 2 of PN administration, the following will be ordered: Macronutrients Amino acids 86 grams/day Dextrose 151 grams/day Micronutrients Sodium phosphate 30 MMol Sodium chloride 65 mEq Potassium chloride 40 mEq Potassium acetate 60 mEq Magnesium sulfate 8.12 mEq Calcium gluconate 4.65 mEq Multivitamins 10 mL Trace Elements 1 mL Additional additives: folic acid 1 mg, thiamine 100 mg Total volume 1190.2 mL to be infused over 24 hrs will provide 860 kcal/day Labs, as indicated, will be ordered per protocol Pharmacy will continue to follow and adjust parenteral nutrition orders on a daily basis. Thank you for allowing us to participate in the care of this patient.
[2022-04-22] MEDS ORDERED: PIPERACILLIN/TAZOBACTAM 4.5 GM in DEXTROSE 5% 100 ML IV ONE (14:30)
[2022-04-22] MEDS: MAGNESIUM SULFATE / D5W 1 GM/100 ML BAG IV SCH ×2 (14:56→17:02)
[2022-04-22] MEDS ORDERED: [UNRECOGNIZED DRUG - OTHER] IV SCH (16:00)
[2022-04-22] MEDS ORDERED: CENTRAL TPN IV SCH (16:00)
[2022-04-22] MEDS ORDERED: AMINO ACID 8% IV SCH (16:00)
--- NOTE | 2022-04-22 16:25 | Hospitalist Progress Note ---
Date of Service April 22, 2022 Assessment & Plan (1) Chest wall hematoma: Plan: 71yo female with a history of recent admission (04/01 - 04/06/2022) for nausea/vomiting suspected secondary to gastric adenocarcinoma (diagnosed 04/07/22), pulmonary emboli (04/06/2022), and another recent admission (04/10 - 04/14/2022) for hematemesis, recent mediport placement (04/14/2022), also with a history L sided malignant pleural effusion s/p thoracentesis on 04/06, HTN, HLD, hypothyroidism, mild intermittent asthma, and anxiety presents with a few-day history of port site hematoma in addition to generalized weakness and inability to tolerate PO. Port site hematoma - Hgb 9.8 on arrival, now down to 7.6 but remains HD stable - Transfer initiated to [facility] - Continued on lovenox on admit d/t h/o PE/DVT - Home tramadol for pain - General surgery consulted to assess for possible evacuation of hematoma * Seen by Dr. Smith on 04/21, no plans for evacuation at this time - Cannot ascertain while it it certainly possible that her hematoma is infected - Obtain procal and CRP and trend - Will consider repeating blood cultures, ESPECIALLY if she should spike a fever - Lovenox STOPPED 04/22 (2) Pneumonia: Plan: - Presented w/ leukocytosis to 17.1 (up from 10.2 on 04/14) and with increased LLL haziness on CXR - Patient is at risk for aspiration given nausea/vomiting - Started empirically on zosyn for now; MRSA nares ordered given recent inpatient stay and was positive, thus Vanco ordered - Add standing xopenex/atrovent d/t tachycardia - I/S and flutter valve - Add Mucinex - Check procalcitonin and CRP, trend with repeat labs 04/23 - Supplemental O2 - wean as able (3) Leukocytosis: Plan: - As above - Consider repeat blood cultures if leukocytosis continues to worsen (4) Gastric adenocarcinoma: Plan: With intractable n/v, poor oral intake, failure to thrive - Metastatic, stage 4 - Has seen Dr. Bergeron as inpatient with plans to start systemic chemotherapy - Given complication with mediport, cannot start chemo yet (w/o central access) - Did have a picc line placed in right arm that could be used to at least start chemo if needed - Regarding the tumor itself, pt and family are trying to establish care with surgical oncology @ [facility] - Dr. Thompson - Given her recurrent N/V, inability to tolerate PO and failure to thrive, she will need a g or j tube placed. Surgery here does not feel comfortable doing this and recommended transfer to tertiary. - She is presently awaiting transfer to [facility] - Prior provider initiated TPN on 04/21 to bridge until peg tube can be placed. Pharmacy managing and also managing BSG elevations (nondiabetic) - Cautiously monitor electrolytes, replete as needed - Started on Dronabinol and Reglan. (Reglan previously attempted and of no benefit). Could consider increasing Marinol if she continues to tolerate the 5mg BID dose. - Continue PPI and Carafate. Can add Maalox 15 ml QID staggered in between Carafate. (5) Deep vein thrombosis (DVT): Plan: - DVT/PE has been on treatment dose Lovenox - Seen by vascular surgery last admission who did not recommend IVC filter placement - Unfortunately, d/t large hematoma, cannot continue with systemic anticoagulation - Lovenox stopped 04/22 (6) Acute blood loss anemia: Plan: - Combination of blood loss from her GI tract d/t her gastric adenocarcinoma + marked chest wall hematoma - Remains HD stable - Continue to monitor, will consider transfusion 1 unit of PRBCs given her CHIN + mild tachycardia (7) HTN (hypertension): Plan: - On Toprol XL 50mg BID, controlled (8) HLD (hyperlipidemia): Plan: - Chronic (9) Hypothyroid: Plan: - Continue Levothyroxine (10) Weakness: Plan: - PT/OT consulted Plan Patient had a cxr 04/21 with findings c/f pulmonary edema -- given her hypoxia, CHIN, LE edema and CXR findings, I gave her 2 doses of IV Lasix 40mg each. Monitor output. Follow up CXR on 04/23. Repletion of electrolytes has been ordered. Repeat labs tomorrow morning are ordered. 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 Although, patient and family (understandably) are not ready to stop pursuing treatment. Transfer has been requested and she has been accepted by [facility]. She continues to wait for a bed at that facility. I contacted [facility] today and unfortunately beds are tight across the system and she still does not have a bed. Gus at [facility] is going to forward case to triage team and they will attempt to expedite her transfer. Family updated. Plan d/w Dr. Contreras. Admission and Anticipated Discharge Date Admission Date: April 20, 2022 Subjective Patient was seen on daily rounds this morning. She is resting in bedside chair and currently requesting to get back into bed. Nausea seems improved. Started on TPN yesterday, tolerating it thus far. She is still waiting for transfer to [facility] to see a surgical oncologist. She notes that her port site is not significantly painful. Denies cp or dyspnea. No abd pain. Review of Systems Review of Systems: All systems reviewed and are unremarkable except as noted in HPI and below. Denies fever, chills, fatigue, headache, nasal congestion, sore throat, cough, chest pain, shortness of breath, palpitations, orthopnea, PND, abdominal pain, v/d, constipation, dysuria, hematuria, frequency, back pain, joint pain or swelling. Physical Exam Physical Exam: GEN: 71 yo morbidly obese WF who appears chronically ill but nontoxic and NAD. LUNGS: Decreased in bases bilaterally. Some mild conversational dyspnea. CARDIOVASCULAR: S1 S2 tachycardic ABDOMEN: Soft, non-tender and non-distended. BS normoactive x 4 quad. EXTREMITIES: No edema. Non-tender. Peripheral pulses +2/4. NEUROLOGIC: A&O x3. Nonfocal PSYCHIATRIC: Cooperative. Appropriate mood and affect. SKIN: Warm, dry, intact. Diffuse ecchymosis. R chest wall with marked swelling over site of mediport with scant serosanguineous oozing. nontender Results & Data Results & Data ([facility]) Vital Signs (Past 12 Hours) Vital Signs Temp Pulse Pulse Resp BP Pulse Ox O2 Del Method 04/22/22 16:11 132 H 04/22/22 14:43 36.5 C 113 H 20 138/78 95 Nasal Cannula 04/22/22 11:00 36.4 C L 124 H 20 146/87 H 95 Nasal Cannula 04/22/22 07:52 36.5 C 106 H 20 135/84 93 Nasal Cannula 04/22/22 07:25 102 H O2 Flow Rate 04/22/22 16:11 04/22/22 14:43 1.5 04/22/22 11:00 1.5 04/22/22 07:52 2 04/22/22 07:25 Laboratory Results 04/22/22 11:44 04/22/22 11:44 PG Care Time/CCT Total # of Minutes Spent Total Time Spent with Patient: Total time spent is greater than 50% in coordination of care (as documented) at patient's floor/unit and/or counseling patient: Coding Level of Care Code 23526 Subseq Hosp Care Lvl 3 Diagnoses Chest wall hematoma S20.219A Pneumonia J18.9 Leukocytosis D72.829 Leukocytosis type: unspecified Gastric adenocarcinoma C16.9 Deep vein thrombosis (DVT) I82.409 Acute blood loss anemia D62 HTN (hypertension) I10 HLD (hyperlipidemia) E78.5 Hypothyroid E03.9 Weakness R53.1 (1) Leukocytosis Leukocytosis type: unspecified Qualified Code(s): D72.829 - Elevated white blood cell count, unspecified
--- NOTE | 2022-04-22 16:39 | Surgery Progress Note ---
Date of Service April 22, 2022 Assessment & Plan (1) Postoperative hematoma: (2) Port-A-Cath in place: (3) Gastric adenocarcinoma: (4) Malignant pleural effusion: (5) Deep vein thrombosis (DVT): Plan 71-year-old woman with postoperative hematoma status post access port placement. This is not surprising given her treatment dose Lovenox. The port was placed last week due to concern by the medical staff of inability to place a PICC line and need for ongoing central access. This was coupled with the family's desire to proceed by any means possible. The site is not showing any signs of infection, and the hematoma is not enlarging. Her hemoglobin is slightly trending down but is fairly stable. She has been taken off Lovenox. I had a discussion with the hospitalist. Unless there is evidence of ongoing significant bleed or infection, I would not surgically explore the hematoma at this time. We will continue to monitor. She continues to await placement at a tertiary care center in [place]. Admission and Anticipated Discharge Date Admission Date: April 20, 2022 Subjective Hemodynamically stable. It does not appear that the hematoma has enlarged. She has been taken off Lovenox. Physical Exam Physical Exam: Access port site with large hematoma, ecchymosis, no erythema or discharge; incision is well-healed. There is no signs of infection. Results & Data ([facility]) Vital Signs (Past 12 Hours) Vital Signs Temp Pulse Pulse Resp BP Pulse Ox O2 Del Method 04/22/22 16:11 132 H 04/22/22 14:43 36.5 C 113 H 20 138/78 95 Nasal Cannula 04/22/22 11:00 36.4 C L 124 H 20 146/87 H 95 Nasal Cannula 04/22/22 07:52 36.5 C 106 H 20 135/84 93 Nasal Cannula 04/22/22 07:25 102 H O2 Flow Rate 04/22/22 16:11 04/22/22 14:43 1.5 04/22/22 11:00 1.5 04/22/22 07:52 2 04/22/22 07:25 (1) Postoperative hematoma Procedure type: circulatory, unspecified Surgical complication system/body Area: circulatory system Qualified Code(s): I97.638 - Postprocedural hematoma of a circulatory system organ or structure following other circulatory system procedure
[2022-04-22] MEDS: INSULIN ASPART PER UNIT SC SCH ×2 (17:02→21:00)
[2022-04-22] MEDS: POTASSIUM CHLORIDE / WTR 10 MEQ/100 ML PLCT IV SCH ×3 (17:32→20:48)
[2022-04-22] MEDS: ALUMINUM/MAGNESIUM SUSP 30 ML UDC PO SCH ×2 (18:40→23:50)
[2022-04-22] MEDS ORDERED: XOPENEX/ATROVENT 0.63mg/0.5MG NEB COMBO NEB SCH (19:00)
[2022-04-22] MEDS: IPRATROPIUM BROMIDE NEB SOLN 0.02% 2.5 ML VIAL INH SCH (19:11)
[2022-04-22] MEDS: LEVALBUTEROL HCL 0.63 MG/3 ML NEB NEB SCH (19:11)
[2022-04-22] MEDS ORDERED: LORazepam 0.5 MG in SYRINGE 0.25 ML IV ONE (19:49)
[2022-04-22] MEDS ORDERED: FIBERSOURCE HN 1.2 CAL 1000 ML BAG PO SCH (20:45)
[2022-04-22] MEDS: PIPERACILLIN/TAZOBACTAM 4.5 GM in DEXTROSE 5% 100 ML IV SCH (22:37)
[2022-04-22] MEDS: guaiFENesin 600 MG TABCR PO SCH (23:49)
[2022-04-22] MEDS: MONTELUKAST SODIUM 10 MG TABLET PO SCH (23:49)
[2022-04-23] MEDS ORDERED: INSULIN ASPART PER UNIT SC SCH
[2022-04-23] MEDS: LEVALBUTEROL HCL 0.63 MG/3 ML NEB NEB SCH ×4 (00:11→19:19)
[2022-04-23] MEDS: IPRATROPIUM BROMIDE NEB SOLN 0.02% 2.5 ML VIAL INH SCH ×4 (00:11→19:19)
[2022-04-23] MEDS: METOCLOPRAMIDE HCL INJ 5 MG/ML 2 ML VIAL IV SCH ×4 (00:20→18:49)
[2022-04-23] MEDS: traMADol HCL 50 MG TABLET PO PRN (05:42)
[2022-04-23] MEDS: PIPERACILLIN/TAZOBACTAM 4.5 GM in DEXTROSE 5% 100 ML IV SCH ×4 (06:38→23:12)
[2022-04-23] MEDS: LEVOTHYROXINE SODIUM 75 MCG TABLET PO SCH (06:39)
[2022-04-23 06:41] LABS: Hemoglobin 6.7 g/dl (12.0-16.0); Mean Corpuscular Hemoglobin 30.3 pg (25.0-34.0); Mean Corpuscular Hgb Conc 33.5 g/dL (32.0-36.0); Mean Corpuscular Volume 90.5 fL (80.0-100.0); Mean Platelet Volume 10.4 fL (9.4-12.3); Nucleated RBC # (auto) 0.12 K/uL (0-0); Nucleated RBC % (auto) 0.8 %; Platelet Count 300 K/uL (130-400); RDW Coefficient of Variation 15.4 % (11.5-14.5); RDW Standard Deviation 49.5 fL (36.4-46.3); Red Blood Count 2.21 M/uL (3.93-5.22); White Blood Count 15.38 K/ul (4.8-10.8)
[2022-04-23] MEDS: ALUMINUM/MAGNESIUM SUSP 30 ML UDC PO SCH ×4 (06:48→22:33)
[2022-04-23 07:17] LABS: C Reactive Protein 25.49 mg/dl (0-0.5); Calcium 7.6 mg/dl (8.5-10.1); Creatinine Clr Calc Pharmacy 75.8 ml/min; Est GFR (African American) 61.3 ml/min; Est GFR (Non-African American) 52.9 ml/min; Magnesium 1.8 mg/dl (1.7-2.4); Phosphorus 2.9 mg/dl (2.5-4.9)
[2022-04-23 07:22] LABS: Basophils # (auto) 0.03 K/uL (0-0.2); Basophils % (auto) 0.2 %; Eosinophils # (auto) 0.06 K/uL (0-0.50); Eosinophils % (auto) 0.4 %; Immature Granulocytes # (auto) 0.37 K/uL (0.00-0.02); Immature Granulocytes % (auto) 2.4 %; Lymphocytes # (auto) 0.71 K/uL (1.2-3.4); Lymphocytes % (auto) 4.6 %; Monocytes # (auto) 2.02 K/uL (0.24-0.82); Monocytes % (auto) 13.1 %; Neutrophils # (auto) 12.19 K/uL (1.4-6.5); Neutrophils % (auto) 79.3 %; Polychromasia 1+
[2022-04-23] MEDS: INSULIN ASPART PER UNIT SC SCH ×3 (08:15→18:27)
[2022-04-23] MEDS: SUCRALFATE 1 GM/10 ML UDC PO SCH ×4 (08:16→22:21)
[2022-04-23] MEDS: VANCOMYCIN HCL 1,000 MG in SODIUM CHLORIDE 0.9% 250 ML IV SCH (09:43)
[2022-04-23] MEDS: METOPROLOL SUCC 50MG EXT REL TAB PO SCH ×2 (09:44→22:14)
[2022-04-23] MEDS: PANTOprazole 40 MG TAB PO SCH ×2 (09:44→22:14)
[2022-04-23] MEDS: guaiFENesin 600 MG TABCR PO SCH ×2 (09:44→22:12)
[2022-04-23] MEDS ORDERED: SODIUM CHLORIDE 0.9% 250 ML IV PRN (10:19)
[2022-04-23] MEDS ORDERED: LORazepam 0.5 MG TAB PO PRN (10:19)
[2022-04-23] MEDS ORDERED: diphenhydrAMINE 50 MG/ML VIAL IV SCH (10:30)
[2022-04-23] MEDS ORDERED: ACETAMINOPHEN 65 ML IV ONE (10:45)
[2022-04-23] MEDS ORDERED: PEPTAMEN INTENSE VHP 1.0 CAL 1,000 ML BAG GT SCH ×2 (11:00→12:45)
[2022-04-23] MEDS ORDERED: TUBE FEEDING WATER FLUSH GT SCH (11:00)
--- NOTE | 2022-04-23 11:10 | Hospitalist Progress Note ---
Date of Service April 23, 2022 Assessment & Plan (1) Chest wall hematoma: Plan: 71yo female with a history of recent admission (04/01 - 04/06/2022) for nausea/vomiting suspected secondary to gastric adenocarcinoma (diagnosed 04/07/22), pulmonary emboli (04/06/2022), and another recent admission (04/10 - 04/14/2022) for hematemesis, recent mediport placement (04/14/2022), also with a history L sided malignant pleural effusion s/p thoracentesis on 04/06, HTN, HLD, hypothyroidism, mild intermittent asthma, and anxiety presents with a few-day history of port site hematoma in addition to generalized weakness and inability to tolerate PO. Port site hematoma with ABLA - Hgb 9.8 on arrival, now down to 6.7 but remains HD stable - Transfer initiated to [facility] - Continued on lovenox on admit d/t h/o PE/DVT - Home tramadol for pain - General surgery consulted to assess for possible evacuation of hematoma * Seen by Dr. Smith on 04/21, no plans for evacuation at this time - Cannot ascertain while it it certainly possible if her hematoma is infected- low suspicion - CRP elevated with normal procalcitonin - Will consider repeating blood cultures, ESPECIALLY if she should spike a fever - Lovenox STOPPED 04/22 - HGB down to 6.7 today, obtained consent for blood transfusion. 2 units ordered with 40mg IV Lasix in between units. Premedicate with APAP and Bendaryl prior. - Hematoma is stable, does not appear to have enlarged. Will continue to monitor with hopes it will recede with time now that Lovenox has been stopped. (2) Pneumonia: Plan: - Presented w/ leukocytosis to 17.1 (up from 10.2 on 04/14) and with increased LLL haziness on CXR - Patient is at risk for aspiration given nausea/vomiting - Started empirically on zosyn for now; MRSA nares ordered given recent inpatient stay and was positive, thus Vanco ordered - Add standing xopenex/atrovent d/t tachycardia - I/S and flutter valve - Added Mucinex 04/22 - Procalcitonin and CRP, 28 and 0.24 respectively on 04/22, very slowly trending down 25.49 and 0.21 - Supplemental O2 - wean as able - CT chest w/o contrast today (3) Leukocytosis: Plan: - As above - Consider repeat blood cultures if leukocytosis continues to worsen (4) Gastric adenocarcinoma: Plan: With intractable n/v, poor oral intake, failure to thrive - Metastatic, stage 4 - Has seen Dr. Bergeron as inpatient with plans to start systemic chemotherapy - Given complication with mediport, cannot start chemo yet (w/o central access) - Did have a picc line placed in right arm that could be used to at least start chemo if needed - Regarding the tumor itself, pt and family are trying to establish care with surgical oncology @ [facility] - Dr. Thompson - Given her recurrent N/V, inability to tolerate PO and failure to thrive, she will need a g or j tube placed. Surgery here does not feel comfortable doing this and recommended transfer to [facility]. - She is presently awaiting transfer to [facility] - Prior provider initiated TPN on 04/21 to bridge until peg tube can be placed. Pharmacy managing and also managing BSG elevations (nondiabetic) - Cautiously monitor electrolytes, replete as needed - Started on Dronabinol and Reglan. (Reglan previously attempted and of no benefit). Could consider increasing Marinol if she continues to tolerate the 5mg BID dose. - Continue PPI and Carafate. Can add Maalox 15 ml QID staggered in between Carafate. - Per [place] recommendations, NGT placed, will start trickle tube feeds today, dietary following and making adjustments as needed * Continues to be a high concern for intolerance of NGT feeds and high risk of a spiration * NJ tube would be preferential * Have reached out to Dr. Healy. If this is possible, we can cancel the transfer (5) Deep vein thrombosis (DVT): Plan: - DVT/PE has been on treatment dose Lovenox - Seen by vascular surgery last admission who did not recommend IVC filter placement - Unfortunately, d/t large hematoma, cannot continue with systemic anticoagulation - Lovenox stopped 04/22 (6) Acute blood loss anemia: Plan: - Combination of blood loss from her GI tract d/t her gastric adenocarcinoma + marked chest wall hematoma - Remains HD stable - Blood ordered - Trend blood counts (7) HTN (hypertension): Plan: - On Toprol XL 50mg BID, controlled (8) HLD (hyperlipidemia): Plan: - Chronic (9) Hypothyroid: Plan: - Continue Levothyroxine (10) Weakness: Plan: - PT/OT consulted Plan Repletion of electrolytes has been ordered. Repeat labs tomorrow morning are ordered. Patient's emt intermediate prognosis is poor. Although, patient and family (understandably) are not ready to stop pursuing treatment. Transfer has been req uested and she has been accepted by [facility]; however, if we are able to place an NJ tube that would negate the need for transfer as she is not a candidate for surgery (gastrectomy) and would not need to urgently transfer to place a J tube. This would be done at a later date. If we are not able to place an NJ tube, then transfer would be warranted. In addition, if she does not tolerate tube feeds, we would need to revisit the palliative care approach. I had a lengthy discussion with , Abdullahi, at bedside that Sheyla's diagnosis is advanced and not curable. Our goal is to try and give her as much time as possible, but it is not yet known what that amount of time looks like. I did d iscuss with Abdullahi having our palliative care physician, Dr. Beltran, visit with him and Sheyla. He was very receptive to that. He verbalized understanding that Sheyla's diagnosis is terminal. Plan has been d/w Dr. Carlson. Admission and Anticipated Discharge Date Admission Date: April 20, 2022 Subjective Patient seen on daily rounds this morning. I received a phone call from [facility] and spoke with an oncologist who recommended, as per Dr. Thompson, to place an NJ tube in order to start tube feeds. It was felt that if she could tolerate the NJ tube feeds, then they could discuss enteral tube placement at a later date. However, the oncologist states if she could not tolerate tube feeds, would need to consider transition to palliative care approach. She also made note that based on the images reviewed by Dr. Thompson that she would not be a candidate for a gastrectomy given how advanced her cancer is. Unfortunately, we did not have access to an NJ tube yesterday and placement of an NG tube was discussed with the patient by Dr. Contreras at bedside. Pt agreed and NGT placed. She was continued on TPN until today and TF were ordered but have not yet been hung. Per family, pt was very anxious and upset overnight about the placement of the tube. Her , Abdullahi, ended up coming in and staying with her overnight. This morning, Sheyla seems in good spirits. She denies pain/discomfort anywhere, denies cp, dyspnea, n/v, fever, chills, cough. Review of Systems Review of Systems: All systems reviewed and are unremarkable except as noted in HPI and below. Denies fever, chills, fatigue, headache, nasal congestion, sore throat, cough, chest pain, shortness of breath, palpitations, orthopnea, PND, abdominal pain, n/v/d, constipation, dysuria, hematuria, frequency, back pain, joint pain or swelling. Physical Exam Physical Exam: GEN: 71 yo morbidly obese WF who appears chronically ill but nontoxic and NAD. LUNGS: Decreased in bases bilaterally otherwise clear. CARDIOVASCULAR: S1 S2 tachycardic ABDOMEN: Soft, non-tender and non-distended. BS normoactive x 4 quad. EXTREMITIES: No edema. Non-tender. Peripheral pulses +2/4. NEUROLOGIC: A&O x3. Nonfocal PSYCHIATRIC: Cooperative. Appropriate mood and affect. SKIN: Warm, dry, intact. Diffuse ecchymosis. R chest wall with marked swelling over site of mediport with scant serosanguineous oozing. nontender Results & Data Results & Data ([facility]) Vital Signs (Past 12 Hours) Vital Signs Temp Pulse Pulse Resp BP Pulse Ox O2 Del Method 04/23/22 07:40 108 H 04/23/22 07:30 36.8 C 109 H 20 95 Nasal Cannula 04/23/22 07:18 103 H 18 92 Nasal Cannula 04/23/22 03:36 36.7 C 106 H 22 118/78 93 Nasal Cannula O2 Flow Rate 04/23/22 07:40 04/23/22 07:30 2 04/23/22 07:18 2 04/23/22 03:36 2 Laboratory Results 04/23/22 06:11 04/23/22 06:11 Diagnostic Findings KUB=NGT tip terminates in the stomach PG Care Time/CCT Total # of Minutes Spent Total Time Spent with Patient: Total time spent is greater than 50% in coordination of care (as documented) at patient's floor/unit and/or counseling patient: >45 minutes coordinating care with [facility] anderson Hardin patient and family Time in: 945 Time out: 1030 Coding Level of Care Code 72641 Subseq Hosp Care Lvl 3 Diagnoses Chest wall hematoma S20.219A Pneumonia J18.9 Leukocytosis D72.829 Leukocytosis type: unspecified Gastric adenocarcinoma C16.9 Deep vein thrombosis (DVT) I82.409 Acute blood loss anemia D62 HTN (hypertension) I10 HLD (hyperlipidemia) E78.5 Hypothyroid E03.9 Weakness R53.1 (1) Leukocytosis Leukocytosis type: unspecified Qualified Code(s): D72.829 - Elevated white blood cell count, unspecified
[2022-04-23] MEDS ORDERED: FUROSEMIDE 40 MG/4 ML VIAL IV SCH (11:30)
[2022-04-23] MEDS: POTASSIUM CHLORIDE / WTR 10 MEQ/100 ML PLCT IV SCH ×6 (11:32→17:10)
--- NOTE | 2022-04-23 12:03 | Billing Data ---
Date of Service April 23, 2022 Coding Level of Care Code 35049 Prolonged Care (int'l)
--- NOTE | 2022-04-23 13:21 | Surgery Progress Note ---
Date of Service April 23, 2022 Assessment & Plan (1) Postoperative hematoma: (2) Port-A-Cath in place: (3) Gastric adenocarcinoma: (4) Malignant pleural effusion: (5) Deep vein thrombosis (DVT): Plan 71-year-old woman with postoperative hematoma status post access port placement. This is not surprising given her treatment dose Lovenox. The port was placed last week due to concern by the medical staff of inability to place a PICC line and need for ongoing central access. This was coupled with the family's desire to proceed by any means possible. The site is not showing any signs of infection, and the hematoma is not enlarging. Her hemoglobin trended down to 7, and she is receiving blood today. Hemodynamically stable. I would still not recommend any surgical intervention at this time , as this would most likely exacerbate the situation. Continue off Lovenox. Admission and Anticipated Discharge Date Admission Date: April 20, 2022 Subjective No significant change in the size of the hematoma. No signs of infection. Her blood count has continued to trend down. She is been off the Lovenox since yesterday. She is getting blood. Physical Exam Physical Exam: Access port site with large hematoma, ecchymosis, no erythema or discharge; incision is well-healed. There is no signs of infection. Results & Data ([facility]) Vital Signs (Past 12 Hours) Vital Signs Temp Pulse Pulse Resp BP BP Pulse Ox 04/23/22 12:54 36.7 C 100 H 20 106/65 95 04/23/22 12:37 36.7 C 99 H 22 107/65 04/23/22 11:24 36.5 C 104 H 21 101/56 L 92 04/23/22 07:40 108 H 04/23/22 07:30 36.8 C 109 H 20 95 04/23/22 07:18 103 H 18 92 04/23/22 03:36 36.7 C 106 H 22 118/78 93 O2 Del Method O2 Flow Rate 04/23/22 12:54 04/23/22 12:37 04/23/22 11:24 Nasal Cannula 2 04/23/22 07:40 04/23/22 07:30 Nasal Cannula 2 04/23/22 07:18 Nasal Cannula 2 04/23/22 03:36 Nasal Cannula 2 (1) Postoperative hematoma Procedure type: circulatory, unspecified Surgical complication system/body Area: circulatory system Qualified Code(s): I97.638 - Postprocedural hematoma of a circulatory system organ or structure following other circulatory system procedure
--- NOTE | 2022-04-23 13:49 | XRay Report ---
KUB CLINICAL HISTORY: Enteric tube placement. FINDINGS: An AP portable view of the lower chest and upper abdomen is compared to study dated 04/19/20 22. An enteric tube has been placed. The tip projects below the diaphragm over the proximal stomach. There is no evidence of bowel obstruction on the provided image. Consolidation is seen at the left audra ng base. IMPRESSION: 1. An enteric tube has been placed as above. 2. Airspace consolidation is seen at the left lung base. Electronically signed by: Babatunde Juarez M.D. 04/23/2022 1:48 PM
--- NOTE | 2022-04-23 14:52 | Pharmacy Report ---
Pharmacy Glycemic Short Note 2 - Date of Service April 23, 2022 - Glycemic Short BSG Results (Last 24 hours): 04/22/22 04/22/22 04/23/22 16:29 20:13 01:44 Glucose POC Glucose 144 H 140 H 135 H 04/23/22 04/23/22 04/23/22 06:11 06:30 11:18 Glucose 129 H POC Glucose 133 H 139 H OUTPATIENT ANTIDIABETIC REGIMEN: * n/a ASSESSMENT: * 71 year old with complicated PMHx, gastric adenocarcinoma, awaiting transfer to tertiary care. Started on TPN, today is day 3. Pharmacy consulted for glycemic management. Blood sugars stable over last 24 hours. Previous elevated BSGs yesterday were drawn where PPN was infusing * TPN is continued today. They are trialing trickle feeds - will add in CR to cover tube feeds if titrated PLAN FOR INPATIENT GLYCEMIC CONTROL: * Hold outpatient oral diabetes medications * Basal insulin * Lantus - hold * Bolus insulin * NovoLog per scale ACHS or Q6hrs while NPO * Goal Range: Low 120 mg/dL - High 160 mg/dL * Correction Factor: 20 mg/dL/unit * Nutritional / Prandial insulin per carb ratio of 1 unit per 15 grams CHO consumed
[2022-04-23] MEDS ORDERED: [UNRECOGNIZED DRUG - OTHER] IV SCH (16:00)
[2022-04-23] MEDS ORDERED: DEXTROSE 10% 1,000 ML IV PRN (16:00)
[2022-04-23] MEDS ORDERED: CLINOLIPID 20% IV FAT EMULSION 125 ML IV SCH (16:00)
[2022-04-23] MEDS ORDERED: CLINOLIPID 20% IV FAT EMULSION 250 ML IV SCH (16:00)
[2022-04-23] MEDS ORDERED: CENTRAL TPN IV SCH (16:00)
[2022-04-23] MEDS ORDERED: AMINO ACID 8% IV SCH (16:00)
[2022-04-23] MEDS ORDERED: VANCOMYCIN LEVEL ONE (20:30)
[2022-04-23] MEDS ORDERED: STOP CLINOLIPID ONE (22:00)
[2022-04-23] MEDS: MONTELUKAST SODIUM 10 MG TABLET PO SCH (22:14)
[2022-04-24] MEDS: IPRATROPIUM BROMIDE NEB SOLN 0.02% 2.5 ML VIAL INH SCH ×3 (00:19→13:37)
[2022-04-24] MEDS: METOCLOPRAMIDE HCL INJ 5 MG/ML 2 ML VIAL IV SCH ×5 (00:19→22:18)
[2022-04-24] MEDS: LEVALBUTEROL HCL 0.63 MG/3 ML NEB NEB SCH ×3 (00:19→13:38)
[2022-04-24] MEDS: INSULIN ASPART PER UNIT SC SCH ×4 (01:17→18:07)
[2022-04-24] MEDS: traMADol HCL 50 MG TABLET PO PRN (02:11)
[2022-04-24] MEDS: ALUMINUM/MAGNESIUM SUSP 30 ML UDC PO SCH ×4 (05:47→22:24)
[2022-04-24] MEDS: VANCOMYCIN HCL 1,000 MG in SODIUM CHLORIDE 0.9% 250 ML IV SCH (05:59)
[2022-04-24] MEDS: LEVOTHYROXINE SODIUM 75 MCG TABLET PO SCH (06:06)
[2022-04-24 06:36] LABS: Basophils # (auto) 0.06 K/uL (0-0.2); Basophils % (auto) 0.4 %; Eosinophils # (auto) 0.18 K/uL (0-0.50); Eosinophils % (auto) 1.2 %; Hematocrit (blood only) 28.1 % (34.1-44.9); Hemoglobin 9.5 g/dl (12.0-16.0); Immature Granulocytes % (auto) 2.7 %; Lymphocytes # (auto) 0.64 K/uL (1.2-3.4); Lymphocytes % (auto) 4.3 %; Mean Corpuscular Hemoglobin 30.6 pg (25.0-34.0); Mean Corpuscular Hgb Conc 33.8 g/dL (32.0-36.0); Mean Corpuscular Volume 90.6 fL (80.0-100.0); Mean Platelet Volume 10.3 fL (9.4-12.3); Monocytes % (auto) 12.7 %; Neutrophils # (auto) 11.74 K/uL (1.4-6.5); Neutrophils % (auto) 78.7 %; Nucleated RBC % (auto) 0.7 %; Platelet Count 257 K/uL (130-400); RDW Coefficient of Variation 15.6 % (11.5-14.5); RDW Standard Deviation 49.1 fL (36.4-46.3); White Blood Count 14.92 K/ul (4.8-10.8)
[2022-04-24 06:55] LABS: BUN Creatinine Ratio 27.9 (10-20); Calcium 7.8 mg/dl (8.5-10.1); Creatinine Clr Calc Pharmacy 77.7 ml/min; Est GFR (African American) 63.5 ml/min; Est GFR (Non-African American) 54.8 ml/min; Magnesium 1.6 mg/dl (1.7-2.4); Phosphorus 3.2 mg/dl (2.5-4.9); Potassium 3.5 mmol/L (3.5-5.1)
[2022-04-24] MEDS: PIPERACILLIN/TAZOBACTAM 4.5 GM in DEXTROSE 5% 100 ML IV SCH ×3 (07:33→22:56)
[2022-04-24] MEDS: SUCRALFATE 1 GM/10 ML UDC PO SCH ×4 (07:36→21:07)
--- NOTE | 2022-04-24 07:46 | Surgery Progress Note ---
Date of Service April 24, 2022 Assessment & Plan (1) Chest wall hematoma: Plan: No evidence of expansion of hematoma Very slight drainage No overt skin necrosis or evidence of infection Dressing changes as needed Admission and Anticipated Discharge Date Admission Date: April 20, 2022 Results & Data ([facility]) Vital Signs (Past 12 Hours) Vital Signs Temp Pulse Pulse Resp BP BP BP 04/24/22 07:39 37.3 C 115 H 20 149/83 H 04/24/22 07:17 115 H 04/24/22 03:58 37.5 C 112 H 20 130/73 04/24/22 03:19 04/23/22 22:35 105 H 04/23/22 23:00 36.7 C 109 H 18 133/88 04/23/22 20:41 36.5 C 106 H 18 126/71 Pulse Ox O2 Del Method O2 Flow Rate 04/24/22 07:39 98 Nebulizer 04/24/22 07:17 04/24/22 03:58 96 Nasal Cannula 2 04/24/22 03:19 Nasal Cannula 2 04/23/22 22:35 04/23/22 23:00 92 Nasal Cannula 04/23/22 20:41 93 2 PG Care Time/CCT Total # of Minutes Spent Total Time Spent with Patient: Total time spent is greater than 50% in coordination of care (as documented) at patient's floor/unit and/or counseling patient: Coding Level of Care Code None Diagnoses Chest wall hematoma S20.219A
[2022-04-24] MEDS: MAGNESIUM SULFATE / D5W 1 GM/100 ML BAG IV SCH ×2 (09:16→10:54)
[2022-04-24] MEDS: METOPROLOL SUCC 50MG EXT REL TAB PO SCH ×2 (09:18→21:05)
[2022-04-24] MEDS: guaiFENesin 600 MG TABCR PO SCH ×2 (09:18→21:05)
[2022-04-24] MEDS: PANTOprazole 40 MG TAB PO SCH ×2 (09:19→21:06)
[2022-04-24 15:40] LABS: Base Excess VBG 4.1 mEq/L; HCO3 VBG 29 mmol/L; Oxygen Saturation VBG 81.6 %; PCO2 VBG 41 mmHg (38-50); PO2 VBG 42 mmHg; pH VBG 7.45 (7.36-7.41)
[2022-04-24] MEDS ORDERED: AMINO ACID 8% IV SCH (16:00)
[2022-04-24] MEDS ORDERED: [UNRECOGNIZED DRUG - OTHER] IV SCH (16:00)
[2022-04-24] MEDS ORDERED: CENTRAL TPN IV SCH (16:00)
[2022-04-24] MEDS ORDERED: CLINOLIPID 20% IV FAT EMULSION 125 ML IV SCH (16:00)
--- NOTE | 2022-04-24 17:25 | XRay Report ---
XR chest 1V portable HISTORY: Shortness of breath. pneumonia vs CHF COMPARISON: Chest 04/21/2022. FINDINGS: No pneumothorax. A left subclavian Port-A-Cath and a right PICC terminates at the SVC. Locu lated left pleural effusion and a small right pleural effusion remain unchanged. Patchy bibasilar den sities persist. There is mild central pulmonary vascular congestion without overt edema. IMPRESSION: 1. Overall, no significant change compared the prior study. 2. Cardiomegaly and mild congestive change persists. 3. Bilateral pleural effusions and bibasilar densities are also unchanged. ACT 112: Negative or not required by law. Electronically signed by: Calvin Cuellar M.D. 04/24/2022 5:24 PM
[2022-04-24] MEDS ORDERED: FUROSEMIDE INJ 20 MG/2 ML VIAL IV ONE (18:26)
[2022-04-24] MEDS: MONTELUKAST SODIUM 10 MG TABLET PO SCH (21:06)
--- NOTE | 2022-04-24 21:14 | Hospitalist Progress Note ---
Date of Service April 24, 2022 Assessment & Plan (1) Chest wall hematoma: Plan: s/p mediport placement 04/14/2022 - complicated by chest wall hematoma development and acute blood loss anemia. Initial Hb 9.8. Dropped to low Hb of 6.7 s/p 2 units PRBCs. Recent H/H acceptable. Gen surg consulted - no I/D of chest wall hematoma at this time. All anticoagulation has been placed on hold. Follow cbc - repeat in am. (2) Pneumonia: Plan: LLL. ?aspiration. Remains on zosyn - day #5. MRSA + thus is on IV vancomycin - day #5. Plan 7 days in total. CXR today - stable infiltrates. COVID negative at time of admission. (3) Gastric adenocarcinoma: Plan: Metastatic, stage 4. Patient got established with Dr. Bergeron recently. Family was in process of establishing care with surgical oncology @ [facility] - Dr. Thompson. Continue PPI and Carafate. Also on high-dose reglan and marinol. Marinol causing confusion/altered MS? Reglan causing EPS type symptoms? Would lower reglan to 5mg QID. Would HOLD marinol. Uncertain if these meds are helping her anyway given NPO status. Earlier in the admission NG tube was attempted but ultimately d/c. There was discussion about NJ tube placement but this was deferred. If patient improves over the next few days plan was for transfer to [place] to place an NJ tube on 04/27 by IR. At this time she would be too unstable and sick for transfer for such. Family understands. (4) Deep vein thrombosis (DVT): Plan: Extensive - LLE. Seen by vascular surgery last admission who did not recommend IVC filter placement. Due to large chest wall hematoma all systemic anticoagulation stopped. If patient improves would re-consult vascular given the large chest wall hematoma -- she is at HIGH RISK OF additional PEs given the extensive nature of the left leg DVTs. (5) Acute blood loss anemia: Plan: 2nd to recent hematemesis along with chest wall hematoma H/H remain stable s/p 2 units PRBCs earlier this admission (6) HTN (hypertension): Plan: Cont Toprol XL 50mg BID (7) HLD (hyperlipidemia): (8) Hypothyroid: Plan: Continue Levothyroxine (9) Weakness: Plan: multifactorial (10) Acute encephalopathy: Plan: checked ammonia - wnl checked VBG - no hypercarbia recent MRI Brain -- 04/13/22 -- no CVA, mets, etc toxic 2nd to marinol? would d/c would also d/c ativan consider repeat head CT if lethargy continues (11) PAF (paroxysmal atrial fibrillation): Plan: multiple runs of PAF overnight ideally would be on systemic anticoagulation but cannot due so due to large chest wall hematoma cont beta ralph add CCB if needed (12) Morbid obesity with BMI of 50.0-59.9, adult: Plan: BMI 57 (13) Acute respiratory failure with hypoxia: Plan: 2nd to pneumonia 2nd to PEs 2nd to malignant effusion on left cannot rule out element of pulmonary edema - 8 liters + since admission lasix 20mg IV x 1 now supportive care (14) Pulmonary emboli: Plan: seen on recent CTA chest cannot anticoagulate 2nd to chest wall hematoma (15) Malignant pleural effusion: Plan: left s/p recent thoracentesis loculated on cxr today (16) Hypomagnesemia: Plan: 2 gms mag sulfate IV x 1 repeat mag level am BMP noted to be wnl today Plan very very poor prognosis although tentative plan is transfer to [facility] on 04/27 for NJ tube placement at this time she is too sick, too altered, etc for safe transfer if she continues to decline would strongly recommend initiation of comfort care pathway and son updated at bedside Admission and Anticipated Discharge Date Admission Date: April 20, 2022 Subjective patient very sleepy during the visit she slept most of the time she would wake when I called her name but would quickly go back to sleep she would answer questions with basic answers - with her eyes closed /son at bedside they report she has been lethargic for much of this stay during the visit she had tachypnea and she had myoclonic jerks vs tremors of arms/legs tele overnight - runs of PAF recent admission (04/01 - 04/06/2022) for nausea/vomiting suspected secondary to gastric adenocarcinoma (diagnosed 04/07/22), pulmonary emboli (04/06/2022), and another recent admission (04/10 - 04/14/2022) for hematemesis, recent mediport placement (04/14/2022), also with a history L sided malignant pleural effusion s/p thoracentesis on 04/06/22 Review of Systems Review of Systems: Unobtainable due to cognitive status Physical Exam Physical Exam: gen - morbidly obese, tachypnea, lethargic, altered mouth - MM dry neck - JVD present chest - very large hematoma left upper chest in location of port; no active bleeding heart - tachy, irregular, s1 s2 lungs - course BS b/l, tachypnea, no wheeze abd - soft NT ND BS+ ext - pulses 2+ b/l, 1-2+ edema LLE, <1+ edema RLE psych - oriented to person only Results & Data Results & Data ([facility]) Vital Signs (Past 12 Hours) Vital Signs Temp Pulse Pulse Resp BP BP Pulse Ox 04/24/22 19:12 37.1 C 112 H 20 141/76 H 97 04/24/22 14:59 111 H 04/24/22 11:42 36.8 C 115 H 20 130/76 95 O2 Del Method O2 Flow Rate 04/24/22 19:12 Nasal Cannula 2 04/24/22 14:59 04/24/22 11:42 Nasal Cannula 2 Laboratory Results Laboratory Results - last 24 hr 04/24/22 04/24/22 04/24/22 05:43 05:43 06:05 WBC 14.92 H RBC 3.10 L Hgb 9.5 L Hct 28.1 L MCV 90.6 MCH 30.6 MCHC 33.8 RDW Std Deviation 49.1 H RDW Coeff of Lance 15.6 H Plt Count 257 MPV 10.3 Immature Gran % (Auto) 2.7 Neut % (Auto) 78.7 Lymph % (Auto) 4.3 Guadalupe % (Auto) 12.7 Eos % (Auto) 1.2 Baso % (Auto) 0.4 Neut # (Auto) 11.74 H Lymph # (Auto) 0.64 L [place]upe # (Auto) 1.90 H Eos # (Auto) 0.18 Baso # (Auto) 0.06 Immature Gran # (Auto) 0.40 H Absolute Nucleated RBC 0.10 H Nucleated RBC % (auto) 0.7 VBG pH VBG pCO2 VBG pO2 VBG HCO3 VBG O2 Saturation VBG Base Excess Sodium 135 L Potassium 3.5 Chloride 101 Carbon Dioxide 27 Anion Gap 7 BUN 29 H Creatinine 1.04 Est Cr Clr Drug Dosing 77.7 Est GFR ( Amer) 63.5 Est GFR (Non-Af Amer) 54.8 BUN/Creatinine Ratio 27.9 H Glucose 122 H POC Glucose 136 H Calcium 7.8 L Phosphorus 3.2 Magnesium 1.6 L Ammonia 04/24/22 04/24/22 04/24/22 11:39 15:27 15:27 WBC RBC Hgb Hct MCV MCH MCHC RDW Std Deviation RDW Coeff of Lance Plt Count MPV Immature Gran % (Auto) Neut % (Auto) Lymph % (Auto) [place]upe % (Auto) Eos % (Auto) Baso % (Auto) Neut # (Auto) Lymph # (Auto) [place]upe # (Auto) Eos # (Auto) Baso # (Auto) Immature Gran # (Auto) Absolute Nucleated RBC Nucleated RBC % (auto) VBG pH 7.45 H VBG pCO2 41 VBG pO2 42 VBG HCO3 29 VBG O2 Saturation 81.6 VBG Base Excess 4.1 Sodium Potassium Chloride Carbon Dioxide Anion Gap BUN Creatinine Est Cr Clr Drug Dosing Est GFR ( Amer) Est GFR (Non-Af Amer) BUN/Creatinine Ratio Glucose POC Glucose 147 H Calcium Phosphorus Magnesium Ammonia 23.0 04/24/22 04/25/22 18:04 00:11 WBC RBC Hgb Hct MCV MCH MCHC RDW Std Deviation RDW Coeff of Lance Plt Count MPV Immature Gran % (Auto) Neut % (Auto) Lymph % (Auto) [place]upe % (Auto) Eos % (Auto) Baso % (Auto) Neut # (Auto) Lymph # (Auto) [place]upe # (Auto) Eos # (Auto) Baso # (Auto) Immature Gran # (Auto) Absolute Nucleated RBC Nucleated RBC % (auto) VBG pH VBG pCO2 VBG pO2 VBG HCO3 VBG O2 Saturation VBG Base Excess Sodium Potassium Chloride Carbon Dioxide Anion Gap BUN Creatinine Est Cr Clr Drug Dosing Est GFR ( Amer) Est GFR (Non-Af Amer) BUN/Creatinine Ratio Glucose POC Glucose 125 H 148 H Calcium Phosphorus Magnesium Ammonia Diagnostic Findings Chest X-Ray 04/24/22 15:02 XR chest 1V portable HISTORY: Shortness of breath. pneumonia vs CHF COMPARISON: Chest 04/21/2022. FINDINGS: No pneumothorax. A left subclavian Port-A-Cath and a right PICC terminates at the SVC. Loculated left pleural effusion and a small right pleural effusion remain unchanged. Patchy bibasilar densities persist. There is mild central pulmonary vascular congestion without overt edema. IMPRESSION: 1. Overall, no significant change compared the prior study. 2. Cardiomegaly and mild congestive change persists. 3. Bilateral pleural effusions and bibasilar densities are also unchanged. ACT 112: Negative or not required by law. Electronically signed by: Calvin Cuellar M.D. 04/24/2022 5:24 PM PG Care Time/CCT Total # of Minutes Spent Total Time Spent with Patient: Total time spent is greater than 50% in coordination of care (as documented) at patient's floor/unit and/or counseling patient: Coding Level of Care Code 71148 Subseq Hosp Care Lvl 3 Diagnoses Chest wall hematoma S20.219A Pneumonia J18.9 Gastric adenocarcinoma C16.9 Deep vein thrombosis (DVT) I82.409 Acute blood loss anemia D62 HTN (hypertension) I10 HLD (hyperlipidemia) E78.5 Hypothyroid E03.9 Weakness R53.1 Acute encephalopathy G93.40 PAF (paroxysmal atrial fibrillation) I48.0 Morbid obesity with BMI of 50.0-59.9, adult E66.01; Z68.43 Acute respiratory failure with hypoxia J96.01 Pulmonary emboli I26.99 Malignant pleural effusion J91.0 Hypomagnesemia E83.42
[2022-04-24] MEDS ORDERED: STOP CLINOLIPID ONE (22:00)
[2022-04-25] MEDS: INSULIN ASPART PER UNIT SC SCH ×4 (00:16→18:20)
[2022-04-25] MEDS: METOCLOPRAMIDE HCL INJ 5 MG/ML 2 ML VIAL IV SCH ×4 (02:46→20:37)
[2022-04-25] MEDS: VANCOMYCIN HCL 1,000 MG in SODIUM CHLORIDE 0.9% 250 ML IV SCH ×2 (02:52→18:17)
[2022-04-25] MEDS: ALUMINUM/MAGNESIUM SUSP 30 ML UDC PO SCH ×3 (05:54→16:51)
[2022-04-25] MEDS: LEVOTHYROXINE SODIUM 75 MCG TABLET PO SCH (05:54)
[2022-04-25] MEDS: PIPERACILLIN/TAZOBACTAM 4.5 GM in DEXTROSE 5% 100 ML IV SCH ×3 (06:19→20:42)
[2022-04-25 06:31] LABS: Creatinine Clr Calc Pharmacy 75.5 ml/min; Est GFR (African American) 61.3 ml/min; Est GFR (Non-African American) 52.9 ml/min; Magnesium 1.8 mg/dl (1.7-2.4); Phosphorus 3.7 mg/dl (2.5-4.9); Potassium 3.9 mmol/L (3.5-5.1)
[2022-04-25] MEDS ORDERED: MAGNESIUM SULFATE / D5W 1 GM/100 ML BAG IV ONE (07:50)
[2022-04-25] MEDS ORDERED: FUROSEMIDE 40 MG/4 ML VIAL IV ONE (08:00)
[2022-04-25] MEDS: SUCRALFATE 1 GM/10 ML UDC PO SCH ×4 (09:25→20:36)
[2022-04-25] MEDS: METOPROLOL SUCC 50MG EXT REL TAB PO SCH ×2 (09:27→20:33)
[2022-04-25] MEDS: guaiFENesin 600 MG TABCR PO SCH ×2 (09:29→20:36)
[2022-04-25] MEDS: PANTOprazole 40 MG TAB PO SCH ×2 (09:29→20:28)
--- NOTE | 2022-04-25 11:10 | Hospitalist Progress Note ---
Date of Service April 25, 2022 Assessment & Plan (1) Acute respiratory failure with hypoxia: Plan: 2nd to pneumonia 2nd to PEs 2nd to malignant effusion on left 2nd to acute diastolic CHF - 8 liters + since admission lasix 20mg IV x 1 yesterday; will repeat 40mg IV x 1 this am; place [facility] supportive care (2) Chest wall hematoma: Plan: s/p mediport placement 04/14/2022 - complicated by chest wall hematoma development and acute blood loss anemia. Initial Hb 9.8. Dropped to low Hb of 6.7 s/p 2 units PRBCs. Recent H/H acceptable since the transfusion. Gen surg consulted - no I/D of chest wall hematoma at this time. All anticoagulation has been placed on hold. (3) Acute diastolic CHF (congestive heart failure): Plan: Ongoing. repeat lasix 40mg IV x 1. may need BID dosing. bmp am. echo 04/02/22 with preserved EF and normal valve function. (4) Pneumonia: Plan: LLL. ?aspiration. Remains on zosyn - day #6. MRSA + thus is on IV vancomycin - day #6. Plan 7 days in total. COVID negative at time of admission. (5) Gastric adenocarcinoma: Plan: EGD confirmed 04/05/22. Metastatic, stage 4. Patient got established with Dr. Bergeron recently. FOLFOX based chemo to be used [id number] if she is ever able to initiate such. Micheline Drew was in touch with surgical oncology @ [facility] - Dr. Thompson - by report is not a surgical candidate. Continue PPI and Carafate. Also on high-dose reglan and marinol. Latter stopped (concern for altered MS), former reduced due to ?EPS type side effects? Earlier in the admission NG tube was attempted but ultimately d/c. There was discussion about NJ tube placement at [facility] this coming Tuesday. Uncertain if she is a candidate for percutaneous j-tube placement under IR; NJ tube is not ideal for a number of reasons. WE HAD A LENGTHY DISCUSSION THIS AFTERNOON ABOUT ALL OF HER CURRENT PROBLEMS AND OPTIONS FOR CARE - AGGRESSIVE OPTIONS (TRANSFER TO [facility] WITH HOPES OF TUBE PLACEMENT, IVC FILTER PLACEMENT, ETC WITH GOAL OF STARTING CHEMO NEXT FEW WEEKS) VS hospice. She is uncertain - very overwhelmed - family to discuss this evening and let us know their wishes by Tuesday. (6) Deep vein thrombosis (DVT): Plan: Extensive - LLE. Seen by vascular surgery last admission who did not recommend IVC filter placement. HOWEVER - that was before she developed her large chest wall hematoma. Since the hematoma all systemic anticoagulation stopped. She is at HIGH RISK OF additional PEs given the extensive nature of the left leg DVTs. IVC filter is indicated. She is not an anticoagulation candidate. We do not have vascular support at minimum until Tuesday. (7) Acute blood loss anemia: Plan: 2nd to recent hematemesis along with chest wall hematoma H/H remain stable s/p 2 units PRBCs earlier this admission (8) HTN (hypertension): Plan: Cont Toprol XL 50mg BID (9) HLD (hyperlipidemia): (10) Hypothyroid: Plan: Continue Levothyroxine TSH 04/19/22 wnl (11) Weakness: Plan: multifactorial ongoing (12) Acute encephalopathy: Plan: checked ammonia - wnl checked VBG - no hypercarbia recent MRI Brain -- 04/13/22 -- no CVA, mets, etc suspect toxic 2nd to marinol - thus, d/c suspect metabolic from pneumonia - cont IV abx consider repeat head CT if lethargy recurs (13) PAF (paroxysmal atrial fibrillation): Plan: multiple runs of PAF 2 nights ago ideally would be on systemic anticoagulation but cannot due so due to large chest wall hematoma cont beta ralph add CCB if needed cannot rule out that ongoing sinus tachy is due to recurrent PEs (14) Morbid obesity with BMI of 50.0-59.9, adult: Plan: BMI 57 (15) Pulmonary emboli: Plan: seen on recent CTA chest cannot anticoagulate 2nd to chest wall hematoma needs IVC filter (16) Malignant pleural effusion: Plan: left s/p recent thoracentesis loculated on cxr yesterday this will likely worsen (17) Hypomagnesemia: Plan: repleted improved today (18) NSVT (nonsustained ventricular tachycardia): Plan: seen on tele this am recent echo with preserved EF K and mag wnl today monitor Plan very very poor prognosis even if aggressive measures are pursued remains DNR family to discuss wishes tonight and let us know in the am total time today 70 minutes - complex care coordination, long goals of care discussion, etc Admission and Anticipated Discharge Date Admission Date: April 20, 2022 Subjective 12-beat run of NSVT this am seen on tele - patient had no symptoms no further PAF 2 visits to see patient today - first was during AM rounds; 2nd was late afternoon - during latter visit was present, and daughter was on the phone (speaker) during AM rounds patient VERY AWAKE oriented x 3 she does not remember much of the last few days she is coughing denies dyspnea at rest but has dyspnea with moving in bed she is fatigued/tired she feels anxious and shaky during 2nd visit we spent 30-40 minutes discussing current issues - pneumonia, concern for volume overload, lack of nutrition, how to give that nutrition (NJ tube vs j-tube), ?transfer to [place] on Tuesday in prep for Tuesday NJ tube placement, need for IVC filter placement due to large chest wall hematoma, etc we discussed that if everything went perfectly and without complications the soonest we could do chemo would likely be 2+ weeks explained she is too sick to initiate chemo given all the different issues at hand patient very overwhelmed by all of the above information - isn't sure what she wants to do family supportive of what ever decision she makes I did impress upon them that the first priority would be IVC filter placement - likely needing this done at [place] (no vascular surgeon here at least until Tuesday, possibly later) Review of Systems Review of Systems: gen - tired/fatigued cv - no chest pain; +orthopnea (staff report laying her flat leads to respiratory distress) pulm - cough, wheeze, orthopnea, dyspnea with movement GI - no abd pain; no vomiting - incontinent Physical Exam Physical Exam: gen - morbidly obese, tachypnea, MUCH MORE AWAKE TODAY, alert, following commands mouth - MM dry neck - JVD present chest - very large hematoma left upper chest in location of port; no active bleeding; no change in size of hematoma; incision from port with mild drainage heart - tachy, irregular, s1 s2, no murmur lungs - course BS b/l, tachypnea, no wheeze, crackles b/l; decreased BS L base abd - soft NT ND BS+; +hepatojugular reflex ext - pulses 2+ b/l, 1-2+ edema LLE, <1+ edema RLE; PICC line RUE psych - oriented x 3 today; anxious neuro - mild tremor noted Results & Data Results & Data ([facility]) Vital Signs (Past 12 Hours) Vital Signs Temp Pulse Pulse Resp BP BP Pulse Ox 04/25/22 07:30 112 H 04/25/22 06:55 37.1 C 112 H 20 142/68 H 92 04/25/22 03:45 36.8 C 115 H 18 139/76 95 04/25/22 00:21 04/25/22 00:00 36.7 C 111 H 20 135/83 94 O2 Del Method O2 Flow Rate 04/25/22 07:30 04/25/22 06:55 Nasal Cannula 2 04/25/22 03:45 Nasal Cannula 2 04/25/22 00:21 Nasal Cannula 2 04/25/22 00:00 Nasal Cannula 2 Laboratory Results Laboratory Results - last 24 hr 04/24/22 04/24/22 04/24/22 11:39 15:27 15:27 VBG pH 7.45 H VBG pCO2 41 VBG pO2 42 VBG HCO3 29 VBG O2 Saturation 81.6 VBG Base Excess 4.1 Sodium Potassium Chloride Carbon Dioxide Anion Gap BUN Creatinine Est Cr Clr Drug Dosing Est GFR ( Amer) Est GFR (Non-Af Amer) BUN/Creatinine Ratio Glucose POC Glucose 147 H Calcium Phosphorus Magnesium Ammonia 23.0 04/24/22 04/25/22 04/25/22 18:04 00:11 05:48 VBG pH VBG pCO2 VBG pO2 VBG HCO3 VBG O2 Saturation VBG Base Excess Sodium 137 Potassium 3.9 Chloride 102 Carbon Dioxide 27 Anion Gap 8 BUN 31 H Creatinine 1.07 Est Cr Clr Drug Dosing 75.5 Est GFR ( Amer) 61.3 Est GFR (Non-Af Amer) 52.9 BUN/Creatinine Ratio 29.0 H Glucose 137 H POC Glucose 125 H 148 H Calcium 8.0 L Phosphorus 3.7 Magnesium 1.8 Ammonia 04/25/22 06:25 VBG pH VBG pCO2 VBG pO2 VBG HCO3 VBG O2 Saturation VBG Base Excess Sodium Potassium Chloride Carbon Dioxide Anion Gap BUN Creatinine Est Cr Clr Drug Dosing Est GFR ( Amer) Est GFR (Non-Af Amer) BUN/Creatinine Ratio Glucose POC Glucose 145 H Calcium Phosphorus Magnesium Ammonia PG Care Time/CCT Total # of Minutes Spent Total Time Spent with Patient: Total time spent is greater than 50% in coordination of care (as documented) at patient's floor/unit and/or counseling patient: Prolonged Care Time Prolonged Care Time: Yes Total Prolonged Care Time: 70 Coding Level of Care Code 85529 Subseq Hosp Care Lvl 3 (25 - SIGNIFICANT, SEPARATELY IDENTIFIABLE ) Diagnoses Acute respiratory failure with hypoxia J96.01 Chest wall hematoma S20.219A Acute diastolic CHF (congestive heart failure) I50.31 Pneumonia J18.9 Gastric adenocarcinoma C16.9 Deep vein thrombosis (DVT) I82.409 Acute blood loss anemia D62 HTN (hypertension) I10 HLD (hyperlipidemia) E78.5 Hypothyroid E03.9 Weakness R53.1 Acute encephalopathy G93.40 PAF (paroxysmal atrial fibrillation) I48.0 Morbid obesity with BMI of 50.0-59.9, adult E66.01; Z68.43 Pulmonary emboli I26.99 Malignant pleural effusion J91.0 Hypomagnesemia E83.42 NSVT (nonsustained ventricular tachycardia) I47.2 Additional Codes Prolonged Care Time - Prolonged Care Time: Yes ([id number]) Time Spent (min) 70
[2022-04-25] MEDS: NYSTATIN SUSP 500,000 U/5 ML UDC PO SCH ×3 (14:04→20:36)
[2022-04-25] MEDS ORDERED: CENTRAL TPN IV SCH (16:00)
[2022-04-25] MEDS ORDERED: [UNRECOGNIZED DRUG - OTHER] IV SCH (16:00)
[2022-04-25] MEDS ORDERED: AMINO ACID 8% IV SCH (16:00)
[2022-04-25] MEDS ORDERED: CLINOLIPID 20% IV FAT EMULSION 250 ML IV SCH (16:00)
[2022-04-25] MEDS: MONTELUKAST SODIUM 10 MG TABLET PO SCH (20:35)
[2022-04-26] MEDS: STOP CLINOLIPID ONE ×2 (00:28→00:39)
[2022-04-26] MEDS: ALUMINUM/MAGNESIUM SUSP 30 ML UDC PO SCH ×5 (00:30→23:48)
[2022-04-26] MEDS: INSULIN ASPART PER UNIT SC SCH ×3 (01:09→12:11)
[2022-04-26] MEDS ORDERED: LORazepam 0.5 MG in SYRINGE 0.25 ML IV STA (03:49)
[2022-04-26] MEDS: METOCLOPRAMIDE HCL INJ 5 MG/ML 2 ML VIAL IV SCH ×4 (03:56→20:50)
[2022-04-26] MEDS: PIPERACILLIN/TAZOBACTAM 4.5 GM in DEXTROSE 5% 100 ML IV SCH (05:51)
[2022-04-26] MEDS: LEVOTHYROXINE SODIUM 75 MCG TABLET PO SCH (05:52)
[2022-04-26] MEDS: LEVALBUTEROL HCL 0.63 MG/3 ML NEB NEB PRN ×2 (05:57→18:28)
[2022-04-26] MEDS: IPRATROPIUM BROMIDE NEB SOLN 0.02% 2.5 ML VIAL INH PRN ×2 (05:57→18:28)
[2022-04-26] MEDS ORDERED: MoRPHine SULFATE 2 MG/ML CARP IV STA (06:06)
[2022-04-26 06:34] LABS: Hemoglobin 9.9 g/dl (12.0-16.0); Mean Corpuscular Hemoglobin 30.4 pg (25.0-34.0); Mean Corpuscular Hgb Conc 31.9 g/dL (32.0-36.0); Mean Corpuscular Volume 95.1 fL (80.0-100.0); Mean Platelet Volume 10.4 fL (9.4-12.3); Nucleated RBC # (auto) 0.02 K/uL (0-0); Nucleated RBC % (auto) 0.1 %; Platelet Count 223 K/uL (130-400); RDW Coefficient of Variation 16.4 % (11.5-14.5); RDW Standard Deviation 54.6 fL (36.4-46.3); Red Blood Count 3.26 M/uL (3.93-5.22); White Blood Count 16.21 K/ul (4.8-10.8)
[2022-04-26 07:06] LABS: BUN Creatinine Ratio 35.2 (10-20); Calcium 8.3 mg/dl (8.5-10.1); Creatinine Clr Calc Pharmacy 77.1 ml/min; Est GFR (African American) 62.8 ml/min; Est GFR (Non-African American) 54.1 ml/min; Magnesium 1.9 mg/dl (1.7-2.4); Phosphorus 3.6 mg/dl (2.5-4.9); Potassium 3.9 mmol/L (3.5-5.1)
[2022-04-26] MEDS: NYSTATIN SUSP 500,000 U/5 ML UDC PO SCH ×4 (08:50→20:51)
[2022-04-26] MEDS: guaiFENesin 600 MG TABCR PO SCH ×2 (08:50→20:51)
[2022-04-26] MEDS: PANTOprazole 40 MG TAB PO SCH ×2 (08:50→20:51)
[2022-04-26] MEDS: SUCRALFATE 1 GM/10 ML UDC PO SCH ×4 (08:50→20:50)
[2022-04-26] MEDS: METOPROLOL SUCC 50MG EXT REL TAB PO SCH ×2 (08:52→20:51)
--- NOTE | 2022-04-26 10:10 | Pharmacy Report ---
Pharmacy PK ABX Note - Date of Service April 26, 2022 - Assessment and Plan Assessment 71 year old F receiving vancomycin + zosyn for treatment of pulmonary infection. Pertinent microbiologic data includes: Positive MRSA Nasal Swab. Day # 7 of antimicrobial therapy. Plan Vancomycin * Current regimen: 1000 mg IV every 18 hours * Random level obtained 04/26/22 resulted as 23 mcg/mL (~12hr level) * Predicted AUC at steady state = 471 mg/L.hr and 12% risk of toxicity * Continue current regimen * Will repeat level in the next 48 hours if therapy is continued and/or change in patient clinical status Zosyn 4.5g IV every 8 hours (ext infusion) Pharmacy will continue to follow and will adjust dose/frequency as necessary. Thank you. Pharmacy has transitioned to AUC monitoring for vancomycin. AUC/[place] is the pr eferred PK/PD target and is associated with decreased risk of nephrotoxicity compared to traditional trough targets.
[2022-04-26] MEDS: VANCOMYCIN HCL 1,000 MG in SODIUM CHLORIDE 0.9% 250 ML IV SCH (12:12)
--- NOTE | 2022-04-26 13:14 | Hospitalist Progress Note ---
Date of Service April 26, 2022 Assessment & Plan (1) Acute respiratory failure with hypoxia: Plan: - Multifactorial: PNA + CHF (diastolic) + L pleural effusion - Maintain supplemental O2 for support and remainder as outlined below (2) Malignant pleural effusion: Plan: - Now with loculated effusion of LLL and small RLL effusion - the loculated effusion likely reaccumulation from her pleural mets and right from some mild chf - Diuresed, supplemental O2 - Unfortunately, BP cannot support much more diuresis (3) Chest wall hematoma: Plan: Port site hematoma with ABLA - Hgb 9.8 on arrival, now down to 6.7 but remains HD stable - Transfer initiated to [facility] - Continued on lovenox on admit d/t h/o PE/DVT - Home tramadol for pain - General surgery consulted to assess for possible evacuation of hematoma * Seen by Dr. Smith on 04/21, no plans for evacuation at this time - Cannot ascertain while it it certainly possible if her hematoma is infected- low suspicion - CRP elevated with normal procalcitonin - Will consider repeating blood cultures, ESPECIALLY if she should spike a fever - Lovenox STOPPED 04/22 - HGB down to 6.7 04/23, obtained consent for blood transfusion. 2 units ordered with 40mg IV Lasix in between units. Premedicated with APAP and Bendaryl prior. - Hematoma size does appear to have improved slightly - Really at this point warrants IVC filter placement but have no vascular surgery available until tomorrow (4) Pneumonia: Plan: - Presented w/ leukocytosis to 17.1 (up from 10.2 on 04/14) and with increased LLL haziness on CXR - Patient is at risk for aspiration given nausea/vomiting - Started empirically on zosyn for now; MRSA nares ordered given recent inpatient stay and was positive, thus Vanco ordered - Add standing xopenex/atrovent d/t tachycardia - I/S and flutter valve - Added Mucinex 04/22 - Procalcitonin and CRP, 28 and 0.24 respectively on 04/22, very slowly trended down 25.49 and 0.21 on 04/23 - Supplemental O2 - wean as able - Has not been able to tolerate having a chest CT - Thus far has received total of 6 days of IV abx (5) Leukocytosis: Plan: - Continues to wax and wane, likely combination of her acute medical issues + malignancy (6) Gastric adenocarcinoma: Plan: With intractable n/v, poor oral intake, failure to thrive - Metastatic, stage 4 - Has seen Dr. Bergeron as inpatient with plans to start systemic chemotherapy - Given complication with mediport, cannot start chemo yet (w/o central access) - Did have a picc line placed in right arm that could be used to at least start chemo if needed - Regarding the tumor itself, pt and family are trying to establish care with surgical oncology @ [facility] - Dr. Thompson - Given her recurrent N/V, inability to tolerate PO and failure to thrive, she will need a g or j tube placed. Surgery here does not feel comfortable doing this and recommended transfer to tertiary. - Subsequently, transfer was initiated on admission to [facility] - Prior provider initiated TPN on 04/21 to bridge until peg tube can be placed. Pharmacy managing and also managing BSG elevations (nondiabetic) - Cautiously monitor electrolytes, replete as needed - Started on Dronabinol and Reglan. (Reglan previously attempted and of no benefit). Marinol increased to 5mg BID but stopped d/t increased somnolence. - Continue PPI and Carafate. Can add Maalox 15 ml QID staggered in between Carafate. - Per [place] recommendations, NJ tube recommended in order to start on TF, d/w [facility] and they agreed to take for the procedure on 04/27 (cannot be done here) (7) Deep vein thrombosis (DVT): Plan: - DVT/PE has been on treatment dose Lovenox - Seen by vascular surgery last admission who did not recommend IVC filter placement - Unfortunately, d/t large hematoma, cannot continue with systemic anticoagulation - Lovenox stopped 04/22 - IVC Filter is indicated in this case (8) Acute blood loss anemia: Plan: - Combination of blood loss from her GI tract d/t her gastric adenocarcinoma + marked chest wall hematoma - Remains HD stable - Blood ordered, H&H stable following transfusion (9) HTN (hypertension): Plan: - On Toprol XL 50mg BID, controlled (10) HLD (hyperlipidemia): Plan: - Chronic (11) Hypothyroid: Plan: - Continue Levothyroxine (12) Weakness: Plan: - PT/OT consulted - Has continued to worsen throughout her stay Plan Patient's systems development consultant prognosis is poor and her diagnosis is terminal. Given the confounding problems that have continued to accumulate throughout her stay, I am concerned that she would not make it to [facility] and back, OR could have a c omplication during the procedure with any form of anesthesia. I had a lengthy discussion again with the patient this morning with her and son on speaker phone. Sheyla has voiced wishes not to proceed with transfer to [facility] and would like to return home. She understands that by electing to stop all treatment that this will lead to her eventual and inevitable passing and she is wanting to pursue hospice care at this time. I have communicated Sheyla's wishes to case management who has reached out to [facility] home hospice care. They will take care of delivering a hospital bed for the patient today and can see her tomorrow. She will also need home O2 (for comfort). Will plan to arrange for her to be discharged to home tomorrow 04/27. We will continue TPN overnight and can discontinue tomorrow prior to discharge. Will stop accuchecks and IV antibiotics. Maintain antiemetics. Resume Venlafaxine (unsure as to why this was completely stopped and dose just not reduced). She was previously taking 225mg daily, will reduce to 150mg daily. Plan has been d/w Dr. Caraballo. Admission and Anticipated Discharge Date Admission Date: April 20, 2022 Subjective Sheyla was seen on rounds this morning. She seems pretty drowsy this morning but easily awakens and answers questions appropriately. She has remained fairly stable over the weekend other than some concerns for lethargy and somnolence in addition to a 12-beat run of NSVT on 04/25. Medication adjustments made including discontinuation of marinol which had been recently increased to 5mg BID assist with her n/v (from previous dose of 2.5mg BID) as well as discontinuation of her Venlafaxine which she has been on for several years. Reglan dose also reduced. Plan initially was for transfer today to [facility] for placement of NJ tube so that she could be started on tube feeds as she was too high of a risk of intolerance and aspiration with NGT. In addition, given her large chest wall hematoma, it was also discussed that she would warrant placement of an IVC. Per notes, patient was very overwhelmed with this information and was not sure how she wanted to proceed. This morning, pt got her on the phone (on speaker) as well as her son. They had discussed as a family yesterday evening that she wishes to go home and be kept comfortable. She is no longer interested in transfer to tertiary to pursue aggressive treatment. She understands that her time is limited and would prefer to spend it with her family as opposed to in and out of hospitals with no guarantees that she would gain any additional time. Review of Systems Review of Systems: All systems reviewed and are unremarkable except as noted in HPI and below. +generalized fatigue, CHIN, peripheral swelling. oozing of blood from hematoma site. swelling of left chest wall. Denies fever, chills, headache, nasal congestion, sore throat, chest pain, palpitations, orthopnea, PND, abdominal pain, n/v/d, constipation, dysuria, hematuria, frequency, back pain, joint pain or swelling. Physical Exam Physical Exam: GEN: 71 yo morbidly obese WF who appears chronically ill but nontoxic and NAD. LUNGS: Decreased in bases with scattered expiratory wheezes CARDIOVASCULAR: S1 S2 tachycardic ABDOMEN: Soft, non-tender and non-distended. BS normoactive x 4 quad. EXTREMITIES: 1+ LE edema. Non-tender. Peripheral pulses +2/4. NEUROLOGIC: A&O x3. Nonfocal PSYCHIATRIC: Cooperative. Appropriate mood and affect. SKIN: Warm, dry, intact. Diffuse ecchymosis. R chest wall with marked swelling over site of mediport with scant oozing, covered with optifoam. swelling appears to have improved from last week. nontender Results & Data Results & Data ([facility]) Vital Signs (Past 12 Hours) Vital Signs Temp Pulse Pulse Resp BP Pulse Ox O2 Del Method 04/26/22 12:12 36.6 C 106 H 18 100/69 97 Nasal Cannula 04/26/22 09:00 Nasal Cannula 04/26/22 07:38 36.6 C 111 H 20 131/79 91 Nasal Cannula 04/26/22 07:30 109 H 04/26/22 05:57 111 H 22 95 Nasal Cannula 04/26/22 05:43 113 H 04/26/22 05:11 109 H 04/26/22 03:25 36.8 C 112 H 20 145/80 H 93 Nasal Cannula O2 Flow Rate 09/05/22 12:12 2 04/26/22 09:00 2 04/26/22 07:38 2 04/26/22 07:30 04/26/22 05:57 2 04/26/22 05:43 04/26/22 05:11 04/26/22 03:25 2 Laboratory Results 04/26/22 06:01 04/26/22 06:01 PG Care Time/CCT Total # of Minutes Spent Total Time Spent with Patient: Total time spent is greater than 50% in coordination of care (as documented) at patient's floor/unit and/or counseling patient: Coding Level of Care Code 32054 Subseq Hosp Care Lvl 3 Diagnoses Acute respiratory failure with hypoxia J96.01 Malignant pleural effusion J91.0 Chest wall hematoma S20.219A Pneumonia J18.9 Leukocytosis D72.829 Leukocytosis type: unspecified Gastric adenocarcinoma C16.9 Deep vein thrombosis (DVT) I82.409 Acute blood loss anemia D62 HTN (hypertension) I10 HLD (hyperlipidemia) E78.5 Hypothyroid E03.9 Weakness R53.1 (1) Leukocytosis Leukocytosis type: unspecified Qualified Code(s): D72.829 - Elevated white blood cell count, unspecified
[2022-04-26] MEDS ORDERED: [UNRECOGNIZED DRUG - OTHER] IV SCH (16:00)
[2022-04-26] MEDS ORDERED: AMINO ACID 8% IV SCH ×2 (16:00)
[2022-04-26] MEDS ORDERED: [UNRECOGNIZED DRUG - OTHER] IV SCH (16:00)
[2022-04-26] MEDS ORDERED: CLINOLIPID 20% IV FAT EMULSION 250 ML IV SCH (16:00)
[2022-04-26] MEDS ORDERED: CENTRAL TPN IV SCH ×2 (16:00)
[2022-04-26] MEDS: MoRPHine SULFATE 2 MG/ML CARP IV PRN ×2 (18:33→23:47)
[2022-04-26] MEDS ORDERED: STOP CLINOLIPID ONE (22:00)
[2022-04-27] MEDS ORDERED: LORazepam 0.5 MG in SYRINGE 0.25 ML IV STA (01:04)
[2022-04-27] MEDS: MoRPHine SULFATE 2 MG/ML CARP IV PRN ×3 (03:21→11:33)
[2022-04-27] MEDS: METOCLOPRAMIDE HCL INJ 5 MG/ML 2 ML VIAL IV SCH ×2 (03:22→08:10)
[2022-04-27] MEDS: LEVOTHYROXINE SODIUM 75 MCG TABLET PO SCH (06:03)
[2022-04-27] MEDS: ALUMINUM/MAGNESIUM SUSP 30 ML UDC PO SCH ×2 (06:03→11:01)
[2022-04-27 06:26] LABS: Basophils # (auto) 0.12 K/uL (0-0.2); Basophils % (auto) 0.7 %; Eosinophils # (auto) 0.51 K/uL (0-0.50); Eosinophils % (auto) 2.8 %; Hematocrit (blood only) 33.2 % (34.1-44.9); Hemoglobin 10.3 g/dl (12.0-16.0); Immature Granulocytes # (auto) 0.68 K/uL (0.00-0.02); Immature Granulocytes % (auto) 3.7 %; Lymphocytes # (auto) 0.81 K/uL (1.2-3.4); Lymphocytes % (auto) 4.4 %; Mean Corpuscular Volume 96.8 fL (80.0-100.0); Mean Platelet Volume 10.8 fL (9.4-12.3); Monocytes # (auto) 2.12 K/uL (0.24-0.82); Monocytes % (auto) 11.5 %; Neutrophils # (auto) 14.12 K/uL (1.4-6.5); Neutrophils % (auto) 76.9 %; Platelet Count 211 K/uL (130-400); RDW Coefficient of Variation 16.1 % (11.5-14.5); RDW Standard Deviation 56.5 fL (36.4-46.3); Red Blood Count 3.43 M/uL (3.93-5.22); White Blood Count 18.36 K/ul (4.8-10.8)
[2022-04-27 07:04] LABS: BUN Creatinine Ratio 45.8 (10-20); Calcium 8.5 mg/dl (8.5-10.1); Creatinine Clr Calc Pharmacy 84.3 ml/min; Est GFR (African American) 69.9 ml/min; Est GFR (Non-African American) 60.3 ml/min; Potassium 4.5 mmol/L (3.5-5.1)
[2022-04-27] MEDS: SUCRALFATE 1 GM/10 ML UDC PO SCH ×2 (07:40→11:01)
[2022-04-27] MEDS: guaiFENesin 600 MG TABCR PO SCH (08:10)
[2022-04-27] MEDS: METOPROLOL SUCC 50MG EXT REL TAB PO SCH (08:10)
[2022-04-27] MEDS: NYSTATIN SUSP 500,000 U/5 ML UDC PO SCH (08:10)
[2022-04-27] MEDS: PANTOprazole 40 MG TAB PO SCH (08:10)
[2022-04-27] MEDS: LEVALBUTEROL HCL 0.63 MG/3 ML NEB NEB PRN (08:32)
[2022-04-27] MEDS: IPRATROPIUM BROMIDE NEB SOLN 0.02% 2.5 ML VIAL INH PRN (08:32)
[2022-04-27] MEDS ORDERED: VENLAFAXINE HCL XR 150 MG CAPXR PO SCH (09:00)
[2022-04-27] MEDS ORDERED: VENLAFAXINE HCL XR 75 MG CAPXR PO SCH (09:00)
[2022-04-27] MEDS ORDERED: LORazepam 0.5 MG TAB PO STA (10:44)
--- NOTE | 2022-04-27 11:03 | Discharge Summary ---
Date of Service April 27, 2022 Admission HPI Per Admitting Provider 71yo female with a history of recent admission (04/01 - 04/06/2022) for nausea/vomiting suspected secondary to gastric adenocarcinoma (diagnosed 04/07/22), pulmonary emboli (04/06/2022), and another recent admission (04/10 - 04/14/2022) for hematemesis, recent mediport placement (04/14/2022), also with a history of pleural effusions (suspected malignant in nature due to gastric adenocarcinoma; underwent thoracentesis on 04/06), HTN, HLD, hypothyroidism, mild intermittent asthma, and anxiety presents with a few-day history of port site hematoma in addition to generalized weakness and inability to tolerate PO. Symptoms began gradually. Patient denies any trauma to the chest. Patient had some nausea yesterday with four episodes of nonbloody, nonbilious vomiting; her nausea has improved today. Patient denies fever, chills, headache, vision changes, abdominal pain, dysuria, hematochezia, melena, dizziness, numbness, tingling, or other symptoms. Patient had planned to establish care with Dr. Franks (surgical oncology) at [facility] for possible feeding tube placement after our general surgery team at [facility] felt patient was too medically complex for feeding tube placement at our facility secondary to malignancy. Patient was unable to get an appointment with Dr. Franks due to delay with records being sent over, and is requesting transfer to [facility] after surgical evaluation of her port. [facility] Upon arrival, vitals were notable for tachycardia (100s); BP controlled, no tachypnea, patient afebrile, spO2 adequate on room air. Initial labs were notable for leukocytosis (17.1), mild anemia (9.8), hypomagnesemia (1.3), elevated alk phos (114), and hypoalbuminemia (2.7). Platelets wnl, no other electrolyte abnormalities, AST and ALT wnl, Tbili not elevated, TSH wnl, covid PCR negative. In the ED, patient received mag sulfate 1g IV (x2 bags), was started on NSS @ 125mL/hr, and was started on dilaudid 0.25mg IV q1h prn. Surrogate decision-maker in case of an emergency: Abdullahi Figueroa (cell: [phone]) Principal Diagnosis 1. Metastatic gastric adenocarcinoma 2. Chest wall hematoma s/p mediport insertion 3. Acute blood loss anemia d/t #2 4. Pneumonia, suspected aspiration 5. Acute diastolic CHF 6. Protein calorie malnutrition 7. Malignant pleural effusion Discharge Exam GEN: 71 yo morbidly obese WF who appears chronically ill but nontoxic and NAD. LUNGS: Decreased in bases with scattered expiratory wheezes CARDIOVASCULAR: S1 S2 tachycardic ABDOMEN: Soft, non-tender and non-distended. BS normoactive x 4 quad. EXTREMITIES: 1+ LE edema. Non-tender. Peripheral pulses +2/4. NEUROLOGIC: A&O x3. Nonfocal PSYCHIATRIC: Cooperative. Appropriate mood and affect. SKIN: Warm, dry, intact. Diffuse ecchymosis. R chest wall with marked swelling over site of mediport with scant oozing, covered with optifoam. swelling appears to have improved from last week. nontender Discharge Data Allergies Allergy/AdvReac Type Severity Reaction Status Date / Time amlodipine Allergy Severe SHORT OF Verified 04/10/22 22:23 BREATH losartan [From Cozaar] Allergy Severe SHORT OF Verified 04/10/22 22:23 BREATH cefazolin Allergy Mild PATIENT Verified 04/10/22 22:23 HAD GENERALIZED ITCHING JUST AFTER ANCEF WAS STARTED lisinopril AdvReac Intermediate Cough Verified 04/10/22 22:23 Consultations 04/20/22 00:34 ED Decision to Admit Stat 04/21/22 12:35 Consult General Surgery Routine Ordered Studies Chest X-Ray 04/19/22 16:35 XR chest 1V portable CLINICAL HISTORY: weakness TECHNIQUE: Single frontal radiograph of the chest was obtained. Comparison: Comparison is made to chest radiograph 04/06/[address] abdomen pelvis 04/11/2022 FINDINGS: Exam is limited by underpenetration. Interval placement of a left portacatheter. The cardiomediastinal silhouette is normal. Lungs are underinflated but clear. Left lower lung airspace opacity is suggested, although a component of soft tissue may exaggerate this appearance no pneumothorax is seen, a left pleural effusion cannot be excluded. IMPRESSION: There is concern for a left airspace opacity which may represent aspiration/pneumonia. Possible left effusion as well. There is bilateral atelectasis. If there is clinical uncertainty, CT or a lateral chest radiograph can be obtained. ACT 112: Negative or not required by law. Electronically signed by: Jw So M.D. 04/19/2022 5:06 PM KUB X-Ray 04/19/22 16:56 XR KUB/Abdomen 1 view CLINICAL HISTORY: ? Obstruction TECHNIQUE: 1 view of the abdomen was obtained. Comparison: Comparison is made to chest and abdomen radiographs 04/01/[address] abdomen pelvis 04/11/2022 FINDINGS: Lung bases are unremarkable. Degenerative changes are seen in the visualized skeleton. The bowel gas pattern is nonobstructive. Small stool burden is seen. IMPRESSION: Nonobstructive bowel gas pattern. ACT 112: Negative or not required by law. Electronically signed by: Jw So M.D. 04/19/2022 7:02 PM Chest X-Ray 04/21/22 09:25 XR chest 1V portable HISTORY: Weakness. Abnormal chest x-ray. Follow-up. COMPARISON: Chest 04/06/2022 and 04/19/2022. FINDINGS: Increase in size in the partially loculated moderate left pleural effusion. Left basilar densities persist. No pneumothorax. The heart is top normal in size. Hazy appearance to the right midlung zone is also new from the prior study and may represent a small right pleural effusion or developing airspace opacity. Left subclavian Port-A-Cath terminates at the SVC. No evidence for pulmonary edema. IMPRESSION: 1. Increase in size in the partially loculated moderate left pleural effusion. The left basilar densities remain unchanged and may represent atelectasis or pneumonia. 2. There is a new hazy density within the right midlung zone which may represent a small right pleural effusion or developing airspace opacity. ACT 112: Negative or not required by law. Electronically signed by: Calvin Cuellar M.D. 04/21/2022 12:44 PM Chest X-Ray 04/21/22 12:33 XR chest 1V portable CLINICAL HISTORY: after PICC placement COMPARISON STUDY: Chest CT April 11, 2022. Chest radiograph April 21, 2022. FINDINGS: The tip of the right PICC projects over the proximal SVC. Left subclavian [place] is in place. There is no pneumothorax. A small loculated left pleural effusion is again noted. There is persistent interstitial thickening with possible pulmonary vascular congestion. IMPRESSION: 1. Tip of right PICC projects over the proximal SVC. 2. No pneumothorax. 3. Redemonstration of a loculated small left pleural effusion. 4. Pulmonary vascular congestion with suspected mild pulmonary edema. ACT 112: Negative or not required by law. Electronically signed by: Jag Milian M.D. 04/21/2022 8:07 PM KUB X-Ray 04/22/22 19:48 KUB CLINICAL HISTORY: Enteric tube placement. FINDINGS: An AP portable view of the lower chest and upper abdomen is compared to study dated 04/19/2022. An enteric tube has been placed. The tip projects below the diaphragm over the proximal stomach. There is no evidence of bowel obstruction on the provided image. Consolidation is seen at the left lung base. IMPRESSION: 1. An enteric tube has been placed as above. 2. Airspace consolidation is seen at the left lung base. Electronically signed by: Babatunde Juarez M.D. 04/23/2022 1:48 PM Chest X-Ray 04/24/22 15:02 XR chest 1V portable HISTORY: Shortness of breath. pneumonia vs CHF COMPARISON: Chest 04/21/2022. FINDINGS: No pneumothorax. A left subclavian Port-A-Cath and a right PICC terminates at the SVC. Loculated left pleural effusion and a small right pleural effusion remain unchanged. Patchy bibasilar densities persist. There is mild central pulmonary vascular congestion without overt edema. IMPRESSION: 1. Overall, no significant change compared the prior study. 2. Cardiomegaly and mild congestive change persists. 3. Bilateral pleural effusions and bibasilar densities are also unchanged. ACT 112: Negative or not required by law. Electronically signed by: Calvin Cuellar M.D. 04/24/2022 5:24 PM Hospital Course (1) Acute respiratory failure with hypoxia: - Multifactorial: PNA + CHF (diastolic) + L pleural effusion - Maintain supplemental O2 for support and remainder as outlined below (2) Malignant pleural effusion: - Now with loculated effusion of LLL and small RLL effusion - the loculated effusion likely reaccumulation from her pleural mets and right from some mild chf - Diuresed, supplemental O2 - Unfortunately, BP has been variable but mostly low-normal. Not stable enough to support aggressive diuresis. (3) Chest wall hematoma: Port site hematoma with ABLA - Hgb 9.8 on arrival, now down to 6.7 but remains HD stable - Transfer initiated to [facility] - Continued on lovenox on admit d/t h/o PE/DVT - Home tramadol for pain - General surgery consulted to assess for possible evacuation of hematoma * Seen by Dr. Smith on 04/21, no plans for evacuation at this time - Cannot ascertain while it it certainly possible if her hematoma is infected- low suspicion - CRP elevated with normal procalcitonin - Will consider repeating blood cultures, ESPECIALLY if she should spike a fever - Lovenox STOPPED 04/22 - HGB down to 6.7 04/23, obtained consent for blood transfusion. 2 units ordered with 40mg IV Lasix in between units. Premedicated with APAP and Bendaryl prior. - Hematoma size does appear to have improved slightly - Really at this point warrants IVC filter placement but have not had vascular surgery available (4) Pneumonia: - Presented w/ leukocytosis to 17.1 (up from 10.2 on 04/14) and with increased LLL haziness on CXR - Patient is at risk for aspiration given nausea/vomiting - Started empirically on zosyn for now; MRSA nares ordered given recent inpatient stay and was positive, thus Vanco ordered - Add standing xopenex/atrovent d/t tachycardia - I/S and flutter valve - Added Mucinex 04/22 - Procalcitonin and CRP, 28 and 0.24 respectively on 04/22, very slowly trended down 25.49 and 0.21 on 04/23 - Supplemental O2 - wean as able - Has not been able to tolerate having a chest CT - Thus far has received total of 6 days of IV abx (5) Leukocytosis: - Continues to wax and wane, likely combination of her acute medical issues + malignancy (6) Gastric adenocarcinoma: With intractable n/v, poor oral intake, failure to thrive - Metastatic, stage 4 - Has seen Dr. Bergeron as inpatient with plans to start systemic chemotherapy - Given complication with mediport, cannot start chemo yet (w/o central access) - Did have a picc line placed in right arm that could be used to at least start chemo if needed - Regarding the tumor itself, pt and family are trying to establish care with surgical oncology @ [facility] - Dr. Thompson - Given her recurrent N/V, inability to tolerate PO and failure to thrive, she will need a g or j tube placed. Surgery here does not feel comfortable doing this and recommended transfer to tertiary. - Subsequently, transfer was initiated on admission to [facility] - Prior provider initiated TPN on 04/21 to bridge until peg tube can be placed. Pharmacy managing and also managing BSG elevations (nondiabetic) - Cautiously monitor electrolytes, replete as needed - Started on Dronabinol and Reglan. (Reglan previously attempted and of no benefit). Marinol increased to 5mg BID but stopped d/t increased somnolence. - Continue PPI and Carafate. Can add Maalox 15 ml QID staggered in between Carafate. - Per [place] recommendations, [place] tube recommended in order to start on TF, [place] [facility] [place] agreed to take for the procedure on 04/27 (cannot be done here) (7) Deep vein thrombosis (DVT): - DVT/PE has been on treatment dose Lovenox - Seen by vascular surgery last admission who did not recommend IVC filter placement - Unfortunately, d/t large hematoma, cannot continue with systemic anticoagulation - Lovenox stopped 04/22 - IVC Filter is indicated at this time (8) Acute blood loss anemia: - Combination of blood loss from her GI tract d/t her gastric adenocarcinoma + marked chest wall hematoma - Remains HD stable - Blood ordered, H&H stable following transfusion (9) HTN (hypertension): - On Toprol XL 50mg BID, controlled (10) HLD (hyperlipidemia): - Chronic (11) Hypothyroid: - Continue Levothyroxine (12) Weakness: - PT/OT consulted - Has continued to worsen throughout her stay Plan Patient's custodial prognosis is poor and her diagnosis is terminal. Given the confounding problems that have continued to accumulate throughout her stay, I am concerned that she would not make it [place] [facility] and [place], OR could have a complication during the procedure with any form of anesthesia. I had a lengthy discussion again with the patient this morning with her and son on speaker phone. Sheyla has voiced wishes not to proceed with transfer to [facility] and would like to return home. She understands that by electing to stop all treatment that this will lead to her eventual and inevitable passing and she is wanting to pursue hospice care at this time. I have communicated Sheyla's wishes to case management who has reached out to [facility] home hospice care. They will take care of delivering a hospital bed, supplies, and medications for the patient today. She will be discharged home today with hospice care. Case management has arranged transport for 1300. Family and patient have been updated on her estimated departure. Plan has been d/w Dr. Caraballo who has also seen and evaluated this patient prior to discharge and is in agreement with the aforementioned. Total Time Total Time Spent Total Time Spent (In Minutes): >30 minutes Discharge Plan Discharge Items Patient Disposition: Hospice - Home Reason For Visit: PORT SITE HEMATOMA, GASTRIC ADENOCARCINOMA Discharge Diagnosis: stomach cancer, pneumonia, chest wall hematoma, blood clots Activity: As commented below Activity Comment: bedrest Non-emergency contact: Primary Care Provider Call non-emergency contact if: you have any medication questions and your pain is not controlled Follow-up/Referrals: Kitty Herrmann MD [Primary Care Provider] - Diet: Regular Addtl Attending Provider Instructions: You have been hospitalized with an array of medical issues since your last discharge. Unfortunately, the port that was placed by general surgery in hopes to start you on chemotherapy developed a large collection of blood overtop. This was a risk of given that you were requiring Lovenox to treat your blood clots. In addition, you were found to have evidence of pneumonia as well as excessive amount of fluid. To treat these issues, we stopped your Lovenox. You were started on IV antibiotics and provided breathing treatments and oxygen. You were also given medications to help get rid of the extra fluid that was in your legs and lungs. You were also started on a type of nutrition through your IV called TPN due to your ongoing intolerance of food/liquid to try and improve your nutrition. There was discussion with tertiary facilities at [place] and [place] regarding equipment operator intermodal yard plans for nutrition which would have included you undergoing a procedure to place a tube through your nose and into your small intestine. Also, you were going to need placement of an inferior vena cava blood clot filter. This also could not be done here due to our lack of available vascular surgeon. Despite our best efforts, your complex medical conditions have continued to accumulate and you along with the support of your family have elected to return home with hospice care. Case management has been in touch with [facility] Hospice care to arrange for the supplies and medications you will need to support your return home. If you have any questions following your discharge, please call the nonemergency number listed on your discharge paperwork. Pending Studies at Discharge: No Stand-Alone Forms: My [facility] Medications and DC Order Prescriptions: Continued venlafaxine 150 mg capsule,extended release 24hr 150 mg PO DAILY Rx Instructions: TOTAL DOSE 225 MG--TAKES WITH 75 MG CAP. levothyroxine 75 mcg tablet 75 mcg PO DAILYBB albuterol sulfate 90 mcg/actuation Hfa Aerosol Inhaler 1 - 2 puff INHALATION Q4H PRN (Reason: COUGH/WHEEZING) sucralfate 100 mg/mL suspension 10 ml PO ACHS nystatin [Nystop] 100,000 unit/gram powder 1 applic TOPICAL TID PRN (Reason: Rash) metoprolol succinate 50 mg tablet extended release 24 hr 50 mg PO BID Qty: 60 0RF pantoprazole 40 mg tablet,delayed release (DR/EC) 40 mg PO BID Qty: 60 0RF ondansetron 8 mg tablet,disintegrating 8 mg PO .Q6HR, DURING DAY Rx Instructions: HAS BEEN TAKING 0600, 1200, 1800 Discontinued venlafaxine 75 mg capsule,extended release 24hr 75 mg PO DAILY Rx Instructions: TOTAL DOSE 225 MG--TAKES WITH 150 MG CAP. montelukast 10 mg tablet 10 mg PO QPM polyethylene glycol 3350 [Miralax] 17 gram/dose Powder 17 g PO DAILY PRN (Reason: Constipation) tramadol 50 mg tablet 50 mg PO Q4H PRN (Reason: pain) Qty: 18 0RF enoxaparin [Lovenox] 150 mg/mL Syringe 150 mg subcut BID Qty: 0 0RF Discharge Orders: Discharge Order (Routine); Ordered 04/27/22 Ordered By: Micheline Drew Admission Data Admit Date/Time: 04/20/22 01:16 Attending Provider: Mehdi Caraballo Admit Provider: Eliu Larsen Primary Care Provider: Kitty Herrmann Other Providers: [facility],Home Healthcare ; David Olmstead ; Moses Smith Other Interventions: Discharge Summary Assessment (RN) Last Done: 04/27/22 10:48 Coding Level of Care Code D/C DAY MANAGEMENT >30 MINS Diagnoses Acute respiratory failure with hypoxia J96.01 Malignant pleural effusion J91.0 Chest wall hematoma S20.219A Pneumonia J18.9 Leukocytosis D72.829 Leukocytosis type: unspecified Gastric adenocarcinoma C16.9 Deep vein thrombosis (DVT) I82.409 Acute blood loss anemia D62 HTN (hypertension) I10 HLD (hyperlipidemia) E78.5 Hypothyroid E03.9 Weakness R53.1
== END 2022-04-27 13:23 | disposition hospice, home (50) | DRG 919 ==
LOC: ED 16:04 → SUATTDRO 04-20 01:16 → 2N 04-20 01:16